=== PATIENT | male | born 1960 | race Caucasian/White ===

== ENCOUNTER → 2016-07-03 | Outpatient (CLI) | payer OTHER, MEDICARE ==
[~2016-07-03] MED LIST: AMIO200T4 PO; ASPI81TA82 PO; ATOR-24 PO; CLC100 PO; CRD200 PO; FLUT0.0529 NAE; FURO40TA3 PO; GFNSR600 PO; LDDP5 TD; LEVO25TA PO; LEVO75TA PO; LISI-461 PO; LISI-789 PO; MRLP17 NG; NYSS5 PO; PRED10TA PO; PRT40 PO; PRVIN525 INH; TPRSR50 PO; TRAM-10 PO
[2016-07-03 14:29] LABS: ESTIMATED AVERAGE GLUCOSE 137 mg/dl; HA1C FLAG Normal (Normal)
[2016-07-03 14:31] LABS: BASO % 0.1 %; BASO ABS # 0.01 K/uL (0-0.2); COMPLETE YES; EOS % 1.1 %; HEMATOCRIT 47.5 % (42-52); IG% 0.1 %; LYMPH % 32.6 %; MEAN CELL VOLUME 89.5 fL (80-100); MEAN CORPUSCULAR HEMOGLOBIN 31.1 pg (25-34); MEAN CORPUSCULAR HGB CONC 34.7 g/dl (32-36); MONO % 10.2 %; NEUT % 55.9 %; PLATELET COUNT 182 K/uL (130-400); RED BLOOD COUNT 5.31 M/uL (4.7-6.1); WHITE BLOOD COUNT 7.06 K/uL (4.8-10.8)
[2016-07-03 14:41] LABS: ALT/SGPT 48 U/L (12-78); AST/SGOT 26 U/L (15-37); BLOOD UREA NITROGEN 19 mg/dl (7-18); BUN/CREATININE RATIO 17.5 (10-20); CALCIUM 9.1 mg/dl (8.5-10.1); CARBON DIOXIDE 29 mmol/L (21-32); CHLORIDE 107 mmol/L (98-107); GLUCOSE 120 mg/dl (70-99); POTASSIUM 4.5 mmol/L (3.5-5.1); SODIUM 143 mmol/L (136-145)
[2016-07-03 14:52] LABS: ALB/GLOB RATIO 1.3 (0.9-2); ALKALINE PHOSPHATASE 39 U/L (45-117); CHOLESTEROL 105 mg/dl (0-200); HDL CHOLESTEROL 35 mg/dl; LDL CHOLESTEROL CALCULATED 58 mg/dl; TRIGLYCERIDES 61 mg/dl (0-150); VERY LOW DENSITY LIPOPROT CALC 12 mg/dl
--- NOTE | 2016-07-11 10:36 | CODING QUERY MEDICAL NECESSITY ---
SUPPORTING DIAGNOSIS NEEDED Dr. Raza, A supporting diagnosis is required for the test/procedure performed on this patient in order for us to be reimbursed by the patient's insurance. Please provide a supporting diagnosis for the following test/procedure listed below next to the test name along with your signature. *If there is no additional diagnosis for this patient that would support the following test/procedure please document that below next to the test/procedure. Test(s)/Procedure(s) that require a supporting diagnosis: * 31521 GLYCATED HEMOGLOBIN DIAGNOSIS: * [id number] PSA DIAGNOSIS: DATE OF SERVICE: 07/03/16 Provider Signature: Date: Thank you Daniel Galicia Health Information Management Once completed, please kindly fax back to [phone] For questions please call [phone]
== END | disposition home or self-care (01) ==
LOC: C.LABBC 11:22
PROVIDERS: ATTEND Internal Medicine
DX: Z72.0 Tobacco use (principal); R73.03 Prediabetes

== ENCOUNTER 2016-08-04 20:03 | Inpatient (IN) | payer OTHER, MEDICARE ==
[~2016-08-04] VITALS: Ht 170.2 cm; Wt 106.4 kg
[~2016-08-04 20:03] MED LIST changes: -AMIO200T4 PO; -ATOR-24 PO; -CLC100 PO; -CRD200 PO; +FENTANYL CITRATE 50 MCG/1 ML 20 ML AMP IV ONE; -FURO40TA3 PO; -GFNSR600 PO; -LDDP5 TD; -LEVO75TA PO; -LISI-789 PO; +MIDAZOLAM HCL 5 MG/ML 2ML VIAL IV ONE; -MRLP17 NG; -NYSS5 PO; -PRED10TA PO; -PRT40 PO; -PRVIN525 INH; +SODIUM CHLORIDE 0.9% 10ML FLUSH IV ONE; -TRAM-10 PO
[2016-08-04] MEDS ORDERED: RAPID SEQUENCE INDUCTION BAG ONE (20:05)
[2016-08-04] MEDS ORDERED: PROPOFOL IV EMULSION 10 MG/ML 20 ML VIAL IV ONE (20:05)
[2016-08-04] MEDS ORDERED: SODIUM CHLORIDE 0.9% 1000ML 1,000 ML IV STA (20:07)
[2016-08-04] MEDS ORDERED: PROPOFOL IV EMULSION 10 MG/ML 100 ML VIAL IV ONE (20:09)
[2016-08-04] MEDS ORDERED: FENTANYL 1250MCG/250ML NSS 250 ML IV SCH (20:11)
[2016-08-04] MEDS ORDERED: PROPOFOL IV EMULSION 10 MG/ML 100 ML VIAL IV STA (20:11)
[2016-08-04] MEDS ORDERED: AMIODARONE IV BOLUS / DRIP IV STA (20:11)
[2016-08-04] MEDS ORDERED: SODIUM CHLORIDE 0.9% 1000ML 1,000 ML IV SCH (20:11)
--- NOTE | 2016-08-04 20:13 | EMERGENCY ROOM VISIT NOTE ---
History Report prepared by Masoud: Candido Gill Under the Supervision of: Dr. Teresa Muhammad M.D. First contact with patient: 20:02 Chief Complaint: CARDIAC ARREST Stated Complaint: CODE ARCTIC History of Present Illness The patient is a 56 year old who presents to the Emergency Room with complaints of a sudden cardiac arrest beginning just prior to arrival. It is noted the medical command call was answered at 1955. As per EMS, the patient fell backwards at work at [facility]. They note a downtime of 22 minutes. EMS states the patient received 4 Epis, 100 mg Lidocaine, and 3 shock defibrillations. They note the patient's blood pressure is currently 106/86 and has an oxygen stat of 98% on the tube. EMS associates a wound on the back of the patient's head associated with his fall. They note they arrived to the scene approximately three minutes after the call was received. The history is limited secondary to intubation. Source of History: EMS History Limited By: intubation Onset: just prior to arrival Position: other (global) Quality: other (cardiac arrest) Timing: other (sudden) Note: Associated symptoms: wound on the back of the head. Review of Systems The HPI and ROS are limited secondary to intubation. Past Medical & Surgical Medical Problems: (1) [place]STI[place]N (acute kidney injury) (2) Arterial line in place (3) Bilateral pulmonary contusion (4) Central venous catheter in place (5) Chest tube in place (6) Heart disease (7) High anion gap metabolic acidosis (8) Hypernatremia (9) Hypertension (10) Hyponatremia (11) Lactic acidemia (12) Learning difficulty due to cognitive limitations (13) Shock liver (14) Transaminitis Family History Diabetes mellitus FH: heart disease Hypertension Social History Smoking Status: Never Smoker Alcohol Use: none Marital Status: single Occupation Status: employed Current/Historical Medications Scheduled Aspirin (Aspirin), 81 MG PO DAILY Fluticasone Propionate (Nasal) (Flonase), 2 SPRAYS SUNNY DAILY Levothyroxine Sodium (Synthroid), 25 MCG PO DAILY Lisinopril (Lisinopril), 10 MG PO DAILY Metoprolol Succinate (Metoprolol Succinate ER), 50 MG PO DAILY Allergies Coded Allergies: No Known Allergies (Verified , 09/30/13) Physical Exam Vital Signs Date Time Temp Pulse Resp B/P Pulse Ox O2 Delivery O2 Flow Rate FiO2 2/18/17 22:40 105 16 100 1817 22:38 140/87 18/17 22:35 105 17 100 1817 22:33 132/97 1817 22:30 103 16 100 18/17 22:30 36.0 18 22:28 130/81 18/17 22:25 104 16 99 18 22:23 134/85 08/04/16 22:20 103 18 100 1817 22:18 126/76 1817 22:15 102 16 100 18 22:15 36.0 08/04/16 22:13 104 16 128/76 100 08/04/16 22:09 127/74 08/04/16 22:08 103 15 75 08/04/ 22:04 103 08/04/16 22:03 108 14 138/83 80 08/04/16 21:58 97 16 123/72 93 17 21:53 100 16 121/75 93 1817 21:48 102 15 135/78 84 18/17 21:45 36.1 17 21:43 98 13 126/69 89 18/17 21:38 99 8 128/73 99 18/17 21:33 100 17 126/74 99 18/17 21:28 102 23 132/70 94 18/17 21:23 100 17 119/69 93 18/17 21:18 110 17 126/74 87 1817 21:13 98 19 115/59 99 1817 21:08 103 22 116/67 97 18/17 21:03 104 13 101/66 97 18/17 20:58 103 19 92/54 97 18/17 20:55 37.6 18/17 20:55 37.6 18/17 20:54 99/68 18/17 20:53 101 29 89 218/17 20:48 100 92/62 91 18/17 20:43 99 82/66 89 18/17 20:40 86/57 18/17 20:26 136 18/17 20:25 137 119/91 85 Ambu-Bag 2/18/17 20:18 126 2 20:15 119/91 08/04/16 20:13 136 86 08/04/16 20:08 52/41 08/04/16 20:03 37.6 08/04/16 20:03 86 Ambu-Bag 15.0 Physical Exam CONSTITUTIONAL: Intubated. Unresponsive. HEENT: Moist mucous membranes. Ett in place NECK: No meningismus, trachea is midline. CARDIOVASCULAR: Tachycardic, normal perfusion RESPIRATORY: Bilateral breath sounds with assisted ventilation. GASTROINTESTINAL: Non-tender GENITOURINARY: No flank tenderness MUSCULOSKELETAL: No gross abnormalities NEUROLOGIC: Sedated. PSYCHIATRIC: Intubated. Unable to assess SKIN: Normal for ethnicity. Medical Decision & Procedures ER Provider Diagnostic Interpretation: CT results as stated below per my review and radiologist interpretation. HEAD CT NONCONTRAST CT DOSE: 786.26 mGy.cm HISTORY: Syncope. collapse, vfib TECHNIQUE: Multiaxial CT images of the head were performed without the use of intravenous contrast. Automated exposure control was utilized for this study. Comparison: None. Findings: The paranasal sinuses and mastoid air cells are clear. The calvarium and skull base are intact. The ventricles and sulci are within normal limits. There is no mass, hematoma, midline shift, or acute infarct. Fluid within the posterior nasopharynx and posterior right nasal cavity. Mild motion artifact. Impression: No acute intracranial abnormality. Fluid within the right posterior nasal cavity and nasopharynx. Electronically signed by: Andrew Martinez M.D. 08/04/2016 8:[address] WITHOUT [address] CT DOSE: 1258.51 mGy.cm HISTORY: Syncope. collapse, vfib TECHNIQUE: Multiaxial CT images of the chest were performed without contrast. COMPARISON: None. FINDINGS: The endotracheal tube terminates 3 cm from the jose luis. Evaluation for mediastinal injury is limited due to the lack of intravenous contrast. However, there is no evidence for a mediastinal hematoma. The heart is mildly enlarged. The thoracic aorta is normal in course and caliber. There is no pericardial effusion. No pleural effusions. There is a fracture through the inferior manubrium which demonstrates 3 mm of posterior displacement. Small amount of hemorrhage posterior to the manubrium. The visualized unenhanced liver, spleen, and adrenal glands are unremarkable. Prior cholecystectomy. Right anterior chest subcutaneous emphysema. Small to moderate right anterior pneumothorax. This measures a maximal pleural gap of 1.8 cm at the right lung base. Patchy areas of consolidation within the bilateral lungs posteriorly, right greater than left. This could be due to pulmonary contusions. There may be superimposed dependent change and/or aspiration. No fractures within the thoracic spine. The bilateral first ribs appear intact. Probable fracture of the left second costochondral junction. Nondisplaced fracture within the left anterior third rib. Displaced fractures involving the right anterior second through sixth ribs. IMPRESSION: 1. Bilateral anterior rib fractures as described above, right greater than left. There is an associated small to moderate right-sided pneumothorax and right anterior chest wall subcutaneous emphysema. 2. There is also a mildly displaced manubrial fracture. 3. Patchy areas of consolidation within the bilateral lungs posteriorly favor pulmonary contusions. Superimposed atelectasis and/or aspiration could also have a similar appearance. 4. The endotracheal tube terminates 3 cm from the jose luis. 5. Findings discussed with Dr. Muhammad at 9:00 PM on 08/04/2016 Laboratory Results 08/04/16 20:20 Red Blood Count 5.19, Mean Corpuscular Volume 93.8, Mean Corpuscular Hemoglobin 30.6, Mean Corpuscular Hemoglobin Concent 32.6, Mean Platelet Volume 11.4 08/04/16 20:20 Test 08/04/16 20:20 08/04/16 20:45 08/04/16 20:50 08/04/16 22:36 White Blood Count 11.26 K/uL (4.8-10.8) Red Blood Count 5.19 M/uL (4.7-6.1) Hemoglobin 15.9 g/dL (14.0-18.0) Hematocrit 48.7 % (42-52) Mean Corpuscular Volume 93.8 fL (80-100) Mean Corpuscular Hemoglobin 30.6 pg (25-34) Mean Corpuscular Hemoglobin Concent 32.6 g/dl (32-36) Platelet Count 176 K/uL (130-400) Mean Platelet Volume 11.4 fL (7.4-10.4) RDW Standard Deviation 47.7 fL (36.4-46.3) RDW Coefficient of Variation 13.9 % (11.5-14.5) Neutrophils % (Manual) 45.4 % Lymphocytes % (Manual) 31.3 % Variant Lymphocytes % (manual) 16.1 % Monocytes % (Manual) 0.9 % Eosinophils % (Manual) 3.6 % Metamyelocytes % 0.9 % Myelocytes % 1.8 % Neutrophils # (Manual) 5.11 K/uL (1.4-6.5) Total Absolute Neutrophils 5.11 K/uL (1.4-6.5) Lymphocytes # (Manual) 3.52 K/uL (1.2-3.4) Absolute Variant Lymphocytes 1.81 K/uL Total Absolute Lymphocytes 5.34 K/uL (1.2-3.4) Monocytes # (Manual) 0.10 K/uL (0.11-0.59) Eosinophils # (Manual) 0.41 K/uL (0-0.5) Metamyelocytes # 0.10 K/uL (0-0) Myelocytes # 0.20 K/uL (0-0) Red Blood Cell Morphology Echinocytes 1+ Prothrombin Time 13.1 SECONDS (9.0-12.0) Prothromb Time International Ratio 1.2 (0.9-1.1) Activated Partial Thromboplast Time 27.5 SECONDS (21.0-31.0) Partial Thromboplastin Ratio 1.1 Anion Gap 19.0 mmol/L (3-11) Estimated GFR () 55.8 Estimated GFR (Non- 48.1 BUN/Creatinine Ratio 11.3 (10-20) Calcium Level 8.0 mg/dl (8.5-10.1) Phosphorus Level 6.2 mg/dl (2.5-4.9) Magnesium Level 2.4 mg/dl (1.8-2.4) Total Bilirubin 0.6 mg/dl (0.2-1) Direct Bilirubin 0.2 mg/dl (0-0.2) Aspartate Amino Transf (AST/SGOT) 91 U/L (15-37) Alanine Aminotransferase (ALT/SGPT) 100 U/L (12-78) Alkaline Phosphatase 46 U/L (45-117) Total Protein 6.6 gm/dl (6.4-8.2) Albumin 3.1 gm/dl (3.4-5.0) Thyroid Stimulating Hormone (TSH) 5.950 uIu/ml (0.300-4.500) Lactic Acid Level 4.7 mmol/L (0.4-2.0) Ethyl Alcohol mg/dL < 3.0 mg/dl (0-3) Bedside Troponin I 0.000 ng/ml (0-0.045) Creatine Kinase MB Ratio (0-3.0) Test 08/04/16 22:40 Labs reviewed by ED physician. Procedure Tube Thoracostomy Indication: Pneumothorax At this time, the risks of the procedure are less than the risks of NOT performing the procedure. A time out was taken and the correct patient and site identified. The patient was prepped and draped in the standard surgical fashion. 1% lidocaine without epinephrine was infused over the fifth intercostal space into the subcutaneous tissue. A 3 cm incision was made transversely in the mid axillary line over the fifth intercostal rib. Blunt dissection was done with a Naila clamp to the area of the intercostal muscles; 1 % lidocaine again was used for anesthesia in intercostal muscle and subpleural space. Blunt dissection was then done with the Naila clamps into the pleural cavity over the rib. The pleural cavity was digitally inspected to confirm that the pleural cavity had been entered. A 20 Armenian thoracostomy tube was inserted in the superior/posterior portion of the pleural space. 1-0 silk suture was used to approximate the skin above the thoracostomy tube and then used to secure the thoracostomy tube. An occlusive dressing was then placed and the thoracostomy tube was hooked to the Pleur-evac suction. The patient tolerated the procedure well without complications. A postoperative x-ray was then performed which showed the thoracostomy tube in the correct position. ECG Indication: other (following cardiac arrest) Rate (beats per minute): 126 Rhythm: sinus tachycardia Findings: nonspecific-ST abn, no ectopy, other (normal axis) ED Course 2003: Past medical records reviewed. The patient was evaluated in room B1. A complete history and physical examination was performed. 2006: Ordered Sodium Chloride 1,000 ml @ 0 mls/hr Wide Open. 2010: Ordered Fentanyl Citrate 250 ml @ 0 mls/hr Protocol IV, Propofol 1 dose Protocol IV, Sodium Chloride 1,000 ml @ 200 mls/hr IV, Amiodarone HCl 1 ea IV. 2014: Ordered Artificial Tears 1 appln OPB. 2023: As per nurse, the patient has a cardiac history and follows with ASHLIE Acevedo (Cardiology). She notes the patient had a catheterization performed a couple years ago. 2044: Ordered Amiodarone HCl/Dextrose 100 ml @ 600 mls/hr IV. 2054: Ordered Amiodarone HCl/Dextrose 200 ml @ 33.3 mls/hr IV. It is noted ASHLIE Ng (Critical Care) assisted in the chest tube placement. 2111: I spoke to ASHLIE Charles (Cardiology) about the patient's case, and he will come see the patient. 2119: Updated the patient's family at this time. 2129: Ordered Nursing Verbal Med Order 1 ea N/A. 2131: I spoke to ASHLIE Deng (Hospitalist) about the patient's case, and he will follow the patient for further evaluation. 2134: Reevaluated the patient at this time, and Dr. Pettit is at bedside. Medical Decision Differential diagnoses include but are not limited to; [place], coronary disease, dysrhythmia. 19:56 Medic call received for cardiac arrest. 20:04 56 y/o arrived to ED intubated s/p witnessed cardiac arrest at work ( [facility]). 911 called. Medic unit, by chance, happen to be next to [facility]. Vfib on their arrival. CPR initiated. Intubated. Defib x 3. Lido IV. Versed IV. Total downtime ~ 22 mins. Amiodarone IV ordered in ED. Code Arctic initiated and patient brought immediately to CT. Pneumo identified by me on CT chest. Dr. Pruitt (Thread Separator) and I placed thoracostomy tube. Family advised of likely poor prognosis despite maximal resuscitative efforts. Dr. Milligan, cardiology, came to ED: h/o non-sustained VT in past. Patient remained hemodynamically stable throughout ED course. ASHLIE Deng hospitalist, admitted patient. Consults Time Called: 2024 Consulting Physician: ASHLIE Charles (Cardiology) Returned Call: 2111 I spoke to ASHLIE Charles (Cardiology) about the patient's case, and he will come see the patient. Additional Consults: Time Called: 2129 Consulted Physician: ASHLIE Deng (Hospitalist) Returned Call: 2131 Additional Comments: I spoke to ASHLIE Deng (Hospitalist) about the patient's case, and he will follow the patient for further evaluation. Impression Primary Impression: Cardiac arrest Additional Impressions: Rib fractures Ventricular fibrillation Critical Care I have personally spent greater than 90 minutes of critical care time in the direct management of this patient. This was a life/limb threatening event. This includes time spent evaluating the patient, direct bedside care, chart review, placing orders, interpretation of diagnostic studies, discussion with consultants, patient, and family members, as well as other required patient management activities. This 90 minutes is in excess of all separately billable procedures. Scribe Attestation The scribe's documentation has been prepared under my direction and personally reviewed by me in its entirety. I confirm that the note above accurately reflects all work, treatment, procedures, and medical decision making performed by me. Departure Information Referrals Sree Raza M.D. (PCP) Patient Instructions My [facility] Problem Qualifiers
[2016-08-04] MEDS ORDERED: ARTIFICIAL TEARS OP OINT 3.5 GM TUBE OPB PRN (20:15)
[2016-08-04 20:39] LABS: HEMATOCRIT 48.7 % (42-52); MEAN CELL VOLUME 93.8 fL (80-100); MEAN CORPUSCULAR HEMOGLOBIN 30.6 pg (25-34); MEAN CORPUSCULAR HGB CONC 32.6 g/dl (32-36); MEAN PLATELET VOLUME 11.4 fL (7.4-10.4); PLATELET COUNT 176 K/uL (130-400); RED BLOOD COUNT 5.19 M/uL (4.7-6.1); WHITE BLOOD COUNT 11.26 K/uL (4.8-10.8)
[2016-08-04] MEDS ORDERED: DOPamine 400MG / 250ML D5W ONE (20:44)
[2016-08-04] MEDS ORDERED: AMIODARONE / D5W 100 ML IV SCH (20:45)
--- NOTE | 2016-08-04 20:49 | DIAGNOSTIC IMAGING REPORT ---
HEAD CT NONCONTRAST CT DOSE: 786.26 mGy.cm HISTORY: Syncope. collapse, vfib TECHNIQUE: Multiaxial CT images of the head were performed without the use of intravenous contrast. Automated exposure control was utilized for this study. Comparison: None. Findings: The paranasal sinuses and mastoid air cells are clear. The calvarium and skull base are intact. The ventricles and sulci are within normal limits. There is no mass, hematoma, midline shift, or acute infarct. Fluid within the posterior nasopharynx and posterior right nasal cavity. Mild motion artifact. Impression: No acute intracranial abnormality. Fluid within the right posterior nasal cavity and nasopharynx. Electronically signed by: Andrew Martinez M.D. 08/04/2016 8:48 PM Dictated Date/Time: 08/04/2016 8:44 PM
[2016-08-04 20:54] LABS: INR 1.2 (0.9-1.1); PARTIAL THROMBOPLASTIN RATIO 1.1; PROTHROMBIN TIME (PATIENT) 13.1 SECONDS (9.0-12.0)
[2016-08-04] MEDS ORDERED: AMIODARONE / D5W 200 ML IV SCH (20:55)
[2016-08-04 20:57] LABS: ALT/SGPT 100 U/L (12-78); BLOOD UREA NITROGEN 18 mg/dl (7-18); BUN/CREATININE RATIO 11.3 (10-20); CARBON DIOXIDE 20 mmol/L (21-32); CHLORIDE 108 mmol/L (98-107); GLUCOSE 246 mg/dl (70-99); MAGNESIUM 2.4 mg/dl (1.8-2.4); SODIUM 147 mmol/L (136-145)
--- NOTE | 2016-08-04 21:03 | DIAGNOSTIC IMAGING REPORT ---
CHEST CT WITHOUT CONTRAST CT DOSE: 1258.51 mGy.cm HISTORY: Syncope. collapse, vfib TECHNIQUE: Multiaxial CT images of the chest were performed without contrast. COMPARISON: None. FINDINGS: The endotracheal tube terminates 3 cm from the jose luis. Evaluation for mediastinal injury is limited due to the lack of intravenous contrast. However, there is no evidence for a mediastinal hematoma. The heart is mildly enlarged. The thoracic aorta is normal in course and caliber. There is no pericardial effusion. No pleural effusions. There is a fracture through the inferior manubrium which demonstrates 3 mm of posterior displacement. Small amount of hemorrhage posterior to the manubrium. The visualized unenhanced liver, spleen, and adrenal glands are unremarkable. Prior cholecystectomy. Right anterior chest subcutaneous emphysema. Small to moderate right anterior pneumothorax. This measures a maximal pleural gap of 1.8 cm at the right lung base. Patchy areas of consolidation within the bilateral lungs posteriorly, right greater than left. This could be due to pulmonary contusions. There may be superimposed dependent change and/or aspiration. No fractures within the thoracic spine. The bilateral first ribs appear intact. Probable fracture of the left second costochondral junction. Nondisplaced fracture within the left anterior third rib. Displaced fractures involving the right anterior second through sixth ribs. IMPRESSION: 1. Bilateral anterior rib fractures as described above, right greater than left. There is an associated small to moderate right-sided pneumothorax and right anterior chest wall subcutaneous emphysema. 2. There is also a mildly displaced manubrial fracture. 3. Patchy areas of consolidation within the bilateral lungs posteriorly favor pulmonary contusions. Superimposed atelectasis and/or aspiration could also have a similar appearance. 4. The endotracheal tube terminates 3 cm from the jose luis. 5. Findings were attempted to be called to the patient's physician, Dr. Muhammad, at 9:00 PM. However, Dr. Muhammad was attempting a chest tube placement. The covering nurse stated that Dr. Muhammad will read the report following the chest tube placement. Electronically signed by: Andrew Martinez M.D. 08/04/2016 10:26 PM Dictated Date/Time: 08/04/2016 8:48 PM
[2016-08-04 21:07] LABS: ALKALINE PHOSPHATASE 46 U/L (45-117); AST/SGOT 91 U/L (15-37); PHOSPHORUS 6.2 mg/dl (2.5-4.9)
[2016-08-04] MEDS ORDERED: FENTANYL CITRATE INJ 50 MCG/1 ML 2 ML VIAL ONE (21:26)
[2016-08-04] MEDS ORDERED: NURSING VERBAL MED ORDER ONE (21:30)
[2016-08-04] MEDS ORDERED: HYDROmorphone INJ 1 MG/ML SYR IV STA (21:53)
[2016-08-04 21:57] LABS: ECHINOCYTES 1+; EOSINOPHIL % 3.6 %; LYMPH ABS # 3.52 K/uL (1.2-3.4); LYMPHOCYTE % 31.3 %; METAMYELOCYTE % 0.9 %; MYELOCYTE % 1.8 %; NEUTROPHILS % 45.4 %; VARIANT LYM ABS # 1.81 K/uL; VARIANT LYMPHOCYTE % 16.1 %
--- NOTE | 2016-08-04 22:11 | DIAGNOSTIC IMAGING REPORT ---
CHEST ONE VIEW PORTABLE HISTORY: Cardiac arrest. COMPARISON: Chest CT 08/04/2016. FINDINGS: The endotracheal tube terminates approximately 3.4 cm from the jose luis. Right subclavian central venous catheter terminates in the expected location of the proximal SVC. Bilateral anterior rib fractures are better appreciated on the same day chest CT. Right upper chest tube terminates in the right medial apex. Lucency along the right heart border favors a small residual pneumothorax. Bilateral perihilar airspace opacities. The heart is mildly enlarged. Deformity within the right clavicle is likely due to an old, healed fracture. Right chest wall subcutaneous emphysema is again noted. IMPRESSION: 1. Right-sided chest tube terminates in the right lung apex. Small right pneumothorax has improved. 2. Endotracheal tube terminates 3.4 cm from the jose luis. Right subclavian central venous catheter terminates in the expected location of the SVC. 3. Bilateral perihilar airspace opacities consistent with a pulmonary contusion seen on the same day chest CT. Electronically signed by: Andrew Martinez M.D. 08/04/2016 10:10 PM Dictated Date/Time: 08/04/2016 10:05 PM
[2016-08-04] MEDS ORDERED: MIDAZOLAM 125MG/250ML D5W 250 ML IV PRN (22:15)
[2016-08-04] MEDS ORDERED: [UNRECOGNIZED DRUG - OTHER] IV STA (22:26)
[2016-08-04] MEDS ORDERED: DRIP IV STA (22:26)
[2016-08-04] MEDS ORDERED: MIDAZOLAM 125MG/250ML D5W 250 ML IV STA ×2 (22:36→22:40)
[2016-08-04] MEDS ORDERED: CISATRACURIUM IV BOLUS & DRIP IV STA (22:36)
[2016-08-04] MEDS ORDERED: FENTANYL 1250MCG/250ML NSS 250 ML IV STA (22:40)
[2016-08-04] MEDS ORDERED: BusPIRone 15 MG TAB NG PRN (22:45)
[2016-08-04] MEDS ORDERED: MEPERIDINE HCL 25 MG/ML CARP IV PRN (22:45)
[2016-08-04] MEDS ORDERED: MoRPHine SULFATE 4 MG/ML 1 ML CARP\\VIAL IV PRN (22:45)
--- NOTE | 2016-08-04 22:46 | EEG Procedure Note ---
EEG Procedure Note Date of Service Aug 04, 2016. Start / End Times Start Time: 2213 End Time: [address] Pruitt History 56 year old with Cardiac arrest, unresponsive Home Medication List Scheduled Aspirin (Aspirin), 81 MG PO DAILY Fluticasone Propionate (Nasal) (Flonase), 2 SPRAYS SUNNY DAILY Levothyroxine Sodium (Synthroid), 25 MCG PO DAILY Lisinopril (Lisinopril), 10 MG PO DAILY Metoprolol Succinate (Metoprolol Succinate ER), 50 MG PO DAILY Inpatient Medication List Current Inpatient Medications Medications (Trade) Dose Ordered Sig/Bryn Route Start Time Stop Time Status Last Admin Dose Admin Artificial Tears 1 appln 1 appln Q2H PRN OPB 08/04/16 20:15 09/03/16 20:14 Sodium Chloride 1,000 ml @ 200 mls/hr Q5H IV 08/04/16 20:11 09/03/16 20:10 Fentanyl Citrate 250 ml @ 0 mls/hr Q0M IV 08/04/16 20:11 08/18/16 20:10 Amiodarone HCL/ Dextrose (Nexterone / D5w) 200 ml @ 33.3 mls/hr Q6H1M IV 08/04/16 20:55 08/05/16 03:00 Description This is a 21 electrode EEG with a single channel dedicated to limited EKG. The electrodes were placed in accordance with the International 10-20 system. Interpretation The predominant background activity consists of a very low amplitude(10 microvolts) 6 Hz activity, diffusely, with occipital head regions being 30 microvolts in amplitude. A considerable amount of muscle tension and electrode/ electrical artifact was present, hindering interpretation many times throughout the recording. There was no photic stimulation on this intubated patient, done in the ER. There were no specific focal abnormalities and no potentially epileptogenic discharges. Overall this study was abnormal and has suppressed background activity (but clearly not flat) signifying a severe generalized encephalopathy such as could be seen post cardiac arrest Clinical Correlation This study is consistent with a severe encephalopathy, such as is seen post arrest. It carries a relatively poor prognosis, but clinical correlation is required. No subclinical seizure activity was noted
--- NOTE | 2016-08-04 22:55 | Procedure Note ---
Procedure Note Procedure Date Aug 04, 2016. Central Line Procedure time out: side/site verified, patient ID confirmed, sterile procedure used Consent obtained: emergent consent implied Time of procedure: 21:30 Performed by: attending Indications: central drug admin., CVP monitoring Prep: chlorhexadine prep Anesthesia: lidocaine 1% without epi (2 ml) Volume anesthetic (ml's): 3 Central line lumen: triple Central line location: subclavian (R) Additional details: Selinger technique used, line sutured, good blood return CXR: appropriate position, no pneumothorax Complications: none Patient tolerated procedure: well Comments: Prior known right-sided pneumothorax status post CPR
[2016-08-04 23:06] LABS: URINE APPEARANCE CLOUDY (CLEAR); URINE BILIRUBIN NEG (NEG); URINE COLOR YELLOW; URINE NITRITE NEG (NEG); URINE SPECIFIC GRAVITY 1.015 (1.000-1.030); UROBILINOGEN NEG (NEG)
[2016-08-04] MEDS ORDERED: POTASSIUM CHLR 20 MEQ / WTR 20 MEQ in PREMIXED WATER 100 ML IV STA (23:23)
[2016-08-04] MEDS ORDERED: INSULIN IV INFUSION PROTOCOL STA (23:23)
--- NOTE | 2016-08-04 23:27 | Critical Care Consultation ---
Critical Care Consultation Date of Consultation: Aug 04, 2016. Attending Physician: Wero Woodard Reason for Consultation: Ventricular fibrillation, cardiac arrest, prolonged down time of CPR greater than 20 minutes, therapeutic hypothermia History of Present Illness History is obtained from prior records as well as the EMS service. Patient is a 56-year-old male with a previous medical history of nonsustained ventricular tachycardia. His reported history that the patient was seen by Drs. Rod within the last year, I do not have access to all scripts to confirm this. Cardiology reports the patient has a history of depressed EF. The patient was at work at [employer] when the patient reportedly fell backwards, within 2 minutes of the 911 call EMS was on the scene as they were obtaining their dinner at the store next door. There was no reported bystander CPR, the patient received a total of 4 mg of epinephrine, 100 mg of lidocaine for ventricular fibrillation, and 3 defibrillations. Upon arrival in the emergency department that a blood pressure of 106/86 and oxygen saturation of 98%. While in the ED the patient has remained hemodynamically stable. He is not responded neurologically. Should be noted the EMS unit utilized a automated CPR device, on CT scan of the chest patient was noted to have a right-sided pneumothorax. Past Medical/Surgical History #1 history of nonsustained ventricular tachycardia #2 depressed EF Family History Diabetes mellitus FH: heart disease Hypertension Social History Per family the patient was never , does not have any children, his medical decision maker would be his mother Pam, cell phone [phone] Family reports the patient has a learning disability Smoking Status: Unknown if Ever Smoked Marital Status: single Occupation Status: employed Allergies Coded Allergies: No Known Allergies (Verified , 09/30/13) Home Medications Scheduled Aspirin (Aspirin), 81 MG PO DAILY Fluticasone Propionate (Nasal) (Flonase), 2 SPRAYS SUNNY DAILY Levothyroxine Sodium (Synthroid), 25 MCG PO DAILY Lisinopril (Lisinopril), 10 MG PO DAILY Metoprolol Succinate (Metoprolol Succinate ER), 50 MG PO DAILY Current Inpatient Medications Current Inpatient Medications Medications (Trade) Dose Ordered Sig/Bryn Route Start Time Stop Time Status Last Admin Dose Admin Artificial Tears 1 appln 1 appln Q2H PRN OPB 08/04/16 20:15 09/03/16 20:14 Sodium Chloride 1,000 ml @ 200 mls/hr Q5H IV 08/04/16 20:11 09/03/16 20:10 Fentanyl Citrate 250 ml @ 0 mls/hr Q0M IV 08/04/16 20:11 08/18/16 20:10 Amiodarone HCL/ Dextrose 200 ml @ 33.3 mls/hr Q6H1M IV 08/04/16 20:55 08/05/16 03:00 Midazolam HCl (Midazolam 125MG/ 250ML D5w) 250 ml @ 0 mls/hr Q0M PRN IV 08/04/16 22:15 09/03/16 22:14 Levothyroxine Sodium (Synthroid Tab) 25 mcg DAILY PO 08/05/16 09:00 09/04/16 08:59 UNV Non-Formulary Medication (Aspirin ) 81 mg DAILY PO 08/05/16 09:00 09/04/16 08:59 UNV Vecuronium [place] (Vecuronium IV Bolus & Drip) 1 ea NOW STAT IV 08/04/16 22:26 08/04/16 22:27 UNV Acetaminophen 650 mg 650 mg Q4H PRN PO 08/04/16 22:45 09/03/16 22:44 UNV Pantoprazole Sodium/Syringe (Protonix Inj/ Syringe) 10 ml @ 5 mls/min DAILY IV 08/05/16 09:00 09/04/16 08:59 UNV Morphine Sulfate 4 mg 4 mg Q2H PRN IV 08/04/16 22:45 08/18/16 22:44 UNV Potassium Chloride 20 meq/ Prmx 100 ml @ 50 mls/hr NOW STAT IV 08/04/16 22:49 08/05/16 00:48 UNV Potassium Chloride/Prmx (Kcl 20 Meq / Wtr/Premixed Water) 100 ml @ 50 mls/hr ONE ONCE IV 08/04/16 23:50 08/05/16 01:49 UNV Review of Systems Unable to obtain secondary to patient condition Physical Exam Date Time Temp Pulse Resp B/P Pulse Ox O2 Delivery O2 Flow Rate FiO2 08/04/16 22:45 103 13 100 08/04/16 22:45 36.0 08/04/16 22:43 118/79 08/04/16 22:40 105 16 100 08/04/16 22:38 140/87 2/18/17 22:35 105 17 100 2/18/17 22:33 132/97 2/18/17 22:30 103 16 100 2/18/17 22:30 36.0 2/18/17 22:28 130/81 2/18/17 22:25 104 16 99 2/18/17 22:23 134/85 2/18/17 22:20 103 18 100 2/18/17 22:18 126/76 2/18/17 22:15 102 16 100 2/18/17 22:15 36.0 2/18/17 22:13 104 16 128/76 100 2/18/17 22:09 127/74 2/18/17 22:08 103 15 75 2/18/17 22:04 103 2/18/17 22:03 108 14 138/83 80 2/18/17 21:58 97 16 123/72 93 2/18/17 21:53 100 16 121/75 93 2/18/17 21:48 102 15 135/78 84 2/18/17 21:45 36.1 2/18/17 21:43 98 13 126/69 89 2/18/17 21:38 99 8 128/73 99 2/18/17 21:33 100 17 126/74 99 2/18/17 21:28 102 23 132/70 94 2/18/17 21:23 100 17 119/69 93 2/18/17 21:18 110 17 126/74 87 2/18/17 21:13 98 19 115/59 99 2/18/17 21:08 103 22 116/67 97 2/18/17 21:03 104 13 101/66 97 2/18/17 20:58 103 19 92/54 97 2/18/17 20:55 37.6 2/18/17 20:55 37.6 2/18/17 20:54 99/68 2/18/17 20:53 101 29 89 2/18/17 20:48 100 92/62 91 2/18/17 20:43 99 82/66 89 2/18/17 20:40 86/57 2/18/17 20:26 136 2/18/17 20:25 137 119/91 85 Ambu-Bag 2/18/17 20:18 126 2/18/17 20:15 119/91 2/18/17 20:13 136 86 08/04/16 20:08 52/41 08/04/16 20:03 37.6 08/04/16 20:03 86 Ambu-Bag 15.0 General: Intubated male well-nourished HEENT: Normocephalic Cardiovascular: S1-S2 regular rate and rhythm Pulmonary: Decreased breath sounds on right side scattered rhonchi bilaterally Chest: Palpable rib fractures on the right anterior chest Abdomen: Obese, no obvious hepatosplenomegaly : Normal external male genitalia Extremities 2+ pulses in all 4 extremities SKIN: Cool, no rash Neuro: Starting to localize to pain, GCS 6T Laboratory Results Last 24 Hours Test 08/04/16 20:07 08/04/16 20:20 08/04/16 20:45 08/04/16 20:50 White Blood Count 11.26 K/uL Red Blood Count 5.19 M/uL Hemoglobin 15.9 g/dL Hematocrit 48.7 % Mean Corpuscular Volume 93.8 fL Mean Corpuscular Hemoglobin 30.6 pg Mean Corpuscular Hemoglobin Concent 32.6 g/dl Platelet Count 176 K/uL Mean Platelet Volume 11.4 fL RDW Standard Deviation 47.7 fL RDW Coefficient of Variation 13.9 % Neutrophils % (Manual) 45.4 % Lymphocytes % (Manual) 31.3 % Variant Lymphocytes % (manual) 16.1 % Monocytes % (Manual) 0.9 % Eosinophils % (Manual) 3.6 % Metamyelocytes % 0.9 % Myelocytes % 1.8 % Neutrophils # (Manual) 5.11 K/uL Total Absolute Neutrophils 5.11 K/uL Lymphocytes # (Manual) 3.52 K/uL Absolute Variant Lymphocytes 1.81 K/uL Total Absolute Lymphocytes 5.34 K/uL Monocytes # (Manual) 0.10 K/uL Eosinophils # (Manual) 0.41 K/uL Metamyelocytes # 0.10 K/uL Myelocytes # 0.20 K/uL Red Blood Cell Morphology Echinocytes 1+ Prothrombin Time 13.1 SECONDS Prothromb Time International Ratio 1.2 Activated Partial Thromboplast Time 27.5 SECONDS Partial Thromboplastin Ratio 1.1 Sodium Level 147 mmol/L Potassium Level 3.0 mmol/L Chloride Level 108 mmol/L Carbon Dioxide Level 20 mmol/L Anion Gap 19.0 mmol/L Blood Urea Nitrogen 18 mg/dl Creatinine 1.60 mg/dl Estimated GFR () 55.8 Estimated GFR (Non- 48.1 BUN/Creatinine Ratio 11.3 Random Glucose 246 mg/dl Calcium Level 8.0 mg/dl Phosphorus Level 6.2 mg/dl Magnesium Level 2.4 mg/dl Total Bilirubin 0.6 mg/dl Direct Bilirubin 0.2 mg/dl Aspartate Amino Transf (AST/SGOT) 91 U/L Alanine Aminotransferase (ALT/SGPT) 100 U/L Alkaline Phosphatase 46 U/L Troponin I < 0.015 ng/ml Total Protein 6.6 gm/dl Albumin 3.1 gm/dl Thyroid Stimulating Hormone (TSH) 5.950 uIu/ml Lactic Acid Level 4.7 mmol/L Ethyl Alcohol mg/dL < 3.0 mg/dl Bedside Troponin I 0.000 ng/ml Test 08/04/16 22:36 08/04/16 22:43 Creatine Kinase MB Ratio Diagnostic Results EEG report: Description This is a 21 electrode EEG with a single channel dedicated to limited EKG. The electrodes were placed in accordance with the International 10-20 system. Interpretation The predominant background activity consists of a very low amplitude(10 microvolts) 6 Hz activity, diffusely, with occipital head regions being 30 microvolts in amplitude. A considerable amount of muscle tension and electrode/ electrical artifact was present, hindering interpretation many times throughout the recording. There was no photic stimulation on this intubated patient, done in the ER. There were no specific focal abnormalities and no potentially epileptogenic discharges. Overall this study was abnormal and has suppressed background activity (but clearly not flat) signifying a severe generalized encephalopathy such as could be seen post cardiac arrest Clinical Correlation This study is consistent with a severe encephalopathy, such as is seen post arrest. It carries a relatively poor prognosis, but clinical correlation is required. No subclinical seizure activity was noted CHEST ONE VIEW PORTABLE HISTORY: Cardiac arrest. COMPARISON: Chest CT 08/04/2016. FINDINGS: The endotracheal tube terminates approximately 3.4 cm from the jose luis. Right subclavian central venous catheter terminates in the expected location of the proximal SVC. Bilateral anterior rib fractures are better appreciated on the same day chest CT. Right upper chest tube terminates in the right medial apex. Lucency along the right heart border favors a small residual pneumothorax. Bilateral perihilar airspace opacities. The heart is mildly enlarged. Deformity within the right clavicle is likely due to an old, healed fracture. Right chest wall subcutaneous emphysema is again noted. IMPRESSION: 1. Right-sided chest tube terminates in the right lung apex. Small right pneumothorax has improved. 2. Endotracheal tube terminates 3.4 cm from the jose luis. Right subclavian central venous catheter terminates in the expected location of the SVC. 3. Bilateral perihilar airspace opacities consistent with a pulmonary contusion seen on the same day chest CT. Electronically signed by: Andrew Martinez M.D. 08/04/2016 10:10 PM Dictated Date/Time: 08/04/2016 10:[address] WITHOUT [address] CT DOSE: 1258.51 mGy.cm HISTORY: Syncope. collapse, vfib TECHNIQUE: Multiaxial CT images of the chest were performed without contrast. COMPARISON: None. FINDINGS: The endotracheal tube terminates 3 cm from the jose luis. Evaluation for mediastinal injury is limited due to the lack of intravenous contrast. However, there is no evidence for a mediastinal hematoma. The heart is mildly enlarged. The thoracic aorta is normal in course and caliber. There is no pericardial effusion. No pleural effusions. There is a fracture through the inferior manubrium which demonstrates 3 mm of posterior displacement. Small amount of hemorrhage posterior to the manubrium. The visualized unenhanced liver, spleen, and adrenal glands are unremarkable. Prior cholecystectomy. Right anterior chest subcutaneous emphysema. Small to moderate right anterior pneumothorax. This measures a maximal pleural gap of 1.8 cm at the right lung base. Patchy areas of consolidation within the bilateral lungs posteriorly, right greater than left. This could be due to pulmonary contusions. There may be superimposed dependent change and/or aspiration. No fractures within the thoracic spine. The bilateral first ribs appear intact. Probable fracture of the left second costochondral junction. Nondisplaced fracture within the left anterior third rib. Displaced fractures involving the right anterior second through sixth ribs. IMPRESSION: 1. Bilateral anterior rib fractures as described above, right greater than left. There is an associated small to moderate right-sided pneumothorax and right anterior chest wall subcutaneous emphysema. 2. There is also a mildly displaced manubrial fracture. 3. Patchy areas of consolidation within the bilateral lungs posteriorly favor pulmonary contusions. Superimposed atelectasis and/or aspiration could also have a similar appearance. 4. The endotracheal tube terminates 3 cm from the jose luis. 5. Findings were attempted to be called to the patient's physician, Dr. Muhammad, at 9:00 PM. However, Dr. Muhammad was attempting a chest tube placement. The covering nurse stated that Dr. Muhammad will read the report following the chest tube placement. Electronically signed by: Andrew Martinez M.D. 08/04/2016 10:26 PM Dictated Date/Time: 08/04/2016 8:[address] NON[address]AST CT DOSE: 786.26 mGy.cm HISTORY: Syncope. collapse, vfib TECHNIQUE: Multiaxial CT images of the head were performed without the use of intravenous contrast. Automated exposure control was utilized for this study. Comparison: None. Findings: The paranasal sinuses and mastoid air cells are clear. The calvarium and skull base are intact. The ventricles and sulci are within normal limits. There is no mass, hematoma, midline shift, or acute infarct. Fluid within the posterior nasopharynx and posterior right nasal cavity. Mild motion artifact. Impression: No acute intracranial abnormality. Fluid within the right posterior nasal cavity and nasopharynx. Electronically signed by: Andrew Martinez M.D. 08/04/2016 8:48 PM Dictated Date/Time: 08/04/2016 8:44 PM Assessment & Plan (1) Cardiac arrest (2) Ventricular fibrillation (3) Hypernatremia (4) Hyponatremia (5) SEBASTIÁN (acute kidney injury) (6) High anion gap metabolic acidosis (7) Lactic acidemia (8) Transaminitis (9) Shock liver (10) Bilateral pulmonary contusion (11) Chest tube in place (12) Central venous catheter in place (13) Arterial line in place (14) Learning difficulty due to cognitive limitations (15) Rib fractures (16) Hypertension (17) Heart disease Neuro: Acute encephalopathy EEG completed Will require follow-up status post therapeutic hypothermia Cardiovascular: Cardiac arrest Will switch to leave a fed from dopamine for decrease incidence of cardiac arrhythmia Ventricular fibrillation Amiodarone infusion Respiratory Bilateral pulmonary contusions secondary to CPR Mechanical ventilation Right pneumothorax Chest tube to suction -15 cm of water Bilateral lower lobe infiltrates Possible aspiration pneumonitis versus atelectasis Gastroenterology: - OG tube in place low intermittent suction - Stress ulcer prophylaxis /Electrolytes Hypokalemia repletion during cooling face Lactic acidosis Likely secondary to prolonged CPR Hyperphosphatemia In setting of SEBASTIÁN Hypocalcemia Acute kidney injury, nonoliguric acute renal failure Likely will be secondary to ATN Infectious Disease: Watch for signs of infection while cooling Heme/Onc: DVT prophylaxis, and SCDs Type and screen sent Endocrine: Hyperglycemia - Insulin infusion Lines: 08/04/2016 right subclavian line 08/04/2016 right arterial line CODE STATUS: Full code Surrogate decision makers the patient's mother Pam Frias cell phone: Additional number to reach family is his brother Dima Frias, phone [phone] I have personally spent 85 minutes of critical care time in the direct management of this patient. This is a life/limb threatening event. This includes time spent evaluating patient, direct bedside care, chart review, placing orders, interpretation of diagnostic studies, discussion with consultants, patient, and family members, as well as other required patient management activities. This time is exclusive of all separately billable procedures, and teaching time and separate from and in addition to any other critical care service time.
[2016-08-04] MEDS ORDERED: INSULIN PROTOCOL GOAL RANGE ONE (23:30)
[2016-08-04] MEDS ORDERED: MODERATE STRESS LEVEL ONE (23:30)
[2016-08-04] MEDS ORDERED: CISATRACURIUM BESYLATE IV ONE (23:30)
[2016-08-04] MEDS ORDERED: GLUCOSE 10 TABS/TUBE PO PRN (23:45)
[2016-08-04] MEDS ORDERED: GLUCAGON FOR INJ 1 MG VIAL SQ PRN (23:45)
[2016-08-04] MEDS ORDERED: GLUCOSE 40% GEL 15 GM TUBE PO PRN (23:45)
[2016-08-04 23:46] LABS: MANUAL MICROSCOPIC REQUIRED? NO; REVIEW REQ? YES
[2016-08-04 23:47] LABS: URINE PATH CASTS 5-10 GRANULAR CASTS /lpf (0)
[2016-08-05] VITALS (47 sets, daily range): BP systolic 80–128; BP diastolic 50–80; PULSE 43–90; TEMP 31.8–36.5; O2SAT 91–100; Ht 170.2 cm; Wt 106.4 kg
[2016-08-05] MEDS ORDERED: INSULIN HUMAN REGULAR IV BOLUS 3 UNIT in SYRINGE 0 ML IV SCH
[2016-08-05] MEDS ORDERED: LIDOCAINE HCL 1% 20 ML VIAL ONE (00:09)
--- NOTE | 2016-08-05 00:09 | CARDIOLOGY CONSULTATION ---
DATE OF CONSULTATION: 08/04/2016 CONSULTING PHYSICIAN: Dr. Muhammad and Dr. Pruitt. REASON FOR CONSULTATION: V-fib arrest. PRIMARY JOURNAL BOX INSPECTOR: Dr. Rod. HISTORY OF PRESENT ILLNESS: Mr. Frias is a 56-year-old gentleman with history significant for nonischemic cardiomyopathy, paroxysmal ventricular tachycardia, mitral regurgitation, and sleep apnea. He presented to [facility] earlier this evening after he witnessed V-fib arrest. He works at [employer] and while working, he collapsed and fell to the floor. He was completely unconscious. Fortunately, there were EMS providers nearby and they were on the scene within 3 minutes providing CPR. They were available in the ER and reported that when they found him he was unconscious. They had the times recorded at 3 minutes and were providing chest compressions. They found that the rhythm was ventricular fibrillation and they provided 3 defibrillations. After each defibrillation, they regained sinus rhythm. Unfortunately, V-fib once again recurred. After the third defibrillation, they bolused him with lidocaine 100 mg. From then on they were able to maintain sinus rhythm. He was intubated and brought to the Emergency Department. He was found to have several rib fractures and a pneumothorax on the right, presumably from chest compressions. Dr. Pruitt placed a chest tube on the right. He remained intubated. He was starting to have some movements and therefore was sedated as he was already being cooled per the hypothermia protocol as per Dr. Pruitt. Central venous access was also obtained while in the ER. A stat bedside echo was performed. His LV systolic function was severely reduced. There appeared to be global hypokinesis. There was non-severe mitral regurgitation, which appeared to be mild to moderate. There was no aortic stenosis and no significant pericardial effusion was noted. The patient himself is unable to provide any history as he is sedated on mechanical ventilation. He had several family members in the room including his mother with whom he lives with. Several of his brothers were also present and their spouses. They state that for the past week or two, he has had cold-like symptoms with aching all over. He did have some chest tightness apparently earlier today which he attributed to frequent coughing. They did not notice any shortness of breath. He has not had any syncope and did not complain of any palpitations. There was no reported fevers and no bleeding issues. They deny any complaints of edema. REVIEW OF SYSTEMS: As above and review of systems otherwise unobtainable due to patient's mental status. PAST MEDICAL HISTORY: 1. Nonischemic cardiomyopathy with cardiac catheter[place] May of [place] at [facility] coronary arteries. 2. Mitral regurgitation. 3. Paroxysmal ventricular tachycardia. 4. Hypothyroidism. 5. Learning disability. 6. Sleep apnea, on CPAP at bedtime. HOME MEDICATIONS: Include lisinopril 10 mg daily, metoprolol succinate 50 mg daily, aspirin 81 mg daily, levothyroxine 25 mcg daily. INPATIENT MEDICATIONS: Include fentanyl and Versed, Synthroid 25 mcg daily, and dopamine. ALLERGIES: No known drug allergies. SOCIAL HISTORY: No smoking, alcohol or drug abuse. He is not . No children. He lives with his mother. 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 FAMILY HISTORY: There is a reported family history of coronary artery disease. PHYSICAL EXAMINATION: VITAL SIGNS: Temperature 36 degrees, heart rate 104 beats per minute, respiration rate 16, blood pressure 128/76 mmHg, oxygen saturation 100% on mechanical ventilation. GENERAL: No acute distress. He is sedated and on mechanical ventilation. HEENT: Anicteric sclerae. Pupils are nondilated. NECK: Thick. There is a central venous line near the right neck. The left carotid pulse was 2+. Normal carotid upstroke. CARDIAC: PMI was nonpalpable. There was no ventricular heave. Regular. Normal S1, S2. No audible murmurs, rubs or gallops. LUNGS: Left lung grayson were clear. There were some coarse sounds on the right. ABDOMEN: Soft, nondistended, normoactive bowel sounds, no bruits. EXTREMITIES: No cyanosis or edema. 2+ radial pulses bilaterally. 2+ dorsalis pedis pulses bilaterally. No palpable cords. PSYCHIATRIC: Could not be evaluated as the patient was sedated. Outpatient records reviewed. Stat bedside echo personally performed and reviewed. LV systolic function appears severely reduced. [id number] mitral regurgitation. No aortic stenosis. Overall global hypokinesis of the left ventricular wall segments. No pericardial effusion. LABORATORY DATA: White blood cell count is 11.26, hemoglobin 15.9, platelets 176. Sodium 147, potassium 3, BUN 18, creatinine 1.6, lactic acid 4.7, magnesium 2.4, AST 91, ALT 100. Troponin undetectable. Albumin 3.1, TSH 5.95. INR is 1.2. CT of the chest report reviewed. Bilateral anterior rib fractures, right greater than left. [id number] right-sided pneumothorax with anterior chest wall subcutaneous emphysema. Patchy areas of consolidation within the bilateral lungs; pulmonary contusions per radiology. Head CT report reviewed. No acute intracranial abnormality. Out of hospital telemetry strip reviewed. Ventricular fibrillation noted. ECG personally reviewed while hospitalized. Sinus tachycardia. No ST elevations. ASSESSMENT AND PLAN: 1. Ventricular fibrillation cardiac arrest: Could be secondary to underlying cardiomyopathy. Recommend amiodarone infusion. He is undergoing the hypothermic protocol as per the critical care team. Echocardiogram demonstrates severely reduced left ventricular systolic function, which could also be the mechanism of his ventricular fibrillation arrest. If he has reasonable neurologic recovery, would consider ICD prior to discharge home. We would attempt to wean off dopamine if able. If blood pressure allows, we would resume beta gracia therapy as well. Also replete potassium as appropriate. 2. Cardiomyopathy: He has reported nonischemic cardiomyopathy. Plan as above. Restart beta gracia in the form of metoprolol succinate when able. We would then also restart SONAL inhibitor or Entresto when able. He appears euvolemic. Use caution with fluid administration. ICD as above. 3. History of paroxysmal ventricular tachycardia: Likely secondary to cardiomyopathy. Plan as above. 4. Hypokalemia: Recommend supplementation as appropriate. Monitor electrolytes very carefully while on hypothermia protocol. This will be left to the discretion of the critical care team. 5. Mitral regurgitation: Non-severe. Would not likely be the cause of his presentation. This is also a chronic issue according to the records. 6. Disposition: Critically ill. Long discussion with his mother, brothers and other family members present. Plan of care has also been discussed with Dr. Fu of the hospitalist service as well as Dr. Pruitt of the critical care team. Cardiology will continue to follow along. 90 minutes critical care time spent including counseling family, answering questions, coordinating care, and reviewing images, chart, and discussing with EMS team. Thank you for allowing me to participate in care of Mr. Frias.\E\ MTDD
[2016-08-05] MEDS ORDERED: INSULIN ASPART 100 UNITS/ML 3 ML PEN SC SCH (00:15)
[2016-08-05] MEDS ORDERED: NSS + 20MEQ KCL 1000ML 1,000 ML IV SCH (00:15)
--- NOTE | 2016-08-05 00:23 | HISTORY & PHYSICAL EXAMINATION ---
DATE OF ADMISSION: 08/04/2016 REASON FOR ADMISSION: Post-V fibrillation arrest. HISTORY OF PRESENT ILLNESS: This is a 56-year-old male with a history of nonischemic cardiomyopathy. The patient was working at [employer] when he collapsed on the floor. He did not have a pulse and CPR was started and the EMS service was called. The patient received 22 minutes of chest compressions, 3 doses of epinephrine and a dose of lidocaine and was shocked 3 times throughout the resuscitation process. He was evaluated in the Emergency Department by the medical claims specialist and placed on amiodarone. He was also placed on a hypothermia protocol and subsequently evaluated by the older worker specialist. The patient's vital signs did stabilize initially with pressor support. He was exhibiting movement of all 4 extremities and breathing over the vent following resuscitation. An echocardiogram was performed in the Emergency Department revealing an EF of approximately 25% with global hypokinesis. The patient is currently being transferred to the intensive care unit for further management. He is unable to provide any information as he is sedated and intubated at the time of admission. While receiving CPR, the patient sustained multiple anterior rib fractures and manubrial fracture in addition to a right-sided pneumothorax and pneumomediastinum. He had a chest tube placed on arrival to the Emergency Department. PAST MEDICAL HISTORY: 1. Nonischemic cardiomyopathy, ejection fraction was listed at 30% as long ago as 2004. The more recent echo on record was performed in 2012 and showed an EF of 35%. The EF in the Emergency Department at the time of admission was closer to 25%. 2. Hypothyroidism. 3. Hypertension. HOME MEDICATIONS: Include the followin. Lisinopril 10 mg daily. 2. Toprol-XL 50 mg daily. 3. Levothyroxine 25 mcg daily. 4. Aspirin 81 mg daily. SOCIAL HISTORY: The patient per records is a lifetime nonsmoker and does not drink alcohol. Works at [employer]. FAMILY HISTORY: Positive for diabetes and hypertension. REVIEW OF SYSTEMS: Could not be obtained from this patient. Please see the HPI. PHYSICAL EXAMINATION: GENERAL: This is an overweight middle-aged male. He is sedated and intubated. He is also receiving a paralytic due to the hypothermic protocol and is therefore unresponsive. HEENT: Head and neck atraumatic, normocephalic. Pupils are constricted and poorly responsive, but equal. NECK: JVD examination is limited by habitus. HEART: S1, S2, faint heart sounds. There may be a slight systolic murmur. LUNGS: Poor effort and exam is obscured by vent noises. No clearly audible wheezing. ABDOMEN: Slightly distended, but soft. Bowel sounds are hyperactive. EXTREMITIES: No clubbing, cyanosis, or edema. Pulses are weak, but present. NEUROLOGIC: Deferred due to the use of sedatives and paralytics. The patient was reported to move all 4 extremities. DERMATOLOGIC: Examination of the skin is negative for rashes or ulcers. LABORATORY DATA: White count is 11.2, hemoglobin 15.9, platelets 176. Sodium 147, potassium 3.0, chloride 108, CO2 of 20, BUN 18, creatinine 1.6 and glucose 246. AST 91, ALT 100, alkaline phosphatase 46. POC troponin is 0, actual troponin is pending. TSH is slightly elevated. The EKG now shows a sinus rhythm with a prolonged QT. There are PVCs occasionally. The rate is [address] of the chest; bilateral anterior rib fractures, right-sided pneumothorax and right anterior chest wall subcutaneous emphysema, mildly displaced manubrial fracture, patchy areas of consolidation within the lungs favoring pulmonary contusions. Aspiration cannot be ruled out, endotracheal tube terminates 3 cm from the jose luis. ASSESSMENT AND PLAN: This is a 56-year-old male with a history of cardiomyopathy, hypertension, and hypothyroidism. He collapsed at work and required CPR for ventricular fibrillation arrest. He was resuscitated for a total of 22 minutes and is currently sedated, intubated and on a hypothermia protocol. He was evaluated by the medical claims specialist and the older worker specialist while in the ER. He sustained multiple rib fractures and a manubrial fracture in addition to a right-sided pneumothorax and has a chest tube in place. He is admitted with the followin. Ventricular fibrillation arrest. We will continue amiodarone per instruction of the medical claims specialist. He has been transferred to the intensive care unit on a hypothermic protocol. The patient is not currently requiring pressor support, but is sedated with some midazolam, fentanyl and receiving a paralytic due to the induced hypothermia. 2. Lab abnormalities include mild LFT elevation, acute kidney injury. These are likely due to hypoperfusion, will be trended. He does have some hypokalemia on initial labs and will be provided with potassium and magnesium. 3. Hypothyroidism. We will continue Synthroid. 4. Pneumothorax, chest tube is in place and will be managed by the older worker specialist. 5. Hyperglycemia is noted on labs as well. We will place him on a sliding scale while in the intensive care unit. 6. Hypertension. Antihypertensives have currently been held, as he was requiring pressor support initially. Total time for this admit including chart review, discussion with the older worker specialist and medical claims specialist, review of labs, imaging, and EKG including critical care time 70 minutes. The patient will be placed on SCDs for prophylaxis due to his pneumothorax and multiple contusions. He is a full code. MTDD
[2016-08-05] MEDS: CISATRACURIUM BESYLATE INJ 40 MG in SODIUM CHLORIDE 0.9% 100ML 80 ML IV PRN ×4 (00:49→21:58)
[2016-08-05] MEDS: NORMOSOL R 1,000 ML IV SCH ×3 (00:57→23:52)
[2016-08-05] MEDS ORDERED: AMPICILLIN/SULBACTAM CONSULT ACTIVE PRN ×2 (01:00)
[2016-08-05] MEDS ORDERED: AMIODARONE / D5W 200 ML IV SCH (01:00)
[2016-08-05] MEDS: FENTANYL 1250MCG/250ML NSS 250 ML IV SCH ×3 (01:11→19:23)
[2016-08-05] MEDS: AMPICILLIN/SULBACTAM SOD INJ 3,000 MG in SODIUM CHLORIDE 0.9% 100ML 100 ML IV SCH ×5 (01:21→23:52)
[2016-08-05] MEDS ORDERED: NURSING VERBAL MED ORDER ONE ×3 (01:30→17:15)
[2016-08-05] MEDS ORDERED: SODIUM CHLORIDE 0.9% 1000ML 1,000 ML IV SCH (01:45)
[2016-08-05] MEDS: NOREPINEPHRINE BIT INJ 8 MG in DEXTROSE 5% 500ML 500 ML IV PRN ×5 (02:04→20:13)
[2016-08-05] MEDS ORDERED: POTASSIUM CHLR 20 MEQ / WTR 20 MEQ in PREMIXED WATER 100 ML IV ONE (02:45)
[2016-08-05 04:06] LABS: ISTAT ARTERIAL BLOOD GAS HCO3 18 meq/L (19-24); ISTAT ARTERIAL BLOOD GAS PCO2 41 mmHg (35-46); ISTAT ARTERIAL BLOOD GAS PO2 119 mmHg (80-95); ISTAT ARTERIAL BLOOD GAS pH 7.26 (7.35-7.45); ISTAT CARBON DIOXIDE 19 mEq/l (24-31); ISTAT DELIVERY SYSTEM Ventilator; ISTAT FIO2 60 %; ISTAT PEEP 10; ISTAT RATE 18; ISTAT SITE Art Line; Vt 500
[2016-08-05 04:20] LABS: BASO % 0.1 %; BASO ABS # 0.01 K/uL (0-0.2); COMPLETE YES; EOS % 0.1 %; HEMATOCRIT 44.2 % (42-52); IG% 0.5 %; LYMPH % 6.5 %; LYMPH ABS # 1.06 K/uL (1.2-3.4); MEAN CELL VOLUME 90.6 fL (80-100); MEAN CORPUSCULAR HEMOGLOBIN 30.3 pg (25-34); MEAN CORPUSCULAR HGB CONC 33.5 g/dl (32-36); MEAN PLATELET VOLUME 10.9 fL (7.4-10.4); NEUT % 83.8 %; PLATELET COUNT 225 K/uL (130-400); RED BLOOD COUNT 4.88 M/uL (4.7-6.1); WHITE BLOOD COUNT 16.38 K/uL (4.8-10.8)
[2016-08-05 04:32] LABS: INR 1.2 (0.9-1.1); PARTIAL THROMBOPLASTIN RATIO 1.1; PROTHROMBIN TIME (PATIENT) 13.3 SECONDS (9.0-12.0)
[2016-08-05 04:47] LABS: BUN/CREATININE RATIO 14.5 (10-20); CALCIUM 7.5 mg/dl (8.5-10.1); CREATININE 1.7 mg/dl (0.60-1.40); PHOSPHORUS 1.8 mg/dl (2.5-4.9); POTASSIUM 5.6 mmol/L (3.5-5.1)
[2016-08-05] MEDS: INSULIN REGULAR 250 UNITS in SODIUM CHLORIDE 0.9% 250ML 250 ML IV SCH ×2 (05:19→11:06)
[2016-08-05] MEDS: AMIODARONE / D5W 200 ML IV SCH ×2 (06:24→17:54)
--- NOTE | 2016-08-05 07:09 | DIAGNOSTIC IMAGING REPORT ---
CHEST ONE VIEW PORTABLE CLINICAL HISTORY: intubation COMPARISON STUDY: 08/04/2016 FINDINGS: Endotracheal tube 3.8 cm above the jose luis. Lungs are clear. Diaphragms smooth. Catheter overlying the right pulmonary apex. No significant pneumothorax. IMPRESSION: Lungs remain clear. Endotracheal tube 3.8 cm above the jose luis. Electronically signed by: Grupo Mulligan M.D. 08/05/2016 7:07 AM Dictated Date/Time: 08/05/2016 7:06 AM
[2016-08-05 07:31] LABS: CKMB/CK RATIO 1.1 (0-3.0)
[2016-08-05] MEDS ORDERED: SODIUM PHOSPHATE 3 MMOL/1 ML INFUSION IV STA (07:45)
[2016-08-05] MEDS: INSULIN ASPART 100 UNITS/ML 3 ML PEN SC SCH ×4 (08:00→20:46)
[2016-08-05 08:15] LABS: HEMATOCRIT 45.2 % (42-52); MEAN CELL VOLUME 91.1 fL (80-100); MEAN CORPUSCULAR HEMOGLOBIN 30.8 pg (25-34); MEAN CORPUSCULAR HGB CONC 33.8 g/dl (32-36); MEAN PLATELET VOLUME 10.9 fL (7.4-10.4); PLATELET COUNT 224 K/uL (130-400); RED BLOOD COUNT 4.96 M/uL (4.7-6.1); WHITE BLOOD COUNT 16.35 K/uL (4.8-10.8)
[2016-08-05 08:25] LABS: INR 1.3 (0.9-1.1); PARTIAL THROMBOPLASTIN RATIO 1.1; PROTHROMBIN TIME (PATIENT) 13.8 SECONDS (9.0-12.0)
[2016-08-05 08:44] LABS: BUN/CREATININE RATIO 14.1 (10-20); CALCIUM 7.3 mg/dl (8.5-10.1); CREATININE 1.9 mg/dl (0.60-1.40); MAGNESIUM 2.1 mg/dl (1.8-2.4); POTASSIUM 4.8 mmol/L (3.5-5.1)
[2016-08-05 08:45] LABS: PHOSPHORUS 2.3 mg/dl (2.5-4.9)
[2016-08-05 08:53] LABS: BETA-HYDROXYBUTYRATE 1.66 mg/dL (0.2-2.81)
[2016-08-05 08:58] LABS: BASO % 0.1 %; BASO ABS # 0.01 K/uL (0-0.2); COMPLETE YES; ECHINOCYTES 1+; IG% 0.8 %; LYMPH ABS # 0.98 K/uL (1.2-3.4); MONO % 6.4 %; NEUT % 86.7 %
[2016-08-05] MEDS ORDERED: PANTOprazole INJ 40 MG in SYRINGE 0 ML IV SCH (09:00)
[2016-08-05] MEDS ORDERED: LEVOTHYROXINE 25 MCG TAB PO SCH (09:00)
[2016-08-05] MEDS: PANTOprazole INJ 40 MG in SYRINGE 0 ML IV SCH (09:15)
--- NOTE | 2016-08-05 09:39 | Procedure Note ---
Procedure Note Procedure Date Aug 04, 2016. Procedure Description Procedure Name: Left radial arterial line Procedure time out: side/site verified, patient ID confirmed, correct procedure Consent obtained: emergent consent implied Performed by: attending Indications: diagnostic Contraindications: none Description: Anesthesia: 1 mL of 1% lidocaine without epinephrine Procedure: The left radial artery was identified via ultrasound, dynamic guidance was utilized. A 20-gauge radial artery catheter was inserted by a modified Seldinger technique into the left radial artery. Patient tolerated the procedure well, trace blood loss Complications: none Patient tolerated procedure: well Post-procedure vital signs: reviewed and stable
[2016-08-05] MEDS ORDERED: SODIUM PHOSPHATE INJ 15 MMOL in SODIUM CHLORIDE 0.9% 250ML 250 ML IV SCH (10:00)
--- NOTE | 2016-08-05 10:11 | Critical Care Progress Note ---
Critical Care Progress Note Date of Service Aug 05, 2016. ICU Day ICU Day Number: [address] Pruitt Subjective Patient intubated sedated on name Backes undergoing hypothermia protocol Objective General: Intubated male well-nourished HEENT: Normocephalic Cardiovascular: S1-S2 regular rate and rhythm Pulmonary: scattered rhonchi bilaterally chest tube present in right asked Chest: Palpable rib fractures on the right anterior chest Abdomen: Obese, no obvious hepatosplenomegaly : Normal external male genitalia Extremities 2+ pulses in all 4 extremities SKIN: Cool, no rash Neuro: BIS less than 60, neuromuscular blockade with cisatracurium Assessment & Plan (1) Cardiac arrest (2) Ventricular fibrillation (3) Hypernatremia (4) Hyponatremia (5) [place] (acute kidney injury) (6) High anion gap metabolic acidosis (7) Lactic acidemia (8) Transaminitis (9) Shock liver (10) Bilateral pulmonary contusion (11) Chest tube in place (12) Central venous catheter in place (13) Arterial line in place (14) Learning difficulty due to cognitive limitations (15) Rib fractures (16) Hypertension (17) Heart disease Neuro: Acute encephalopathy EEG completed Will require follow-up status post therapeutic hypothermia Neuromuscular blockade with Nimbex - At goal temp, we will hold at this time Cardiovascular: Cardiac arrest - Decreasing Levophed Ventricular fibrillation Amiodarone infusion Hypothermia protocol the low 36 at 0600 on 08/05/2016 -There is literature suggesting more liberal goal targeted temperature, we 'll consider hypothermia starting at 0600 when he dropped below 36 - Will start rewarming at 0600 08/05/2016 Respiratory Bilateral pulmonary contusions secondary to CPR - No obvious evidence on chest x-ray today, still may have Eveline of contusion during rewarming phase Right pneumothorax Placed to waterseal today, minimal output, no air leak Bilateral lower lobe infiltrates Adequate oxygenation, continue to monitor Gastroenterology: - OG tube in place low intermittent suction - Stress ulcer prophylaxis /Electrolytes Hypokalemia Resolved, no more potassium-containing fluids as we approach rewarming phase Lactic acidosis Likely secondary to prolonged CPR Hyperphosphatemia Resolved now having mild hypophosphatemia. Minimally out of range we will hold on repletion at this time given electrolyte shifts Hypocalcemia - Check ionized calcium, Acute kidney injury, nonoliguric acute renal failure - Likely will be secondary to ATN - Continue to monitor, at risk for volume overload with depressed EF and poor renal function Infectious Disease: Watch for signs of infection while cooling - On Unasyn secondary to aspiration Heme/Onc: DVT prophylaxis - SCDs off at this point given difficulties getting typical temperature Endocrine: Hyperglycemia - Insulin infusion Hypothyroidism - T4 within normal range - Very small daily dose, will hold while cooling. Lines: 08/04/2016 right subclavian line 08/04/2016 Left arterial line CODE STATUS: Full code Surrogate decision makers the patient's mother Pam Frias cell phone: Additional number to reach family is his brother Dima Frias, phone [phone] I have personally spent 85 minutes of critical care time in the direct management of this patient. This is a life/limb threatening event. This includes time spent evaluating patient, direct bedside care, chart review, placing orders, interpretation of diagnostic studies, discussion with consultants, patient, and family members, as well as other required patient management activities. This time is exclusive of all separately billable procedures, and teaching time and separate from and in addition to any other critical care service time. Data Medications: Current Inpatient Medications Medications (Trade) Dose Ordered Sig/Bryn Route Start Time Stop Time Status Last Admin Dose Admin Aspirin (Aspirin Chew) 81 mg DAILY NG 08/05/16 09:00 09/04/16 08:59 Acetaminophen (Tylenol Soln) 650 mg Q4H PRN NG 08/04/16 22:45 09/03/16 22:44 Morphine Sulfate (MoRPHine SULFATE INJ) 4 mg Q2H PRN IV 08/04/16 22:45 08/18/16 22:44 Artificial Tears 1 appln 1 appln Q2H PRN OPB 08/04/16 22:45 09/03/16 22:44 Pantoprazole Sodium 40 mg/ Syringe 10 ml @ 5 mls/min DAILY@11 IV 08/05/16 11:00 09/04/16 10:59 08/05/16 09:15 5 MLS/MIN Fentanyl Citrate (Fentanyl Drip 1250MCG/250 Nss) 250 ml @ 0 mls/hr Q0M IV 08/04/16 22:36 08/18/16 22:35 08/05/16 06:58 20 MLS/HR Buspirone HCl (BusPAR TAB) 60 mg ONE PRN NG 08/04/16 22:45 09/03/16 22:44 Meperidine HCl 25 mg 25 mg Q2H PRN IV 08/04/16 22:45 08/18/16 22:44 Norepinephrine Bitartrate 8 mg/ Dextrose 508 ml @ 0 mls/hr Q0M PRN IV 08/04/16 22:36 09/03/16 22:35 08/05/16 09:13 211 MLS/HR Cisatracurium Besylate/Sodium Chloride (Nimbex INJ/Nss 100ml) 100 ml @ 0 mls/hr Q0M PRN IV 08/04/16 23:30 09/03/16 23:29 08/05/16 05:13 23.5 MLS/HR Insulin Aspart SLIDING SCALE PCHS SC 08/05/16 08:00 09/04/16 07:59 Parenteral Electrolyte Solution 1,000 ml @ 125 mls/hr Q8H IV 08/04/16 23:30 09/03/16 23:29 08/05/16 09:17 125 MLS/HR Insulin Human Regular/Sodium Chloride (novoLIN-R/Nss 250ml) 252.5 ml @ 0 mls/hr DAILY@1130 IV 08/05/16 00:00 09/04/16 00:00 08/05/16 05:19 3 MLS/HR Glucose (Glucose 40% Gel) UD PRN PO 08/04/16 23:45 09/03/16 23:44 Glucose (Glucose Chew Tab) 1 tabs UD PRN PO 08/04/16 23:45 09/03/16 23:44 Dextrose (Dextrose 50% 50ML Syringe) 50 ml UD PRN IV 08/04/16 23:45 09/03/16 23:44 Glucagon 1 mg 1 mg UD PRN SQ 08/04/16 23:45 09/03/16 23:44 Ampicillin Sodium/ Sulbactam Sodium/ Sodium Chloride (Unasyn Inj/Nss 100ml) 108 ml @ 200 mls/hr Q6@0000,0600,1200,1800 IV 08/05/16 01:00 08/12/16 00:59 08/05/16 06:18 200 MLS/HR Ampicillin Sodium/ Sulbactam Sodium 1 ea 1 ea UD PRN N/A 08/05/16 01:00 09/04/16 00:59 Amiodarone HCL/ Dextrose (Nexterone / D5w) 200 ml @ 16.7 mls/hr [id number] IV 08/05/16 07:00 09/04/16 06:59 08/05/16 06:24 16.7 MLS/HR Sodium Phosphate (Sodium Phosphate Replacement) 15 mmol NOW STAT IV 08/05/16 07:45 08/05/16 07:46 UNV I & O: 24-Hour Column 08/05/16 07:59 Intake Total 1160 ml Output Total 355 ml Balance 805 ml Vital Signs: Date Time Temp Pulse Resp B/P Pulse Ox O2 Delivery O2 Flow Rate FiO2 08/05/16 08:30 40 08/05/16 07:00 35.2 60 18 97/62 98 Mechanical Ventilator 40 08/05/16 06:50 35.7 62 18 94/64 98 Mechanical Ventilator 40 08/05/16 06:30 35.7 65 18 100/65 97 Mechanical Ventilator 40 08/05/16 06:15 35.8 62 18 92/65 97 Mechanical Ventilator 40 08/05/16 06:02 35.9 64 18 93/61 98 Mechanical Ventilator 40 08/05/16 06:00 35.9 64 18 93/61 98 Mechanical Ventilator 40 08/05/16 05:55 40 08/05/16 05:45 36.0 68 18 94/68 100 Mechanical Ventilator 40 08/05/16 05:30 36.2 63 18 91/68 100 Mechanical Ventilator 40 08/05/16 05:15 36.3 67 18 84/63 100 Mechanical Ventilator 40 08/05/16 05:00 36.5 68 18 91/62 100 Mechanical Ventilator 40 08/05/16 05:00 36.5 68 18 89/66 100 Mechanical Ventilator 40 08/05/16 04:45 36.5 68 18 91/62 100 Mechanical Ventilator 40 08/05/16 04:30 36.5 68 18 91/60 100 Mechanical Ventilator 40 08/05/16 04:18 40 08/05/16 04:15 36.5 70 18 90/64 100 Mechanical Ventilator 40 08/05/16 04:00 36.5 72 18 83/61 100 Mechanical Ventilator 40 08/05/16 04:00 100 Mechanical Ventilator 60 08/05/16 04:00 40 08/05/16 04:00 36.5 72 18 86/59 100 Mechanical Ventilator 60 08/05/16 03:45 36.5 74 18 84/58 100 Mechanical Ventilator 60 08/05/16 03:34 60 08/05/16 03:30 36.5 75 18 85/59 100 Mechanical Ventilator 60 08/05/16 03:15 36.5 77 18 87/60 100 Mechanical Ventilator 60 08/05/16 03:00 36.5 79 18 86/65 100 Mechanical Ventilator 60 08/05/16 02:45 36.5 79 18 95/64 100 Mechanical Ventilator 60 08/05/16 02:30 36.5 80 18 90/64 100 Mechanical Ventilator 60 08/05/16 02:15 36.4 82 18 93/62 100 Mechanical Ventilator 60 08/05/16 02:00 36.4 84 18 84/54 100 Mechanical Ventilator 60 08/05/16 02:00 36.4 89 18 81/58 100 Mechanical Ventilator 60 08/05/16 01:45 36.3 83 18 87/62 100 Mechanical Ventilator 60 08/05/16 01:30 36.3 85 18 88/63 100 Mechanical Ventilator 60 08/05/16 01:15 36.3 89 16 97/58 100 Mechanical Ventilator 60 08/05/16 01:00 36.1 88 16 101/58 100 Mechanical Ventilator 60 08/05/16 01:00 36.0 89 16 101/58 100 Mechanical Ventilator 60 08/05/16 00:53 36.2 89 16 122/67 100 Mechanical Ventilator 60 08/05/16 00:45 36.1 87 18 103/53 100 Mechanical Ventilator 60 08/05/16 00:45 36.1 89 16 128/71 100 Mechanical Ventilator 60 08/05/16 00:45 60 08/05/16 00:30 36.1 89 16 99/58 100 Mechanical Ventilator 60 08/05/16 00:30 36.1 89 16 128/71 100 Mechanical Ventilator 60 08/05/16 00:15 36.1 90 16 105/61 100 Mechanical Ventilator 60 08/05/16 00:15 36.1 90 16 105/61 100 Mechanical Ventilator 60 08/05/16 00:12 60 08/05/16 00:00 36.2 89 16 122/67 100 Mechanical Ventilator 60 08/05/16 00:00 60 2/19/17 00:00 36.0 89 16 122/67 100 Mechanical Ventilator 15.0 100 18/17 23:40 97 12 120/73 100 Mechanical Ventilator 100 18/17 23:35 35.2 96 12 120/73 100 Mechanical Ventilator 100 218/17 23:30 35.2 2/18/17 23:30 96 12 117/69 100 Mechanical Ventilator 100 18/17 23:30 95 12 100 18/17 23:28 117/69 218/17 23:25 97 12 100 218/17 23:23 120/74 218/17 23:20 98 12 100 18/17 23:18 115/76 218/17 23:15 98 13 100 18/17 23:13 111/65 18/17 23:10 99 12 100 18/17 23:08 114/68 18/17 23:05 101 12 100 18/17 23:03 115/71 08/04/17 23:00 104 13 96 18/17 22:59 126/76 218/17 22:55 102 13 98 18/17 22:54 100 18/17 22:53 142/76 218/17 22:50 103 15 100 18/17 22:45 103 13 100 18/17 22:45 36.0 218/17 22:43 118/79 218/17 22:40 105 16 100 18/17 22:38 140/87 218/17 22:35 105 17 100 218/17 22:33 132/97 218/17 22:30 103 16 100 2/18/17 22:30 36.0 2/18/17 22:28 130/81 218/17 22:25 104 16 99 218/17 22:23 134/85 218/17 22:20 103 18 100 2/18/17 22:18 126/76 218/17 22:15 102 16 100 2/18/17 22:15 36.0 2/18/17 22:13 104 16 128/76 100 218/17 22:09 127/74 218/17 22:08 103 15 75 2/18/17 22:04 103 2/18/17 22:03 108 14 138/83 80 08/04/16 21:58 97 16 123/72 93 08/04/16 21:53 100 16 121/75 93 08/04/16 21:48 102 15 135/78 84 17 21:45 36.1 08/04/16 21:43 98 13 126/69 89 08/04/16 21:38 99 8 128/73 99 08/04/16 21:33 100 17 126/74 99 08/04/16 21:28 102 23 132/70 94 08/04/16 21:23 100 17 119/69 93 08/04/16 21:18 110 17 126/74 87 08/04/16 21:13 98 19 115/59 99 08/04/16 21:08 103 22 116/67 97 08/04/16 21:03 104 13 101/66 97 08/04/16 20:58 103 19 92/54 97 08/04/16 20:55 37.6 08/04/16 20:55 37.6 08/04/16 20:54 99/68 08/04/16 20:53 101 29 89 08/04/16 20:48 100 92/62 91 08/04/16 20:43 99 82/66 89 08/04/16 20:40 86/57 08/04/16 20:26 136 08/04/16 20:25 137 119/91 85 Ambu-Bag 08/04/16 20:18 126 08/04/16 20:15 119/91 08/04/16 20:13 136 86 08/04/16 20:08 52/41 08/04/16 20:03 37.6 08/04/16 20:03 86 Ambu-Bag 15.0 Laboratory Results: Last 24 Hours Test 08/04/16 20:20 08/04/16 20:45 08/04/16 20:50 08/04/16 22:36 White Blood Count 11.26 K/uL Red Blood Count 5.19 M/uL Hemoglobin 15.9 g/dL Hematocrit 48.7 % Mean Corpuscular Volume 93.8 fL Mean Corpuscular Hemoglobin 30.6 pg Mean Corpuscular Hemoglobin Concent 32.6 g/dl Platelet Count 176 K/uL Mean Platelet Volume 11.4 fL RDW Standard Deviation 47.7 fL RDW Coefficient of Variation 13.9 % Neutrophils % (Manual) 45.4 % Lymphocytes % (Manual) 31.3 % Variant Lymphocytes % (manual) 16.1 % Monocytes % (Manual) 0.9 % Eosinophils % (Manual) 3.6 % Metamyelocytes % 0.9 % Myelocytes % 1.8 % Neutrophils # (Manual) 5.11 K/uL Total Absolute Neutrophils 5.11 K/uL Lymphocytes # (Manual) 3.52 K/uL Absolute Variant Lymphocytes 1.81 K/uL Total Absolute Lymphocytes 5.34 K/uL Monocytes # (Manual) 0.10 K/uL Eosinophils # (Manual) 0.41 K/uL Metamyelocytes # 0.10 K/uL Myelocytes # 0.20 K/uL Red Blood Cell Morphology Echinocytes 1+ Prothrombin Time 13.1 SECONDS Prothromb Time International Ratio 1.2 Activated Partial Thromboplast Time 27.5 SECONDS Partial Thromboplastin Ratio 1.1 Sodium Level 147 mmol/L Potassium Level 3.0 mmol/L Chloride Level 108 mmol/L Carbon Dioxide Level 20 mmol/L Anion Gap 19.0 mmol/L Blood Urea Nitrogen 18 mg/dl Creatinine 1.60 mg/dl Estimated GFR () 55.8 Estimated GFR (Non- 48.1 BUN/Creatinine Ratio 11.3 Random Glucose 246 mg/dl Calcium Level 8.0 mg/dl Phosphorus Level 6.2 mg/dl Magnesium Level 2.4 mg/dl Total Bilirubin 0.6 mg/dl Direct Bilirubin 0.2 mg/dl Aspartate Amino Transf (AST/SGOT) 91 U/L Alanine Aminotransferase (ALT/SGPT) 100 U/L Alkaline Phosphatase 46 U/L Troponin I < 0.015 ng/ml Total Protein 6.6 gm/dl Albumin 3.1 gm/dl Thyroid Stimulating Hormone (TSH) 5.950 uIu/ml Lactic Acid Level 4.7 mmol/L Ethyl Alcohol mg/dL < 3.0 mg/dl Bedside Troponin I 0.000 ng/ml Creatine Kinase MB Ratio Test 08/04/16 22:40 08/04/16 23:25 08/05/16 00:03 08/05/16 03:53 Urine Color YELLOW Urine Appearance CLOUDY Urine pH 5.0 Urine Specific [place] 1.015 Urine Protein 2+ Urine Glucose (UA) TRACE Urine Ketones NEG Urine Occult Blood 3+ Urine Nitrite NEG Urine Bilirubin NEG Urine Urobilinogen NEG Urine Leukocyte Esterase NEG Urine WBC (Auto) >30 /hpf Urine RBC (Auto) 5-10 /hpf Urine Hyaline Casts (Auto) 5-10 /lpf Urine Epithelial Cells (Auto) 5-10 /lpf Urine Bacteria (Auto) NEG Urine Pathogenic Casts 5-10 GRANULAR CASTS /lpf Urine Yeast (Auto) Creatine Kinase MB 5.1 ng/ml Troponin I 0.155 ng/ml Thyroxine (T4) 8.9 mcg/dl Bedside Glucose 181 mg/dl Blood Gas Sample Site Art Line Bedside Blood Gas pH (LAB) 7.26 Bedside Blood Gas pCO2 (LAB) 41 mmHg Bedside Blood Gas pO2 (LAB) 119 mmHg Bedside Blood Gas HCO3 (LAB) 18 meq/L Bedside Blood Gas Total CO2 19 mEq/l Bedside Blood Gas Base Excess (LAB) -9.0 meq/L Bedside Blood Gas O2 Saturation 98.0 % Miguel Test NA Oxygen Delivery Device Ventilator Bedside Oxygen Rate (breaths/min) 18 Blood Gas Minute Ventilation 9.0 Bedside FiO2 60 % Blood Gas Tidal Volume 500 Blood Gas PEEP 10 Test 08/05/16 04:10 08/05/16 04:11 08/05/16 05:16 08/05/16 06:05 White Blood Count 16.38 K/uL Red Blood Count 4.88 M/uL Hemoglobin 14.8 g/dL Hematocrit 44.2 % Mean Corpuscular Volume 90.6 fL Mean Corpuscular Hemoglobin 30.3 pg Mean Corpuscular Hemoglobin Concent 33.5 g/dl Platelet Count 225 K/uL Mean Platelet Volume 10.9 fL Neutrophils (%) (Auto) 83.8 % Lymphocytes (%) (Auto) 6.5 % Monocytes (%) (Auto) 9.0 % Eosinophils (%) (Auto) 0.1 % Basophils (%) (Auto) 0.1 % Neutrophils # (Auto) 13.74 K/uL Lymphocytes # (Auto) 1.06 K/uL Monocytes # (Auto) 1.47 K/uL Eosinophils # (Auto) 0.01 K/uL Basophils # (Auto) 0.01 K/uL RDW Standard Deviation 45.5 fL RDW Coefficient of Variation 13.8 % Immature Granulocyte % (Auto) 0.5 % Immature Granulocyte # (Auto) 0.09 K/uL Prothrombin Time 13.3 SECONDS Prothromb Time International Ratio 1.2 Activated Partial Thromboplast Time 27.3 SECONDS Partial Thromboplastin Ratio 1.1 Sodium Level 143 mmol/L Potassium Level 5.6 mmol/L Chloride Level 114 mmol/L Carbon Dioxide Level 18 mmol/L Anion Gap 11.0 mmol/L Blood Urea Nitrogen 25 mg/dl Creatinine 1.70 mg/dl Est Creatinine Clear Calc Drug Dose 61.6 ml/min Estimated GFR () 51.8 Estimated GFR (Non- 44.7 BUN/Creatinine Ratio 14.5 Random Glucose 249 mg/dl Calcium Level 7.5 mg/dl Phosphorus Level 1.8 mg/dl Magnesium Level 2.0 mg/dl Total Bilirubin 0.7 mg/dl Direct Bilirubin 0.3 mg/dl Aspartate Amino Transf (AST/SGOT) 79 U/L Alanine Aminotransferase (ALT/SGPT) 109 U/L Alkaline Phosphatase 36 U/L Total Protein 6.0 gm/dl Albumin 2.9 gm/dl Bedside Glucose 153 mg/dl 310 mg/dl Bedside Glucose (other) 366 mg/dl Test 08/05/16 06:33 08/05/16 07:04 08/05/16 07:55 08/05/16 07:59 Total Creatine Kinase 418 U/L Creatine Kinase MB 4.7 ng/ml Creatine Kinase MB Ratio 1.1 Troponin I 0.211 ng/ml Bedside Glucose (other) 358 mg/dl 350 mg/dl White Blood Count 16.35 K/uL Red Blood Count 4.96 M/uL Hemoglobin 15.3 g/dL Hematocrit 45.2 % Mean Corpuscular Volume 91.1 fL Mean Corpuscular Hemoglobin 30.8 pg Mean Corpuscular Hemoglobin Concent 33.8 g/dl Platelet Count 224 K/uL Mean Platelet Volume 10.9 fL Neutrophils (%) (Auto) 86.7 % Lymphocytes (%) (Auto) 6.0 % Monocytes (%) (Auto) 6.4 % Eosinophils (%) (Auto) 0.0 % Basophils (%) (Auto) 0.1 % Neutrophils # (Auto) 14.18 K/uL Lymphocytes # (Auto) 0.98 K/uL Monocytes # (Auto) 1.05 K/uL Eosinophils # (Auto) 0.00 K/uL Basophils # (Auto) 0.01 K/uL RDW Standard Deviation 46.3 fL RDW Coefficient of Variation 13.9 % Immature Granulocyte % (Auto) 0.8 % Immature Granulocyte # (Auto) 0.13 K/uL Nucleated RBC Absolute Count (auto) 0.02 K/uL Nucleated Red Blood Cells % 0.1 % Echinocytes 1+ Prothrombin Time 13.8 SECONDS Prothromb Time International Ratio 1.3 Activated Partial Thromboplast Time 29.2 SECONDS Partial Thromboplastin Ratio 1.1 Sodium Level 139 mmol/L Potassium Level 4.8 mmol/L Chloride Level 110 mmol/L Carbon Dioxide Level 17 mmol/L Anion Gap 12.0 mmol/L Blood Urea Nitrogen 27 mg/dl Creatinine 1.90 mg/dl Est Creatinine Clear Calc Drug Dose 55.1 ml/min Estimated GFR () 45.3 Estimated GFR (Non- 39.1 BUN/Creatinine Ratio 14.1 Random Glucose 339 mg/dl Calcium Level 7.3 mg/dl Phosphorus Level 2.3 mg/dl Magnesium Level 2.1 mg/dl Beta-Hydroxybutyric Acid 1.66 mg/dL Test 08/05/16 08:58 Bedside Glucose (other) 337 mg/dl
--- NOTE | 2016-08-05 10:31 | CARDIOLOGY PROGRESS NOTE ---
DATE: 08/05/2016 DATE: 08/05/2016. TIME: 10:03 a.m. SUBJECTIVE: He continues to be on the hypothermia protocol. No ventricular arrhythmias overnight. He did have a very short run of atrial arrhythmia. He has been started on Levophed and is currently receiving cooled normal saline in an attempt to further reach target temperature. No significant overnight events per nursing staff. OBJECTIVE: VITAL SIGNS: Temperature is 35.2 degrees, heart rate 60 beats per minute, respiration rate 18, blood pressure listed as 97/62 mmHg; however, while I was in the room the arterial line systolic blood pressure was greater than 110 and mostly between 110 to 120, oxygen saturation 98% on mechanical ventilator, FIO2 of 0.4, weight 112.7 kg. GENERAL: No acute distress. He is sedated. NECK: Thick. CARDIAC EXAMINATION: No ventricular heave, regular, normal S1, S2, 2/6 holosystolic murmur best heard at the left sternal border. No rubs or gallops. LUNGS: Clear to anterior auscultation bilaterally. ABDOMEN: Soft, nondistended. Hypoactive bowel sounds. No bruits. EXTREMITIES: No lower extremity edema. No cyanosis. 2+ right radial pulse. 1+ dorsalis pedis pulses bilaterally. No palpable cords. PSYCHIATRIC: Cannot be evaluated. MEDICATIONS: Amiodarone drip per protocol, ampicillin/sulbactam 3 grams IV q. 6 hours, aspirin 81 mg daily, cisatracurium fentanyl drip, norepinephrine 0.5 mcg per kilogram per minute IV, Protonix 40 mg IV daily. LABORATORY DATA: White blood cell count 16.35, hemoglobin 15.3, platelets 224. Sodium 139, potassium 4.8, BUN 27, creatinine 1.9, magnesium 2.1. INR is 1.3. Blood cultures are pending. ECG personally reviewed. Sinus rhythm, 60 beats per minute. QT prolongation with a QTC of approximately 520 milliseconds when annually evaluated, anterior T-wave abnormality. Telemetry personally reviewed as noted above. ASSESSMENT AND PLAN: 1. Ventricular fibrillations/cardiac arrest: Continue amiodarone. Monitor QT interval. QT interval will likely continue to prolong especially with hypothermic protocol. Monitor for bradycardia while on amiodarone and hypochromia. After he is rewarmed, mental status can be evaluated and if appropriate, consideration for ICD. Monitor electrolytes closely and replete as appropriate. 2. Prolonged QT: Likely secondary to hypothermia. Amiodarone could also play a role. Monitor was routine ECGs. 3. Cardiomyopathy: He has been diagnosed with a nonischemic cardiomyopathy. Continue typical cardiomyopathy type medications such as beta gracia and his outpatient SONAL inhibitor, but these are being held secondary to the need for pressor support. These can be reinitiated when appropriate. He does not appear significantly hypervolemic at this time; however, would be cautious with fluid administration. 4. Mitral regurgitation: Nonsevere. This can be followed over time. This is a chronic issue. 5. Hypokalemia: Potassium supplementation was given. His potassium has normalized. Monitor closely for hyperkalemia once the rewarming phase begins. He to be followed by the critical care team. 6. Disposition: Plan of care has been discussed with nursing staff and Dr. Pruitt of the critical care team. Dr. Rod, his primary school bus inspector, will resume his cardiology care tomorrow.
[2016-08-05] MEDS: ASPIRIN 81 MG CHEW NG SCH (11:07)
[2016-08-05 12:02] LABS: BASO % 0.1 %; BASO ABS # 0.01 K/uL (0-0.2); COMPLETE YES; HEMATOCRIT 44.6 % (42-52); IG% 0.7 %; LYMPH % 7.9 %; LYMPH ABS # 1.08 K/uL (1.2-3.4); MEAN CELL VOLUME 89.2 fL (80-100); MEAN CORPUSCULAR HEMOGLOBIN 30.4 pg (25-34); MEAN CORPUSCULAR HGB CONC 34.1 g/dl (32-36); MEAN PLATELET VOLUME 10.5 fL (7.4-10.4); MONO % 4.8 %; NEUT % 86.5 %; PLATELET COUNT 186 K/uL (130-400); WHITE BLOOD COUNT 13.68 K/uL (4.8-10.8)
[2016-08-05 12:14] LABS: INR 1.3 (0.9-1.1); PARTIAL THROMBOPLASTIN RATIO 1.1
[2016-08-05 12:33] LABS: BUN/CREATININE RATIO 13.7 (10-20); CALCIUM 7.2 mg/dl (8.5-10.1); MAGNESIUM 2.1 mg/dl (1.8-2.4); PHOSPHORUS 2.7 mg/dl (2.5-4.9); POTASSIUM 3.9 mmol/L (3.5-5.1)
--- NOTE | 2016-08-05 13:30 | ECHOCARDIOGRAM REPORT ---
*NOTICE TO RECEIVING [employer] This information is strictly Confidential and protected under [place] law. [place] law prohibits you from making any further disclosure of this information unless further disclosure is expressly permitted by the written consent of the person to whom it pertains or is authorized by law. A general authorization for the release of medical or other information is not sufficient for this purpose. Hospital accepts no responsibility if the information is made available to any other person, INCLUDING THE PATIENT. Interpretation Summary * Name: DIANNA HWANG Study Date: 08/04/2016 09:50 PM BP: 97/62 mmHg * Patient Location: [facility] HR: 100 * : 1960 (M/d/yyyy) Gender: Other Height: 67 in * Age: 56 yrs Weight: 264 lb * Ordering Physician: Aubrey Pettit MD * Referring Physician: Aubrey Pettit MD * Performed By: ROSALINDA * * Reason For Study: V-Fib * BSA: 2.3 m2 * -- Conclusions -- * 1. Mildly dilated left ventricle with moderately to severely reduced systolic function. EF 30-35%. Global hypokinesis. No significant left ventricular hypertrophy. * 2. Mildly dilated right ventricle with normal systolic function. * 3. Mild biatrial dilation. * 4. Mild to moderate mitral regurgitation. * 5. Technically difficult study. * 6. No prior study available for comparison. Procedure Details * A complete two-dimensional transthoracic echocardiogram was performed (2D, M-mode, Doppler and color flow Doppler). Left Ventricle * Mildly dilated left ventricle with moderately to severely reduced systolic function. EF 30-35%. Global hypokinesis. No significant left ventricular hypertrophy. Right Ventricle * Mildly dilated right ventricle with normal systolic function. Atria * The left atrium is mildly dilated. * Right atrial size is normal. Mitral Valve * The mitral valve leaflets appear normal. There is no evidence of stenosis, fluttering, or prolapse. * There is no mitral valve stenosis. * There is mild to moderate mitral regurgitation. Tricuspid Valve * The tricuspid valve is not well visualized. * There is no tricuspid stenosis. * There is trace tricuspid regurgitation. Aortic Valve * The aortic valve is not well visualized. * No hemodynamically significant valvular aortic stenosis. * There is no significant aortic regurgitation. Pulmonic Valve * The pulmonic valve is not well visualized. Great Vessels * The aortic root is normal size. Pericardium/Pleural * There is no pericardial effusion. Great Vessels * IVC normal in size. MMode 2D Measurements and Calculations LVIDd 5.8 cm LVIDs 4.8 cm LVPWd 0.78 cm FS 16.2 % EDV(Teich) 163.4 ml ESV(Teich) 108.5 ml EF(Teich) 33.6 % EDV(cubed) 190.3 ml ESV(cubed) 111.9 ml EF(cubed) 41.2 % SV(Teich) 54.9 ml SI(Teich) 24.1 ml/m\S\2 SV(cubed) 78.4 ml SI(cubed) 34.4 ml/m\S\2 Ao root diam 2.9 cm Ao root area 6.8 cm\S\2 LA dimension 3.6 cm LA/Ao 1.2 LVAd ap4 46.6 cm\S\2 LVLd ap4 8.8 cm EDV(MOD-sp4) 205.2 ml EDV(sp4-el) 210.5 ml LVAs ap4 35.8 cm\S\2 LVLs ap4 7.7 cm ESV(MOD-sp4) 139.7 ml ESV(sp4-el) 141.3 ml EF(MOD-sp4) 32.0 % EF(sp4-el) 32.9 % LVAd ap2 49.0 cm\S\2 LVLd ap2 8.8 cm EDV(MOD-sp2) 224.1 ml EDV(sp2-el) 232.2 ml LVAs ap2 36.4 cm\S\2 LVLs ap2 7.4 cm ESV(MOD-sp2) 147.6 ml ESV(sp2-el) 151.4 ml EF(MOD-sp2) 34.1 % EF(sp2-el) 34.8 % LVLd %diff -3.28 % EDV(MOD-bp) 217.2 ml LVLs %diff -0.17 % ESV(MOD-bp) 142.5 ml EF(MOD-bp) 34.4 % SV(MOD-sp4) 65.6 ml SI(MOD-sp4) 28.8 ml/m\S\2 SV(MOD-sp2) 76.5 ml SI(MOD-sp2) 33.6 ml/m\S\2 SV(MOD-bp) 74.7 ml SI(MOD-bp) 32.9 ml/m\S\2 SV(sp4-el) 69.2 ml SI(sp4-el) 30.4 ml/m\S\2 SV(sp2-el) 80.8 ml SI(sp2-el) 35.5 ml/m\S\2 Doppler Measurements and Calculations MV E max vilma 123.9 cm/sec MV dec time 0.17 sec Ao V2 max 154.7 cm/sec Ao max PG 9.6 mmHg Ao max PG (full) 5.9 mmHg LV V1 max PG 3.6 mmHg LV V1 max 95.4 cm/sec MR max vilma 485.9 cm/sec MR max PG 94.5 mmHg MR mean vilma 391.4 cm/sec MR mean PG 66.7 mmHg MR VTI 128.2 cm
--- NOTE | 2016-08-05 14:57 | Progress Note ---
Subjective Date of Service: Aug 05, 2016. Subjective Pt evaluation today including: physical exam, chart review, lab review, review of studies, conversation w/ solar consultant, review of inpatient medication list Sedated, on hypothermia protocol, Problem List Medical Problems: (1) Cardiac arrest Status: Acute (2) Rib fractures Status: Acute (3) Ventricular fibrillation Status: Acute Review of Systems Constitutional: + problem reported (not available because patient is sedated) Objective Vital Signs Date Time Temp Pulse Resp B/P Pulse Ox O2 Delivery O2 Flow Rate FiO2 08/05/16 14:00 35.4 65 18 80/55 100 Mechanical Ventilator 50 85/57 08/05/16 13:00 34.6 67 18 106/72 91 Mechanical Ventilator 50 116/68 08/05/16 12:00 100 Mechanical Ventilator 30 08/05/16 12:00 34.7 54 18 98/64 100 Mechanical Ventilator 30 107/65 08/05/16 12:00 30 08/05/16 11:45 30 08/05/16 11:00 34.6 54 18 91/61 99 Mechanical Ventilator 30 98/66 08/05/16 10:00 35.0 57 18 105/78 97 Mechanical Ventilator 40 08/05/16 09:00 35.1 58 18 99/71 99 Mechanical Ventilator 40 08/05/16 08:30 40 08/05/16 08:00 35.3 60 18 90/62 99 Mechanical Ventilator 40 08/05/16 08:00 40 08/05/16 08:00 98 Mechanical Ventilator 40 08/05/16 07:00 35.2 60 18 97/62 98 Mechanical Ventilator 40 08/05/16 06:50 35.7 62 18 94/64 98 Mechanical Ventilator 40 08/05/16 06:30 35.7 65 18 100/65 97 Mechanical Ventilator 40 08/05/16 06:15 35.8 62 18 92/65 97 Mechanical Ventilator 40 08/05/16 06:02 35.9 64 18 93/61 98 Mechanical Ventilator 40 08/05/16 06:00 35.9 64 18 93/61 98 Mechanical Ventilator 40 08/05/16 05:55 40 08/05/16 05:45 36.0 68 18 94/68 100 Mechanical Ventilator 40 08/05/16 05:30 36.2 63 18 91/68 100 Mechanical Ventilator 40 08/05/16 05:15 36.3 67 18 84/63 100 Mechanical Ventilator 40 08/05/16 05:00 36.5 68 18 91/62 100 Mechanical Ventilator 40 08/05/16 05:00 36.5 68 18 89/66 100 Mechanical Ventilator 40 08/05/16 04:45 36.5 68 18 91/62 100 Mechanical Ventilator 40 08/05/16 04:30 36.5 68 18 91/60 100 Mechanical Ventilator 40 08/05/16 04:18 40 08/05/16 04:15 36.5 70 18 90/64 100 Mechanical Ventilator 40 08/05/16 04:00 36.5 72 18 83/61 100 Mechanical Ventilator 40 08/05/16 04:00 100 Mechanical Ventilator 60 08/05/16 04:00 40 08/05/16 04:00 36.5 72 18 86/59 100 Mechanical Ventilator 60 08/05/16 03:45 36.5 74 18 84/58 100 Mechanical Ventilator 60 08/05/16 03:34 60 08/05/16 03:30 36.5 75 18 85/59 100 Mechanical Ventilator 60 08/05/16 03:15 36.5 77 18 87/60 100 Mechanical Ventilator 60 08/05/16 03:00 36.5 79 18 86/65 100 Mechanical Ventilator 60 08/05/16 02:45 36.5 79 18 95/64 100 Mechanical Ventilator 60 08/05/16 02:30 36.5 80 18 90/64 100 Mechanical Ventilator 60 08/05/16 02:15 36.4 82 18 93/62 100 Mechanical Ventilator 60 08/05/16 02:00 36.4 84 18 84/54 100 Mechanical Ventilator 60 08/05/16 02:00 36.4 89 18 81/58 100 Mechanical Ventilator 60 08/05/16 01:45 36.3 83 18 87/62 100 Mechanical Ventilator 60 08/05/16 01:30 36.3 85 18 88/63 100 Mechanical Ventilator 60 08/05/16 01:15 36.3 89 16 97/58 100 Mechanical Ventilator 60 08/05/16 01:00 36.1 88 16 101/58 100 Mechanical Ventilator 60 08/05/16 01:00 36.0 89 16 101/58 100 Mechanical Ventilator 60 08/05/16 00:53 36.2 89 16 122/67 100 Mechanical Ventilator 60 08/05/16 00:45 36.1 87 18 103/53 100 Mechanical Ventilator 60 08/05/16 00:45 36.1 89 16 128/71 100 Mechanical Ventilator 60 08/05/16 00:45 60 17 00:30 36.1 89 16 99/58 100 Mechanical Ventilator 60 17 00:30 36.1 89 16 128/71 100 Mechanical Ventilator 60 08/05/16 00:15 36.1 90 16 105/61 100 Mechanical Ventilator 60 08/05/16 00:15 36.1 90 16 105/61 100 Mechanical Ventilator 60 08/05/16 00:12 60 08/05/16 00:00 36.2 89 16 122/67 100 Mechanical Ventilator 60 08/05/16 00:00 60 08/05/16 00:00 36.0 89 16 122/67 100 Mechanical Ventilator 15.0 100 18/17 23:40 97 12 120/73 100 Mechanical Ventilator 100 08/04/ 23:35 35.2 96 12 120/73 100 Mechanical Ventilator 100 08/04/16 23:30 35.2 18/17 23:30 96 12 117/69 100 Mechanical Ventilator 100 18/17 23:30 95 12 100 /18/17 23:28 117/69 18/17 23:25 97 12 100 18/17 23:23 120/74 2/18/17 23:20 98 12 100 18/17 23:18 115/76 2/18/17 23:15 98 13 100 /18/17 23:13 111/65 18/17 23:10 99 12 100 18/17 23:08 114/68 218/17 23:05 101 12 100 18/17 23:03 115/71 2/18/17 23:00 104 13 96 18/17 22:59 126/76 2/18/17 22:55 102 13 98 /18/17 22:54 100 /18/17 22:53 142/76 2/18/17 22:50 103 15 100 2/18/17 22:45 103 13 100 2/18/17 22:45 36.0 /18/17 22:43 118/79 2/18/17 22:40 105 16 100 18/17 22:38 140/87 2/18/17 22:35 105 17 100 2/18/17 22:33 132/97 2/18/17 22:30 103 16 100 2/18/17 22:30 36.0 2/18/17 22:28 130/81 2/18/17 22:25 104 16 99 2/18/17 22:23 134/85 2/18/17 22:20 103 18 100 2/18/17 22:18 126/76 2/18/17 22:15 102 16 100 2/18/17 22:15 36.0 2/18/17 22:13 104 16 128/76 100 2/18/17 22:09 127/74 2/18/17 22:08 103 15 75 2/18/17 22:04 103 2/18/17 22:03 108 14 138/83 80 2/18/17 21:58 97 16 123/72 93 2/18/17 21:53 100 16 121/75 93 2/18/17 21:48 102 15 135/78 84 2/18/17 21:45 36.1 2/18/17 21:43 98 13 126/69 89 2/18/17 21:38 99 8 128/73 99 2/18/17 21:33 100 17 126/74 99 2/18/17 21:28 102 23 132/70 94 2/18/17 21:23 100 17 119/69 93 2/18/17 21:18 110 17 126/74 87 2/18/17 21:13 98 19 115/59 99 2/18/17 21:08 103 22 116/67 97 2/18/17 21:03 104 13 101/66 97 2/18/17 20:58 103 19 92/54 97 2/18/17 20:55 37.6 2/18/17 20:55 37.6 2/18/17 20:54 99/68 2/18/17 20:53 101 29 89 2/18/17 20:48 100 92/62 91 2/18/17 20:43 99 82/66 89 2/18/17 20:40 86/57 2/18/17 20:26 136 2/18/17 20:25 137 119/91 85 Ambu-Bag 2/18/17 20:18 126 2/18/17 20:15 119/91 2/18/17 20:13 136 86 08/04/16 20:08 52/41 08/04/16 20:03 37.6 08/04/16 20:03 86 Ambu-Bag 15.0 Physical Exam General Appearance: + pertinent finding (pupil 3 mm sluggish) Eyes: normal inspection ENT: normal ENT inspection Neck: supple Respiratory/Chest: + decreased breath sounds, + pertinent finding (intubated) Cardiovascular: regular rate, rhythm, no edema Abdomen: soft, + abnormal bowel sounds (decreased) Extremities: no pedal edema Neurologic/Psychiatric: + pertinent finding (not able to evaluation because hyperthermia protocol and sedated) Skin: normal color Laboratory Results Last 24 Hours Test 08/04/16 20:20 08/04/16 20:45 08/04/16 20:50 08/04/16 22:36 White Blood Count 11.26 K/uL Red Blood Count 5.19 M/uL Hemoglobin 15.9 g/dL Hematocrit 48.7 % Mean Corpuscular Volume 93.8 fL Mean Corpuscular Hemoglobin 30.6 pg Mean Corpuscular Hemoglobin Concent 32.6 g/dl Platelet Count 176 K/uL Mean Platelet Volume 11.4 fL RDW Standard Deviation 47.7 fL RDW Coefficient of Variation 13.9 % Neutrophils % (Manual) 45.4 % Lymphocytes % (Manual) 31.3 % Variant Lymphocytes % (manual) 16.1 % Monocytes % (Manual) 0.9 % Eosinophils % (Manual) 3.6 % Metamyelocytes % 0.9 % Myelocytes % 1.8 % Neutrophils # (Manual) 5.11 K/uL Total Absolute Neutrophils 5.11 K/uL Lymphocytes # (Manual) 3.52 K/uL Absolute Variant Lymphocytes 1.81 K/uL Total Absolute Lymphocytes 5.34 K/uL Monocytes # (Manual) 0.10 K/uL Eosinophils # (Manual) 0.41 K/uL Metamyelocytes # 0.10 K/uL Myelocytes # 0.20 K/uL Red Blood Cell Morphology Echinocytes 1+ Prothrombin Time 13.1 SECONDS Prothromb Time International Ratio 1.2 Activated Partial Thromboplast Time 27.5 SECONDS Partial Thromboplastin Ratio 1.1 Sodium Level 147 mmol/L Potassium Level 3.0 mmol/L Chloride Level 108 mmol/L Carbon Dioxide Level 20 mmol/L Anion Gap 19.0 mmol/L Blood Urea Nitrogen 18 mg/dl Creatinine 1.60 mg/dl Estimated GFR () 55.8 Estimated GFR (Non- 48.1 BUN/Creatinine Ratio 11.3 Random Glucose 246 mg/dl Calcium Level 8.0 mg/dl Phosphorus Level 6.2 mg/dl Magnesium Level 2.4 mg/dl Total Bilirubin 0.6 mg/dl Direct Bilirubin 0.2 mg/dl Aspartate Amino Transf (AST/SGOT) 91 U/L Alanine Aminotransferase (ALT/SGPT) 100 U/L Alkaline Phosphatase 46 U/L Troponin I < 0.015 ng/ml Total Protein 6.6 gm/dl Albumin 3.1 gm/dl Thyroid Stimulating Hormone (TSH) 5.950 uIu/ml Lactic Acid Level 4.7 mmol/L Ethyl Alcohol mg/dL < 3.0 mg/dl Bedside Troponin I 0.000 ng/ml Creatine Kinase MB Ratio Test 08/04/16 22:40 08/04/16 23:25 08/05/16 00:03 08/05/16 03:53 Urine Color YELLOW Urine Appearance CLOUDY Urine pH 5.0 Urine Specific [place] 1.015 Urine Protein 2+ Urine Glucose (UA) TRACE Urine Ketones NEG Urine Occult Blood 3+ Urine Nitrite NEG Urine Bilirubin NEG Urine Urobilinogen NEG Urine Leukocyte Esterase NEG Urine WBC (Auto) >30 /hpf Urine RBC (Auto) 5-10 /hpf Urine Hyaline Casts (Auto) 5-10 /lpf Urine Epithelial Cells (Auto) 5-10 /lpf Urine Bacteria (Auto) NEG Urine Pathogenic Casts 5-10 GRANULAR CASTS /lpf Urine Yeast (Auto) Creatine Kinase MB 5.1 ng/ml Troponin I 0.155 ng/ml Thyroxine (T4) 8.9 mcg/dl Bedside Glucose 181 mg/dl Blood Gas Sample Site Art Line Bedside Blood Gas pH (LAB) 7.26 Bedside Blood Gas pCO2 (LAB) 41 mmHg Bedside Blood Gas pO2 (LAB) 119 mmHg Bedside Blood Gas HCO3 (LAB) 18 meq/L Bedside Blood Gas Total CO2 19 mEq/l Bedside Blood Gas Base Excess (LAB) -9.0 meq/L Bedside Blood Gas O2 Saturation 98.0 % Miguel Test NA Oxygen Delivery Device Ventilator Bedside Oxygen Rate (breaths/min) 18 Blood Gas Minute Ventilation 9.0 Bedside FiO2 60 % Blood Gas Tidal Volume 500 Blood Gas PEEP 10 Test 08/05/16 04:10 08/05/16 04:11 08/05/16 05:16 08/05/16 06:05 White Blood Count 16.38 K/uL Red Blood Count 4.88 M/uL Hemoglobin 14.8 g/dL Hematocrit 44.2 % Mean Corpuscular Volume 90.6 fL Mean Corpuscular Hemoglobin 30.3 pg Mean Corpuscular Hemoglobin Concent 33.5 g/dl Platelet Count 225 K/uL Mean Platelet Volume 10.9 fL Neutrophils (%) (Auto) 83.8 % Lymphocytes (%) (Auto) 6.5 % Monocytes (%) (Auto) 9.0 % Eosinophils (%) (Auto) 0.1 % Basophils (%) (Auto) 0.1 % Neutrophils # (Auto) 13.74 K/uL Lymphocytes # (Auto) 1.06 K/uL Monocytes # (Auto) 1.47 K/uL Eosinophils # (Auto) 0.01 K/uL Basophils # (Auto) 0.01 K/uL RDW Standard Deviation 45.5 fL RDW Coefficient of Variation 13.8 % Immature Granulocyte % (Auto) 0.5 % Immature Granulocyte # (Auto) 0.09 K/uL Prothrombin Time 13.3 SECONDS Prothromb Time International Ratio 1.2 Activated Partial Thromboplast Time 27.3 SECONDS Partial Thromboplastin Ratio 1.1 Sodium Level 143 mmol/L Potassium Level 5.6 mmol/L Chloride Level 114 mmol/L Carbon Dioxide Level 18 mmol/L Anion Gap 11.0 mmol/L Blood Urea Nitrogen 25 mg/dl Creatinine 1.70 mg/dl Est Creatinine Clear Calc Drug Dose 61.6 ml/min Estimated GFR () 51.8 Estimated GFR (Non- 44.7 BUN/Creatinine Ratio 14.5 Random Glucose 249 mg/dl Calcium Level 7.5 mg/dl Phosphorus Level 1.8 mg/dl Magnesium Level 2.0 mg/dl Total Bilirubin 0.7 mg/dl Direct Bilirubin 0.3 mg/dl Aspartate Amino Transf (AST/SGOT) 79 U/L Alanine Aminotransferase (ALT/SGPT) 109 U/L Alkaline Phosphatase 36 U/L Total Protein 6.0 gm/dl Albumin 2.9 gm/dl Bedside Glucose 153 mg/dl 310 mg/dl Bedside Glucose (other) 366 mg/dl Test 08/05/16 06:33 08/05/16 07:04 08/05/16 07:55 08/05/16 07:59 Total Creatine Kinase 418 U/L Creatine Kinase MB 4.7 ng/ml Creatine Kinase MB Ratio 1.1 Troponin I 0.211 ng/ml Bedside Glucose (other) 358 mg/dl 350 mg/dl White Blood Count 16.35 K/uL Red Blood Count 4.96 M/uL Hemoglobin 15.3 g/dL Hematocrit 45.2 % Mean Corpuscular Volume 91.1 fL Mean Corpuscular Hemoglobin 30.8 pg Mean Corpuscular Hemoglobin Concent 33.8 g/dl Platelet Count 224 K/uL Mean Platelet Volume 10.9 fL Neutrophils (%) (Auto) 86.7 % Lymphocytes (%) (Auto) 6.0 % Monocytes (%) (Auto) 6.4 % Eosinophils (%) (Auto) 0.0 % Basophils (%) (Auto) 0.1 % Neutrophils # (Auto) 14.18 K/uL Lymphocytes # (Auto) 0.98 K/uL Monocytes # (Auto) 1.05 K/uL Eosinophils # (Auto) 0.00 K/uL Basophils # (Auto) 0.01 K/uL RDW Standard Deviation 46.3 fL RDW Coefficient of Variation 13.9 % Immature Granulocyte % (Auto) 0.8 % Immature Granulocyte # (Auto) 0.13 K/uL Nucleated RBC Absolute Count (auto) 0.02 K/uL Nucleated Red Blood Cells % 0.1 % Echinocytes 1+ Prothrombin Time 13.8 SECONDS Prothromb Time International Ratio 1.3 Activated Partial Thromboplast Time 29.2 SECONDS Partial Thromboplastin Ratio 1.1 Sodium Level 139 mmol/L Potassium Level 4.8 mmol/L Chloride Level 110 mmol/L Carbon Dioxide Level 17 mmol/L Anion Gap 12.0 mmol/L Blood Urea Nitrogen 27 mg/dl Creatinine 1.90 mg/dl Est Creatinine Clear Calc Drug Dose 55.1 ml/min Estimated GFR () 45.3 Estimated GFR (Non- 39.1 BUN/Creatinine Ratio 14.1 Random Glucose 339 mg/dl Calcium Level 7.3 mg/dl Phosphorus Level 2.3 mg/dl Magnesium Level 2.1 mg/dl Beta-Hydroxybutyric Acid 1.66 mg/dL Test 08/05/16 08:58 08/05/16 09:58 08/05/16 10:20 08/05/16 11:08 Bedside Glucose (other) 337 mg/dl 324 mg/dl 302 mg/dl Lactic Acid Level 2.4 mmol/L Ionized Calcium 1.00 mmol/l Test 08/05/16 11:50 08/05/16 11:58 08/05/16 12:20 08/05/16 13:30 White Blood Count 13.68 K/uL Red Blood Count 5.00 M/uL Hemoglobin 15.2 g/dL Hematocrit 44.6 % Mean Corpuscular Volume 89.2 fL Mean Corpuscular Hemoglobin 30.4 pg Mean Corpuscular Hemoglobin Concent 34.1 g/dl Platelet Count 186 K/uL Mean Platelet Volume 10.5 fL Neutrophils (%) (Auto) 86.5 % Lymphocytes (%) (Auto) 7.9 % Monocytes (%) (Auto) 4.8 % Eosinophils (%) (Auto) 0.0 % Basophils (%) (Auto) 0.1 % Neutrophils # (Auto) 11.84 K/uL Lymphocytes # (Auto) 1.08 K/uL Monocytes # (Auto) 0.65 K/uL Eosinophils # (Auto) 0.00 K/uL Basophils # (Auto) 0.01 K/uL RDW Standard Deviation 44.8 fL RDW Coefficient of Variation 13.8 % Immature Granulocyte % (Auto) 0.7 % Immature Granulocyte # (Auto) 0.10 K/uL Prothrombin Time 14.0 SECONDS Prothromb Time International Ratio 1.3 Activated Partial Thromboplast Time 29.4 SECONDS Partial Thromboplastin Ratio 1.1 Sodium Level 142 mmol/L Potassium Level 3.9 mmol/L Chloride Level 109 mmol/L Carbon Dioxide Level 17 mmol/L Anion Gap 16.0 mmol/L Blood Urea Nitrogen 27 mg/dl Creatinine 2.00 mg/dl Est Creatinine Clear Calc Drug Dose 50.6 ml/min Estimated GFR () 42.6 Estimated GFR (Non- 36.7 BUN/Creatinine Ratio 13.7 Random Glucose 254 mg/dl Calcium Level 7.2 mg/dl Phosphorus Level 2.7 mg/dl Magnesium Level 2.1 mg/dl Bedside Glucose (other) 259 mg/dl 244 mg/dl 187 mg/dl Assessment and Plan 56-year-old white male admitted to ICU because of cardiac arrest on 08/04/2016 history of Nonischemic cardiomyopathy, ejection fraction was listed at 30% as long ago as 2005. The more recent echo on record was performed in 2013 and showed an EF of 35%. The EF in the Emergency Department at the time of admission was closer to 25%. Hypothyroidism, Hypertension. 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 Patchy areas of consolidation within the bilateral lungs posteriorly favor pulmonary contusion Add DuoNeb if needed Infectious disease: Possible sepsis, UTI and pneumonia, continue antibiotics IV follow-up C+S neuro: Was unresponsive since the cardiac arrest , head Ct was not remarkable Renal: Acute kidney failure likely from hypoperfusion from cardiac arrest, today 's getting worse, continue on IV fluid Heme: no acute issues GI: GI prophylaxis on SCD Endo: no issues, target Bg <180 nutrition: May plan NG tube feeding This is critical ill patient, the care plan will be measuring per server support technician of the the critical care team. Transfer to tertiary care center if needed Continued [facility] stay due to: multiple IV medications needed Discharge planning: uncertain
[2016-08-05 16:25] LABS: HEMATOCRIT 45.5 % (42-52); MEAN CELL VOLUME 88.7 fL (80-100); MEAN CORPUSCULAR HEMOGLOBIN 30.4 pg (25-34); MEAN CORPUSCULAR HGB CONC 34.3 g/dl (32-36); MEAN PLATELET VOLUME 10.5 fL (7.4-10.4); PLATELET COUNT 223 K/uL (130-400); RED BLOOD COUNT 5.13 M/uL (4.7-6.1); WHITE BLOOD COUNT 15.62 K/uL (4.8-10.8)
[2016-08-05 16:41] LABS: INR 1.3 (0.9-1.1); PARTIAL THROMBOPLASTIN RATIO 1.1; PROTHROMBIN TIME (PATIENT) 13.5 SECONDS (9.0-12.0)
[2016-08-05 16:46] LABS: BUN/CREATININE RATIO 13.2 (10-20); CALCIUM 7.3 mg/dl (8.5-10.1); CREATININE 2.1 mg/dl (0.60-1.40); MAGNESIUM 2.1 mg/dl (1.8-2.4)
[2016-08-05 16:51] LABS: PHOSPHORUS 3.4 mg/dl (2.5-4.9)
[2016-08-05] MEDS: DEXTROSE 50% 50 ML SYR IV PRN ×2 (16:51→20:26)
[2016-08-05 16:57] LABS: BASO % 0.1 %; BASO ABS # 0.01 K/uL (0-0.2); COMPLETE YES; IG% 0.6 %; LYMPH ABS # 1.72 K/uL (1.2-3.4); MONO % 9.5 %; NEUT % 78.8 %
[2016-08-05] MEDS ORDERED: ACETAMINOPHEN IV ONE (17:45)
[2016-08-05 20:22] LABS: BASO % 0.1 %; BASO ABS # 0.01 K/uL (0-0.2); COMPLETE YES; EOS % 0.1 %; HEMATOCRIT 43.7 % (42-52); IG% 0.5 %; LYMPH % 14.7 %; LYMPH ABS # 2.25 K/uL (1.2-3.4); MEAN CELL VOLUME 90.1 fL (80-100); MEAN CORPUSCULAR HEMOGLOBIN 30.7 pg (25-34); MEAN CORPUSCULAR HGB CONC 34.1 g/dl (32-36); MEAN PLATELET VOLUME 10.3 fL (7.4-10.4); NEUT % 72.6 %; PLATELET COUNT 195 K/uL (130-400); RED BLOOD COUNT 4.85 M/uL (4.7-6.1)
[2016-08-05] MEDS: MIDAZOLAM 125MG/250ML D5W 250 ML IV PRN (20:27)
[2016-08-05 20:39] LABS: BUN/CREATININE RATIO 13.7 (10-20); CALCIUM 6.9 mg/dl (8.5-10.1); CREATININE 1.9 mg/dl (0.60-1.40); MAGNESIUM 2.1 mg/dl (1.8-2.4); POTASSIUM 3.8 mmol/L (3.5-5.1)
[2016-08-05] MEDS: ARTIFICIAL TEARS OP OINT 3.5 GM TUBE OPB PRN (20:46)
[2016-08-05 20:47] LABS: PHOSPHORUS 2.2 mg/dl (2.5-4.9)
[2016-08-05 20:59] LABS: INR 1.3 (0.9-1.1); PARTIAL THROMBOPLASTIN RATIO 1.3; PROTHROMBIN TIME (PATIENT) 14.3 SECONDS (9.0-12.0)
[2016-08-05 21:05] LABS: ISTAT ARTERIAL BLOOD GAS HCO3 15 meq/L (19-24); ISTAT ARTERIAL BLOOD GAS PCO2 25 mmHg (35-46); ISTAT ARTERIAL BLOOD GAS PO2 116 mmHg (80-95); ISTAT ARTERIAL BLOOD GAS pH 7.38 (7.35-7.45); ISTAT CARBON DIOXIDE 16 mEq/l (24-31); ISTAT DELIVERY SYSTEM Ventilator; ISTAT FIO2 50 %; ISTAT PEEP 8; ISTAT RATE 24; ISTAT SITE Art Line; VE 11.8; Vt 500
[2016-08-05 23:50] LABS: BASO % 0.1 %; BASO ABS # 0.01 K/uL (0-0.2); COMPLETE YES; EOS % 0.3 %; HEMATOCRIT 45.4 % (42-52); IG% 0.6 %; LYMPH ABS # 1.88 K/uL (1.2-3.4); MEAN CELL VOLUME 89.4 fL (80-100); MEAN CORPUSCULAR HEMOGLOBIN 30.3 pg (25-34); MEAN CORPUSCULAR HGB CONC 33.9 g/dl (32-36); MEAN PLATELET VOLUME 10.8 fL (7.4-10.4); MONO % 8.9 %; NEUT % 77.1 %; PLATELET COUNT 176 K/uL (130-400); RED BLOOD COUNT 5.08 M/uL (4.7-6.1); WHITE BLOOD COUNT 14.43 K/uL (4.8-10.8)
[2016-08-06] VITALS (23 sets, daily range): BP systolic 93–120; BP diastolic 61–81; PULSE 43–73; TEMP 31.8–35.8; O2SAT 100
[2016-08-06] LABS: INR 1.4 (0.9-1.1); PARTIAL THROMBOPLASTIN RATIO 1.4; PROTHROMBIN TIME (PATIENT) 15.5 SECONDS (9.0-12.0)
[2016-08-06 00:05] LABS: BUN/CREATININE RATIO 13.7 (10-20); CALCIUM 7.2 mg/dl (8.5-10.1); PHOSPHORUS 2.2 mg/dl (2.5-4.9); POTASSIUM 3.8 mmol/L (3.5-5.1)
[2016-08-06 00:08] LABS: ISTAT ARTERIAL BLOOD GAS HCO3 13 meq/L (19-24); ISTAT ARTERIAL BLOOD GAS PCO2 22 mmHg (35-46); ISTAT ARTERIAL BLOOD GAS PO2 75 mmHg (80-95); ISTAT ARTERIAL BLOOD GAS pH 7.36 (7.35-7.45); ISTAT CARBON DIOXIDE 14 mEq/l (24-31); ISTAT DELIVERY SYSTEM Ventilator; ISTAT FIO2 40 %; ISTAT PEEP 8; ISTAT RATE 24; ISTAT SITE Art Line; VE 12; Vt 500
[2016-08-06] MEDS ORDERED: POTASSIUM PHOS 3 MMOL/1 ML INFUSION IV STA (00:26)
[2016-08-06] MEDS ORDERED: POTASSIUM PHOSPHATE INJ 21 MMOL in SODIUM CHLORIDE 0.9% 500ML 500 ML IV SCH (00:45)
[2016-08-06] MEDS: SODIUM CHLORIDE 0.9% IV PRN ×3 (02:36→22:12)
[2016-08-06] MEDS: CISATRACURIUM BESYLATE IV PRN ×3 (02:36→22:12)
[2016-08-06 04:05] LABS: ISTAT ARTERIAL BLOOD GAS HCO3 15 meq/L (19-24); ISTAT ARTERIAL BLOOD GAS PCO2 22 mmHg (35-46); ISTAT ARTERIAL BLOOD GAS PO2 87 mmHg (80-95); ISTAT ARTERIAL BLOOD GAS pH 7.42 (7.35-7.45); ISTAT CARBON DIOXIDE 15 mEq/l (24-31); ISTAT DELIVERY SYSTEM Ventilator; ISTAT FIO2 40 %; ISTAT PEEP 8; ISTAT RATE 24; ISTAT SITE Art Line; VE 11.9; Vt 500
[2016-08-06 04:19] LABS: BASO % 0.1 %; BASO ABS # 0.01 K/uL (0-0.2); COMPLETE YES; EOS % 0.2 %; HEMATOCRIT 44.5 % (42-52); IG% 0.5 %; LYMPH % 9.8 %; LYMPH ABS # 1.22 K/uL (1.2-3.4); MEAN CELL VOLUME 88.8 fL (80-100); MEAN CORPUSCULAR HEMOGLOBIN 30.7 pg (25-34); MEAN CORPUSCULAR HGB CONC 34.6 g/dl (32-36); MEAN PLATELET VOLUME 11.1 fL (7.4-10.4); MONO % 8.5 %; NEUT % 80.9 %; PLATELET COUNT 151 K/uL (130-400); RED BLOOD COUNT 5.01 M/uL (4.7-6.1); WHITE BLOOD COUNT 12.41 K/uL (4.8-10.8)
[2016-08-06 04:29] LABS: INR 1.5 (0.9-1.1); PARTIAL THROMBOPLASTIN RATIO 1.3; PROTHROMBIN TIME (PATIENT) 16.6 SECONDS (9.0-12.0)
[2016-08-06 04:37] LABS: BUN/CREATININE RATIO 14.1 (10-20); CALCIUM 7.3 mg/dl (8.5-10.1); CREATININE 1.9 mg/dl (0.60-1.40); MAGNESIUM 1.9 mg/dl (1.8-2.4); POTASSIUM 4.4 mmol/L (3.5-5.1)
[2016-08-06 04:54] LABS: PHOSPHORUS 4.3 mg/dl (2.5-4.9)
[2016-08-06] MEDS: AMPICILLIN/SULBACTAM SOD INJ 3,000 MG in SODIUM CHLORIDE 0.9% 100ML 100 ML IV SCH ×3 (05:50→17:50)
[2016-08-06] MEDS ORDERED: ACETAMINOPHEN 650 MG SUPP PR PRN (06:00)
[2016-08-06] MEDS: AMIODARONE / D5W 200 ML IV SCH ×2 (06:22→17:51)
--- NOTE | 2016-08-06 07:09 | DIAGNOSTIC IMAGING REPORT ---
CHEST ONE VIEW PORTABLE CLINICAL HISTORY: Respiratory failure COMPARISON STUDY: 08/05/2016 FINDINGS: There is an endotracheal tube 37 mm above the jose luis. There is a nasogastric tube which passes into the stomach. There is a right subclavian central venous catheter unchanged in position. There is a right apical chest tube. The heart is enlarged. There are developing right basilar airspace opacities. There is a suspected small right pleural effusion.[ IMPRESSION: 1. Cardiomegaly with developing right basilar airspace opacities 2. Mild central vascular prominence 3. Suspected small right pleural effusion 4. No change in the position of the lines and tubes. Electronically signed by: Renzo Alves M.D. 08/06/2016 7:07 AM Dictated Date/Time: 08/06/2016 7:06 AM
[2016-08-06 07:53] LABS: ESTIMATED AVERAGE GLUCOSE 140 mg/dl; HA1C FLAG Normal (Normal)
[2016-08-06] MEDS: INSULIN ASPART 100 UNITS/ML 3 ML PEN SC SCH ×4 (08:00→21:00)
[2016-08-06] MEDS: ASPIRIN 81 MG CHEW NG SCH (08:10)
[2016-08-06] MEDS: ARTIFICIAL TEARS OP OINT 3.5 GM TUBE OPB PRN (08:11)
[2016-08-06 08:19] LABS: ISTAT ARTERIAL BLOOD GAS HCO3 14 meq/L (19-24); ISTAT ARTERIAL BLOOD GAS PCO2 25 mmHg (35-46); ISTAT ARTERIAL BLOOD GAS PO2 84 mmHg (80-95); ISTAT ARTERIAL BLOOD GAS pH 7.36 (7.35-7.45); ISTAT CARBON DIOXIDE 15 mEq/l (24-31); ISTAT DELIVERY SYSTEM Ventilator; ISTAT FIO2 40 %; ISTAT PEEP 8; ISTAT RATE 24; ISTAT SITE Art Line; VE 11.8; Vt 500
[2016-08-06 09:03] LABS: BASO % 0.1 %; BASO ABS # 0.01 K/uL (0-0.2); COMPLETE YES; EOS % 0.1 %; IG% 0.5 %; LYMPH % 5.4 %; LYMPH ABS # 0.67 K/uL (1.2-3.4); MEAN CELL VOLUME 86.6 fL (80-100); MEAN CORPUSCULAR HEMOGLOBIN 29.7 pg (25-34); MEAN CORPUSCULAR HGB CONC 34.3 g/dl (32-36); MEAN PLATELET VOLUME 10.3 fL (7.4-10.4); MONO % 7.5 %; NEUT % 86.4 %; PLATELET COUNT 151 K/uL (130-400); RED BLOOD COUNT 5.08 M/uL (4.7-6.1); WHITE BLOOD COUNT 12.32 K/uL (4.8-10.8)
[2016-08-06 09:12] LABS: INR 1.4 (0.9-1.1); PARTIAL THROMBOPLASTIN RATIO 1.3; PROTHROMBIN TIME (PATIENT) 15.4 SECONDS (9.0-12.0)
[2016-08-06] MEDS ORDERED: NURSING VERBAL MED ORDER ONE (09:15)
[2016-08-06 09:39] LABS: BUN/CREATININE RATIO 13.3 (10-20); CALCIUM 7.6 mg/dl (8.5-10.1); POTASSIUM 4.1 mmol/L (3.5-5.1)
[2016-08-06 09:46] LABS: PHOSPHORUS 3.2 mg/dl (2.5-4.9)
--- NOTE | 2016-08-06 10:13 | CARDIOLOGY PROGRESS NOTE ---
DATE: 08/06/2016 SUBJECTIVE: The patient was seen by me this morning in his ICU room. He remains on hypothermia protocol. He is currently in a warming phase of the protocol. He remains on low-dose norepinephrine. He is also on cisatracurium. The nursing staff reports no significant issues overnight. He did have a 10-beat run of a nonsustained ventricular tachycardia this morning. No sustained arrhythmias. CURRENT MEDICATIONS: Include intravenous amiodarone, aspirin 81 mg via NG daily, pantoprazole 40 mg IV daily, insulin infusion, ampicillin/sulbactam 3 grams IV q. 6 hours, norepinephrine intravenously, cisatracurium IV, and midazolam intravenously p.r.n. PHYSICAL EXAMINATION: GENERAL: The patient is lying in his bed. Unresponsive. Endotracheally intubated. VITAL SIGNS: Current heart rate 59 beats per minute on monitor. Blood pressure 97/65 and pulse oximetry 100%. NECK: Unable to evaluate the jugular venous pressure secondary to neck size and body position. EYES: Pupils are constricted bilaterally. Equal. LUNGS: No rales or wheezes. HEART: Regular rate and rhythm. No gallop or rub heard. 2/6 systolic murmur in the left lower sternal border. No diastolic murmur. ABDOMEN: Hypoactive bowel sounds. Soft. No palpable mass or organomegaly. EXTREMITIES: No pretibial edema. DATA: Chest x-ray this morning and reviewed by me shows increased pulmonary vasculature. Electrocardiogram performed last evening and reviewed by me shows sinus bradycardia, corrected QT interval at 619 milliseconds. Minor nonspecific IVCD. T-inversions in V1-V3 consistent with ischemia. LABORATORY DATA TODAY: WBC 12.32, hemoglobin 15.1, hematocrit 44.0, and platelet count 151. INR 1.4. PTT 34.8. Metabolic profile is pending. Metabolic profile from 04:00 a.m. showed sodium 142, potassium 4.4, chloride 109, carbon dioxide 16, BUN 17, and creatinine 1.90. AST 90, ALT 171, albumin 2.5, and magnesium 1.9. ASSESSMENT: 1. Status post cardiac arrest secondary to ventricular fibrillation. No sustained ventricular arrhythmias over the past 24 hours. One 10-beat run of nonsustained ventricular tachycardia. He is on intravenous amiodarone. QT is prolonged. This morning's electrocardiogram is still pending. QT prolongation secondary to amiodarone and hypothermia. 2. Hypothermia protocol. Rectal temp at 8 a.m. this morning is 33.6. His lowest temperature with the hypothermia was 31.8 last evening. 3. Moderate global hypokinesis of the left ventricle. Moderate left ventricular systolic dysfunction. 4. Slis-uv-tzrrompm mitral regurgitation and normal RV systolic function. 5. Minimally elevated cardiac enzymes on this admission. Troponin I is 0.211. 6. Acute kidney disease. His creatinine on as an outpatient was 1.1. 7. Mildly elevated liver transaminases. RECOMMENDATIONS: 1. From a cardiac standpoint, continue intravenous amiodarone. Continue low-dose norepinephrine as necessary to sustain adequate pressure. 2. If the patient has a good neurologic status once he is warmed, would then have him undergo ICD placement for secondary prevention. He did have normal coronary arteries on a cardiac catheterization in 2004. Consideration would need to be given to performing coronary angiography prior to ICD implantation. This would be to exclude the development of any significant coronary artery disease in the interim. On electrocardiograms this admission, there has been no evidence of an acute infarction. No diagnostic ST segment elevations of myocardial injury.
--- NOTE | 2016-08-06 10:23 | EEG Procedure Note ---
EEG Procedure Note Date of Service Aug 06, 2016. Start / End Times Start Time: 9:39 AM End Time: 9:59 AM Referring Physician Flaco Pruitt History This is a 56-year-old male who presented in cardiac arrest and is under cooling protocol. EEG for further evaluation of subclinical seizures. Home Medication List Scheduled Aspirin (Aspirin), 81 MG PO DAILY Fluticasone Propionate (Nasal) (Flonase), 2 SPRAYS SUNNY DAILY Levothyroxine Sodium (Synthroid), 25 MCG PO DAILY Lisinopril (Lisinopril), 10 MG PO DAILY Metoprolol Succinate (Metoprolol Succinate ER), 50 MG PO DAILY Inpatient Medication List Current Inpatient Medications Medications (Trade) Dose Ordered Sig/Bryn Route Start Time Stop Time Status Last Admin Dose Admin Aspirin (Aspirin Chew) 81 mg DAILY NG 08/05/16 09:00 09/04/16 08:59 08/06/16 08:10 81 MG Acetaminophen (Tylenol Soln) 650 mg Q4H PRN NG 08/04/16 22:45 09/03/16 22:44 Morphine Sulfate (MoRPHine SULFATE INJ) 4 mg Q2H PRN IV 08/04/16 22:45 08/18/16 22:44 Artificial Tears 1 appln 1 appln Q2H PRN OPB 08/04/16 22:45 09/03/16 22:44 08/06/16 08:11 1 APPLN Pantoprazole Sodium/Syringe (Protonix Inj/ Syringe) 10 ml @ 5 mls/min DAILY@11 IV 08/05/16 11:00 09/04/16 10:59 08/05/16 09:15 5 MLS/MIN Buspirone HCl (BusPAR TAB) 60 mg ONE PRN NG 08/04/16 22:45 09/03/16 22:44 Meperidine HCl 25 mg 25 mg Q2H PRN IV 08/04/16 22:45 08/18/16 22:44 Norepinephrine Bitartrate/ Dextrose (Levophed Inj/ D5W 500ml) 508 ml @ 0 mls/hr Q0M PRN IV 08/04/16 22:36 09/03/16 22:35 08/05/16 20:13 84.5 MLS/HR Insulin Aspart SLIDING SCALE PCHS SC 08/05/16 08:00 09/04/16 07:59 Insulin Human Regular/Sodium Chloride (novoLIN-R/Nss 250ml) 252.5 ml @ 0 mls/hr DAILY@1130 IV 08/05/16 00:00 09/04/16 00:00 08/05/16 11:06 8.6 MLS/HR Glucose (Glucose 40% Gel) UD PRN PO 08/04/16 23:45 09/03/16 23:44 Glucose (Glucose Chew Tab) 1 tabs UD PRN PO 08/04/16 23:45 09/03/16 23:44 Dextrose (Dextrose 50% 50ML Syringe) 50 ml UD PRN IV 08/04/16 23:45 09/03/16 23:44 08/05/16 20:26 50 ML Glucagon 1 mg 1 mg UD PRN SQ 08/04/16 23:45 09/03/16 23:44 Ampicillin Sodium/ Sulbactam Sodium/ Sodium Chloride (Unasyn Inj/Nss 100ml) 108 ml @ 200 mls/hr Q6@0000,0600,1200,1800 IV 08/05/16 01:00 08/12/16 00:59 08/06/16 05:50 200 MLS/HR Ampicillin Sodium/ Sulbactam Sodium 1 ea 1 ea UD PRN N/A 08/05/16 01:00 09/04/16 00:59 Amiodarone HCL/ Dextrose (Nexterone / D5w) 200 ml @ 16.7 mls/hr [id number] IV 08/05/16 07:00 09/04/16 06:59 08/06/16 06:22 16.7 MLS/HR Acetaminophen 650 mg 650 mg UD PRN MO 08/06/16 06:00 09/05/16 05:59 Midazolam HCl 250 ml @ 0 mls/hr Q0M PRN IV 08/05/16 18:00 09/04/16 17:59 08/05/16 20:27 8 MLS/HR Cisatracurium Besylate/Sodium Chloride (Nimbex INJ/Nss 250ml) 250 ml @ 0 mls/hr Q0M PRN IV 08/06/16 02:30 09/05/16 02:29 08/06/16 02:36 23.5 MLS/HR Description This is a 21 electrode EEG with a single channel dedicated to limited EKG. The electrodes were placed in accordance with the International 10-20 system. Photic stimulation and hyperventilation were not done. At the start of this recording the patient is unresponsive. Background is poorly organized with no anterior to posterior gradient. Background is composed of symmetric moderate amplitude 6-7 Hz theta frequencies with intermixed alpha frequencies and rare delta frequencies. There was no state changes or sleep transients. Interpretation This is an abnormal routine EEG secondary to diffuse moderate background disorganization and slowing. There was no electrographic seizures or epileptiform discharges. Clinical Correlation This EEG indicates a moderate encephalopathy of nonspecific etiology. Encephalopathy appears improved compared to previous EEG on the .
[2016-08-06] MEDS: PANTOprazole INJ 40 MG in SYRINGE 0 ML IV SCH (11:20)
[2016-08-06] MEDS: INSULIN REGULAR 250 UNITS in SODIUM CHLORIDE 0.9% 250ML 250 ML IV SCH (11:30)
[2016-08-06 12:12] LABS: BASO % 0.1 %; BASO ABS # 0.01 K/uL (0-0.2); COMPLETE YES; EOS % 0.1 %; HEMATOCRIT 42.9 % (42-52); IG% 0.5 %; LYMPH % 6.9 %; LYMPH ABS # 0.86 K/uL (1.2-3.4); MEAN CORPUSCULAR HEMOGLOBIN 30.3 pg (25-34); MEAN CORPUSCULAR HGB CONC 35.2 g/dl (32-36); MEAN PLATELET VOLUME 10.8 fL (7.4-10.4); MONO % 7.4 %; PLATELET COUNT 173 K/uL (130-400); RED BLOOD COUNT 4.99 M/uL (4.7-6.1)
[2016-08-06 12:25] LABS: INR 1.4 (0.9-1.1); PARTIAL THROMBOPLASTIN RATIO 1.3; PROTHROMBIN TIME (PATIENT) 15.4 SECONDS (9.0-12.0)
[2016-08-06] MEDS ORDERED: MAGNESIUM SULFATE 1GM / D5W 1 GM in PREMIXED IN D5W 100 ML IV ONE (12:30)
[2016-08-06 12:48] LABS: ISTAT ARTERIAL BLOOD GAS HCO3 15 meq/L (19-24); ISTAT ARTERIAL BLOOD GAS PCO2 26 mmHg (35-46); ISTAT ARTERIAL BLOOD GAS PO2 91 mmHg (80-95); ISTAT ARTERIAL BLOOD GAS pH 7.35 (7.35-7.45); ISTAT CARBON DIOXIDE 15 mEq/l (24-31); ISTAT DELIVERY SYSTEM Ventilator; ISTAT FIO2 40 %; ISTAT PEEP 8; ISTAT RATE 24; ISTAT SITE Art Line; VE 12.1; Vt 500
--- NOTE | 2016-08-06 12:48 | CRITICAL CARE PROGRESS NOTE ---
DATE: 08/06/2016 GENERAL INFORMATION: This is a 56-year-old gentleman who presented to the hospital on August 04 secondary to out of the hospital ventricular fibrillation cardiac arrest. He is being treated with targeted temperature management and his rewarming phase started this morning around 6:00 a.m. He is known to have a decreased ejection fraction and echocardiogram done this admission reveals ejection fraction 30-35% with global hypokinesis. No significant left ventricular hypertrophy, mildly dilated right ventricle with normal systolic function. He remains on an amiodarone infusion and is also receiving Nimbex, Versed and Levophed infusions. His care was discussed in detail with the team on multidisciplinary rounds today. He is having a scant amount of yellow secretions from his endotracheal tube. Has been a challenge to rewarm slowly and is presently on a warming blanket. He has not had a bowel movement since admission. The insulin infusion has been off for several hours. MEDICATIONS: Acetaminophen, amiodarone, Unasyn, artificial tears, aspirin, BuSpar, Nimbex, glucagon, insulin infusion, Demerol, Versed, morphine, Levophed, Protonix. PHYSICAL EXAMINATION: VITAL SIGNS: Present temperature 34.4, heart rate 40s to 50s, respiratory rate 24, blood pressure 103/69, maps 75-80, oxygen saturation 100%; ventilator settings assist control - rate 24, tidal volume 500, FiO2 40%, PEEP 8, BIS is 40s-50s. A 24-hour fluid balance positive 5.1 liters. GENERAL: He is sedated and paralyzed. HEENT: Pupils are approximately 2 mm bilaterally and sluggish. LUNGS: Coarse bilaterally. No rales, rhonchi or wheezes. HEART: Regular rate and rhythm. ABDOMEN: Obese, firm, nondistended, hypoactive bowel sounds. EXTREMITIES: Cool with pulses by Doppler according to RN. 1+ pedal edema. LABORATORY DATA: White blood cell count 12.32, hemoglobin 15.1, hematocrit 44, platelets 151. pH 7.36, pCO2 25, pO2 84, bicarbonate 14. PT 15.4, INR 1.4, PTT 34.8. Sodium 141, potassium 4.1, chloride 109, CO2 15, BUN 27, creatinine 2.0. Blood sugar 132, calcium 7.6. Troponin 0.045. Urinalysis noted. Blood cultures x2 from August 05, pending. IMAGING: Portable chest x-ray from this morning was reviewed and shows a developing right lower lobe infiltrate as well as some mild pulmonary congestion. Small right pleural effusion. Medications and infusions were reviewed. EKG - normal sinus rhythm, prolonged QT interval at 640 milliseconds, nonspecific ST-T wave changes. IMPRESSION: 1. Status post out of hospital ventricular fibrillation cardiac arrest, resuscitated now in the warming phase of target temperature management. 2. Acute hypoxemic respiratory failure secondary to status post out of hospital ventricular fibrillation cardiac arrest, resuscitated now in the warming phase of target temperature management. 3. Probable aspiration pneumonia. 4. Acute kidney injury, likely secondary to acute tubular necrosis from hypoperfusion from the cardiac arrest. 5. Mildly elevated troponin. 6. History of nonischemic cardiomyopathy, ejection fraction 30-35%. 7. Bilateral rib fractures. 8. History of hypothyroidism. 9. Hyperglycemia, improved. 10. History of hypertension. 11. Likely metabolic encephalopathy. 12. Prolonged QT interval. 13. Mild elevation of transaminases. 14. Right pneumothorax status post chest tube placement. PLAN: NEUROLOGIC: Continue Nimbex as well as Versed, until temperature reaches 36.5. At that point, discontinue the Nimbex once [id number] is 4/4; discontinue Versed. I will add some fentanyl for pain. Watch for any signs of seizure activity. EEG is ordered for tomorrow. CARDIOVASCULAR: Continue amiodarone infusion and keep mean arterial pressure 75 or above, until he is warmed. Then wean off the Levophed. He may require AICD if he does not have significant hypoxic encephalopathy. Replete magnesium. Follow QT interval. PULMONARY: No ventilator changes today. If he produces significant sputum, send that for culture. Continue chest tube to suction. RENAL: Hopefully, his kidney function will eventually improve. Avoid nephrotoxins and dose medications appropriately. Follow and replete electrolytes. GASTROINTESTINAL: Maintain n.p.o. with the exception of medications for now. He is on GI prophylaxis. INFECTIOUS DISEASE: Continue Unasyn for probable aspiration pneumonia. HEME: SCDs for DVT prophylaxis. MISCELLANEOUS: He is getting eyedrops. Continue off the insulin infusion and add a sliding scale insulin if needed. Overall, continue to warming process; discontinue the paralytic when his temperature is 36.5. Once train of four is 4/4, discontinue the Versed. Evaluate neurologic function at that time. Critical care time 60 minutes. MTDD
[2016-08-06 12:49] LABS: BUN/CREATININE RATIO 13.7 (10-20); CALCIUM 7.5 mg/dl (8.5-10.1); POTASSIUM 4.4 mmol/L (3.5-5.1)
[2016-08-06 12:50] LABS: PHOSPHORUS 3.5 mg/dl (2.5-4.9)
[2016-08-06 16:20] LABS: COMPLETE YES
[2016-08-06 18:11] LABS: ISTAT ARTERIAL BLOOD GAS HCO3 15 meq/L (19-24); ISTAT ARTERIAL BLOOD GAS PCO2 26 mmHg (35-46); ISTAT ARTERIAL BLOOD GAS PO2 93 mmHg (80-95); ISTAT ARTERIAL BLOOD GAS pH 7.37 (7.35-7.45); ISTAT CARBON DIOXIDE 16 mEq/l (24-31); ISTAT DELIVERY SYSTEM Ventilator; ISTAT FIO2 40 %; ISTAT PEEP 8; ISTAT RATE 24; ISTAT SITE Art Line; VE 12.1; Vt 500
[2016-08-06 18:40] LABS: INR 1.4 (0.9-1.1); PROTHROMBIN TIME (PATIENT) 15.5 SECONDS (9.0-12.0)
[2016-08-06 18:50] LABS: BUN/CREATININE RATIO 13.6 (10-20); CALCIUM 7.9 mg/dl (8.5-10.1); CREATININE 2.1 mg/dl (0.60-1.40); MAGNESIUM 2.1 mg/dl (1.8-2.4); POTASSIUM 4.9 mmol/L (3.5-5.1)
[2016-08-06] MEDS ORDERED: FENTANYL 1250MCG/250ML NSS 250 ML IV PRN (19:45)
[2016-08-06] MEDS: FENTANYL CITRATE INJ 50 MCG/1 ML 2 ML VIAL IV PRN (19:54)
--- NOTE | 2016-08-06 20:43 | Progress Note ---
Subjective Subjective Date of Service: Aug 06, 2016. Pt evaluation today including: physical exam, chart review, lab review, review of studies, review of inpatient medication list Notes: patient is intubated and sedated, ROS can`t be obtained, events in last 24 hrs: Hypothermia protocol, amiodarone drip, Vent support, continue to be critical Problem List Medical Problems: (1) Cardiac arrest Status: Acute (2) Rib fractures Status: Acute (3) Ventricular fibrillation Status: Acute Review of Systems Constitutional: No fever ENT: No hearing loss Respiratory: No cough Abdomen: No pain Male : No dysuria Neurologic: No memory loss Psychiatric: No depression symptoms Endo: No fatigue Skin: No rash Physical Exam Vital Signs Vital Signs Past 24 Hours: Date Time Temp Pulse Resp B/P Pulse Ox O2 Delivery O2 Flow Rate FiO2 08/06/16 20:00 35.3 66 24 105/69 100 Mechanical Ventilator 40 116/69 08/06/16 19:00 34.7 64 22 106/75 100 Mechanical Ventilator 40 103/62 08/06/16 18:00 34.1 24 107/76 100 Mechanical Ventilator 40 104/68 08/06/16 17:44 40 08/06/16 17:00 34.7 24 106/81 100 Mechanical Ventilator 40 104/68 08/06/16 16:00 35.3 24 110/76 100 Mechanical Ventilator 40 112/72 08/06/16 15:00 40 08/06/16 15:00 100 Mechanical Ventilator 40 08/06/16 14:25 40 08/06/16 14:00 35.1 24 104/76 100 Mechanical Ventilator 40 112/73 08/06/16 13:00 34.3 65 24 93/64 100 Mechanical Ventilator 40 97/66 08/06/16 12:00 34.1 62 24 95/72 100 Mechanical Ventilator 40 93/64 08/06/16 12:00 40 08/06/16 12:00 100 Mechanical Ventilator 40 08/06/16 11:30 40 08/06/16 11:00 34.4 62 24 107/75 100 Mechanical Ventilator 40 108/73 08/06/16 10:00 34.5 59 24 96/77 100 Mechanical Ventilator 40 102/69 08/06/16 09:00 34.4 59 24 98/69 100 Mechanical Ventilator 40 96/63 08/06/16 08:00 33.6 57 24 98/75 100 Mechanical Ventilator 40 101/67 08/06/16 08:00 40 08/06/16 08:00 Mechanical Ventilator 40 08/06/16 08:00 100 Mechanical Ventilator 40 08/06/16 07:55 40 08/06/16 06:00 32.6 50 24 100/75 100 Mechanical Ventilator 40 103/69 08/06/16 05:50 40 08/06/16 05:00 32.4 49 24 103/75 100 Mechanical Ventilator 40 102/69 08/06/16 04:00 40 08/06/16 04:00 100 Mechanical Ventilator 40 08/06/16 04:00 32.2 50 24 104/71 100 Mechanical Ventilator 40 100/68 08/06/16 03:00 32.0 46 24 104/78 100 Mechanical Ventilator 40 102/67 08/06/16 02:10 40 08/06/16 02:00 31.9 45 24 104/76 100 Mechanical Ventilator 40 105/71 08/06/16 01:00 31.8 44 24 104/79 100 Mechanical Ventilator 40 109/72 08/06/16 00:00 40 08/06/16 00:00 100 Mechanical Ventilator 40 08/06/16 00:00 31.8 43 24 98/75 100 Mechanical Ventilator 40 103/67 08/05/16 23:20 50 08/05/16 23:00 31.8 44 24 104/74 100 Mechanical Ventilator 40 102/68 08/05/16 22:00 32.3 48 24 109/80 100 Mechanical Ventilator 40 113/75 08/05/16 21:00 50 08/05/16 21:00 33.1 43 24 99/76 100 Mechanical Ventilator 40 104/71 Physical Exam: General Appearance: WD/WN, no apparent distress Eyes: bilateral eyes normal inspection ENT: + pertinent finding (endotrach tube and NG tube in place) Neck: supple Respiratory/Chest: chest non-tender Cardiovascular: no edema Abdomen: non tender Extremities: non-tender Neurologic/Psychiatric: + pertinent finding (sedated) Skin: normal color Medications Medications: Current Inpatient Medications Medications (Trade) Dose Ordered Sig/Bryn Route Start Time Stop Time Status Last Admin Dose Admin Aspirin (Aspirin Chew) 81 mg DAILY NG 08/05/16 09:00 09/04/16 08:59 08/06/16 08:10 81 MG Acetaminophen (Tylenol Soln) 650 mg Q4H PRN NG 08/04/16 22:45 09/03/16 22:44 Morphine Sulfate (MoRPHine SULFATE INJ) 4 mg Q2H PRN IV 08/04/16 22:45 08/18/16 22:44 Artificial Tears 1 appln 1 appln Q2H PRN OPB 08/04/16 22:45 09/03/16 22:44 08/06/16 08:11 1 APPLN Pantoprazole Sodium/Syringe (Protonix Inj/ Syringe) 10 ml @ 5 mls/min DAILY@11 IV 08/05/16 11:00 09/04/16 10:59 08/06/16 11:20 5 MLS/MIN Buspirone HCl (BusPAR TAB) 60 mg ONE PRN NG 08/04/16 22:45 09/03/16 22:44 Meperidine HCl 25 mg 25 mg Q2H PRN IV 08/04/16 22:45 08/18/16 22:44 Norepinephrine Bitartrate/ Dextrose (Levophed Inj/ D5W 500ml) 508 ml @ 0 mls/hr Q0M PRN IV 08/04/16 22:36 09/03/16 22:35 08/05/16 20:13 84.5 MLS/HR Insulin Aspart SLIDING SCALE PCHS SC 08/05/16 08:00 09/04/16 07:59 Insulin Human Regular/Sodium Chloride (novoLIN-R/Nss 250ml) 252.5 ml @ 0 mls/hr DAILY@1130 IV 08/05/16 00:00 09/04/16 00:00 08/05/16 11:06 8.6 MLS/HR Glucose (Glucose 40% Gel) UD PRN PO 08/04/16 23:45 09/03/16 23:44 Glucose (Glucose Chew Tab) 1 tabs UD PRN PO 08/04/16 23:45 09/03/16 23:44 Dextrose (Dextrose 50% 50ML Syringe) 50 ml UD PRN IV 08/04/16 23:45 09/03/16 23:44 08/05/16 20:26 50 ML Glucagon 1 mg 1 mg UD PRN SQ 08/04/16 23:45 09/03/16 23:44 Ampicillin Sodium/ Sulbactam Sodium/ Sodium Chloride (Unasyn Inj/Nss 100ml) 108 ml @ 200 mls/hr Q6@0000,0600,1200,1800 IV 08/05/16 01:00 08/12/16 00:59 08/06/16 17:50 200 MLS/HR Ampicillin Sodium/ Sulbactam Sodium 1 ea 1 ea UD PRN N/A 08/05/16 01:00 09/04/16 00:59 Amiodarone HCL/ Dextrose (Nexterone / D5w) 200 ml @ 16.7 mls/hr [id number] IV 08/05/16 07:00 09/04/16 06:59 08/06/16 17:51 16.7 MLS/HR Acetaminophen 650 mg 650 mg UD PRN [place] 08/06/16 06:00 09/05/16 05:59 Midazolam HCl 250 ml @ 0 mls/hr Q0M PRN IV 08/05/16 18:00 09/04/16 17:59 08/05/16 20:27 8 MLS/HR Cisatracurium Besylate/Sodium Chloride (Nimbex INJ/Nss 250ml) 250 ml @ 0 mls/hr Q0M PRN IV 08/06/16 02:30 09/05/16 02:29 08/06/16 11:19 26.5 MLS/HR Fentanyl Citrate 50 mcg 50 mcg Q2H PRN IV 08/06/16 12:15 08/20/16 12:14 08/06/16 19:54 50 MCG Fentanyl Citrate 250 ml @ 10 mls/hr Q24H PRN IV 08/06/16 19:45 08/20/16 19:44 Sodium Bicarbonate/ Dextrose (Sodium Bicarbonate 8.4% Inj/D5W 1000ml) 1,100 ml @ 75 mls/hr [id number] IV 08/06/16 20:30 09/05/16 19:44 Albuterol Sulfate (Ventolin 0.5% 2.5MG/0.5ML Neb) 2.5 mg Q6R INH 08/06/16 21:00 09/05/16 20:59 Laboratory Data Labs: Last 24 Hours Test 08/05/16 20:53 08/05/16 21:06 08/05/16 22:15 08/05/16 23:30 Blood Gas Sample Site Art Line Bedside Blood Gas pH (LAB) 7.38 Bedside Blood Gas pCO2 (LAB) 25 mmHg Bedside Blood Gas pO2 (LAB) 116 mmHg Bedside Blood Gas HCO3 (LAB) 15 meq/L Bedside Blood Gas Total CO2 16 mEq/l Bedside Blood Gas Base Excess (LAB) -11.0 meq/L Bedside Blood Gas O2 Saturation 99.0 % Miguel Test NA Oxygen Delivery Device Ventilator Bedside Oxygen Rate (breaths/min) 24 Blood Gas Minute Ventilation 11.8 Bedside FiO2 50 % Blood Gas Tidal Volume 500 Blood Gas PEEP 8 Bedside Glucose (other) 126 mg/dl 131 mg/dl White Blood Count 14.43 K/uL Red Blood Count 5.08 M/uL Hemoglobin 15.4 g/dL Hematocrit 45.4 % Mean Corpuscular Volume 89.4 fL Mean Corpuscular Hemoglobin 30.3 pg Mean Corpuscular Hemoglobin Concent 33.9 g/dl Platelet Count 176 K/uL Mean Platelet Volume 10.8 fL Neutrophils (%) (Auto) 77.1 % Lymphocytes (%) (Auto) 13.0 % Monocytes (%) (Auto) 8.9 % Eosinophils (%) (Auto) 0.3 % Basophils (%) (Auto) 0.1 % Neutrophils # (Auto) 11.14 K/uL Lymphocytes # (Auto) 1.88 K/uL Monocytes # (Auto) 1.28 K/uL Eosinophils # (Auto) 0.04 K/uL Basophils # (Auto) 0.01 K/uL RDW Standard Deviation 45.6 fL RDW Coefficient of Variation 13.9 % Immature Granulocyte % (Auto) 0.6 % Immature Granulocyte # (Auto) 0.08 K/uL Prothrombin Time 15.5 SECONDS Prothromb Time International Ratio 1.4 Activated Partial Thromboplast Time 35.6 SECONDS Partial Thromboplastin Ratio 1.4 Sodium Level 144 mmol/L Potassium Level 3.8 mmol/L Chloride Level 110 mmol/L Carbon Dioxide Level 15 mmol/L Anion Gap 19.0 mmol/L Blood Urea Nitrogen 27 mg/dl Creatinine 2.00 mg/dl Est Creatinine Clear Calc Drug Dose 50.6 ml/min Estimated GFR () 42.6 Estimated GFR (Non- 36.7 BUN/Creatinine Ratio 13.7 Random Glucose 137 mg/dl Calcium Level 7.2 mg/dl Phosphorus Level 2.2 mg/dl Magnesium Level 2.0 mg/dl Test 08/05/16 23:55 08/06/16 00:01 08/06/16 01:11 08/06/16 02:06 Blood Gas Sample Site Art Line Bedside Blood Gas pH (LAB) 7.36 Bedside Blood Gas pCO2 (LAB) 22 mmHg Bedside Blood Gas pO2 (LAB) 75 mmHg Bedside Blood Gas HCO3 (LAB) 13 meq/L Bedside Blood Gas Total CO2 14 mEq/l Bedside Blood Gas Base Excess (LAB) -14.0 meq/L Bedside Blood Gas O2 Saturation 97.0 % Miguel Test NA Oxygen Delivery Device Ventilator Bedside Oxygen Rate (breaths/min) 24 Blood Gas Minute Ventilation 12 Bedside FiO2 40 % Blood Gas Tidal Volume 500 Blood Gas PEEP 8 Bedside Glucose (other) 135 mg/dl 142 mg/dl 146 mg/dl Test 08/06/16 03:04 08/06/16 03:52 08/06/16 04:01 08/06/16 04:03 Bedside Glucose (other) 148 mg/dl 142 mg/dl Blood Gas Sample Site Art Line Bedside Blood Gas pH (LAB) 7.42 Bedside Blood Gas pCO2 (LAB) 22 mmHg Bedside Blood Gas pO2 (LAB) 87 mmHg Bedside Blood Gas HCO3 (LAB) 15 meq/L Bedside Blood Gas Total CO2 15 mEq/l Bedside Blood Gas Base Excess (LAB) -11.0 meq/L Bedside Blood Gas O2 Saturation 98.0 % Miguel Test NA Oxygen Delivery Device Ventilator Bedside Oxygen Rate (breaths/min) 24 Blood Gas Minute Ventilation 11.9 Bedside FiO2 40 % Blood Gas Tidal Volume 500 Blood Gas PEEP 8 White Blood Count 12.41 K/uL Red Blood Count 5.01 M/uL Hemoglobin 15.4 g/dL Hematocrit 44.5 % Mean Corpuscular Volume 88.8 fL Mean Corpuscular Hemoglobin 30.7 pg Mean Corpuscular Hemoglobin Concent 34.6 g/dl Platelet Count 151 K/uL Mean Platelet Volume 11.1 fL Neutrophils (%) (Auto) 80.9 % Lymphocytes (%) (Auto) 9.8 % Monocytes (%) (Auto) 8.5 % Eosinophils (%) (Auto) 0.2 % Basophils (%) (Auto) 0.1 % Neutrophils # (Auto) 10.03 K/uL Lymphocytes # (Auto) 1.22 K/uL Monocytes # (Auto) 1.06 K/uL Eosinophils # (Auto) 0.03 K/uL Basophils # (Auto) 0.01 K/uL RDW Standard Deviation 45.6 fL RDW Coefficient of Variation 14.1 % Immature Granulocyte % (Auto) 0.5 % Immature Granulocyte # (Auto) 0.06 K/uL Prothrombin Time 16.6 SECONDS Prothromb Time International Ratio 1.5 Activated Partial Thromboplast Time 34.7 SECONDS Partial Thromboplastin Ratio 1.3 Sodium Level 142 mmol/L Potassium Level 4.4 mmol/L Chloride Level 109 mmol/L Carbon Dioxide Level 16 mmol/L Anion Gap 17.0 mmol/L Blood Urea Nitrogen 27 mg/dl Creatinine 1.90 mg/dl Est Creatinine Clear Calc Drug Dose 53.3 ml/min Estimated GFR () 45.3 Estimated GFR (Non- 39.1 BUN/Creatinine Ratio 14.1 Random Glucose 140 mg/dl Calcium Level 7.3 mg/dl Phosphorus Level 4.3 mg/dl Magnesium Level 1.9 mg/dl Total Bilirubin 0.6 mg/dl Direct Bilirubin 0.2 mg/dl Aspartate Amino Transf (AST/SGOT) 90 U/L Alanine Aminotransferase (ALT/SGPT) 171 U/L Alkaline Phosphatase 38 U/L Total Protein 5.4 gm/dl Albumin 2.5 gm/dl Test 08/06/16 06:08 08/06/16 07:55 08/06/16 08:07 08/06/16 08:35 Bedside Glucose (other) 140 mg/dl 140 mg/dl Blood Gas Sample Site Art Line Bedside Blood Gas pH (LAB) 7.36 Bedside Blood Gas pCO2 (LAB) 25 mmHg Bedside Blood Gas pO2 (LAB) 84 mmHg Bedside Blood Gas HCO3 (LAB) 14 meq/L Bedside Blood Gas Total CO2 15 mEq/l Bedside Blood Gas Base Excess (LAB) -12.0 meq/L Bedside Blood Gas O2 Saturation 97.0 % Miguel Test NA Oxygen Delivery Device Ventilator Bedside Oxygen Rate (breaths/min) 24 Blood Gas Minute Ventilation 11.8 Bedside FiO2 40 % Blood Gas Tidal Volume 500 Blood Gas PEEP 8 White Blood Count 12.32 K/uL Red Blood Count 5.08 M/uL Hemoglobin 15.1 g/dL Hematocrit 44.0 % Mean Corpuscular Volume 86.6 fL Mean Corpuscular Hemoglobin 29.7 pg Mean Corpuscular Hemoglobin Concent 34.3 g/dl Platelet Count 151 K/uL Mean Platelet Volume 10.3 fL Neutrophils (%) (Auto) 86.4 % Lymphocytes (%) (Auto) 5.4 % Monocytes (%) (Auto) 7.5 % Eosinophils (%) (Auto) 0.1 % Basophils (%) (Auto) 0.1 % Neutrophils # (Auto) 10.65 K/uL Lymphocytes # (Auto) 0.67 K/uL Monocytes # (Auto) 0.92 K/uL Eosinophils # (Auto) 0.01 K/uL Basophils # (Auto) 0.01 K/uL RDW Standard Deviation 44.0 fL RDW Coefficient of Variation 13.9 % Immature Granulocyte % (Auto) 0.5 % Immature Granulocyte # (Auto) 0.06 K/uL Prothrombin Time 15.4 SECONDS Prothromb Time International Ratio 1.4 Activated Partial Thromboplast Time 34.8 SECONDS Partial Thromboplastin Ratio 1.3 Sodium Level 141 mmol/L Potassium Level 4.1 mmol/L Chloride Level 109 mmol/L Carbon Dioxide Level 15 mmol/L Anion Gap 17.0 mmol/L Blood Urea Nitrogen 27 mg/dl Creatinine 2.00 mg/dl Est Creatinine Clear Calc Drug Dose 7.6 ml/min Estimated GFR () 42.6 Estimated GFR (Non- 36.7 BUN/Creatinine Ratio 13.3 Random Glucose 132 mg/dl Calcium Level 7.6 mg/dl Phosphorus Level 3.2 mg/dl Magnesium Level 2.0 mg/dl Troponin I 0.045 ng/ml Test 08/06/16 10:01 08/06/16 11:40 08/06/16 11:46 08/06/16 12:03 Bedside Glucose (other) 137 mg/dl 135 mg/dl Blood Gas Sample Site Art Line Bedside Blood Gas pH (LAB) 7.35 Bedside Blood Gas pCO2 (LAB) 26 mmHg Bedside Blood Gas pO2 (LAB) 91 mmHg Bedside Blood Gas HCO3 (LAB) 15 meq/L Bedside Blood Gas Total CO2 15 mEq/l Bedside Blood Gas Base Excess (LAB) -12.0 meq/L Bedside Blood Gas O2 Saturation 98.0 % Migule Test NA Oxygen Delivery Device Ventilator Bedside Oxygen Rate (breaths/min) 24 Blood Gas Minute Ventilation 12.1 Bedside FiO2 40 % Blood Gas Tidal Volume 500 Blood Gas PEEP 8 White Blood Count 12.50 K/uL Red Blood Count 4.99 M/uL Hemoglobin 15.1 g/dL Hematocrit 42.9 % Mean Corpuscular Volume 86.0 fL Mean Corpuscular Hemoglobin 30.3 pg Mean Corpuscular Hemoglobin Concent 35.2 g/dl Platelet Count 173 K/uL Mean Platelet Volume 10.8 fL Neutrophils (%) (Auto) 85.0 % Lymphocytes (%) (Auto) 6.9 % Monocytes (%) (Auto) 7.4 % Eosinophils (%) (Auto) 0.1 % Basophils (%) (Auto) 0.1 % Neutrophils # (Auto) 10.63 K/uL Lymphocytes # (Auto) 0.86 K/uL Monocytes # (Auto) 0.93 K/uL Eosinophils # (Auto) 0.01 K/uL Basophils # (Auto) 0.01 K/uL RDW Standard Deviation 44.6 fL RDW Coefficient of Variation 14.2 % Immature Granulocyte % (Auto) 0.5 % Immature Granulocyte # (Auto) 0.06 K/uL Prothrombin Time 15.4 SECONDS Prothromb Time International Ratio 1.4 Activated Partial Thromboplast Time 34.5 SECONDS Partial Thromboplastin Ratio 1.3 Sodium Level 141 mmol/L Potassium Level 4.4 mmol/L Chloride Level 110 mmol/L Carbon Dioxide Level 16 mmol/L Anion Gap 15.0 mmol/L Blood Urea Nitrogen 27 mg/dl Creatinine 2.00 mg/dl Est Creatinine Clear Calc Drug Dose 7.6 ml/min Estimated GFR () 42.6 Estimated GFR (Non- 36.7 BUN/Creatinine Ratio 13.7 Random Glucose 126 mg/dl Calcium Level 7.5 mg/dl Phosphorus Level 3.5 mg/dl Magnesium Level 2.0 mg/dl Test 08/06/16 14:10 08/06/16 16:27 08/06/16 17:55 08/06/16 18:25 Bedside Glucose (other) 138 mg/dl 136 mg/dl Blood Gas Sample Site Art Line Bedside Blood Gas pH (LAB) 7.37 Bedside Blood Gas pCO2 (LAB) 26 mmHg Bedside Blood Gas pO2 (LAB) 93 mmHg Bedside Blood Gas HCO3 (LAB) 15 meq/L Bedside Blood Gas Total CO2 16 mEq/l Bedside Blood Gas Base Excess (LAB) -11.0 meq/L Bedside Blood Gas O2 Saturation 98.0 % Miguel Test NA Oxygen Delivery Device Ventilator Bedside Oxygen Rate (breaths/min) 24 Blood Gas Minute Ventilation 12.1 Bedside FiO2 40 % Blood Gas Tidal Volume 500 Blood Gas PEEP 8 Prothrombin Time 15.5 SECONDS Prothromb Time International Ratio 1.4 Sodium Level 141 mmol/L Potassium Level 4.9 mmol/L Chloride Level 110 mmol/L Carbon Dioxide Level 16 mmol/L Anion Gap 15.0 mmol/L Blood Urea Nitrogen 29 mg/dl Creatinine 2.10 mg/dl Est Creatinine Clear Calc Drug Dose 7.2 ml/min Estimated GFR () 40.1 Estimated GFR (Non- 34.6 BUN/Creatinine Ratio 13.6 Random Glucose 134 mg/dl Calcium Level 7.9 mg/dl Ionized Calcium 1.03 mmol/l Magnesium Level 2.1 mg/dl Test 08/06/16 18:30 Bedside Glucose (other) 138 mg/dl Assessment and Plan A 56-year-old white male admitted to ICU because of cardiac arrest on 2016 history of Nonischemic cardiomyopathy, ejection fraction was listed at 30% as long ago as 2004. The more recent echo on record was performed in 2012 and showed an EF of 35%. The EF in the Emergency Department at the time of admission was closer to 25%. Hypothyroidism, Hypertension. CV: Ventricular fibrillations/cardiac arrest: Prolonged QT: History of Cardiomyopathy: Dr. Rod, his primary grease and tallow pumper, appreciated recs, cont amiodarone drip and pressors support may start rewarming process Pulm: Acute hypoxic respiratory failure with ventilator dependent Possible aspiration pneumonia, cont IV unasyn Bilateral anterior rib fractures with moderate right-sided pneumothorax and right anterior chest wall subcutaneous emphysema. Patchy areas of consolidation within the bilateral lungs posteriorly favor pulmonary contusion Add DuoNeb if needed Infectious disease: Possible sepsis, UTI and pneumonia, continue antibiotics IV as above, follow-up C+S neuro: Was unresponsive since the cardiac arrest , head Ct was not remarkable Renal: Acute kidney failure likely from hypoperfusion from cardiac arrest, today 's getting worse, continue on IV fluid Heme: no acute issues GI: GI prophylaxis on SCD Endo: no issues, target Bg <180 nutrition: NG tube in place, consider feeding This is critical ill patient, the care plan will be measuring per deputy sheriff generalist/bailiff of the the critical care team. Transfer to tertiary care center if needed ICU time 50 min Continued [facility] stay due to: multiple IV medications needed Discharge planning: uncertain
[2016-08-06] MEDS: SODIUM BICARBONATE 8.4% INJ 100 MEQ in DEXTROSE 5% 1000ML 1,000 ML IV SCH (20:51)
[2016-08-06] MEDS: ALBUTEROL 0.5% NEB SOLN 2.5 MG/0.5 ML VIAL INH SCH (21:22)
[2016-08-06 23:10] LABS: ISTAT ARTERIAL BLOOD GAS HCO3 17 meq/L (19-24); ISTAT ARTERIAL BLOOD GAS PCO2 31 mmHg (35-46); ISTAT ARTERIAL BLOOD GAS PO2 79 mmHg (80-95); ISTAT ARTERIAL BLOOD GAS pH 7.35 (7.35-7.45); ISTAT CARBON DIOXIDE 18 mEq/l (24-31); ISTAT DELIVERY SYSTEM Ventilator; ISTAT FIO2 40 %; ISTAT PEEP 8; ISTAT RATE 12; ISTAT SITE Art Line; VE 11.7; Vt 500
[2016-08-07] VITALS (12 sets, daily range): BP systolic 64–123; BP diastolic 54–80; PULSE 78–98; TEMP 36.1–38.2; O2SAT 94–100
[2016-08-07] MEDS: AMPICILLIN/SULBACTAM SOD INJ 3,000 MG in SODIUM CHLORIDE 0.9% 100ML 100 ML IV SCH ×4 (00:40→17:18)
[2016-08-07] MEDS: MIDAZOLAM 125MG/250ML D5W 250 ML IV PRN (00:42)
[2016-08-07] MEDS: ALBUTEROL 0.5% NEB SOLN 2.5 MG/0.5 ML VIAL INH SCH ×4 (02:08→20:30)
[2016-08-07] MEDS ORDERED: NURSING VERBAL MED ORDER ONE ×3 (05:00→09:45)
[2016-08-07] MEDS ORDERED: ACETAMINOPHEN IV 650 MG in EMPTY BAG 0 ML IV STA (05:00)
[2016-08-07 05:19] LABS: ISTAT ARTERIAL BLOOD GAS HCO3 18 meq/L (19-24); ISTAT ARTERIAL BLOOD GAS PCO2 41 mmHg (35-46); ISTAT ARTERIAL BLOOD GAS PO2 90 mmHg (80-95); ISTAT ARTERIAL BLOOD GAS pH 7.26 (7.35-7.45); ISTAT CARBON DIOXIDE 20 mEq/l (24-31); ISTAT DELIVERY SYSTEM Ventilator; ISTAT FIO2 40 %; ISTAT PEEP 8; ISTAT RATE 24; ISTAT SITE Art Line; VE 12.8; Vt 500
[2016-08-07] MEDS: FENTANYL CITRATE INJ 50 MCG/1 ML 2 ML VIAL IV PRN (05:50)
[2016-08-07] MEDS ORDERED: DexMEDEtomidine HCL INJ 200 MCG in SODIUM CHLORIDE 0.9% 50ML 48 ML IV PRN (06:00)
[2016-08-07 06:02] LABS: COMPLETE YES; EOS % 0.1 %; HEMATOCRIT 41.3 % (42-52); IG% 0.3 %; LYMPH ABS # 0.35 K/uL (1.2-3.4); MEAN CELL VOLUME 88.8 fL (80-100); MEAN CORPUSCULAR HEMOGLOBIN 30.1 pg (25-34); MEAN CORPUSCULAR HGB CONC 33.9 g/dl (32-36); MEAN PLATELET VOLUME 10.9 fL (7.4-10.4); MONO % 6.1 %; NEUT % 90.5 %; PLATELET COUNT 175 K/uL (130-400); RED BLOOD COUNT 4.65 M/uL (4.7-6.1); WHITE BLOOD COUNT 11.83 K/uL (4.8-10.8)
[2016-08-07 06:30] LABS: BUN/CREATININE RATIO 11.4 (10-20); CALCIUM 7.6 mg/dl (8.5-10.1); CREATININE 2.5 mg/dl (0.60-1.40); MAGNESIUM 1.9 mg/dl (1.8-2.4); POTASSIUM 4.3 mmol/L (3.5-5.1)
[2016-08-07] MEDS: AMIODARONE / D5W 200 ML IV SCH ×2 (06:47→18:52)
[2016-08-07 06:50] LABS: PHOSPHORUS 4.6 mg/dl (2.5-4.9)
--- NOTE | 2016-08-07 07:51 | DIAGNOSTIC IMAGING REPORT ---
CHEST ONE VIEW PORTABLE CLINICAL HISTORY: Respiratory failure COMPARISON STUDY: 08/06/2016 FINDINGS: A right subclavian central venous catheter is again visualized. There is a nasogastric tube which passes in the stomach. The endotracheal tube 21 mm above the jose luis. There is a right-sided chest tube present. There is mild central pulmonary vascular congestion. Both hemidiaphragms are obscured suggesting small pleural effusions.[ IMPRESSION: 1. Cardiomegaly and mild pulmonary vascular congestion 2. Suspected small bilateral pleural effusions. Bibasal airspace opacities, likely atelectatic although an inflammatory process could appear similar 3. Satisfactory positioning of the lines and tubes. Electronically signed by: Renzo Alves M.D. 08/07/2016 7:49 AM Dictated Date/Time: 08/07/2016 7:48 AM
[2016-08-07] MEDS ORDERED: MAGNESIUM SULFATE 1GM / D5W 1 GM in PREMIXED IN D5W 100 ML IV ONE (08:00)
[2016-08-07] MEDS ORDERED: SODIUM BICARB 8.4% INJ 50 MEQ/50 ML SYR IV ONE (08:00)
[2016-08-07] MEDS: INSULIN ASPART 100 UNITS/ML 3 ML PEN SC SCH ×4 (08:00→20:47)
--- NOTE | 2016-08-07 09:16 | Medical Student: [facility] ---
Med Student Progress Note Date of Service Aug 07, 2016. Subjective Pt evaluation today including: physical exam, chart review, lab review, review of studies, review of inpatient medication list Pt is a 56 yo male with a hx of Cardiac cath and a depressed EF followed by Dr. Rdo that presented to the ED via EMS 4 days ago following cardiac arrest in [place]. Upon arrival in the ED a code arctic was initiated. Pt was then transfered to the ICU. Rewarming procedures were initiated yesterday, however it was difficult to pace the patient's warming. He became normothermic overnight and the Nimbex was titrated off. He then became febrile, reaching a max temp of 37.4. Tylenol PRN was then initiated for fever. He is no longer sedated. This morning he awakens to verbal stimuli, however is CAM ICU Positive. He denies pain, but a complete review of systems was unable to be performed. Objective Vital Signs Date Time Temp Pulse Resp B/P Pulse Ox O2 Delivery O2 Flow Rate FiO2 08/07/16 05:52 40 08/07/16 04:00 Mechanical Ventilator 40 08/07/16 04:00 40 08/07/16 03:00 36.9 90 24 104/59 98 Mechanical Ventilator 40 114/54 08/07/16 02:09 40 08/07/16 02:00 36.5 84 24 106/65 100 Mechanical Ventilator 40 113/68 08/07/16 01:00 36.4 78 24 97/59 100 Mechanical Ventilator 40 106/60 08/07/16 00:01 36.1 81 24 100/68 100 Mechanical Ventilator 40 114/65 08/07/16 00:01 Mechanical Ventilator 40 08/07/16 00:01 40 08/06/16 23:00 40 08/06/16 23:00 35.8 73 24 98/61 100 Mechanical Ventilator 40 107/61 08/06/16 22:00 35.7 72 24 99/63 100 Mechanical Ventilator 40 111/68 08/06/16 21:22 40 08/06/16 21:00 35.6 70 24 111/69 100 Mechanical Ventilator 40 120/70 08/06/16 20:00 40 08/06/16 20:00 35.3 66 24 105/69 100 Mechanical Ventilator 40 116/69 08/06/16 20:00 Mechanical Ventilator 40 08/06/16 19:00 34.7 64 22 106/75 100 Mechanical Ventilator 40 103/62 08/06/16 18:00 34.1 24 107/76 100 Mechanical Ventilator 40 104/68 08/06/16 17:44 40 08/06/16 17:00 34.7 24 106/81 100 Mechanical Ventilator 40 104/68 08/06/16 16:00 35.3 24 110/76 100 Mechanical Ventilator 40 112/72 08/06/16 15:00 40 08/06/16 15:00 100 Mechanical Ventilator 40 08/06/16 14:25 40 08/06/16 14:00 35.1 24 104/76 100 Mechanical Ventilator 40 112/73 08/06/16 13:00 34.3 65 24 93/64 100 Mechanical Ventilator 40 97/66 08/06/16 12:00 34.1 62 24 95/72 100 Mechanical Ventilator 40 93/64 08/06/16 12:00 40 08/06/16 12:00 100 Mechanical Ventilator 40 08/06/16 11:30 40 08/06/16 11:00 34.4 62 24 107/75 100 Mechanical Ventilator 40 108/73 08/06/16 10:00 34.5 59 24 96/77 100 Mechanical Ventilator 40 102/69 Physical Exam Comments: General: Awakens to verbal stimuli. CAM ICU Positive. HEENT: Pinpoint pupils bilaterally. Right scleral edema present. EOMI. On ventilator. OG tube in place. Cardiovascular: Normal Rate, regular rhythm. No murmurs, rubs, or gallops. No JVD. Respiratory: Ventilated, assist control. Wheezes present in [place], diminished breath sounds in RLL. Abdomen: Hypoactive bowel sounds. Firm. Extremities: Decreased pedal pulses, no peripheral edema. Skin intact. Laboratory Results Last 24 Hours Test 08/06/16 10:01 08/06/16 11:40 08/06/16 11:46 08/06/16 12:03 Bedside Glucose (other) 137 mg/dl 135 mg/dl Blood Gas Sample Site Art Line Bedside Blood Gas pH (LAB) 7.35 Bedside Blood Gas pCO2 (LAB) 26 mmHg Bedside Blood Gas pO2 (LAB) 91 mmHg Bedside Blood Gas HCO3 (LAB) 15 meq/L Bedside Blood Gas Total CO2 15 mEq/l Bedside Blood Gas Base Excess (LAB) -12.0 meq/L Bedside Blood Gas O2 Saturation 98.0 % Miguel Test NA Oxygen Delivery Device Ventilator Bedside Oxygen Rate (breaths/min) 24 Blood Gas Minute Ventilation 12.1 Bedside FiO2 40 % Blood Gas Tidal Volume 500 Blood Gas PEEP 8 White Blood Count 12.50 K/uL Red Blood Count 4.99 M/uL Hemoglobin 15.1 g/dL Hematocrit 42.9 % Mean Corpuscular Volume 86.0 fL Mean Corpuscular Hemoglobin 30.3 pg Mean Corpuscular Hemoglobin Concent 35.2 g/dl Platelet Count 173 K/uL Mean Platelet Volume 10.8 fL Neutrophils (%) (Auto) 85.0 % Lymphocytes (%) (Auto) 6.9 % Monocytes (%) (Auto) 7.4 % Eosinophils (%) (Auto) 0.1 % Basophils (%) (Auto) 0.1 % Neutrophils # (Auto) 10.63 K/uL Lymphocytes # (Auto) 0.86 K/uL Monocytes # (Auto) 0.93 K/uL Eosinophils # (Auto) 0.01 K/uL Basophils # (Auto) 0.01 K/uL RDW Standard Deviation 44.6 fL RDW Coefficient of Variation 14.2 % Immature Granulocyte % (Auto) 0.5 % Immature Granulocyte # (Auto) 0.06 K/uL Prothrombin Time 15.4 SECONDS Prothromb Time International Ratio 1.4 Activated Partial Thromboplast Time 34.5 SECONDS Partial Thromboplastin Ratio 1.3 Sodium Level 141 mmol/L Potassium Level 4.4 mmol/L Chloride Level 110 mmol/L Carbon Dioxide Level 16 mmol/L Anion Gap 15.0 mmol/L Blood Urea Nitrogen 27 mg/dl Creatinine 2.00 mg/dl Est Creatinine Clear Calc Drug Dose 7.6 ml/min Estimated GFR () 42.6 Estimated GFR (Non- 36.7 BUN/Creatinine Ratio 13.7 Random Glucose 126 mg/dl Calcium Level 7.5 mg/dl Phosphorus Level 3.5 mg/dl Magnesium Level 2.0 mg/dl Test 08/06/16 14:10 08/06/16 16:27 08/06/16 17:55 08/06/16 18:25 Bedside Glucose (other) 138 mg/dl 136 mg/dl Blood Gas Sample Site Art Line Bedside Blood Gas pH (LAB) 7.37 Bedside Blood Gas pCO2 (LAB) 26 mmHg Bedside Blood Gas pO2 (LAB) 93 mmHg Bedside Blood Gas HCO3 (LAB) 15 meq/L Bedside Blood Gas Total CO2 16 mEq/l Bedside Blood Gas Base Excess (LAB) -11.0 meq/L Bedside Blood Gas O2 Saturation 98.0 % Miguel Test NA Oxygen Delivery Device Ventilator Bedside Oxygen Rate (breaths/min) 24 Blood Gas Minute Ventilation 12.1 Bedside FiO2 40 % Blood Gas Tidal Volume 500 Blood Gas PEEP 8 Prothrombin Time 15.5 SECONDS Prothromb Time International Ratio 1.4 Sodium Level 141 mmol/L Potassium Level 4.9 mmol/L Chloride Level 110 mmol/L Carbon Dioxide Level 16 mmol/L Anion Gap 15.0 mmol/L Blood Urea Nitrogen 29 mg/dl Creatinine 2.10 mg/dl Est Creatinine Clear Calc Drug Dose 7.2 ml/min Estimated GFR () 40.1 Estimated GFR (Non- 34.6 BUN/Creatinine Ratio 13.6 Random Glucose 134 mg/dl Calcium Level 7.9 mg/dl Ionized Calcium 1.03 mmol/l Magnesium Level 2.1 mg/dl Test 08/06/16 18:30 08/06/16 20:03 08/06/16 22:57 08/07/16 00:07 Bedside Glucose (other) 138 mg/dl 134 mg/dl 145 mg/dl Blood Gas Sample Site Art Line Bedside Blood Gas pH (LAB) 7.35 Bedside Blood Gas pCO2 (LAB) 31 mmHg Bedside Blood Gas pO2 (LAB) 79 mmHg Bedside Blood Gas HCO3 (LAB) 17 meq/L Bedside Blood Gas Total CO2 18 mEq/l Bedside Blood Gas Base Excess (LAB) -9.0 meq/L Bedside Blood Gas O2 Saturation 96.0 % Miguel Test NA Oxygen Delivery Device Ventilator Bedside Oxygen Rate (breaths/min) 12 Blood Gas Minute Ventilation 11.7 Bedside FiO2 40 % Blood Gas Tidal Volume 500 Blood Gas PEEP 8 Test 08/07/16 04:12 08/07/16 05:06 08/07/16 05:40 Bedside Glucose (other) 157 mg/dl Blood Gas Sample Site Art Line Bedside Blood Gas pH (LAB) 7.26 Bedside Blood Gas pCO2 (LAB) 41 mmHg Bedside Blood Gas pO2 (LAB) 90 mmHg Bedside Blood Gas HCO3 (LAB) 18 meq/L Bedside Blood Gas Total CO2 20 mEq/l Bedside Blood Gas Base Excess (LAB) -8.0 meq/L Bedside Blood Gas O2 Saturation 95.0 % Miguel Test NA Oxygen Delivery Device Ventilator Bedside Oxygen Rate (breaths/min) 24 Blood Gas Minute Ventilation 12.8 Bedside FiO2 40 % Blood Gas Tidal Volume 500 Blood Gas PEEP 8 White Blood Count 11.83 K/uL Red Blood Count 4.65 M/uL Hemoglobin 14.0 g/dL Hematocrit 41.3 % Mean Corpuscular Volume 88.8 fL Mean Corpuscular Hemoglobin 30.1 pg Mean Corpuscular Hemoglobin Concent 33.9 g/dl Platelet Count 175 K/uL Mean Platelet Volume 10.9 fL Neutrophils (%) (Auto) 90.5 % Lymphocytes (%) (Auto) 3.0 % Monocytes (%) (Auto) 6.1 % Eosinophils (%) (Auto) 0.1 % Basophils (%) (Auto) 0.0 % Neutrophils # (Auto) 10.71 K/uL Lymphocytes # (Auto) 0.35 K/uL Monocytes # (Auto) 0.72 K/uL Eosinophils # (Auto) 0.01 K/uL Basophils # (Auto) 0.00 K/uL RDW Standard Deviation 47.2 fL RDW Coefficient of Variation 14.7 % Immature Granulocyte % (Auto) 0.3 % Immature Granulocyte # (Auto) 0.04 K/uL Sodium Level 141 mmol/L Potassium Level 4.3 mmol/L Chloride Level 108 mmol/L Carbon Dioxide Level 18 mmol/L Anion Gap 15.0 mmol/L Blood Urea Nitrogen 28 mg/dl Creatinine 2.50 mg/dl Est Creatinine Clear Calc Drug Dose 42.2 ml/min Estimated GFR () 32.5 Estimated GFR (Non- 28.1 BUN/Creatinine Ratio 11.4 Random Glucose 162 mg/dl Calcium Level 7.6 mg/dl Phosphorus Level 4.6 mg/dl Magnesium Level 1.9 mg/dl Total Bilirubin 0.5 mg/dl Direct Bilirubin 0.1 mg/dl Aspartate Amino Transf (AST/SGOT) 39 U/L Alanine Aminotransferase (ALT/SGPT) 125 U/L Alkaline Phosphatase 41 U/L Total Protein 5.3 gm/dl Albumin 2.2 gm/dl Assessment and Plan Assessment and Plan: Pt is 56 yo male with a hx of decreased EF and stent placement who presented 4 days ago following V.fib cardiac arrest. Currently, ICU day 3. Neuro: * CAM ICU Positive - (Current Mental Status differs from baseline, Attention test is positive (>2 errors), Disorganized thinking is positive (>1 error)). * No longer on sedation, d/c Versed and Precedex * Fentanyl 50 mcgs q 2 hrs PRN for pain Respiratory * Currently on Assist Control Ventilator - RR 24, TV 500, 40% FiO2, 8 PEEP * Reduce PEEP to 5 then attempt spontaneous breathing trial. * On CPAP nightly, at home for ANISA * Concern for RLL PNA continue Unasyn IV 200 mL/hr. Cardiovascular * Out of Hospital Cardiac Arrest - V. fib. * Continue Amiodarone drip 16.7 mLs/hr - maintenance dose * Consult cardiology - may require AICD. * Hypotension * Continue Levophed drip - 0.8 mcg/kg/hr as BP is 97/60 currently. * Continue to monitor BPs and titrate Levophed according per nursing protocol. * QT prolongation * improving as patient warms. * Continue daily EKGs. ID * RLL PNA - suspect aspiration PNA - chewing tobacco found in pt's mouth upon intubation. * Continue Unasyn IV 200 mL/hr. Abdomen * OG tube in place. * Has not had BM since admission. * Elevated LFTs - now trending down - likely 2/2 shock liver following cardiac arrest. Renal * Acute kidney injury likely 2/2 hypoperfusion * Cr up slightly today to 2.5. BUN is 28. * UA on 08/04 indicates occult blood and granular casts - likely ATN. * ABG indicates an Anion Gap Metabolic Acidosis likely due to Uremia. * IVF maintenance 20 amps Bicarb 1L IV 75 mLs/hr. * Arguelles Catheter in place. Strict I's and O's. Hematology * No acute concerns. Endocrine * Continue to monitor blood sugars per nursing protocol. Lines * Left axillary arterial line * Right IJ line with triple lumen catheter * Arguelles in place. * OG tube. Level of Care Critical Care Resuscitation Status FULL RESUSCITATION DVT Prophylaxis unfractionated heparin SQ BID Continued [facility] stay due to: multiple IV medications needed Discharge planning: uncertain
[2016-08-07] MEDS: ASPIRIN 81 MG CHEW NG SCH (10:07)
[2016-08-07] MEDS: PANTOprazole INJ 40 MG in SYRINGE 0 ML IV SCH (10:09)
[2016-08-07] MEDS: HEPARIN SOD 5000 UNIT/0.5 ML CARP SQ SCH ×2 (10:14→20:42)
--- NOTE | 2016-08-07 10:39 | Clinical Documentation Query ---
FREDY Wilkerson : CLINICAL DOCUMENTATION QUERY Patient is a 56 year old male admitted s/p ventricular fibrillation associated cardiac arrest. BMI noted to be 42 kg/m*m. Unfortunately, without explicit provider documentation of the associated condition, the BMI cannot be captured. An elevated BMI is an always clinically significant and reportable condition with the aforementioned restriction. Consider documentation as suggested below as clinically appropriate. In your clinical opinion is this patient being managed for/have a history to include: ( x ) Obesity ( ) Other explanation of clinical findings (Please Explain) ( ) Unable to determine (Please Define) ( ) Need to Discuss ( ) Not Agree The medical record reflects the following clinical findings, treatment, and risk factors. Clinical Indicators: As above Treatment:currently NPO Risk Factors: caloric intake > output, physical inactivity Please clarify and document your clinical opinion in the progress notes and discharge summary. Terms such as "probable", "suspected", "likely", "questionable", "possible", or "still to be ruled out" are acceptable. IF IN AGREEMENT, YOU MUST DOCUMENT ABOVE DIAGNOSTIC STATEMENT IN DAILY PROGRESS NOTES AND DISCHARGE SUMMARY. This document is not part of the patient's record. Thank You, Flaco Mitchell, RN [phone]
[2016-08-07] MEDS: SODIUM BICARBONATE 8.4% INJ 100 MEQ in DEXTROSE 5% 1000ML 1,000 ML IV SCH (11:54)
--- NOTE | 2016-08-07 12:12 | EEG Procedure Note ---
EEG Procedure Note Date of Service Aug 07, 2016. Start / End Times Start Time: 9:17am End Time: 9:37am Referring Physician Dr Fraser History 56-year-old male status post cardiac arrest with cooling protocol. Follow-up EEG for evaluation of subclinical status or seizures in the setting of unresponsiveness Home Medication List Scheduled Aspirin (Aspirin), 81 MG PO DAILY Fluticasone Propionate (Nasal) (Flonase), 2 SPRAYS SUNNY DAILY Levothyroxine Sodium (Synthroid), 25 MCG PO DAILY Lisinopril (Lisinopril), 10 MG PO DAILY Metoprolol Succinate (Metoprolol Succinate ER), 50 MG PO DAILY Inpatient Medication List Current Inpatient Medications Medications (Trade) Dose Ordered Sig/Bryn Route Start Time Stop Time Status Last Admin Dose Admin Aspirin (Aspirin Chew) 81 mg DAILY NG 08/05/16 09:00 09/04/16 08:59 08/07/16 10:07 81 MG Acetaminophen (Tylenol Soln) 650 mg Q4H PRN NG 08/04/16 22:45 09/03/16 22:44 Artificial Tears 1 appln 1 appln Q2H PRN OPB 08/04/16 22:45 09/03/16 22:44 08/06/16 08:11 1 APPLN Pantoprazole Sodium 40 mg/ Syringe 10 ml @ 5 mls/min DAILY@11 IV 08/05/16 11:00 09/04/16 10:59 08/07/16 10:09 5 MLS/MIN Norepinephrine Bitartrate/ Dextrose (Levophed Inj/ D5W 500ml) 508 ml @ 0 mls/hr Q0M PRN IV 08/04/16 22:36 09/03/16 22:35 08/05/16 20:13 84.5 MLS/HR Insulin Aspart (novoLOG ASPART) SLIDING SCALE PCHS SC 08/05/16 08:00 09/04/16 07:59 Glucose (Glucose 40% Gel) UD PRN PO 08/04/16 23:45 09/03/16 23:44 Glucose (Glucose Chew Tab) 1 tabs UD PRN PO 08/04/16 23:45 09/03/16 23:44 Dextrose (Dextrose 50% 50ML Syringe) 50 ml UD PRN IV 08/04/16 23:45 09/03/16 23:44 08/05/16 20:26 50 ML Glucagon 1 mg 1 mg UD PRN SQ 08/04/16 23:45 09/03/16 23:44 Ampicillin Sodium/ Sulbactam Sodium/ Sodium Chloride (Unasyn Inj/Nss 100ml) 108 ml @ 200 mls/hr Q6@0000,0600,1200,1800 IV 08/05/16 01:00 08/12/16 00:59 08/07/16 11:55 200 MLS/HR Ampicillin Sodium/ Sulbactam Sodium 1 ea 1 ea UD PRN N/A 08/05/16 01:00 09/04/16 00:59 Amiodarone HCL/ Dextrose (Nexterone / D5w) 200 ml @ 16.7 mls/hr [id number] IV 08/05/16 07:00 09/04/16 06:59 08/07/16 06:47 16.7 MLS/HR Acetaminophen (Tylenol Supp) 650 mg UD PRN SC 08/06/16 06:00 09/05/16 05:59 Fentanyl Citrate 50 mcg 50 mcg Q2H PRN IV 08/06/16 12:15 08/20/16 12:14 08/07/16 05:50 50 MCG Sodium Bicarbonate/ Dextrose (Sodium Bicarbonate 8.4% Inj/D5W 1000ml) 1,100 ml @ 75 mls/hr [id number] IV 08/06/16 20:30 09/05/16 19:44 08/07/16 11:54 75 MLS/HR Albuterol Sulfate (Ventolin 0.5% 2.5MG/0.5ML Neb) 2.5 mg Q6R INH 08/06/16 21:00 09/05/16 20:59 08/07/16 07:41 2.5 MG Heparin Sodium (Porcine) (Heparin Sq 5000 Unit/0.5ml) 5,000 unit Q12 SQ 08/07/16 10:00 09/06/16 09:59 08/07/16 10:14 5,000 UNIT Description This is a 21 electrode EEG with a single channel dedicated to limited EKG. The electrodes were placed in accordance with the International 10-20 system. Hyperventilation and photic stimulation were not done. Start of this recording the patient was in an unresponsive state. Background was poorly organized with no anterior to posterior gradient. Background was composed of symmetric low to moderate amplitude 4-5 Hz delta/theta frequencies with intermixed rare alpha frequencies. There was no state changes or sleep transients. Interpretation This is an abnormal routine EEG secondary to moderate background disorganization and slowing. There was no electrographic seizures or epileptiform discharges. Clinical Correlation This EEG indicates a moderate encephalopathy of nonspecific etiology. Compared to yesterday's EEG, encephalopathy appears slightly worse.
[2016-08-07] MEDS ORDERED: DOCUSATE SODIUM 100 MG/10 ML UDC PO STA (12:27)
--- NOTE | 2016-08-07 13:09 | CRITICAL CARE PROGRESS NOTE ---
DATE: 08/07/2016 SUBJECTIVE: There were no acute events overnight. The patient is ICU day #3 status post out of hospital ventricular fibrillation cardiac arrest. His care was discussed on multidisciplinary rounds today. Last night, his temperature warmed to greater than 36.5 degrees and his Nimbex was stopped. I was called this morning for agitation and the patient was on 18 mg of Versed per hour. Precedex was ordered. By the time I came into the hospital, all sedatives have been discontinued and the patient was actually doing relatively well. He also received some p.r.n. fentanyl and some Tylenol last night. He is having some small amount of yellow secretions from the endotracheal tube. He has not had a bowel movement. PHYSICAL EXAMINATION: VITAL SIGNS: Temperature 36.9, heart rate 90, respiratory rate 24, blood pressure 104/59, and oxygen saturation 98%. VENTILATOR SETTINGS: Assist control rate 24, tidal volume 500, FiO2 40%, and PEEP 8. GENERAL: He appears comfortable on the ventilator. NEUROLOGIC: He will open his eyes and follows some commands, moving all 4 extremities, but not consistently. His CAM assessment is positive. LUNGS: Coarse on the left. Some rhonchi on the right with some rales in the right base also with decreased breath sounds there. No wheezes. HEART: Regular rate and rhythm. CHEST: Symmetric expansion. ABDOMEN: Obese and somewhat firm, but seems nontender. No hepatosplenomegaly appreciated secondary to adipose tissue. Bowel sounds are active. EXTREMITIES: Warm. There is trace to 1+ edema in the hands and 1-2+ edema of the feet. LABORATORY DATA: White blood cell count 11.83, hemoglobin 14, hematocrit 41.3, and platelets 175. Sodium 141, potassium 4.3, chloride 108, CO2 of 18, BUN 28, creatinine 2.5, blood sugar 162, and calcium 7.6. AST 39, ALT 125, and alkaline phosphatase 41. MEDICATIONS AND INFUSIONS: Tylenol, albuterol, amiodarone, Zosyn day #3, artificial tears, aspirin, fentanyl, subcutaneous heparin, insulin sliding scale, Protonix, and D5W with 2 amps of sodium bicarbonate per liter at 75 mL per hour. MICROBIOLOGY: Sputum Gram stain culture is pending. Blood cultures 08/05, no growth to date. IMAGING STUDIES: Portable chest x-ray from this morning was reviewed and shows cardiomegaly and mild pulmonary vascular congestion. Small bilateral pleural effusions and bibasilar airspace opacities likely atelectatic. There is no pneumothorax. IMPRESSION: 1. Status post out of hospital, resuscitated ventricular fibrillation cardiac arrest. Status post targeted temperature management and improved neurologic status. 2. Acute hypoxemic respiratory failure. 3. Metabolic encephalopathy, overall he is doing remarkably well neurologically and continues to improve. 4. Acute kidney injury secondary to acute tubular necrosis from hypoperfusion during the cardiac arrest. He is a little bit acidotic. Hopefully, we will see his creatinine plateau soon. 5. Probable aspiration pneumonia. 6. Right pneumothorax. 7. Bilateral rib fractures. 8. History of cardiomyopathy. Ejection fraction in this admission 30%-35% with global hypokinesis. There is also mild biatrial dilatation. 9. Prolonged QT interval. 10. Mild elevation of the transaminases, improving. 11. Hyperglycemia, improved. 12. History of hypertension. 13. History of hypothyroidism. PLAN: NEUROLOGIC: Continue to avoid sedatives if at all possible. I would be surprised that he has pain secondary to his rib fractures. I will keep the fentanyl on his medication profile. Await EEG results from this afternoon. Overall, I am encouraged by his progress neurologically. PULMONARY: Send sputum for culture and attempt spontaneous breathing trial today. I do not think he will be cleared enough from a neurologic standpoint to extubate, but certainly I will reevaluate this afternoon. Continue antibiotics for pneumonia and check sputum culture. Leave the chest tube to suction until he is extubated. CARDIOVASCULAR: Continue amiodarone infusion and wean Levophed. I would like to give him some diuretics and hope that he will be off the Levophed soon. Follow the QT interval. I have discontinued the q. 4 hour EKGs. RENAL: Continue sodium bicarbonate infusion and consider Lasix. Renally adjust the medications. GASTROINTESTINAL: Consider trickle feeds later today. Add Colace to his medication regimen. ENDOCRINE: Continue sliding scale insulin and levothyroxine. INFECTIOUS DISEASE: Today is sy day #3. Watch for any signs of infection and follow cultures. HEMATOLOGY: No acute active issues. MISCELLANEOUS: Continue proton pump inhibitor and subcutaneous heparin for GI and DVT prophylaxis. Overall, I am encouraged with his progress. I have not seen any family to update over the past 2 days. We will await any further cardiology recommendations as certainly he may need an AICD in the future. Please call me with any questions or concerns. Critical care time 60 minutes.
[2016-08-07] MEDS: ACETAMINOPHEN SOLN 650MG/20.3 ML UDC NG PRN ×2 (13:56→18:05)
[2016-08-07 15:55] LABS: BUN/CREATININE RATIO 10.4 (10-20); CALCIUM 7.4 mg/dl (8.5-10.1); CREATININE 2.8 mg/dl (0.60-1.40); MAGNESIUM 2.2 mg/dl (1.8-2.4); POTASSIUM 4.2 mmol/L (3.5-5.1)
[2016-08-07] MEDS ORDERED: FUROSEMIDE 40 MG/4 ML VIAL IV STA (16:50)
[2016-08-07] MEDS ORDERED: FUROSEMIDE INJ 40 MG in SYRINGE 0 ML IV ONE (17:00)
--- NOTE | 2016-08-07 20:12 | Progress Note ---
Subjective Subjective Date of Service: Aug 07, 2016. Pt evaluation today including: physical exam, chart review, review of studies, review of inpatient medication list Notes: remains intubated, NG in, ros cant be obtained Problem List Medical Problems: (1) Cardiac arrest Status: Acute (2) Rib fractures Status: Acute (3) Ventricular fibrillation Status: Acute Physical Exam Vital Signs Vital Signs Past 24 Hours: Date Time Temp Pulse Resp B/P Pulse Ox O2 Delivery O2 Flow Rate FiO2 08/07/16 18:00 38.2 91 24 103/67 100 Mechanical Ventilator 40 103/67 08/07/16 17:46 40 08/07/16 16:00 37.8 89 24 96/56 100 Mechanical Ventilator 40 99/59 08/07/16 16:00 100 Mechanical Ventilator 40 08/07/16 16:00 40 08/07/16 14:00 38.1 98 24 98/71 98 Mechanical Ventilator 40 112/61 08/07/16 13:59 40 08/07/16 12:00 37.8 91 24 104/75 97 Mechanical Ventilator 40 123/80 08/07/16 12:00 40 08/07/16 12:00 100 Mechanical Ventilator 40 08/07/16 11:53 40 08/07/16 10:00 37.9 89 26 100/70 94 Mechanical Ventilator 40 110/64 08/07/16 08:00 40 08/07/16 08:00 37.6 85 24 97/60 100 Mechanical Ventilator 40 71/57 08/07/16 08:00 100 Mechanical Ventilator 40 08/07/16 08:00 Mechanical Ventilator 40 08/07/16 07:41 40 08/07/16 05:52 40 08/07/16 04:00 Mechanical Ventilator 40 08/07/16 04:00 40 08/07/16 03:00 36.9 90 24 104/59 98 Mechanical Ventilator 40 114/54 08/07/16 02:09 40 08/07/16 02:00 36.5 84 24 106/65 100 Mechanical Ventilator 40 113/68 08/07/16 01:00 36.4 78 24 97/59 100 Mechanical Ventilator 40 106/60 08/07/16 00:01 36.1 81 24 100/68 100 Mechanical Ventilator 40 114/65 08/07/16 00:01 Mechanical Ventilator 40 08/07/16 00:01 40 08/06/16 23:00 40 2/20/17 23:00 35.8 73 24 98/61 100 Mechanical Ventilator 40 107/61 08/06/16 22:00 35.7 72 24 99/63 100 Mechanical Ventilator 40 111/68 08/06/16 21:22 40 08/06/16 21:00 35.6 70 24 111/69 100 Mechanical Ventilator 40 120/70 Physical Exam: General Appearance: no apparent distress Eyes: bilateral eyes normal inspection ENT: + pertinent finding (endotrach tube, NG) Neck: supple Respiratory/Chest: chest non-tender Cardiovascular: regular rate, rhythm Abdomen: normal bowel sounds Extremities: normal range of motion Skin: normal color Medications Medications: Current Inpatient Medications Medications (Trade) Dose Ordered Sig/Bryn Route Start Time Stop Time Status Last Admin Dose Admin Aspirin (Aspirin Chew) 81 mg DAILY NG 08/05/16 09:00 09/04/16 08:59 08/07/16 10:07 81 MG Acetaminophen (Tylenol Soln) 650 mg Q4H PRN NG 08/04/16 22:45 09/03/16 22:44 08/07/16 18:05 650 MG Artificial Tears 1 appln 1 appln Q2H PRN OPB 08/04/16 22:45 09/03/16 22:44 08/06/16 08:11 1 APPLN Pantoprazole Sodium 40 mg/ Syringe 10 ml @ 5 mls/min DAILY@11 IV 08/05/16 11:00 09/04/16 10:59 08/07/16 10:09 5 MLS/MIN Norepinephrine Bitartrate/ Dextrose (Levophed Inj/ D5W 500ml) 508 ml @ 0 mls/hr Q0M PRN IV 08/04/16 22:36 09/03/16 22:35 08/05/16 20:13 84.5 MLS/HR Insulin Aspart (novoLOG ASPART) SLIDING SCALE PCHS SC 08/05/16 08:00 09/04/16 07:59 Glucose (Glucose 40% Gel) UD PRN PO 08/04/16 23:45 09/03/16 23:44 Glucose (Glucose Chew Tab) 1 tabs UD PRN PO 08/04/16 23:45 09/03/16 23:44 Dextrose (Dextrose 50% 50ML Syringe) 50 ml UD PRN IV 08/04/16 23:45 3/20/17 23:44 08/05/16 20:26 50 ML Glucagon 1 mg 1 mg UD PRN SQ 08/04/16 23:45 09/03/16 23:44 Ampicillin Sodium/ Sulbactam Sodium/ Sodium Chloride (Unasyn Inj/Nss 100ml) 108 ml @ 200 mls/hr Q6@0000,0600,1200,1800 IV 08/05/16 01:00 08/12/16 00:59 08/07/16 17:18 200 MLS/HR Ampicillin Sodium/ Sulbactam Sodium 1 ea 1 ea UD PRN N/A 08/05/16 01:00 09/04/16 00:59 Amiodarone HCL/ Dextrose (Nexterone / D5w) 200 ml @ 16.7 mls/hr [id number] IV 08/05/16 07:00 09/04/16 06:59 08/07/16 18:52 16.7 MLS/HR Acetaminophen (Tylenol Supp) 650 mg UD PRN RI 08/06/16 06:00 09/05/16 05:59 Fentanyl Citrate 50 mcg 50 mcg Q2H PRN IV 08/06/16 12:15 08/20/16 12:14 08/07/16 05:50 50 MCG Sodium Bicarbonate/ Dextrose (Sodium Bicarbonate 8.4% Inj/D5W 1000ml) 1,100 ml @ 25 mls/hr Q24H IV 08/06/16 20:30 09/05/16 20:29 08/07/16 11:54 75 MLS/HR Albuterol Sulfate (Ventolin 0.5% 2.5MG/0.5ML Neb) 2.5 mg Q6R INH 08/06/16 21:00 09/05/16 20:59 08/07/16 14:24 2.5 MG Heparin Sodium (Porcine) (Heparin Sq 5000 Unit/0.5ml) 5,000 unit Q12 SQ 08/07/16 10:00 09/06/16 09:59 08/07/16 10:14 5,000 UNIT Docusate Sodium (coLACE SYRUP) 100 mg BID PO 08/07/16 21:00 09/06/16 20:59 Laboratory Data Labs: Last 24 Hours Test 08/06/16 22:57 08/07/16 00:07 08/07/16 04:12 08/07/16 05:06 Blood Gas Sample Site Art Line Art Line Bedside Blood Gas pH (LAB) 7.35 7.26 Bedside Blood Gas pCO2 (LAB) 31 mmHg 41 mmHg Bedside Blood Gas pO2 (LAB) 79 mmHg 90 mmHg Bedside Blood Gas HCO3 (LAB) 17 meq/L 18 meq/L Bedside Blood Gas Total CO2 18 mEq/l 20 mEq/l Bedside Blood Gas Base Excess (LAB) -9.0 meq/L -8.0 meq/L Bedside Blood Gas O2 Saturation 96.0 % 95.0 % Miguel Test NA NA Oxygen Delivery Device Ventilator Ventilator Bedside Oxygen Rate (breaths/min) 12 24 Blood Gas Minute Ventilation 11.7 12.8 Bedside FiO2 40 % 40 % Blood Gas Tidal Volume 500 500 Blood Gas PEEP 8 8 Bedside Glucose (other) 145 mg/dl 157 mg/dl Test 08/07/16 05:40 08/07/16 11:47 08/07/16 15:12 08/07/16 16:54 White Blood Count 11.83 K/uL Red Blood Count 4.65 M/uL Hemoglobin 14.0 g/dL Hematocrit 41.3 % Mean Corpuscular Volume 88.8 fL Mean Corpuscular Hemoglobin 30.1 pg Mean Corpuscular Hemoglobin Concent 33.9 g/dl Platelet Count 175 K/uL Mean Platelet Volume 10.9 fL Neutrophils (%) (Auto) 90.5 % Lymphocytes (%) (Auto) 3.0 % Monocytes (%) (Auto) 6.1 % Eosinophils (%) (Auto) 0.1 % Basophils (%) (Auto) 0.0 % Neutrophils # (Auto) 10.71 K/uL Lymphocytes # (Auto) 0.35 K/uL Monocytes # (Auto) 0.72 K/uL Eosinophils # (Auto) 0.01 K/uL Basophils # (Auto) 0.00 K/uL RDW Standard Deviation 47.2 fL RDW Coefficient of Variation 14.7 % Immature Granulocyte % (Auto) 0.3 % Immature Granulocyte # (Auto) 0.04 K/uL Sodium Level 141 mmol/L 141 mmol/L Potassium Level 4.3 mmol/L 4.2 mmol/L Chloride Level 108 mmol/L 106 mmol/L Carbon Dioxide Level 18 mmol/L 25 mmol/L Anion Gap 15.0 mmol/L 10.0 mmol/L Blood Urea Nitrogen 28 mg/dl 29 mg/dl Creatinine 2.50 mg/dl 2.80 mg/dl Est Creatinine Clear Calc Drug Dose 42.2 ml/min 37.7 ml/min Estimated GFR () 32.5 28.4 Estimated GFR (Non- 28.1 24.5 BUN/Creatinine Ratio 11.4 10.4 Random Glucose 162 mg/dl 151 mg/dl Calcium Level 7.6 mg/dl 7.4 mg/dl Phosphorus Level 4.6 mg/dl Magnesium Level 1.9 mg/dl 2.2 mg/dl Total Bilirubin 0.5 mg/dl Direct Bilirubin 0.1 mg/dl Aspartate Amino Transf (AST/SGOT) 39 U/L Alanine Aminotransferase (ALT/SGPT) 125 U/L Alkaline Phosphatase 41 U/L Total Protein 5.3 gm/dl Albumin 2.2 gm/dl Bedside Glucose 143 mg/dl 154 mg/dl Assessment and Plan A 56-year-old white male admitted to ICU because of cardiac arrest on 2016 history of Nonischemic cardiomyopathy, ejection fraction was listed at 30% as long ago as 2004. The more recent echo on record was performed in 2012 and showed an EF of 35%. The EF in the Emergency Department at the time of admission was closer to 25%. Hypothyroidism, Hypertension. CV: Ventricular fibrillations/cardiac arrest: Prolonged QT: History of Cardiomyopathy: Dr. 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 Patchy areas of consolidation within the bilateral lungs posteriorly favor pulmonary contusion Add DuoNeb if needed Infectious disease: Possible sepsis, UTI and pneumonia, continue antibiotics IV as above, follow-up C+S neuro: Was unresponsive since the cardiac arrest , head Ct was not remarkable Renal: Acute kidney failure likely from hypoperfusion from cardiac arrest, today 's getting worse, continue on IV fluid Heme: no acute issues GI: GI prophylaxis on SCD Endo: no issues, target Bg <180 obesity, noted, will need nutrition consult when able nutrition: NG tube in place, consider feeding This is critical ill patient, the care plan will be measuring per mortgage loan interviewer of the the critical care team. Transfer to tertiary care center if needed ICU time 50 min Continued [facility] stay due to: multiple IV medications needed Discharge planning: uncertain
[2016-08-07] MEDS: DOCUSATE SODIUM 100 MG/10 ML UDC PO SCH (20:42)
[2016-08-08] VITALS (33 sets, daily range): BP systolic 95–129; BP diastolic 54–79; PULSE 75–103; TEMP 36.8–38; O2SAT 90–98
[2016-08-08] MEDS: AMPICILLIN/SULBACTAM SOD INJ 3,000 MG in SODIUM CHLORIDE 0.9% 100ML 100 ML IV SCH ×4 (00:21→17:37)
[2016-08-08] MEDS: ALBUTEROL 0.5% NEB SOLN 2.5 MG/0.5 ML VIAL INH SCH ×4 (02:47→19:25)
[2016-08-08] MEDS: FENTANYL CITRATE INJ 50 MCG/1 ML 2 ML VIAL IV PRN (03:32)
[2016-08-08 06:47] LABS: COMPLETE YES; EOS % 0.1 %; HEMATOCRIT 37.8 % (42-52); IG% 0.3 %; LYMPH % 8.9 %; LYMPH ABS # 1.01 K/uL (1.2-3.4); MEAN CELL VOLUME 89.2 fL (80-100); MEAN CORPUSCULAR HGB CONC 33.6 g/dl (32-36); MEAN PLATELET VOLUME 10.5 fL (7.4-10.4); MONO % 7.1 %; NEUT % 83.6 %; PLATELET COUNT 174 K/uL (130-400); RED BLOOD COUNT 4.24 M/uL (4.7-6.1); WHITE BLOOD COUNT 11.32 K/uL (4.8-10.8)
[2016-08-08 07:15] LABS: BUN/CREATININE RATIO 10.5 (10-20); CALCIUM 7.9 mg/dl (8.5-10.1); CREATININE 2.9 mg/dl (0.60-1.40); MAGNESIUM 2.1 mg/dl (1.8-2.4); POTASSIUM 3.8 mmol/L (3.5-5.1)
[2016-08-08 07:22] LABS: PHOSPHORUS 3.6 mg/dl (2.5-4.9)
[2016-08-08] MEDS: AMIODARONE / D5W 200 ML IV SCH ×2 (07:36→20:13)
--- NOTE | 2016-08-08 07:57 | DIAGNOSTIC IMAGING REPORT ---
CHEST ONE VIEW PORTABLE CLINICAL HISTORY: Hypoxia. Respiratory failure. COMPARISON STUDY: Chest radiograph August 07, 2016. FINDINGS: The tip of the endotracheal tube is difficult to visualize on this exam but is likely 3 cm above the jose luis. The tip of the nasogastric tube is below the lower aspect of this image but at least within the proximal body of the stomach. Cardiomegaly is again noted. Right chest tube is in place. Pneumothorax is visualized. Bibasilar opacities persist. There may be small bilateral pleural effusions. A right sided central line is in place. IMPRESSION: 1. Right apical chest tube in place. No pneumothorax. 2. Persistent bibasilar opacities which could reflect atelectasis or consolidation. 3. Cardiomegaly without evidence of pulmonary edema. 4. Tip of endotracheal tube approximately 3 cm above the jose luis. Electronically signed by: Baldomero Burgos M.D. 08/08/2016 7:56 AM Dictated Date/Time: 08/08/2016 7:52 AM
[2016-08-08] MEDS: HEPARIN SOD 5000 UNIT/0.5 ML CARP SQ SCH ×2 (09:08→21:53)
[2016-08-08] MEDS: ASPIRIN 81 MG CHEW NG SCH (09:10)
[2016-08-08] MEDS: DOCUSATE SODIUM 100 MG/10 ML UDC PO SCH ×2 (09:10→21:49)
[2016-08-08] MEDS ORDERED: FUROSEMIDE INJ 40 MG in SYRINGE 0 ML IV ONE (09:15)
[2016-08-08] MEDS ORDERED: POLYETHYLENE (MIRALAX) 17 GM PACK NG ONE (09:15)
[2016-08-08] MEDS ORDERED: POTASSIUM CHLR 20MEQ / WTR IV ONE (09:15)
[2016-08-08] MEDS ORDERED: POLYETHYLENE (MIRALAX) 17 GM PACK ONE (11:33)
--- NOTE | 2016-08-08 11:38 | Medical Student: [facility] ---
Med Student Progress Note Date of Service Aug 08, 2016. Subjective Pt evaluation today including: conversation w/ patient, physical exam, chart review, lab review, review of studies, review of inpatient medication list Pt is a 56 yo male with a PMH of cardiac cath and reduced EF (25%), who went into V. fib cardiac arrest 4 days ago. He underwent a code arctic prior to transfer to the ICU. He returned to normothermia 2 days ago. This morning he is awake and alert, responding to verbal commands. He is able to move all 4 extremities and denies pain. He was still unable to complete an attention test for CAM ICU monitoring, however it is unclear if he would be able to complete this test at baseline. Overnight some PVCs were noted by the nurses, however he continues on an amiodarone drip. ROS was limited due to pt's alertness and intubation status. Objective Vital Signs Date Time Temp Pulse Resp B/P Pulse Ox O2 Delivery O2 Flow Rate FiO2 08/08/16 10:00 37.9 96 22 107/63 97 Mechanical Ventilator 40 103/69 08/08/16 09:20 40 08/08/16 08:25 40 08/08/16 08:00 40 08/08/16 08:00 Mechanical Ventilator 40 08/08/16 08:00 37.8 87 24 105/63 97 Mechanical Ventilator 40 109/63 08/08/16 05:58 37.6 75 24 110/67 98 Mechanical Ventilator 40 08/08/16 05:50 40 08/08/16 04:00 Mechanical Ventilator 40 08/08/16 04:00 40 08/08/16 04:00 37.7 83 24 95/54 95 Mechanical Ventilator 40 08/08/16 02:40 40 08/08/16 02:00 37.6 24 108/59 96 Mechanical Ventilator 40 08/08/16 00:00 37.8 24 129/73 98 Mechanical Ventilator 40 08/07/16 23:59 40 08/07/16 23:59 Mechanical Ventilator 40 08/07/16 23:20 40 08/07/16 22:12 37.6 82 24 103/63 100 Mechanical Ventilator 40 113/57 08/07/16 20:30 40 08/07/16 20:00 100 Mechanical Ventilator 40 08/07/16 20:00 37.6 85 24 64/56 100 Mechanical Ventilator 40 109/60 08/07/16 20:00 40 08/07/16 18:00 38.2 91 24 103/67 100 Mechanical Ventilator 40 103/67 08/07/16 17:46 40 08/07/16 16:00 37.8 89 24 96/56 100 Mechanical Ventilator 40 99/59 08/07/16 16:00 100 Mechanical Ventilator 40 08/07/16 16:00 40 08/07/16 14:00 38.1 98 24 98/71 98 Mechanical Ventilator 40 112/61 08/07/16 13:59 40 08/07/16 12:00 37.8 91 24 104/75 97 Mechanical Ventilator 40 123/80 08/07/16 12:00 40 08/07/16 12:00 100 Mechanical Ventilator 40 08/07/16 11:53 40 Physical Exam General Appearance: WD/WN, + obese, + pertinent finding (intubated) Eyes: bilateral eyes EOMI, bilateral eyes PERRL ENT: hearing grossly normal Neck: supple, no JVD Respiratory/Chest: no respiratory distress, no accessory muscle use, + rhonchi (in [place]), + pertinent finding (ventilated) Cardiovascular: regular rate, rhythm, no edema, no murmur Abdomen: normal bowel sounds, non tender, soft Extremities: normal range of motion, normal inspection, no pedal edema, + pertinent finding (difficult to appreciate pedal pulses - prior foot surgeries) Neurologic/Psychiatric: alert Skin: normal color, warm/dry, no rash Laboratory Results Last 24 Hours Test 08/07/16 11:47 08/07/16 15:12 08/07/16 16:54 08/07/16 20:47 Bedside Glucose 143 mg/dl 154 mg/dl 94 mg/dl Sodium Level 141 mmol/L Potassium Level 4.2 mmol/L Chloride Level 106 mmol/L Carbon Dioxide Level 25 mmol/L Anion Gap 10.0 mmol/L Blood Urea Nitrogen 29 mg/dl Creatinine 2.80 mg/dl Est Creatinine Clear Calc Drug Dose 37.7 ml/min Estimated GFR () 28.4 Estimated GFR (Non- 24.5 BUN/Creatinine Ratio 10.4 Random Glucose 151 mg/dl Calcium Level 7.4 mg/dl Magnesium Level 2.2 mg/dl Test 08/08/16 01:53 08/08/16 06:18 Bedside Glucose 88 mg/dl 94 mg/dl White Blood Count 11.32 K/uL Red Blood Count 4.24 M/uL Hemoglobin 12.7 g/dL Hematocrit 37.8 % Mean Corpuscular Volume 89.2 fL Mean Corpuscular Hemoglobin 30.0 pg Mean Corpuscular Hemoglobin Concent 33.6 g/dl Platelet Count 174 K/uL Mean Platelet Volume 10.5 fL Neutrophils (%) (Auto) 83.6 % Lymphocytes (%) (Auto) 8.9 % Monocytes (%) (Auto) 7.1 % Eosinophils (%) (Auto) 0.1 % Basophils (%) (Auto) 0.0 % Neutrophils # (Auto) 9.47 K/uL Lymphocytes # (Auto) 1.01 K/uL Monocytes # (Auto) 0.80 K/uL Eosinophils # (Auto) 0.01 K/uL Basophils # (Auto) 0.00 K/uL RDW Standard Deviation 49.0 fL RDW Coefficient of Variation 15.1 % Immature Granulocyte % (Auto) 0.3 % Immature Granulocyte # (Auto) 0.03 K/uL Sodium Level 144 mmol/L Potassium Level 3.8 mmol/L Chloride Level 108 mmol/L Carbon Dioxide Level 26 mmol/L Anion Gap 10.0 mmol/L Blood Urea Nitrogen 31 mg/dl Creatinine 2.90 mg/dl Est Creatinine Clear Calc Drug Dose 36.4 ml/min Estimated GFR () 27.2 Estimated GFR (Non- 23.4 BUN/Creatinine Ratio 10.5 Random Glucose 97 mg/dl Calcium Level 7.9 mg/dl Phosphorus Level 3.6 mg/dl Magnesium Level 2.1 mg/dl Total Bilirubin 0.5 mg/dl Direct Bilirubin 0.2 mg/dl Aspartate Amino Transf (AST/SGOT) 26 U/L Alanine Aminotransferase (ALT/SGPT) 87 U/L Alkaline Phosphatase 40 U/L Total Protein 5.4 gm/dl Albumin 2.3 gm/dl Assessment and Plan Assessment and Plan: Pt is 56 yo male with a hx of decreased EF and stent placement who presented 4 days ago following V.fib cardiac arrest. Currently, ICU day 3. Neuro: * Pt wakes to verbal stimuli and is able to follow simple commands. Much more alert today. * Remains CAM ICU Positive - unable to complete the Attention test however he may have an intellectual disability at baseline. * Fentanyl 50 mcgs q 2 hrs PRN for pain Respiratory * Currently on Assist Control Ventilator - RR 24, TV 560, 40% FiO2, 5 PEEP * Underwent spontaneous breathing trial yesterday for 2 hours, was placed back on AC ventilation as he looked clinically unwell as per RT. * On CPAP nightly, at home for ANISA * Concern for RLL PNA continue Unasyn IV 200 mL/hr (day 4). * Sputum cx is still pending. * Chest tube dt pneumothorax - Maintain chest tube on suction Cardiovascular * Out of Hospital Cardiac Arrest - V. fib. * Continue Amiodarone drip 16.7 mLs/hr - maintenance dose * Consult cardiology - may require AICD. * Hypotension - Resolved. Levophed drip d/c'd. Current BPs 100s/60s. * QT prolongation - Continue to monitor with daily EKGs. * Frequent PVCs noted overnight by nursing. ID * RLL PNA - suspect aspiration PNA - chewing tobacco found in pt's mouth upon intubation. * Continue Unasyn IV 200 mL/hr. * Blood cxs are negative to date. * Sputum cxs pending Abdomen * OG tube in place. * Has not had BM since admission continue Colace, add Miralax. * Elevated LFTs - now trending down - likely 2/2 shock liver following cardiac arrest. * GI prophylaxis: Pantoprazole 40 mg Renal * Acute kidney injury likely 2/2 hypoperfusion * Cr continues to rise. Today 2.9 elevated slightly from 2.5 yesterday. Repeat Cr level at 16:00. * UA on 08/04 indicates occult blood and granular casts - likely ATN. * D/C IVF maintenance 20 amps Bicarb 1L IV 25 mLs/hr. * Arguelles Catheter in place. Strict I's and O's. Up 3 L from admission. * Begin Furosemide 20 mg BID Hematology * Hgb down to 12 from 14 yesterday. Repeat CBC at 16:00 today. Endocrine * Continue to monitor blood sugars per nursing protocol. Blood sugars were 80s- 90s overnight. * Add home medication - Levothyroxine 25 mcg's daily. Lines * Left axillary arterial line * Right IJ line with triple lumen catheter * Arguelles in place. * OG tube. Level of Care Critical Care Resuscitation Status FULL RESUSCITATION DVT Prophylaxis unfractionated heparin SQ BID
[2016-08-08] MEDS: PANTOprazole INJ 40 MG in SYRINGE 0 ML IV SCH (11:39)
--- NOTE | 2016-08-08 15:38 | CRITICAL CARE PROGRESS NOTE ---
DATE: 08/08/2016 SUBJECTIVE: There were no acute events overnight. The patient's care was discussed in detail on multidisciplinary rounds today. He is having some johnson secretions from his endotracheal tube, which are a bit more than several days ago. He is having more oral secretions and endotracheal tube secretions. His Levophed has been off since yesterday and his sodium bicarbonate infusion has been discontinued. He has not had a bowel movement since admission. PHYSICAL EXAMINATION: VITAL SIGNS: Maximum temperature 37.8, heart rate 80s-90s, respiratory rate 20-24, and blood pressure 95-110/50s-60s. Oxygen saturation 95%-100%. CPAP 5/5 at 40%. GENERAL: He will open his eyes and nod his head. He follows commands with all 4 extremities. He is bright eyed and able to hold his head off the bed. LUNGS: Coarse with decreased breath sounds in the right lower lobe area. No rales, rhonchi or wheezes. HEART: Regular rate and rhythm. He is having some PVCs on the monitor. ABDOMEN: Obese, soft, nondistended, and nontender. Hypoactive bowel sounds. EXTREMITIES: With 1+ edema. LABORATORY DATA: White blood cell count 11.32, hemoglobin 12.7, hematocrit 37.8, and platelets 174. Sodium 144, potassium 3.8, chloride 108, CO2 of 26, BUN 31, creatinine 2.9, and calcium 7.9. AST 87, ALT 40, and albumin 2.3. MICROBIOLOGY: Blood cultures 08/05 show no growth. Sputum Gram stain shows rare epithelial cells, few polys, and no organisms. Culture pending. Portable chest x-ray from this morning was reviewed and shows a right ____ chest tube. No pneumothorax. Persistent bibasilar opacities, cardiomegaly without pulmonary edema and an endotracheal tube 3 cm above the jose luis. MEDICATIONS AND INFUSIONS: Acetaminophen, albuterol, amiodarone, Unasyn day #4, Artificial Tears, aspirin, chlorhexidine, Colace, fentanyl p.r.n., Lasix, subcutaneous heparin, levothyroxine, Protonix, and MiraLax. IMPRESSION: 1. Status post out of hospital ventricular fibrillation cardiac arrest, resuscitated and status post cooling protocol. Neurologically, he is doing relatively well. It is unclear what his baseline is. 2. Acute hypoxemic respiratory failure, extubated since rounding this morning. Doing well, but he may not be able to participate with incentive spirometry. 3. Metabolic encephalopathy, seems to be improving. Now with the endotracheal tube has been discontinued, it will be easier to assess him. 4. Acute kidney injury, nonoliguric and he has responded to Lasix I gave him yesterday. 5. Probable aspiration pneumonia. Sputum culture pending. 6. Right pneumothorax, status post chest tube placement, which is now on wall suction. 7. Bilateral rib fractures. 8. Nonischemic cardiomyopathy, ejection fraction 30% 35% with global hypokinesis. 9. Prolonged QT interval, improved. 10. Mild elevation of transaminases. 11. Hyperglycemia. 12. History of hypertension. 13. Hypothyroidism. PLAN: NEUROLOGIC: Continue to avoid sedatives. I will change his fentanyl to 25 mcg q. 2 hours p.r.n. He also has Tylenol. PULMONARY: As noted above, he has been extubated. Encourage incentive spirometry and I have ordered BiPAP 1 hour t.i.d. and p.r.n. He may need it at night as well, but I am concerned that it may dry out his secretions. Mobilizing him hopefully will help his secretion clearance as well. Continue percussion via the bed and place chest tube to waterseal tomorrow. GASTROINTESTINAL: Speech evaluation has been ordered. He is on Colace and MiraLax was added today for constipation. ENDOCRINE: Continue sliding scale insulin and levothyroxine. INFECTIOUS DISEASE: Continue Unasyn and follow sputum culture. CARDIOVASCULAR: He is having more PVCs, electrolytes are pending. Cardiology is involved and he may require a defibrillator at some point in the future. HEMATOLOGY: No active issues. RENAL: Diurese with Lasix. MISCELLANEOUS: Continue DVT and GI prophylaxis. Physical therapy has also been ordered. Hopefully, he will continue to improve. I discussed his care in detail with multiple members of his family last night including his mother, who is over 90 years old. They were pleased with his progress. Please call me with any questions or concerns. Critical care time 40 minutes.
[2016-08-08 15:42] LABS: HEMATOCRIT 37.1 % (42-52)
[2016-08-08 16:02] LABS: BUN/CREATININE RATIO 9.4 (10-20); CREATININE 3.1 mg/dl (0.60-1.40); POTASSIUM 4.2 mmol/L (3.5-5.1)
[2016-08-08] MEDS ORDERED: FENTANYL CITRATE INJ 50 MCG/1 ML 2 ML VIAL IV PRN (16:15)
[2016-08-08] MEDS: LEVOTHYROXINE 25 MCG TAB NG SCH (16:43)
[2016-08-08] MEDS: FUROSEMIDE INJ 20 MG in SYRINGE 0 ML IV SCH (16:43)
[2016-08-08] MEDS ORDERED: LABETALOL HCL IV 5 MG/ML 20ML IV PRN (17:30)
[2016-08-08] MEDS ORDERED: HydrALAZINE HCL 20 MG/ML VIAL IV. PRN (17:30)
[2016-08-08] MEDS ORDERED: METOPROLOL TARTRATE 1 MG/ML VIAL ONE (17:38)
[2016-08-08] MEDS ORDERED: METOPROLOL TARTRATE 1 MG/ML VIAL IV. SCH (18:00)
[2016-08-08 18:58] LABS: URINE APPEARANCE CLEAR (CLEAR); URINE BILIRUBIN NEG (NEG); URINE COLOR YELLOW; URINE EPITHELIAL CELL AUTO >30 /lpf (0-5); URINE NITRITE NEG (NEG); URINE SPECIFIC GRAVITY 1.005 (1.000-1.030); UROBILINOGEN NEG (NEG); ZZURINE CULT IF INDIC CATH NO
[2016-08-08 19:08] LABS: MANUAL MICROSCOPIC REQUIRED? NO; REVIEW REQ? NO
--- NOTE | 2016-08-08 20:29 | DIAGNOSTIC IMAGING REPORT ---
RENAL ULTRASOUND HISTORY: acute kidney injury COMPARISON: None. FINDINGS: Right kidney: 11.2 cm. No hydronephrosis. Normal corticomedullary differentiation and cortical thickness. Left kidney: 12.6 cm. No hydronephrosis. Normal corticomedullary differentiation and cortical thickness. Partially obscured by overlying bowel gas. Bladder: Not well visualized due to decompression from a Arguelles catheter. IMPRESSION: Normal kidneys. No hydronephrosis. Bladder is decompressed by a Arguelles catheter. Electronically signed by: Andrew Martinez M.D. 08/08/2016 8:28 PM Dictated Date/Time: 08/08/2016 8:27 PM
[2016-08-08] MEDS ORDERED: CHLORHEXIDINE GLUCONATE 0.12% 480 ML MT SCH (21:00)
--- NOTE | 2016-08-08 21:44 | Progress Note ---
Subjective Subjective Date of Service: Aug 08, 2016. Pt evaluation today including: physical exam, chart review, lab review, review of studies, review of inpatient medication list Notes: remains intubated, off sedation, had wean trials today, ros cant be obtained Problem List Medical Problems: (1) Cardiac arrest Status: Acute (2) Rib fractures Status: Acute (3) Ventricular fibrillation Status: Acute Physical Exam Vital Signs Vital Signs Past 24 Hours: Date Time Temp Pulse Resp B/P Pulse Ox O2 Delivery O2 Flow Rate FiO2 08/08/16 21:00 92 92 5.0 08/08/16 19:25 89 20 95 Mask 5.0 08/08/16 18:14 87 109/72 95 08/08/16 18:07 92 114/71 93 08/08/16 18:00 85 22 107/63 95 Mechanical Ventilator 40 119/71 08/08/16 18:00 93 95 08/08/16 17:59 94 119/78 95 08/08/16 17:42 98 104/64 08/08/16 17:15 95 104/64 94 08/08/16 17:00 37.0 94 95 08/08/16 16:59 93 104/64 95 08/08/16 16:00 95 Mask 6.0 08/08/16 16:00 37.8 95 90 08/08/16 15:59 37.7 99 113/74 92 08/08/16 15:00 37.9 101 92 08/08/16 14:59 37.9 97 110/77 92 08/08/16 14:25 103 20 91 Mask 5.0 08/08/16 14:00 37.9 99 20 94 08/08/16 13:59 37.9 100 25 116/76 94 08/08/16 13:00 37.9 91 18 94 08/08/16 12:59 37.9 86 14 96/61 96 08/08/16 12:34 37.9 95 22 105/67 94 08/08/16 12:03 38.0 93 22 105/67 95 08/08/16 12:02 38.0 94 22 105/67 95 08/08/16 12:01 38.0 94 20 105/67 95 08/08/16 12:00 38.0 94 20 105/67 94 08/08/16 12:00 CPAP 40 08/08/16 12:00 40 08/08/16 11:35 40 08/08/16 10:00 37.9 96 22 107/63 97 Mechanical Ventilator 40 103/69 08/08/16 09:20 40 08/08/16 08:25 40 08/08/16 08:00 Mechanical Ventilator 40 08/08/16 08:00 40 08/08/16 08:00 Mechanical Ventilator 40 08/08/16 08:00 37.8 87 24 105/63 97 Mechanical Ventilator 40 109/63 08/08/16 05:58 37.6 75 24 110/67 98 Mechanical Ventilator 40 08/08/16 05:50 40 08/08/16 04:00 Mechanical Ventilator 40 08/08/16 04:00 40 08/08/16 04:00 37.7 83 24 95/54 95 Mechanical Ventilator 40 08/08/16 02:40 40 08/08/16 02:00 37.6 24 108/59 96 Mechanical Ventilator 40 08/08/16 00:00 37.8 24 129/73 98 Mechanical Ventilator 40 08/07/16 23:59 40 08/07/16 23:59 Mechanical Ventilator 40 08/07/16 23:20 40 08/07/16 22:12 37.6 82 24 103/63 100 Mechanical Ventilator 40 113/57 Physical Exam: General Appearance: WD/WN, no apparent distress Eyes: bilateral eyes normal inspection ENT: + pertinent finding (endotrach tube in place) Neck: supple, no JVD Respiratory/Chest: lungs clear, no accessory muscle use Cardiovascular: no edema Abdomen: normal bowel sounds Extremities: non-tender Skin: normal color Medications Medications: Current Inpatient Medications Medications (Trade) Dose Ordered Sig/Bryn Route Start Time Stop Time Status Last Admin Dose Admin Aspirin (Aspirin Chew) 81 mg DAILY NG 08/05/16 09:00 09/04/16 08:59 08/08/16 09:10 81 MG Acetaminophen 650 mg 650 mg Q4H PRN NG 08/04/16 22:45 09/03/16 22:44 08/07/16 18:05 650 MG Pantoprazole Sodium/Syringe (Protonix Inj/ Syringe) 10 ml @ 5 mls/min DAILY@11 IV 08/05/16 11:00 09/04/16 10:59 08/08/16 11:39 5 MLS/MIN Glucose (Glucose 40% Gel) UD PRN PO 08/04/16 23:45 09/03/16 23:44 Glucose (Glucose Chew Tab) 1 tabs UD PRN PO 08/04/16 23:45 09/03/16 23:44 Dextrose (Dextrose 50% 50ML Syringe) 50 ml UD PRN IV 08/04/16 23:45 09/03/16 23:44 08/05/16 20:26 50 ML Glucagon 1 mg 1 mg UD PRN SQ 08/04/16 23:45 09/03/16 23:44 Ampicillin Sodium/ Sulbactam Sodium/ Sodium Chloride (Unasyn Inj/Nss 100ml) 108 ml @ 200 mls/hr Q6@0000,0600,1200,1800 IV 08/05/16 01:00 08/12/16 00:59 08/08/16 17:37 200 MLS/HR Ampicillin Sodium/ Sulbactam Sodium 1 ea 1 ea UD PRN N/A 08/05/16 01:00 09/04/16 00:59 Amiodarone HCL/ Dextrose (Nexterone / D5w) 200 ml @ 16.7 mls/hr [id number] IV 08/05/16 07:00 09/04/16 06:59 08/08/16 20:13 16.7 MLS/HR Albuterol Sulfate (Ventolin 0.5% 2.5MG/0.5ML Neb) 2.5 mg Q6R INH 08/06/16 21:00 09/05/16 20:59 08/08/16 19:25 2.5 MG Heparin Sodium (Porcine) (Heparin Sq 5000 Unit/0.5ml) 5,000 unit Q12 SQ 08/07/16 10:00 09/06/16 09:59 08/08/16 09:08 5,000 UNIT Docusate Sodium 100 mg 100 mg BID PO 08/07/16 21:00 09/06/16 20:59 08/08/16 09:10 100 MG Furosemide/Syringe (Lasix Inj/ Syringe) 2 ml @ 4 mls/min BID17 IV 08/08/16 17:00 09/07/16 16:59 08/08/16 16:43 4 MLS/MIN Levothyroxine Sodium (Synthroid Tab) 25 mcg DAILYBB NG 08/08/16 11:00 09/07/16 10:59 08/08/16 16:43 25 MCG Polyethylene (Miralax Powder Packet) 17 gm QAM NG 08/09/16 09:00 09/08/16 08:59 Fentanyl Citrate (Fentanyl Inj) 25 mcg Q2H PRN IV 08/08/16 16:15 08/22/16 16:14 Nystatin (Mycostatin Susp) 10 ml QID PO 08/08/16 21:00 08/18/16 20:59 Laboratory Data Labs: Last 24 Hours Test 08/08/16 01:53 08/08/16 06:18 08/08/16 11:19 08/08/16 15:29 Bedside Glucose 88 mg/dl 94 mg/dl 87 mg/dl White Blood Count 11.32 K/uL Red Blood Count 4.24 M/uL Hemoglobin 12.7 g/dL 12.4 g/dL Hematocrit 37.8 % 37.1 % Mean Corpuscular Volume 89.2 fL Mean Corpuscular Hemoglobin 30.0 pg Mean Corpuscular Hemoglobin Concent 33.6 g/dl Platelet Count 174 K/uL Mean Platelet Volume 10.5 fL Neutrophils (%) (Auto) 83.6 % Lymphocytes (%) (Auto) 8.9 % Monocytes (%) (Auto) 7.1 % Eosinophils (%) (Auto) 0.1 % Basophils (%) (Auto) 0.0 % Neutrophils # (Auto) 9.47 K/uL Lymphocytes # (Auto) 1.01 K/uL Monocytes # (Auto) 0.80 K/uL Eosinophils # (Auto) 0.01 K/uL Basophils # (Auto) 0.00 K/uL RDW Standard Deviation 49.0 fL RDW Coefficient of Variation 15.1 % Immature Granulocyte % (Auto) 0.3 % Immature Granulocyte # (Auto) 0.03 K/uL Sodium Level 144 mmol/L 144 mmol/L Potassium Level 3.8 mmol/L 4.2 mmol/L Chloride Level 108 mmol/L 107 mmol/L Carbon Dioxide Level 26 mmol/L 26 mmol/L Anion Gap 10.0 mmol/L 11.0 mmol/L Blood Urea Nitrogen 31 mg/dl 29 mg/dl Creatinine 2.90 mg/dl 3.10 mg/dl Est Creatinine Clear Calc Drug Dose 36.4 ml/min 34.0 ml/min Estimated GFR () 27.2 25.1 Estimated GFR (Non- 23.4 21.6 BUN/Creatinine Ratio 10.5 9.4 Random Glucose 97 mg/dl 96 mg/dl Calcium Level 7.9 mg/dl 8.0 mg/dl Phosphorus Level 3.6 mg/dl Magnesium Level 2.1 mg/dl Total Bilirubin 0.5 mg/dl Direct Bilirubin 0.2 mg/dl Aspartate Amino Transf (AST/SGOT) 26 U/L Alanine Aminotransferase (ALT/SGPT) 87 U/L Alkaline Phosphatase 40 U/L Total Protein 5.4 gm/dl Albumin 2.3 gm/dl Test 08/08/16 18:30 Urine Color YELLOW Urine Appearance CLEAR Urine pH 5.0 Urine Specific [place] 1.005 Urine Protein NEG Urine Glucose (UA) NEG Urine Ketones NEG Urine Occult Blood 1+ Urine Nitrite NEG Urine Bilirubin NEG Urine Urobilinogen NEG Urine Leukocyte Esterase TRACE Urine WBC (Auto) 1-5 /hpf Urine RBC (Auto) 5-10 /hpf Urine Hyaline Casts (Auto) 1-5 /lpf Urine Epithelial Cells (Auto) >30 /lpf Urine Bacteria (Auto) NEG Urine Random Creatinine 29.0 mg/dl Urine Random Sodium 113 mEq/L Assessment and Plan A 56-year-old white male admitted to ICU because of cardiac arrest on 2016 history of Nonischemic cardiomyopathy, ejection fraction was listed at 30% as long ago as 2004. The more recent echo on record was performed in 2012 and showed an EF of 35%. The EF in the Emergency Department at the time of admission was closer to 25%. Hypothyroidism, Hypertension. CV: Ventricular fibrillations/cardiac arrest: Prolonged QT: History of Cardiomyopathy: Dr. Rod, his primary sorority supervisor, appreciated recs, cont amiodarone drip Pulm: Acute hypoxic respiratory failure with ventilator dependent Possible aspiration pneumonia, cont IV unasyn Bilateral anterior rib fractures with moderate right-sided pneumothorax and right anterior chest wall subcutaneous emphysema. Patchy areas of consolidation within the bilateral lungs posteriorly favor pulmonary contusion Add DuoNeb if needed Infectious disease: Possible sepsis, UTI and pneumonia, continue antibiotics IV as above, follow-up C+S neuro: Was unresponsive since the cardiac arrest , head Ct was not remarkable Renal: Acute kidney failure likely from hypoperfusion from cardiac arrest, today 's getting worse, continue on IV fluid, US renal is normal Heme: no acute issues GI: GI prophylaxis on SCD Endo: no issues, target Bg <180 obesity, noted, will need nutrition consult when able nutrition: NG tube in place, consider feeding This is critical ill patient, the care plan will be measuring per table games floor supervisor of the the critical care team. Transfer to tertiary care center if needed ICU time 50 min
[2016-08-08] MEDS: NYSTATIN SUSP 500,000 U/5 ML UDC PO SCH (21:50)
[2016-08-09] VITALS (17 sets, daily range): BP systolic 106–119; BP diastolic 61–84; PULSE 69–89; TEMP 36.4–37.2; O2SAT 90–98
[2016-08-09] MEDS: AMPICILLIN/SULBACTAM SOD INJ 3,000 MG in SODIUM CHLORIDE 0.9% 100ML 100 ML IV SCH ×4 (00:23→17:32)
[2016-08-09] MEDS: ALBUTEROL 0.5% NEB SOLN 2.5 MG/0.5 ML VIAL INH SCH ×3 (02:05→21:12)
[2016-08-09] MEDS: LEVOTHYROXINE 25 MCG TAB NG SCH (05:34)
[2016-08-09 06:08] LABS: COMPLETE YES; EOS % 0.2 %; HEMATOCRIT 36.6 % (42-52); IG% 0.2 %; LYMPH % 11.6 %; LYMPH ABS # 1.16 K/uL (1.2-3.4); MEAN CELL VOLUME 90.4 fL (80-100); MEAN CORPUSCULAR HEMOGLOBIN 29.4 pg (25-34); MEAN CORPUSCULAR HGB CONC 32.5 g/dl (32-36); MEAN PLATELET VOLUME 9.6 fL (7.4-10.4); MONO % 13.4 %; NEUT % 74.6 %; PLATELET COUNT 159 K/uL (130-400); RED BLOOD COUNT 4.05 M/uL (4.7-6.1); WHITE BLOOD COUNT 10.01 K/uL (4.8-10.8)
[2016-08-09] MEDS: AMIODARONE / D5W 200 ML IV SCH (06:12)
[2016-08-09 06:18] LABS: INR 1.2 (0.9-1.1); PARTIAL THROMBOPLASTIN RATIO 1.1; PROTHROMBIN TIME (PATIENT) 13.3 SECONDS (9.0-12.0)
[2016-08-09 06:54] LABS: BUN/CREATININE RATIO 10.1 (10-20); CALCIUM 8.1 mg/dl (8.5-10.1); MAGNESIUM 2.2 mg/dl (1.8-2.4); PHOSPHORUS 4.7 mg/dl (2.5-4.9); POTASSIUM 3.9 mmol/L (3.5-5.1)
--- NOTE | 2016-08-09 07:32 | DIAGNOSTIC IMAGING REPORT ---
CHEST ONE VIEW PORTABLE CLINICAL HISTORY: Pneumonia. Cardiac arrest. Extubation. COMPARISON STUDY: Chest radiograph August 08, 2016. FINDINGS: The endotracheal and nasogastric tubes have been removed. A right subclavian central line remains in place. There is no pneumothorax. There is a small left pleural effusion. There may be a small right pleural effusion. A right apical chest tube remains in place. There is a suspected trace right apical pneumothorax. Bibasilar opacities are present. IMPRESSION: 1. Interval removal of the endotracheal and nasogastric tubes. 2. Right apical chest tube in place. Suspected trace right apical pneumothorax. 3. Bibasilar opacities which could reflect consolidation or atelectasis. Small left pleural effusion. 4. Stable cardiomegaly. Electronically signed by: Baldomero Burgos M.D. 08/09/2016 7:30 AM Dictated Date/Time: 08/09/2016 7:22 AM
[2016-08-09] MEDS: DOCUSATE SODIUM 100 MG/10 ML UDC PO SCH (08:34)
[2016-08-09] MEDS: ASPIRIN 81 MG CHEW NG SCH (08:34)
[2016-08-09] MEDS: NYSTATIN SUSP 500,000 U/5 ML UDC PO SCH ×4 (08:34→21:18)
[2016-08-09] MEDS: POLYETHYLENE (MIRALAX) 17 GM PACK NG SCH (08:34)
[2016-08-09] MEDS: FUROSEMIDE INJ 20 MG in SYRINGE 0 ML IV SCH ×2 (08:50→17:33)
[2016-08-09] MEDS: HEPARIN SOD 5000 UNIT/0.5 ML CARP SQ SCH ×2 (09:12→21:19)
[2016-08-09] MEDS ORDERED: NURSING VERBAL MED ORDER ONE (10:30)
[2016-08-09] MEDS: OXYCODONE/ACETAMINOPHEN 5-325 TAB PO PRN ×2 (11:11→17:39)
[2016-08-09] MEDS ORDERED: BISACODYL 10 MG SUPP PR PRN (11:45)
[2016-08-09] MEDS: PANTOprazole INJ 40 MG in SYRINGE 0 ML IV SCH (12:01)
--- NOTE | 2016-08-09 12:20 | Critical Care Progress Note ---
Critical Care Progress Note Date of Service Aug 09, 2016. Attending Dr Sanchez Subjective There were no acute events overnight. Extubated 08/08/16. No bowel movement since admission. He feels well this morning. Sánchez chest pain over rib fracture sites worse on palpation. Disorientated to time and place, but recognized his kiln charger Dr Rod when he entered the room. Can tell me his date of and name without a problem. By RN report he forgets things within minutes after telling him something. Objective General: Sitting in the chair on 4 L O2, no acute distress. HEENT: Normocephalic Cardio: Palpable rib fractures on the right anterior chest, S1-S2 regular rate and rhythm, frequent PVCs on monitor Chest: scattered rhonchi bilaterally, no accessory muscle use, right chest tube present and draining Abdomen: Obese, soft, non tender, bowel sounds present Extremities 2+ pulses in all 4 extremities SKIN: Warm and well perfused, cap refill <2 s, rash on back of left hand appears improving and likely related to pressure from radial line board. Neuro: Cranial nerves 2->12 assessed and intact, struggling to lift up right arm but strong and equal budget clerk b/l, Assessment & Plan 56 yo male with OOH cardiac arrest: Assessment: 1. S/p out of hospital ventricular fibrillation cardiac arrest, resuscitated and status post cooling protocol. 2. Acute hypoxemic respiratory failure, improving s/p extubation 08/08. 3. Metabolic/hypoxia encephalopathy 4. Acute kidney injury - producing urine in response to lasix 5. Probable aspiration pneumonia. Sputum culture - scant normal sarah 6. Right pneumothorax, s/p chest tube placement, on wall suction. 7. Bilateral rib fractures. 8. Nonischemic cardiomyopathy, ejection fraction 30% 35% with global hypokinesis. 9. Prolonged QT interval, improved. 10. Hyperglycemia. 11. History of hypertension. 12. Hypothyroidism. 13. ANISA on O/P CPAP Plan: Neuro: Continue to avoid sedatives Pain - Fentanyl 25 mcg Q2H PRN for pain He is having trouble lifting his right arm but budget clerk strength is normal, possibly related to pain from rib # but unclear and will assess with CT head. Cardiovascular: Continues to have runs of bigeminy and frequent PVCs, Mg replaced, continue to monitor. On amiodarone drip to prevent arrhythmias - appreciate cardiology recommendations I/P defib plan sometime next week. Cardiomyopathy (nonischemic) - BP unable to tolerate BB or ACEi, on aspirin. Will do lipid profile in morning to assess for need for statin. Pulmonary: Extubated, maintain sats > 94% Incentive spirometry, CPAP at night. Continue percussion via the bed Right chest tube in place continue on suction Continue Unasyn (day 5) for suspected aspiration pneumonia (total course 7 days) Gastrointestinal: Speech seen 08/08 - Begin p.o. diet of mechanical soft with thin liquids.Pt. will need fed all meals.Aspiration precautions -NO straws. INTERNATIONAL ORGANIZER will continue to monitor and upgrade diet at indicated. Continue Colace BID and MiraLAX QAM. Monitor BMs Nystatin for oral thrush Renal//electrolytes Continue diuresis with lasix 20 mg BID IV SEBASTIÁN - appears ATN with fractional sodium excretion 8.4% suggesting obstructive ( US renal normal), or intrinsic rather than prerenal. Will continue to trend. Endocrine: Continue sliding scale insulin and levothyroxine. Infectious Disease: Continue Unasyn as above total 7 days (on day 5). Sputum culture - scant normal sarah Heme/Onc: No active issues. Miscellaneous: PT + OT + discharge planning VTE/GI prophylaxis Heparin 5000 units Q12H Pantoprazole 40 mg IV daily Code: Full Disposition: - Continue ICU stay for 24 hours to monitor off vent then consider transfer to telemetry tomorrow. Resident Physician Supervision Note: I interviewed and examined the patient. Discussed with Dr. Metzger and agree with findings and plan as documented in the note. Any exceptions or clarifications are listed here: His care was discussed on multidisciplinary rounds. Data reviewed. His mental status is at baseline per Dr. Rod but he seems to have short term memory difficulty. Had a weak RUE on my exam - CT head without acute process. It may be related to pain but he was using his left hand to cloth picker his right arm. Percocet ordered. Apical PTX on chest xray - keep chest tube to waterseal. Bipap ordered for QHS now (hx ANISA) as well as TID until he can use the incentive spirometer effectively. Amiodarone changed to PO and po lopressor also started. RUE is edematous - venous doppler. Family updated yesterday. He has done exceedingly well all things considered and is close to transfer to [facility]. Documented By: Juli Sanchez Data Medications: Current Inpatient Medications Medications (Trade) Dose Ordered Sig/Bryn Route Start Time Stop Time Status Last Admin Dose Admin Aspirin (Aspirin Chew) 81 mg DAILY NG 08/05/16 09:00 09/04/16 08:59 08/09/16 08:34 81 MG Acetaminophen 650 mg 650 mg Q4H PRN NG 08/04/16 22:45 09/03/16 22:44 08/07/16 18:05 650 MG Pantoprazole Sodium/Syringe (Protonix Inj/ Syringe) 10 ml @ 5 mls/min DAILY@11 IV 08/05/16 11:00 09/04/16 10:59 08/08/16 11:39 5 MLS/MIN Glucose (Glucose 40% Gel) UD PRN PO 08/04/16 23:45 09/03/16 23:44 Glucose (Glucose Chew Tab) 1 tabs UD PRN PO 08/04/16 23:45 09/03/16 23:44 Dextrose (Dextrose 50% 50ML Syringe) 50 ml UD PRN IV 08/04/16 23:45 09/03/16 23:44 08/05/16 20:26 50 ML Glucagon 1 mg 1 mg UD PRN SQ 08/04/16 23:45 09/03/16 23:44 Ampicillin Sodium/ Sulbactam Sodium/ Sodium Chloride (Unasyn Inj/Nss 100ml) 108 ml @ 200 mls/hr Q6@0000,0600,1200,1800 IV 08/05/16 01:00 08/12/16 00:59 08/09/16 05:34 200 MLS/HR Ampicillin Sodium/ Sulbactam Sodium 1 ea 1 ea UD PRN N/A 08/05/16 01:00 09/04/16 00:59 Amiodarone HCL/ Dextrose (Nexterone / D5w) 200 ml @ 16.7 mls/hr [id number] IV 08/05/16 07:00 09/04/16 06:59 08/09/16 06:12 16.7 MLS/HR Albuterol Sulfate (Ventolin 0.5% 2.5MG/0.5ML Neb) 2.5 mg Q6R INH 08/06/16 21:00 09/05/16 20:59 08/09/16 02:05 2.5 MG Heparin Sodium (Porcine) 5000 unit 5,000 unit Q12 SQ 08/07/16 10:00 09/06/16 09:59 08/09/16 09:12 5,000 UNIT Furosemide/Syringe (Lasix Inj/ Syringe) 2 ml @ 4 mls/min BID17 IV 08/08/16 17:00 09/07/16 16:59 08/09/16 08:50 4 MLS/MIN Levothyroxine Sodium (Synthroid Tab) 25 mcg DAILYBB NG 08/08/16 11:00 09/07/16 10:59 08/09/16 05:34 25 MCG Polyethylene (Miralax Powder Packet) 17 gm QAM NG 08/09/16 09:00 09/08/16 08:59 08/09/16 08:34 17 GM Fentanyl Citrate (Fentanyl Inj) 25 mcg Q2H PRN IV 08/08/16 16:15 08/22/16 16:14 Nystatin (Mycostatin Susp) 5 ml QID PO 08/09/16 13:00 08/19/16 12:59 Docusate Sodium (coLACE CAP) 100 mg BID PO 08/09/16 21:00 09/08/16 20:59 Oxycodone/ Acetaminophen (Percocet 5-325mg Tab) `1-2 tabs for pain 1 tab ... Q6H PRN PO 08/09/16 10:30 08/23/16 10:29 08/09/16 11:11 2 TAB I & O: 24-Hour Column 08/09/16 07:59 Intake Total 1746 ml Output Total 4920 ml Balance -3174 ml Vital Signs: Date Time Temp Pulse Resp B/P Pulse Ox O2 Delivery O2 Flow Rate FiO2 08/09/16 10:00 76 20 114/65 93 Mask 4.0 08/09/16 09:20 76 94 4.0 08/09/16 08:00 36.8 80 20 115/68 95 Mask 4.0 08/09/16 08:00 95 Mask 4.0 08/09/16 06:00 84 20 118/72 95 Mask 08/09/16 04:00 95 Mask 4.0 08/09/16 04:00 36.6 88 110/76 96 Mask 4.0 08/09/16 02:05 86 18 98 Mask 5.0 08/09/16 02:00 85 18 115/64 96 Mask 08/09/16 00:01 36.4 20 114/73 96 Mask 08/08/16 23:59 96 Mask 5.0 08/08/16 22:00 78 115/79 97 Mask 08/08/16 21:00 92 92 5.0 08/08/16 20:00 94 Mask 6.0 08/08/16 20:00 36.8 89 107/73 95 Mask 08/08/16 19:25 89 20 95 Mask 5.0 08/08/16 18:14 87 109/72 95 08/08/16 18:07 92 114/71 93 08/08/16 18:00 85 22 107/63 95 Mechanical Ventilator 40 119/71 08/08/16 18:00 93 95 08/08/16 17:59 94 119/78 95 08/08/16 17:42 98 104/64 08/08/16 17:15 95 104/64 94 08/08/16 17:00 37.0 94 95 08/08/16 16:59 93 104/64 95 08/08/16 16:00 95 Mask 6.0 08/08/16 16:00 37.8 95 90 08/08/16 15:59 37.7 99 113/74 92 08/08/16 15:00 37.9 101 92 08/08/16 14:59 37.9 97 110/77 92 08/08/16 14:25 103 20 91 Mask 5.0 08/08/16 14:00 37.9 99 20 94 08/08/16 13:59 37.9 100 25 116/76 94 08/08/16 13:00 37.9 91 18 94 08/08/16 12:59 37.9 86 14 96/61 96 08/08/16 12:34 37.9 95 22 105/67 94 08/08/16 12:03 38.0 93 22 105/67 95 08/08/16 12:02 38.0 94 22 105/67 95 08/08/16 12:01 38.0 94 20 105/67 95 08/08/16 12:00 38.0 94 20 105/67 94 08/08/16 12:00 CPAP 40 08/08/16 12:00 40 08/08/16 11:35 40 Laboratory Results: Last 24 Hours Test 08/08/16 15:29 08/08/16 18:30 08/09/16 05:57 Hemoglobin 12.4 g/dL 11.9 g/dL Hematocrit 37.1 % 36.6 % Sodium Level 144 mmol/L 142 mmol/L Potassium Level 4.2 mmol/L 3.9 mmol/L Chloride Level 107 mmol/L 104 mmol/L Carbon Dioxide Level 26 mmol/L 28 mmol/L Anion Gap 11.0 mmol/L 10.0 mmol/L Blood Urea Nitrogen 29 mg/dl 30 mg/dl Creatinine 3.10 mg/dl 3.00 mg/dl Est Creatinine Clear Calc Drug Dose 34.0 ml/min 31.6 ml/min Estimated GFR () 25.1 26.1 Estimated GFR (Non- 21.6 22.5 BUN/Creatinine Ratio 9.4 10.1 Random Glucose 96 mg/dl 89 mg/dl Calcium Level 8.0 mg/dl 8.1 mg/dl Urine Color YELLOW Urine Appearance CLEAR Urine pH 5.0 Urine Specific [place] 1.005 Urine Protein NEG Urine Glucose (UA) NEG Urine Ketones NEG Urine Occult Blood 1+ Urine Nitrite NEG Urine Bilirubin NEG Urine Urobilinogen NEG Urine Leukocyte Esterase TRACE Urine WBC (Auto) 1-5 /hpf Urine RBC (Auto) 5-10 /hpf Urine Hyaline Casts (Auto) 1-5 /lpf Urine Epithelial Cells (Auto) >30 /lpf Urine Bacteria (Auto) NEG Urine Random Creatinine 29.0 mg/dl Urine Random Sodium 113 mEq/L White Blood Count 10.01 K/uL Red Blood Count 4.05 M/uL Mean Corpuscular Volume 90.4 fL Mean Corpuscular Hemoglobin 29.4 pg Mean Corpuscular Hemoglobin Concent 32.5 g/dl Platelet Count 159 K/uL Mean Platelet Volume 9.6 fL Neutrophils (%) (Auto) 74.6 % Lymphocytes (%) (Auto) 11.6 % Monocytes (%) (Auto) 13.4 % Eosinophils (%) (Auto) 0.2 % Basophils (%) (Auto) 0.0 % Neutrophils # (Auto) 7.47 K/uL Lymphocytes # (Auto) 1.16 K/uL Monocytes # (Auto) 1.34 K/uL Eosinophils # (Auto) 0.02 K/uL Basophils # (Auto) 0.00 K/uL RDW Standard Deviation 50.6 fL RDW Coefficient of Variation 15.3 % Immature Granulocyte % (Auto) 0.2 % Immature Granulocyte # (Auto) 0.02 K/uL Prothrombin Time 13.3 SECONDS Prothromb Time International Ratio 1.2 Activated Partial Thromboplast Time 28.3 SECONDS Partial Thromboplastin Ratio 1.1 Phosphorus Level 4.7 mg/dl Magnesium Level 2.2 mg/dl Total Bilirubin 0.7 mg/dl Direct Bilirubin 0.3 mg/dl Aspartate Amino Transf (AST/SGOT) 24 U/L Alanine Aminotransferase (ALT/SGPT) 66 U/L Alkaline Phosphatase 40 U/L Total Protein 5.9 gm/dl Albumin 2.5 gm/dl Resident Tracking Resident Involvement: Resident Care Provided Care Provided: Adult Hospital Medicine (ICU)
--- NOTE | 2016-08-09 12:45 | PROGRESS NOTE ---
DATE: 08/09/2016 SUBJECTIVE: The patient was seen by me this morning in his ICU Room. He has been extubated. He is sitting in a chair by his bedside. He is awake and alert. He denies any dyspnea. No complaints of palpitations, lightheadedness, or syncope. No abdominal pain or nausea. No complaints of fevers or chills. He does complain of right-sided chest pain with movement and deep inspiration. He has good appetite. On my arrival into the room, he immediately recognized me and stated my name. CURRENT MEDICATIONS: Intravenous amiodarone, furosemide 20 mg IV b.i.d., MiraLax powder 17 grams daily, oxycodone/acetaminophen 5/325 one to two tabs q. 6 hours as needed for pain, nystatin suspension 5 mL q.i.d., docusate sodium 100 mg b.i.d., levothyroxine 25 mcg p.o. daily, subQ heparin 5000 units q. 12 hours, pantoprazole 40 mg IV daily, aspirin 81 mg daily, ampicillin/sulbactam 3 grams IV q. 6 hours, and several p.r.n. medications. ALLERGIES AND ADVERSE DRUG REACTIONS: None. Monitor history over the past 24 hours with sinus rhythm, frequent premature ventricular beats, occasional ventricular couplet, and rare ventricular triplets. PHYSICAL EXAMINATION: VITAL SIGNS: This morning with oral temperature of 36.8. Most recent recorded pulse rate 76. Blood pressure 114/65. Pulse oximetry on nasal cannula oxygen 92%. NECK: Difficult to evaluate jugular venous pressure secondary to neck size. LUNGS: Decreased breath sounds at the bases bilaterally. No rales or wheezes. Normal respiratory effort. HEART: Irregular rhythm. This corresponds with ventricular ectopy on the monitor. 1/6 systolic murmur in the left lower sternal border and apex. No diastolic murmur or rub heard. ABDOMEN: Soft. Nontender. No palpable masses or organomegaly. No bruits. EXTREMITIES: No leg edema. No calf tenderness. NEUROLOGIC: The patient is awake and alert. He knows my name. He knows his name. He does not recall any of the events prior to his admission. DATA: Chest x-ray today with bibasilar atelectasis. Small left pleural effusion. ____ residual trace right apical pneumothorax. LABORATORY DATA: Today with sodium 142, potassium 3.9, chloride 104, carbon dioxide 28, BUN 30, creatinine 3.0, random glucose 89, and magnesium 2.2. AST 24 and ALT 66. Albumin 2.5. WBC 10.01, hemoglobin 11.9, hematocrit 36.6, and platelet count 159. Echocardiogram on this admission with global hypokinesis of the left ventricle. Estimated LV ejection fraction was 35%. Mild to moderate mitral regurgitation. ASSESSMENT: 1. Status post cardiac arrest on 08/04/2016 secondary to ventricular fibrillation. Successful outpatient resuscitation. Successful defibrillation. 2. Moderate left ventricular systolic dysfunction on echocardiogram on admission. This was immediately following his arrest. He was likely very acidotic at the time. It is likely his LV function may be better than that seen on the initial echocardiogram. No current evidence of congestive heart failure on exam. No symptoms of heart failure. 3. No anginal type complaints. No obstructive coronary artery disease on prior cardiac catheterization. He denies any anginal symptoms recently. He states he actually had been feeling well until the day of admission. He had not noted any decrease in his exercise tolerance or any dyspnea at rest or with his normal activities. 4. Acute kidney injury. His creatinine is slightly decreased today compared to yesterday. The peak creatinine was yesterday at 3.10. Suspect acute tubular necrosis secondary to prolonged hypertension. Suspect that his creatinine will continue to improve. 5. Blood pressure improved. He is no longer on any pressors. 6. Frequent ventricular ectopy. The patient does have a history of frequent ventricular ectopy. This was evaluated in the past at [facility] and it was felt that no specific therapy was indicated. The patient was on beta gracia therapy and lisinopril therapy prior to this admission. RECOMMENDATIONS: 1. From a cardiac standpoint, can switch from IV amiodarone to oral amiodarone. We will start amiodarone 400 mg p.o. q. 8 hours. 2. We will restart low dose metoprolol succinate ER at 25 mg daily. 3. At this time, we will hold off on restarting lisinopril in light of his acute kidney injury. 4. Prior to discharge, the patient will need placement of an ICD for secondary prevention of sudden cardiac . [facility]
[2016-08-09] MEDS: AMIODARONE 200 MG TAB PO SCH ×2 (14:31→21:18)
--- NOTE | 2016-08-09 14:40 | Progress Note ---
Subjective Subjective Date of Service: Aug 09, 2016. Pt evaluation today including: conversation w/ patient, physical exam, chart review, review of studies, review of inpatient medication list Notes: successfully extubated, denies complains Problem List Medical Problems: (1) Cardiac arrest Status: Acute (2) Rib fractures Status: Acute (3) Ventricular fibrillation Status: Acute Review of Systems Constitutional: No fever ENT: No hearing loss Respiratory: No cough Abdomen: No pain Male : No dysuria Neurologic: No memory loss Psychiatric: No depression symptoms Endo: No fatigue Physical Exam Vital Signs Vital Signs Past 24 Hours: Date Time Temp Pulse Resp B/P Pulse Ox O2 Delivery O2 Flow Rate FiO2 08/09/16 12:00 Nasal Cannula 4.0 08/09/16 10:00 76 20 114/65 93 Mask 4.0 08/09/16 09:20 76 94 4.0 08/09/16 08:00 36.8 80 20 115/68 95 Mask 4.0 08/09/16 08:00 95 Mask 4.0 08/09/16 08:00 Nasal Cannula 08/09/16 06:00 84 20 118/72 95 Mask 08/09/16 04:00 95 Mask 4.0 08/09/16 04:00 36.6 88 110/76 96 Mask 4.0 08/09/16 02:05 86 18 98 Mask 5.0 08/09/16 02:00 85 18 115/64 96 Mask 08/09/16 00:01 36.4 20 114/73 96 Mask 08/08/16 23:59 96 Mask 5.0 08/08/16 22:00 78 115/79 97 Mask 08/08/16 21:00 92 92 5.0 08/08/16 20:00 94 Mask 6.0 08/08/16 20:00 36.8 89 107/73 95 Mask 08/08/16 19:25 89 20 95 Mask 5.0 08/08/16 18:14 87 109/72 95 08/08/16 18:07 92 114/71 93 08/08/16 18:00 85 22 107/63 95 Mechanical Ventilator 40 119/71 08/08/16 18:00 93 95 08/08/16 17:59 94 119/78 95 08/08/16 17:42 98 104/64 08/08/16 17:15 95 104/64 94 08/08/16 17:00 37.0 94 95 08/08/16 16:59 93 104/64 95 08/08/16 16:00 95 Mask 6.0 08/08/16 16:00 37.8 95 90 08/08/16 15:59 37.7 99 113/74 92 08/08/16 15:00 37.9 101 92 08/08/16 14:59 37.9 97 110/77 92 Physical Exam: General Appearance: WD/WN, no apparent distress Eyes: bilateral eyes normal inspection ENT: hearing grossly normal Neck: supple Respiratory/Chest: chest non-tender, + pertinent finding (right chest tube is present) Cardiovascular: no edema, no gallop Abdomen: non tender Extremities: non-tender Neurologic/Psychiatric: alert Skin: normal color Medications Medications: Current Inpatient Medications Medications (Trade) Dose Ordered Sig/Bryn Route Start Time Stop Time Status Last Admin Dose Admin Aspirin (Aspirin Chew) 81 mg DAILY NG 08/05/16 09:00 09/04/16 08:59 08/09/16 08:34 81 MG Acetaminophen 650 mg 650 mg Q4H PRN NG 08/04/16 22:45 09/03/16 22:44 08/07/16 18:05 650 MG Pantoprazole Sodium/Syringe (Protonix Inj/ Syringe) 10 ml @ 5 mls/min DAILY@11 IV 08/05/16 11:00 09/04/16 10:59 08/09/16 12:01 5 MLS/MIN Glucose (Glucose 40% Gel) UD PRN PO 08/04/16 23:45 09/03/16 23:44 Glucose (Glucose Chew Tab) 1 tabs UD PRN PO 08/04/16 23:45 09/03/16 23:44 Dextrose (Dextrose 50% 50ML Syringe) 50 ml UD PRN IV 08/04/16 23:45 09/03/16 23:44 08/05/16 20:26 50 ML Glucagon 1 mg 1 mg UD PRN SQ 08/04/16 23:45 09/03/16 23:44 Ampicillin Sodium/ Sulbactam Sodium/ Sodium Chloride (Unasyn Inj/Nss 100ml) 108 ml @ 200 mls/hr Q6@0000,0600,1200,1800 IV 08/05/16 01:00 08/12/16 00:59 08/09/16 12:01 200 MLS/HR Ampicillin Sodium/ Sulbactam Sodium (Consult) 1 ea UD PRN N/A 08/05/16 01:00 09/04/16 00:59 Albuterol Sulfate (Ventolin 0.5% 2.5MG/0.5ML Neb) 2.5 mg Q6R INH 08/06/16 21:00 09/05/16 20:59 08/09/16 02:05 2.5 MG Heparin Sodium (Porcine) 5000 unit 5,000 unit Q12 SQ 08/07/16 10:00 09/06/16 09:59 08/09/16 09:12 5,000 UNIT Furosemide/Syringe (Lasix Inj/ Syringe) 2 ml @ 4 mls/min BID17 IV 08/08/16 17:00 09/07/16 16:59 08/09/16 08:50 4 MLS/MIN Levothyroxine Sodium (Synthroid Tab) 25 mcg DAILYBB NG 08/08/16 11:00 09/07/16 10:59 08/09/16 05:34 25 MCG Polyethylene (Miralax Powder Packet) 17 gm QAM NG 08/09/16 09:00 09/08/16 08:59 08/09/16 08:34 17 GM Fentanyl Citrate (Fentanyl Inj) 25 mcg Q2H PRN IV 08/08/16 16:15 08/22/16 16:14 Nystatin (Mycostatin Susp) 5 ml QID PO 08/09/16 13:00 08/19/16 12:59 08/09/16 12:02 5 ML Docusate Sodium (coLACE CAP) 100 mg BID PO 08/09/16 21:00 09/08/16 20:59 Oxycodone/ Acetaminophen (Percocet 5-325mg Tab) `1-2 tabs for pain 1 tab ... Q6H PRN PO 08/09/16 10:30 08/23/16 10:29 08/09/16 11:11 2 TAB Bisacodyl (Dulcolax Supp) 10 mg DAILY PRN CA 08/09/16 11:45 09/08/16 11:44 Amiodarone HCl (Cordarone Tab) 400 mg Q8 PO 08/09/16 14:00 3/25/17 13:59 08/09/16 14:31 400 MG Metoprolol Succinate (Toprol Xl Tab) 25 mg QAM PO 08/10/16 09:00 09/09/16 08:59 Laboratory Data Labs: Last 24 Hours Test 08/08/16 15:29 08/08/16 18:30 08/09/16 05:57 Hemoglobin 12.4 g/dL 11.9 g/dL Hematocrit 37.1 % 36.6 % Sodium Level 144 mmol/L 142 mmol/L Potassium Level 4.2 mmol/L 3.9 mmol/L Chloride Level 107 mmol/L 104 mmol/L Carbon Dioxide Level 26 mmol/L 28 mmol/L Anion Gap 11.0 mmol/L 10.0 mmol/L Blood Urea Nitrogen 29 mg/dl 30 mg/dl Creatinine 3.10 mg/dl 3.00 mg/dl Est Creatinine Clear Calc Drug Dose 34.0 ml/min 31.6 ml/min Estimated GFR () 25.1 26.1 Estimated GFR (Non- 21.6 22.5 BUN/Creatinine Ratio 9.4 10.1 Random Glucose 96 mg/dl 89 mg/dl Calcium Level 8.0 mg/dl 8.1 mg/dl Urine Color YELLOW Urine Appearance CLEAR Urine pH 5.0 Urine Specific [place] 1.005 Urine Protein NEG Urine Glucose (UA) NEG Urine Ketones NEG Urine Occult Blood 1+ Urine Nitrite NEG Urine Bilirubin NEG Urine Urobilinogen NEG Urine Leukocyte Esterase TRACE Urine WBC (Auto) 1-5 /hpf Urine RBC (Auto) 5-10 /hpf Urine Hyaline Casts (Auto) 1-5 /lpf Urine Epithelial Cells (Auto) >30 /lpf Urine Bacteria (Auto) NEG Urine Random Creatinine 29.0 mg/dl Urine Random Sodium 113 mEq/L White Blood Count 10.01 K/uL Red Blood Count 4.05 M/uL Mean Corpuscular Volume 90.4 fL Mean Corpuscular Hemoglobin 29.4 pg Mean Corpuscular Hemoglobin Concent 32.5 g/dl Platelet Count 159 K/uL Mean Platelet Volume 9.6 fL Neutrophils (%) (Auto) 74.6 % Lymphocytes (%) (Auto) 11.6 % Monocytes (%) (Auto) 13.4 % Eosinophils (%) (Auto) 0.2 % Basophils (%) (Auto) 0.0 % Neutrophils # (Auto) 7.47 K/uL Lymphocytes # (Auto) 1.16 K/uL Monocytes # (Auto) 1.34 K/uL Eosinophils # (Auto) 0.02 K/uL Basophils # (Auto) 0.00 K/uL RDW Standard Deviation 50.6 fL RDW Coefficient of Variation 15.3 % Immature Granulocyte % (Auto) 0.2 % Immature Granulocyte # (Auto) 0.02 K/uL Prothrombin Time 13.3 SECONDS Prothromb Time International Ratio 1.2 Activated Partial Thromboplast Time 28.3 SECONDS Partial Thromboplastin Ratio 1.1 Phosphorus Level 4.7 mg/dl Magnesium Level 2.2 mg/dl Total Bilirubin 0.7 mg/dl Direct Bilirubin 0.3 mg/dl Aspartate Amino Transf (AST/SGOT) 24 U/L Alanine Aminotransferase (ALT/SGPT) 66 U/L Alkaline Phosphatase 40 U/L Total Protein 5.9 gm/dl Albumin 2.5 gm/dl Assessment and Plan A 56-year-old white male admitted to ICU because of cardiac arrest on 2016 history of Nonischemic cardiomyopathy, ejection fraction was listed at 30% as long ago as 2004. The more recent echo on record was performed in 2012 and showed an EF of 35%. The EF in the Emergency Department at the time of admission was closer to 25%. Hypothyroidism, Hypertension. 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 Patchy areas of consolidation within the bilateral lungs posteriorly favor pulmonary contusion Add DuoNeb if needed Infectious disease: Possible sepsis, UTI and pneumonia, continue antibiotics IV as above, follow-up C+S neuro: Was unresponsive since the cardiac arrest , head Ct was not remarkable Renal: Acute kidney failure likely from hypoperfusion from cardiac arrest, creat slightly improved, continue on IV fluid, US renal is normal Heme: no acute issues GI: GI prophylaxis on SCD Endo: no issues, target Bg 140-180 obesity, noted, will need nutrition consult when able nutrition: start oral feedings
--- NOTE | 2016-08-09 15:21 | DIAGNOSTIC IMAGING REPORT ---
HEAD CT NONCONTRAST CT DOSE: 1296.58 mGy.cm HISTORY: Cardiac arrest. Mental status change. RUE weakness TECHNIQUE: Multiaxial CT images of the head were performed without the use of intravenous contrast. Comparison: 08/04/2016. FINDINGS: subtle asymmetry in the cerebral subarachnoid spaces but this appears be chronic for this patient. No acute intracranial hemorrhage. No midline shift. IMPRESSION: No acute process Electronically signed by: Grupo Mulligan M.D. 08/09/2016 3:19 PM Dictated Date/Time: 08/09/2016 3:15 PM
[2016-08-09] MEDS: DOCUSATE SODIUM 100 MG CAP PO SCH (21:18)
[2016-08-10] VITALS (16 sets, daily range): BP systolic 107–137; BP diastolic 64–85; PULSE 65–95; TEMP 36.7–37.2; O2SAT 78–98
[2016-08-10] MEDS: AMPICILLIN/SULBACTAM SOD INJ 3,000 MG in SODIUM CHLORIDE 0.9% 100ML 100 ML IV SCH ×4 (00:18→18:46)
[2016-08-10] MEDS: ALBUTEROL 0.5% NEB SOLN 2.5 MG/0.5 ML VIAL INH SCH ×4 (03:10→19:25)
[2016-08-10] MEDS: AMIODARONE 200 MG TAB PO SCH ×3 (06:02→20:53)
[2016-08-10] MEDS: LEVOTHYROXINE 25 MCG TAB NG SCH (06:02)
[2016-08-10] MEDS: HEPARIN SOD 5000 UNIT/0.5 ML CARP SQ SCH ×3 (06:04→22:05)
[2016-08-10 06:19] LABS: HEMATOCRIT 35.9 % (42-52); MEAN CELL VOLUME 92.5 fL (80-100); MEAN CORPUSCULAR HEMOGLOBIN 30.7 pg (25-34); MEAN CORPUSCULAR HGB CONC 33.1 g/dl (32-36); MEAN PLATELET VOLUME 10.5 fL (7.4-10.4); PLATELET COUNT 154 K/uL (130-400); RED BLOOD COUNT 3.88 M/uL (4.7-6.1); WHITE BLOOD COUNT 7.14 K/uL (4.8-10.8)
[2016-08-10 06:27] LABS: INR 1.2 (0.9-1.1); PROTHROMBIN TIME (PATIENT) 12.7 SECONDS (9.0-12.0)
[2016-08-10 06:57] LABS: BUN/CREATININE RATIO 10.9 (10-20); CALCIUM 8.6 mg/dl (8.5-10.1); CREATININE 2.9 mg/dl (0.60-1.40); MAGNESIUM 2.3 mg/dl (1.8-2.4)
[2016-08-10 07:01] LABS: ALB/GLOB RATIO 0.8 (0.9-2)
[2016-08-10] MEDS ORDERED: BISACODYL 10 MG SUPP PR STA (07:46)
--- NOTE | 2016-08-10 08:07 | DIAGNOSTIC IMAGING REPORT ---
CHEST ONE VIEW PORTABLE CLINICAL HISTORY: pneumothorax/hemothorax dyspnea COMPARISON STUDY: 08/09/2016 FINDINGS: Right apical chest tube unchanged in location. No evidence for recurrent pneumothorax. Central catheters. Vena cava. Moderate stable cardiomegaly. IMPRESSION: No significant pneumothorax. Stable chest tube location. Otherwise unchanged exam Electronically signed by: Grupo Mulligan M.D. 08/10/2016 8:06 AM Dictated Date/Time: 08/10/2016 8:05 AM
[2016-08-10] MEDS: FUROSEMIDE INJ 20 MG in SYRINGE 0 ML IV SCH (08:41)
[2016-08-10] MEDS: DOCUSATE SODIUM 100 MG CAP PO SCH ×2 (08:41→19:53)
[2016-08-10] MEDS: METOPROLOL SUCC 50MG EXT REL TAB PO SCH (08:42)
[2016-08-10] MEDS: PANTOprazole SOD 40 MG TAB PO SCH (08:42)
[2016-08-10] MEDS: ASPIRIN 81 MG CHEW NG SCH (08:42)
[2016-08-10] MEDS: POLYETHYLENE (MIRALAX) 17 GM PACK NG SCH ×2 (08:42→19:53)
[2016-08-10] MEDS: NYSTATIN SUSP 500,000 U/5 ML UDC PO SCH ×4 (08:42→20:53)
--- NOTE | 2016-08-10 08:44 | PROGRESS NOTE ---
DATE: 08/10/2016 SUBJECTIVE: The patient was seen by me this morning in his intensive care unit room. When I arrived in the room, the patient quickly greeted me by name. He states that he is overall feeling well other than being tired and fatigued. He still has right-sided chest discomfort. This is worse with deep inspiration or coughing. He complains of a nonproductive cough. No fevers or chills. No dyspnea. At the time of my exam, he was still wearing his CPAP mask from overnight. No palpitations, lightheadedness, abdominal pain, or nausea. He states his appetite is good. No complaints of any leg pain or tenderness. CURRENT MEDICATIONS: Levothyroxine 25 mcg p.o. daily, metoprolol succinate ER 25 mg daily, pantoprazole 40 mg p.o. daily, subQ heparin 5000 units q. 8 hours, docusate sodium 100 mg b.i.d., amiodarone 400 mg p.o. q. 8 hours, nystatin 5 mL p.o. q.i.d., MiraLax 17 grams p.o. daily, furosemide 20 mg IV b.i.d., aspirin 81 mg daily, ampicillin/sulbactam 3 grams IV q. 6 hours, p.r.n. intravenous fentanyl, p.r.n. albuterol nebulizer, p.r.n. acetaminophen, p.r.n. Percocet, p.r.n. Dulcolax suppositories. ALLERGIES AND ADVERSE DRUG REACTIONS: None. Monitor history over the past 24 hours reviewed by me. Sinus rhythm. Frequent premature ventricular beats. Occasional ventricular couplets. No ventricular tachycardia. Intake and output yesterday 1504/3320. PHYSICAL EXAMINATION: VITAL SIGNS: Axillary temperature overnight was 37.0. Pulse this morning 79. Blood pressure 128/70, pulse oximetry on BiPAP, oxygen flow rate at 8 liters per minute, was 94%. GENERAL APPEARANCE: Shows the patient to be in no distress. NECK: Difficult to evaluate jugular venous pressure secondary to neck size. There does not appear to be any jugular venous distention. LUNGS: Normal respiratory effort. Decreased breath sounds at the bases. No rales or wheezes. HEART: Regular rate and rhythm with premature beats. 1/6 systolic murmur left lower sternal border and apex. No diastolic murmur or rub. ABDOMEN: Soft. Nontender. No palpable masses or organomegaly. No bruits. EXTREMITIES: No calf tenderness. NEUROLOGIC: The patient is alert and oriented. He can move all extremities. DATA: Chest x-ray performed this morning and reviewed by me shows no evidence of pulmonary vascular congestion, probable atelectasis at the bases. Head CT scan without contrast performed yesterday without acute intracranial abnormality. Labs today with sodium 146, potassium 4.0, chloride 107, carbon dioxide 31, BUN 32, creatinine 2.90, random glucose 92. AST 22, and ALT 50. Albumin 2.5. Total bilirubin 0.7. Magnesium 2.3. ASSESSMENT: 1. Status post cardiac arrest on 08/04/2016. Successful resuscitation and defibrillation from ventricular fibrillation. 2. Echocardiogram performed soon after admission revealed moderate LV systolic dysfunction. Mild to moderate mitral regurgitation. 3. No current signs or symptoms of pulmonary vascular congestion. Chest x-ray without evidence of pulmonary vascular congestion today. 4. Frequent ventricular ectopy. Potassium and magnesium levels are normal. 5. Blood pressure good. He tolerated reinstitution of low dose metoprolol well. 6. Acute kidney injury. Creatinine slightly decreased from yesterday. Good urine output. 7. By my observation and exam, the patient appears to be at his baseline mental status. I have known the patient for many years. RECOMMENDATIONS: 1. The electrocardiogram today and daily a.m. Monitor [place] interval and QT interval. 2. Will change amiodarone to 400 mg b.i.d. 3. Increase metoprolol succinate ER to 50 mg daily. 4. Limited followup echocardiogram today to reassess left ventricular systolic function and degree of mitral regurgitation. 5. Prior to discharge, the patient will need implantation of an ICD for secondary prevention of sudden cardiac . The timing of this could be the day prior to the day of planned discharge. 7. Increase activity as tolerated. I will be away till 08/13/2016. Please contact the covering [facility] branch service leader for any acute cardiac problems or issues. [facility]
[2016-08-10] MEDS ORDERED: METOPROLOL SUCC 25MG EXT REL TAB PO SCH (09:00)
[2016-08-10] MEDS ORDERED: OXYCODONE/ACETAMINOPHEN 5-325 TAB PO PRN (10:15)
[2016-08-10] MEDS ORDERED: OXYCODONE/ACETAMINOPHEN 5-325 TAB PO SCH (10:30)
--- NOTE | 2016-08-10 11:28 | Progress Note ---
Subjective Subjective Date of Service: Aug 10, 2016. Pt evaluation today including: conversation w/ patient, physical exam, chart review, review of studies, conversation w/ data governance consultant (dannie), review of inpatient medication list Problem List Medical Problems: (1) Cardiac arrest Status: Acute (2) Rib fractures Status: Acute (3) Ventricular fibrillation Status: Acute Review of Systems Constitutional: No fever ENT: No hearing loss Respiratory: No cough Abdomen: No pain Male : No dysuria Neurologic: No memory loss Psychiatric: No depression symptoms Endo: No fatigue Physical Exam Vital Signs Vital Signs Past 24 Hours: Date Time Temp Pulse Resp B/P Pulse Ox O2 Delivery O2 Flow Rate FiO2 08/10/16 11:07 36.9 70 18 135/77 98 08/10/16 09:58 37.2 79 14 93 3.0 08/10/16 08:00 Nasal Cannula 4.0 08/10/16 08:00 37.2 79 14 128/85 93 Nasal Cannula 4.0 08/10/16 07:15 83 16 95 BiPAP/CPAP 4.0 08/10/16 07:15 83 95 4.0 08/10/16 06:00 79 17 128/70 94 BiPAP 8.0 08/10/16 04:00 BiPAP 8.0 08/10/16 03:59 37.0 80 20 123/74 93 BiPAP 8.0 08/10/16 03:05 65 18 97 BiPAP/CPAP 6.0 08/10/16 01:59 67 23 114/64 88 BiPAP 8.0 08/09/16 23:59 BiPAP 8.0 08/09/16 23:59 36.9 69 12 117/75 92 BiPAP 8.0 08/09/16 23:15 74 92 6.0 08/09/16 22:00 76 23 111/66 93 Nasal Cannula 4.0 08/09/16 20:15 83 18 94 Nasal Cannula 6.0 08/09/16 20:00 37.0 77 20 114/62 98 Nasal Cannula 4.0 08/09/16 20:00 93 Nasal Cannula 4.0 08/09/16 18:00 89 24 119/84 95 Nasal Cannula 6.0 08/09/16 16:00 36.9 88 24 116/81 91 Nasal Cannula 6.0 08/09/16 16:00 Nasal Cannula 6.0 08/09/16 14:00 73 30 106/61 90 BiPAP 08/09/16 12:00 Nasal Cannula 4.0 08/09/16 12:00 37.2 83 20 107/65 91 Nasal Cannula 4.0 Physical Exam: General Appearance: WD/WN, no apparent distress Eyes: bilateral eyes normal inspection ENT: hearing grossly normal, pharynx normal Neck: supple, no JVD Respiratory/Chest: lungs clear, normal breath sounds Cardiovascular: no edema, no JVD Abdomen: non tender, no organomegaly Extremities: non-tender, no pedal edema Neurologic/Psychiatric: normal mood/affect Skin: warm/dry Medications Medications: Current Inpatient Medications Medications (Trade) Dose Ordered Sig/Bryn Route Start Time Stop Time Status Last Admin Dose Admin Aspirin (Aspirin Chew) 81 mg DAILY NG 08/05/16 09:00 09/04/16 08:59 08/10/16 08:42 81 MG Acetaminophen (Tylenol Soln) 650 mg Q4H PRN NG 08/04/16 22:45 09/03/16 22:44 08/07/16 18:05 650 MG Glucose (Glucose 40% Gel) UD PRN PO 08/04/16 23:45 09/03/16 23:44 Glucose (Glucose Chew Tab) 1 tabs UD PRN PO 08/04/16 23:45 09/03/16 23:44 Dextrose (Dextrose 50% 50ML Syringe) 50 ml UD PRN IV 08/04/16 23:45 09/03/16 23:44 08/05/16 20:26 50 ML Glucagon 1 mg 1 mg UD PRN SQ 08/04/16 23:45 09/03/16 23:44 Ampicillin Sodium/ Sulbactam Sodium/ Sodium Chloride (Unasyn Inj/Nss 100ml) 108 ml @ 200 mls/hr Q6@0000,0600,1200,1800 IV 08/05/16 01:00 08/12/16 00:59 08/10/16 06:02 200 MLS/HR Ampicillin Sodium/ Sulbactam Sodium (Consult) 1 ea UD PRN N/A 08/05/16 01:00 09/04/16 00:59 Albuterol Sulfate (Ventolin 0.5% 2.5MG/0.5ML Neb) 2.5 mg Q6R INH 08/06/16 21:00 09/05/16 20:59 08/10/16 07:15 2.5 MG Polyethylene (Miralax Powder Packet) 17 gm QAM NG 08/09/16 09:00 09/08/16 08:59 08/10/16 08:42 17 GM Nystatin (Mycostatin Susp) 5 ml QID PO 08/09/16 13:00 08/19/16 12:59 08/10/16 08:42 5 ML Docusate Sodium (coLACE CAP) 100 mg BID PO 08/09/16 21:00 09/08/16 20:59 08/10/16 08:41 100 MG Bisacodyl (Dulcolax Supp) 10 mg DAILY PRN [place] 08/09/16 11:45 09/08/16 11:44 Heparin Sodium (Porcine) (Heparin Sq 5000 Unit/0.5ml) 5,000 unit Q8 SQ 08/09/16 22:00 09/08/16 21:59 08/10/16 06:04 5,000 UNIT Pantoprazole Sodium (Protonix Tab) 40 mg QAM PO 08/10/16 09:00 09/09/16 08:59 08/10/16 08:42 40 MG Levothyroxine Sodium (Synthroid Tab) 25 mcg DAILYBB PO 08/11/16 06:00 09/10/16 05:59 Amiodarone HCl (Cordarone Tab) 400 mg BID PO 08/10/16 09:00 09/09/16 08:59 08/10/16 08:42 400 MG Metoprolol Succinate 50 mg 50 mg QAM PO 08/10/16 09:00 09/09/16 08:59 08/10/16 08:42 50 MG Furosemide/Syringe (Lasix Inj/ Syringe) 2 ml @ 4 mls/min DAILY IV 08/10/16 09:00 09/09/16 08:59 08/10/16 08:41 4 MLS/MIN Oxycodone/ Acetaminophen (Percocet 5-325mg Tab) `1-2 tabs for pain 1 tab ... Q4H PO 08/10/16 10:30 08/24/16 10:29 08/10/16 11:10 2 TAB Oxycodone/ Acetaminophen (Percocet 5-325mg Tab) 1 tab Q4H PRN PO 08/10/16 10:15 08/24/16 10:14 Laboratory Data Labs: Last 24 Hours Test 08/10/16 05:25 White Blood Count 7.14 K/uL Red Blood Count 3.88 M/uL Hemoglobin 11.9 g/dL Hematocrit 35.9 % Mean Corpuscular Volume 92.5 fL Mean Corpuscular Hemoglobin 30.7 pg Mean Corpuscular Hemoglobin Concent 33.1 g/dl RDW Standard Deviation 51.8 fL RDW Coefficient of Variation 15.3 % Platelet Count 154 K/uL Mean Platelet Volume 10.5 fL Prothrombin Time 12.7 SECONDS Prothromb Time International Ratio 1.2 Sodium Level 146 mmol/L Potassium Level 4.0 mmol/L Chloride Level 107 mmol/L Carbon Dioxide Level 31 mmol/L Anion Gap 8.0 mmol/L Blood Urea Nitrogen 32 mg/dl Creatinine 2.90 mg/dl Est Creatinine Clear Calc Drug Dose 33.1 ml/min Estimated GFR () 27.2 Estimated GFR (Non- 23.4 BUN/Creatinine Ratio 10.9 Random Glucose 92 mg/dl Calcium Level 8.6 mg/dl Phosphorus Level 4.0 mg/dl Magnesium Level 2.3 mg/dl Total Bilirubin 0.7 mg/dl Aspartate Amino Transf (AST/SGOT) 22 U/L Alanine Aminotransferase (ALT/SGPT) 50 U/L Alkaline Phosphatase 41 U/L Total Protein 5.8 gm/dl Albumin 2.5 gm/dl Globulin 3.3 gm/dl Albumin/Globulin Ratio 0.8 Assessment and Plan A 56-year-old white male admitted to ICU because of cardiac arrest on 2016 history of Nonischemic cardiomyopathy, ejection fraction was listed at 30% as long ago as 2004. The more recent echo on record was performed in 2012 and showed an EF of 35%. The EF in the Emergency Department at the time of admission was closer to 25%. Hypothyroidism, Hypertension. CV: Ventricular fibrillations/cardiac arrest: Prolonged QT: History of Cardiomyopathy: Dr. Rod, his primary group tester, appreciated recs, repeat echo limited today changed amiodarone 400 mg q12h metoprolol 50 mg, but holding ACEi may need ICD placement before d/c Pulm: Acute hypoxic respiratory failure, extubated Possible aspiration pneumonia, cont IV unasyn Bilateral anterior rib fractures with moderate right-sided pneumothorax and right s/o chest tube right side anterior chest wall subcutaneous emphysema. Patchy areas of consolidation within the bilateral lungs posteriorly favor pulmonary contusion Add DuoNeb if needed Infectious disease: Possible sepsis, UTI and pneumonia, continue antibiotics IV as above, follow-up C+S neuro: Was unresponsive since the cardiac arrest , head Ct was not remarkable Renal: Acute kidney failure likely from hypoperfusion from cardiac arrest, creat slightly improved, continue on IV fluid, US renal is normal Heme: no acute issues GI: GI prophylaxis on SCD Endo: no issues, target Bg 140-180 obesity, noted, will need nutrition consult when able transfer to tele
--- NOTE | 2016-08-10 11:43 | Critical Care Progress Note ---
Critical Care Progress Note Date of Service Aug 10, 2016. ICU Day ICU Day Number: [address] Sanchez Subjective No acute issues overnight. He is in less pain on his chest today but cannot tell me the severity. Objective General: Lying in bed on 4 L O2, no acute distress. HEENT: Normocephalic Cardio: Palpable rib pain on the right anterior chest, S1-S2 regular rate and rhythm, frequent PVCs on monitor Chest: scattered rhonchi bilaterally, no accessory muscle use, right chest tube present but no significant output today Abdomen: Obese, soft, non tender, bowel sounds present Extremities 2+ pulses in all 4 extremities SKIN: Warm and well perfused, cap refill <2 s, rash on back of left hand continues to improve and likely related to pressure from radial line board. Neuro: Alert, does not remember me from yesterday, knows he is in hospital. At baseline as per Dr Rod who knows him as O/P MSK: Limited right shoulder abduction to 70 degrees. Limited by pain and I can lift it up higher and he hold it there breiefly Assessment & Plan 56 yo male with OOH cardiac arrest: Assessment: 1. S/p out of hospital ventricular fibrillation cardiac arrest, resuscitated and status post cooling protocol. 2. Acute hypoxemic respiratory failure, improving s/p extubation 08/08. 3. Metabolic/hypoxia encephalopathy 4. Acute kidney injury - no oligoric 5. Probable aspiration pneumonia. Sputum culture - scant normal sarah 6. Right pneumothorax, s/p chest tube placement, on wall suction. 7. Bilateral rib fractures. 8. Nonischemic cardiomyopathy, ejection fraction 30% 35% with global hypokinesis. 9. Prolonged QT interval, improved. 10. Hyperglycemia. 11. History of hypertension. 12. Hypothyroidism. 13. ANISA on O/P CPAP Plan: Neuro: Continue to avoid sedatives Pain - Fentanyl 25 mcg Q2H PRN for pain CT head negative 08/09. Arm most likely due to rib pain and lack of movement for days. Continue to work with PT. Large improvement from yesterday. Cardiovascular: Continues to have runs of bigeminy/trigeminy and frequent PVCs, Mg replaced, continue to monitor. Daily electrolytes and Mg. Appreciate cardiology management - on amiodarone 400 mg BID currently I/P defib plan sometime next week. Cardiomyopathy (nonischemic) - BB started by Dr Rod, not for ACEi at present due to SEBASTIÁN, on aspirin. Will do lipid profile in morning to assess for need for statin. Pulmonary: Extubated, maintain sats > 94% Incentive spirometry, CPAP at night. Continue percussion via the bed Right chest drain has much reduced output. Will continue to manage, likely will be removed tomorrow after CXR. Continue Unasyn (day 6) for suspected aspiration pneumonia (total course 7 days) Gastrointestinal: Speech seen - AHA, renal, ground. Continue Colace BID and increase MiraLAX to BID. No BM since admission. Continue 7 days of nystatin for oral thrush (or 2 days after complete clearance on exam, whichever is longer) Renal//electrolytes Continue diuresis with lasix 20 mg BID IV SEBASTIÁN - appears ATN with fractional sodium excretion 8.4% suggesting obstructive ( US renal normal), or intrinsic rather than prerenal. Will continue to trend. Improving I&Os, daily weights Endocrine: Continue sliding scale insulin and levothyroxine. Infectious Disease: Continue Unasyn as above total 7 days (on day 6). Covering for aspiration pneumonia Sputum culture - scant normal sarah Heme/Onc: No active issues. Miscellaneous: PT + OT + discharge planning VTE/GI prophylaxis Heparin 5000 units Q8H Pantoprazole 40 mg IV daily Code: Full Disposition: - Medically stable to be transferred to telemetry. Should stay in telemetry until he receives an ICD. Consults & Procedures Consultants: Primary team - Dr Rico Cardiology - Dr Rod Data Medications: Current Inpatient Medications Medications (Trade) Dose Ordered Sig/Bryn Route Start Time Stop Time Status Last Admin Dose Admin Aspirin (Aspirin Chew) 81 mg DAILY NG 08/05/16 09:00 09/04/16 08:59 08/10/16 08:42 81 MG Acetaminophen (Tylenol Soln) 650 mg Q4H PRN NG 08/04/16 22:45 09/03/16 22:44 08/07/16 18:05 650 MG Glucose (Glucose 40% Gel) UD PRN PO 08/04/16 23:45 09/03/16 23:44 Glucose (Glucose Chew Tab) 1 tabs UD PRN PO 08/04/16 23:45 09/03/16 23:44 Dextrose (Dextrose 50% 50ML Syringe) 50 ml UD PRN IV 08/04/16 23:45 09/03/16 23:44 08/05/16 20:26 50 ML Glucagon 1 mg 1 mg UD PRN SQ 08/04/16 23:45 09/03/16 23:44 Ampicillin Sodium/ Sulbactam Sodium/ Sodium Chloride (Unasyn Inj/Nss 100ml) 108 ml @ 200 mls/hr Q6@0000,0600,1200,1800 IV 08/05/16 01:00 08/12/16 00:59 08/10/16 06:02 200 MLS/HR Ampicillin Sodium/ Sulbactam Sodium (Consult) 1 ea UD PRN N/A 08/05/16 01:00 09/04/16 00:59 Albuterol Sulfate (Ventolin 0.5% 2.5MG/0.5ML Neb) 2.5 mg Q6R INH 08/06/16 21:00 09/05/16 20:59 08/10/16 07:15 2.5 MG Polyethylene (Miralax Powder Packet) 17 gm QAM NG 08/09/16 09:00 09/08/16 08:59 08/10/16 08:42 17 GM Nystatin (Mycostatin Susp) 5 ml QID PO 08/09/16 13:00 08/19/16 12:59 08/10/16 08:42 5 ML Docusate Sodium (coLACE CAP) 100 mg BID PO 08/09/16 21:00 09/08/16 20:59 08/10/16 08:41 100 MG Bisacodyl (Dulcolax Supp) 10 mg DAILY PRN [place] 08/09/16 11:45 09/08/16 11:44 Heparin Sodium (Porcine) (Heparin Sq 5000 Unit/0.5ml) 5,000 unit Q8 SQ 08/09/16 22:00 09/08/16 21:59 08/10/16 06:04 5,000 UNIT Pantoprazole Sodium (Protonix Tab) 40 mg QAM PO 08/10/16 09:00 09/09/16 08:59 08/10/16 08:42 40 MG Levothyroxine Sodium (Synthroid Tab) 25 mcg DAILYBB PO 08/11/16 06:00 09/10/16 05:59 Amiodarone HCl (Cordarone Tab) 400 mg BID PO 08/10/16 09:00 09/09/16 08:59 08/10/16 08:42 400 MG Metoprolol Succinate 50 mg 50 mg QAM PO 08/10/16 09:00 09/09/16 08:59 08/10/16 08:42 50 MG Furosemide/Syringe (Lasix Inj/ Syringe) 2 ml @ 4 mls/min DAILY IV 08/10/16 09:00 09/09/16 08:59 08/10/16 08:41 4 MLS/MIN Oxycodone/ Acetaminophen (Percocet 5-325mg Tab) `1-2 tabs for pain 1 tab ... Q4H PO 08/10/16 10:30 08/24/16 10:29 08/10/16 11:10 2 TAB Oxycodone/ Acetaminophen (Percocet 5-325mg Tab) 1 tab Q4H PRN PO 08/10/16 10:15 08/24/16 10:14 I & O: 24-Hour Column 08/10/16 07:59 Intake Total 1322 ml Output Total 3370 ml Balance -2048 ml Vital Signs: Date Time Temp Pulse Resp B/P Pulse Ox O2 Delivery O2 Flow Rate FiO2 08/10/16 11:07 36.9 70 18 135/77 98 08/10/16 09:58 37.2 79 14 93 3.0 08/10/16 08:00 Nasal Cannula 4.0 08/10/16 08:00 37.2 79 14 128/85 93 Nasal Cannula 4.0 08/10/16 07:15 83 16 95 BiPAP/CPAP 4.0 08/10/16 07:15 83 95 4.0 08/10/16 06:00 79 17 128/70 94 BiPAP 8.0 08/10/16 04:00 BiPAP 8.0 08/10/16 03:59 37.0 80 20 123/74 93 BiPAP 8.0 08/10/16 03:05 65 18 97 BiPAP/CPAP 6.0 08/10/16 01:59 67 23 114/64 88 BiPAP 8.0 08/09/16 23:59 BiPAP 8.0 08/09/16 23:59 36.9 69 12 117/75 92 BiPAP 8.0 08/09/16 23:15 74 92 6.0 08/09/16 22:00 76 23 111/66 93 Nasal Cannula 4.0 08/09/16 20:15 83 18 94 Nasal Cannula 6.0 08/09/16 20:00 37.0 77 20 114/62 98 Nasal Cannula 4.0 08/09/16 20:00 93 Nasal Cannula 4.0 08/09/16 18:00 89 24 119/84 95 Nasal Cannula 6.0 08/09/16 16:00 36.9 88 24 116/81 91 Nasal Cannula 6.0 08/09/16 16:00 Nasal Cannula 6.0 08/09/16 14:00 73 30 106/61 90 BiPAP 08/09/16 12:00 Nasal Cannula 4.0 08/09/16 12:00 37.2 83 20 107/65 91 Nasal Cannula 4.0 Laboratory Results: Last 24 Hours Test 08/10/16 05:25 White Blood Count 7.14 K/uL Red Blood Count 3.88 M/uL Hemoglobin 11.9 g/dL Hematocrit 35.9 % Mean Corpuscular Volume 92.5 fL Mean Corpuscular Hemoglobin 30.7 pg Mean Corpuscular Hemoglobin Concent 33.1 g/dl RDW Standard Deviation 51.8 fL RDW Coefficient of Variation 15.3 % Platelet Count 154 K/uL Mean Platelet Volume 10.5 fL Prothrombin Time 12.7 SECONDS Prothromb Time International Ratio 1.2 Sodium Level 146 mmol/L Potassium Level 4.0 mmol/L Chloride Level 107 mmol/L Carbon Dioxide Level 31 mmol/L Anion Gap 8.0 mmol/L Blood Urea Nitrogen 32 mg/dl Creatinine 2.90 mg/dl Est Creatinine Clear Calc Drug Dose 33.1 ml/min Estimated GFR () 27.2 Estimated GFR (Non- 23.4 BUN/Creatinine Ratio 10.9 Random Glucose 92 mg/dl Calcium Level 8.6 mg/dl Phosphorus Level 4.0 mg/dl Magnesium Level 2.3 mg/dl Total Bilirubin 0.7 mg/dl Aspartate Amino Transf (AST/SGOT) 22 U/L Alanine Aminotransferase (ALT/SGPT) 50 U/L Alkaline Phosphatase 41 U/L Total Protein 5.8 gm/dl Albumin 2.5 gm/dl Globulin 3.3 gm/dl Albumin/Globulin Ratio 0.8 Resident Tracking Resident Involvement: Resident Care Provided Care Provided: Adult Hospital Medicine (ICU)
--- NOTE | 2016-08-10 11:51 | ECHOCARDIOGRAM REPORT ---
*NOTICE TO RECEIVING [employer] This information is strictly Confidential and protected under [place] law. [place] law prohibits you from making any further disclosure of this information unless further disclosure is expressly permitted by the written consent of the person to whom it pertains or is authorized by law. A general authorization for the release of medical or other information is not sufficient for this purpose. Hospital accepts no responsibility if the information is made available to any other person, INCLUDING THE PATIENT. Interpretation Summary * Name: DIANNA HWANG Study Date: 08/10/2016 09:40 AM BP: 128/85 mmHg * Patient Location: [facility] HR: 89 * : 1960 (M/d/yyyy) Gender: Male Height: 67 in * Age: 56 yrs Ethnicity: [place] Weight: 224 lb * Referring Physician: Self, Referred * Performed By: Brittany Gonzalez RCS * * Reason For Study: REASSESS LV FUNCTION AND MITRAL REGURGITATION * BSA: 2.1 m2 * -- Conclusions -- * 1. Moderately to severely dilated left ventricle with moderately reduced systolic function. Estimated EF 40%. Mild global hypokinesis with severe hypokinesis of mid inferolateral wall. Mild concentric left ventricular hypertrophy. * 2. The right ventricle is mildly dilated. The right ventricular systolic function is normal. * 3. Mild biatrial dilation. * 4. Moderate mitral regurgitation. * 5. Limited 2D echo with color Doppler and limited spectral Doppler, per request. * 6. Compared to prior study on 08/04/2016, LV systolic function appears mildly improved. Procedure Details * Limited views were obtained. Left Ventricle * Moderately to severely dilated left ventricle with moderately reduced systolic function. Estimated EF 40%. Mild global hypokinesis with severe hypokinesis of mid inferolateral wall. Mild concentric left ventricular hypertrophy. Right Ventricle * The right ventricle is mildly dilated. * The right ventricular systolic function is normal. Atria * The left atrium is mildly dilated. * The right atrium is mildly dilated. * There is no evidence of atrial septal defect, but resolution does not allow assessment for a patent foramen ovale. Mitral Valve * The mitral valve leaflets appear normal. There is no evidence of stenosis, fluttering, or prolapse. * There is moderate mitral regurgitation. Tricuspid Valve * The tricuspid valve anatomy is normal. Aortic Valve * The aortic valve is not well visualized. Pulmonic Valve * The pulmonic valve is not well visualized. Great Vessels * The aortic root is normal size. Pericardium/Pleural * There is no pericardial effusion. Great Vessels * Dilated IVC (3 cm) with normal inspiratory collapse. MMode 2D Measurements and Calculations IVSd 1.2 cm IVSs 1.5 cm LVIDd 6.5 cm LVIDs 5.7 cm LVPWd 1.2 cm LVPWs 1.3 cm IVS/LVPW 1.0 FS 12.6 % EDV(Teich) 219.0 ml ESV(Teich) 160.9 ml EF(Teich) 26.5 % EDV(cubed) 279.7 ml ESV(cubed) 186.6 ml EF(cubed) 33.3 % % IVS thick 25.5 % % LVPW thick 7.5 % LV mass(C)d 362.3 grams LV mass(C)dI 170.8 grams/m\S\2 LV mass(C)s 358.5 grams LV mass(C)sI 169.0 grams/m\S\2 SV(Teich) 58.0 ml SI(Teich) 27.4 ml/m\S\2 SV(cubed) 93.1 ml SI(cubed) 43.9 ml/m\S\2 Ao root diam 3.2 cm Ao root area 8.0 cm\S\2 LVOT diam 2.3 cm LVOT area 4.0 cm\S\2 LVAd ap4 43.0 cm\S\2 LVLd ap4 9.0 cm EDV(MOD-sp4) 167.1 ml EDV(sp4-el) 173.3 ml LVAs ap4 31.5 cm\S\2 LVLs ap4 7.9 cm ESV(MOD-sp4) 104.2 ml ESV(sp4-el) 106.4 ml EF(MOD-sp4) 37.6 % EF(sp4-el) 38.6 % LVAd ap2 49.5 cm\S\2 LVLd ap2 9.1 cm EDV(MOD-sp2) 222.3 ml EDV(sp2-el) 228.7 ml LVAs ap2 34.9 cm\S\2 LVLs ap2 8.0 cm ESV(MOD-sp2) 124.1 ml ESV(sp2-el) 129.4 ml EF(MOD-sp2) 44.2 % EF(sp2-el) 43.4 % LVLd %diff -2.83 % EDV(MOD-bp) 200.0 ml LVLs %diff -2.07 % ESV(MOD-bp) 104.7 ml EF(MOD-bp) 47.6 % SV(MOD-sp4) 62.9 ml SI(MOD-sp4) 29.6 ml/m\S\2 SV(MOD-sp2) 98.1 ml SI(MOD-sp2) 46.2 ml/m\S\2 SV(MOD-bp) 95.3 ml SI(MOD-bp) 44.9 ml/m\S\2 SV(sp4-el) 66.8 ml SI(sp4-el) 31.5 ml/m\S\2 SV(sp2-el) 99.3 ml SI(sp2-el) 46.8 ml/m\S\2 Doppler Measurements and Calculations MV E max vilma 140.6 cm/sec MR max vilma 518.3 cm/sec MR max PG 107.5 mmHg RAP systole 8.0 mmHg
[2016-08-10 12:20] LABS: ISTAT ARTERIAL BLOOD GAS PCO2 39 mmHg (35-46); ISTAT ARTERIAL BLOOD GAS pH 7.22 (7.35-7.45)
[2016-08-10 12:21] LABS: ISTAT ARTERIAL BLOOD GAS HCO3 16 meq/L (19-24); ISTAT ARTERIAL BLOOD GAS PO2 86 mmHg (80-95); ISTAT CARBON DIOXIDE 17 mEq/l (24-31); ISTAT DELIVERY SYSTEM Ventilator; ISTAT FIO2 50 %; ISTAT SAMPLE TYPE ARTERIAL; ISTAT SITE Art Line
[2016-08-10 12:22] LABS: ISTAT PEEP 12; ISTAT RATE 24; VE 11.9; Vt 500
[2016-08-10 12:23] LABS: ISTAT SPO2 100 %; PRESSURE 729.2
[2016-08-10 12:24] LABS: ISTAT ARTERIAL BLOOD GAS HCO3 17 meq/L (19-24); ISTAT ARTERIAL BLOOD GAS PCO2 58 mmHg (35-46); ISTAT ARTERIAL BLOOD GAS PO2 84 mmHg (80-95); ISTAT ARTERIAL BLOOD GAS pH 7.08 (7.35-7.45); ISTAT CARBON DIOXIDE 19 mEq/l (24-31); ISTAT FIO2 50 %
[2016-08-10 12:25] LABS: ISTAT DELIVERY SYSTEM Ventilator; ISTAT PEEP 10; ISTAT RATE 18; ISTAT SAMPLE TYPE ARTERIAL; ISTAT SITE Art Line; Vt 500
[2016-08-10 12:26] LABS: ISTAT SPO2 100 %; PRESSURE 728.9
[2016-08-10 12:27] LABS: ISTAT ARTERIAL BLOOD GAS HCO3 16 meq/L (19-24); ISTAT ARTERIAL BLOOD GAS PCO2 42 mmHg (35-46); ISTAT ARTERIAL BLOOD GAS PO2 73 mmHg (80-95); ISTAT ARTERIAL BLOOD GAS pH 7.18 (7.35-7.45); ISTAT CARBON DIOXIDE 17 mEq/l (24-31); ISTAT FIO2 99 %; ISTAT SAMPLE TYPE ARTERIAL
[2016-08-10 12:28] LABS: ISTAT DELIVERY SYSTEM Ventilator; ISTAT PEEP 10; ISTAT RATE 18; ISTAT SITE Art Line; ISTAT SPO2 98 %; PRESSURE 729.2; Vt 500
[2016-08-10 12:29] LABS: ISTAT ARTERIAL BLOOD GAS HCO3 15 meq/L (19-24); ISTAT ARTERIAL BLOOD GAS PCO2 41 mmHg (35-46); ISTAT ARTERIAL BLOOD GAS PO2 69 mmHg (80-95); ISTAT ARTERIAL BLOOD GAS pH 7.17 (7.35-7.45); ISTAT CARBON DIOXIDE 16 mEq/l (24-31)
[2016-08-10 12:30] LABS: ISTAT DELIVERY SYSTEM Ventilator; ISTAT FIO2 30 %; ISTAT PEEP 10; ISTAT RATE 18; ISTAT SAMPLE TYPE ARTERIAL; ISTAT SITE L Radial
[2016-08-10 12:31] LABS: ISTAT SPO2 99 %; PRESSURE 728.8; VE 9.1; Vt 500
[2016-08-10] MEDS ORDERED: METHYLPREDNISOLONE 125 MG VIAL IV STA (13:38)
[2016-08-10] MEDS ORDERED: LIDODERM (LIDOCAINE) PATCH 5% TD ONE (14:15)
[2016-08-10] MEDS ORDERED: METHYLPREDNISOLONE 125 MG in SYRINGE 0 ML IV ONE (14:15)
[2016-08-10 14:27] LABS: ALLEN TEST POS (POS); ARTERIAL BLD GAS O2 SATURATION 95.8 % (90-95); ARTERIAL BLOOD GAS BASE EXCESS 3.1 mEq/L (-9-1.8); ARTERIAL BLOOD GAS HCO3 30 mmol/L (19-24); ARTERIAL BLOOD GAS PO2 87 mm/Hg (80-95); ARTERIAL BLOOD GAS pH 7.34 (7.35-7.45); O2 ADMINISTRATION 15 L
--- NOTE | 2016-08-10 14:32 | DIAGNOSTIC IMAGING REPORT ---
CHEST ONE VIEW PORTABLE CLINICAL HISTORY: edema dyspnea COMPARISON STUDY: 08/10/2016 6:51 AM FINDINGS: Moderate stable cardiomegaly. Slight prominence of pulmonary vasculature. Early congestive failure may be present. Developing parenchymal infiltrate left base. IMPRESSION: 1. Slightly progressive components of congestive heart failure. 2. Potential developing parenchymal infiltrate left base. Electronically signed by: Grupo Mulligan M.D. 08/10/2016 2:31 PM Dictated Date/Time: 08/10/2016 2:29 PM
[2016-08-10] MEDS ORDERED: NURSING VERBAL MED ORDER ONE (15:30)
[2016-08-10] MEDS: INSULIN ASPART 100 UNITS/ML 3 ML PEN SC SCH ×2 (16:15→20:27)
--- NOTE | 2016-08-10 16:17 | CRITICAL CARE PROGRESS NOTE ---
DATE: 08/10/2016 Please accept this as an addendum to the critical care progress note done earlier today by Dr. Bradford Metzger. SUBJECTIVE: There were no acute events overnight. The patient's care was discussed in detail on multidisciplinary rounds. I personally interviewed and examined the patient and I have also reviewed Dr. Metzger's extensive note. His note thoroughly outlines the assessment and plan in this patient. I have reviewed pertinent data as well as radiographs. I agree with Dr. Metzger's assessment and plan. The patient is more awake and alert today. He still complains of right-sided chest pain but has been reluctant to take pain medicine. His strength in his right upper extremity is improved compared to yesterday. CT of the brain yesterday did not show any acute process. He continues on BiPAP 1 hour t.i.d. as well as bedtime. He will need to continue the BiPAP during the day until he is doing incentive spirometry more effectively. He is still at risk for developing pneumonia. I encouraged him to take his pain medications and have scheduled Percocet one p.o. q. 4 hours as well as one p.o. q. 4 hours p.r.n. He is finishing up his antibiotics tomorrow. He still has not had a bowel movement and I ordered a Dulcolax suppository today. He is getting a bit alkalotic, so I have cut his Lasix back to 20 mg IV daily. Echocardiogram report from today was reviewed, ejection fraction is 40%. He has been transferred to the floor and further management will be by the hospitalist team as well as cardiology. I will continue to follow his right-sided chest tube. This morning, I think there was a very small apical pneumothorax, so it remains on wall suction. Hopefully, tomorrow, we can put it to water seal and get that out later in the day or Saturday. Please call me with any questions or concerns. PARMINDER
[2016-08-10] MEDS ORDERED: FUROSEMIDE INJ 40 MG in SYRINGE 0 ML IV ONE (16:30)
[2016-08-10] MEDS: METHYLPREDNISOLONE IV 40 MG in SYRINGE 0 ML IV SCH (20:52)
[2016-08-11] VITALS (11 sets, daily range): BP systolic 111–137; BP diastolic 59–72; PULSE 67–84; TEMP 36.9–37.2; O2SAT 90–97
[2016-08-11] MEDS: AMPICILLIN/SULBACTAM SOD INJ 3,000 MG in SODIUM CHLORIDE 0.9% 100ML 100 ML IV SCH ×5 (00:30→23:40)
[2016-08-11] MEDS: METHYLPREDNISOLONE IV 40 MG in SYRINGE 0 ML IV SCH ×4 (01:50→23:41)
[2016-08-11] MEDS: ALBUTEROL 0.5% NEB SOLN 2.5 MG/0.5 ML VIAL INH SCH ×4 (02:00→19:19)
[2016-08-11] MEDS: LEVOTHYROXINE 25 MCG TAB PO SCH (05:44)
[2016-08-11] MEDS: HEPARIN SOD 5000 UNIT/0.5 ML CARP SQ SCH ×3 (05:53→20:51)
[2016-08-11] MEDS: INSULIN ASPART 100 UNITS/ML 3 ML PEN SC SCH ×4 (06:52→20:50)
--- NOTE | 2016-08-11 07:37 | DIAGNOSTIC IMAGING REPORT ---
CHEST ONE VIEW PORTABLE CLINICAL HISTORY: Right chest tube. Possible pneumothorax. COMPARISON STUDY: 08/10/2016 FINDINGS: There is a right-sided chest tube which is positioned within the soft tissues of the right chest wall. No pneumothorax is visualized. The heart is mildly enlarged. There is mild pulmonary vascular congestion/fluid overload. There are small bilateral pleural effusions. There are left basal airspace opacities. These could be atelectatic, inflammatory, or related to focal edema.[ IMPRESSION: 1. The right-sided chest tube is positioned within the soft tissues of the right chest wall. 2. No evidence of pneumothorax 3. Mild perivascular congestion/fluid overload with small bilateral pleural effusions 4. Left basilar airspace opacities Electronically signed by: Renzo Alves M.D. 08/11/2016 7:36 AM Dictated Date/Time: 08/11/2016 7:34 AM
[2016-08-11] MEDS: FUROSEMIDE INJ 20 MG in SYRINGE 0 ML IV SCH (07:43)
[2016-08-11] MEDS: NYSTATIN SUSP 500,000 U/5 ML UDC PO SCH ×4 (07:43→20:54)
[2016-08-11] MEDS: AMIODARONE 200 MG TAB PO SCH ×2 (07:44→20:55)
[2016-08-11] MEDS: PANTOprazole SOD 40 MG TAB PO SCH (07:44)
[2016-08-11] MEDS: ASPIRIN 81 MG CHEW NG SCH (07:48)
--- NOTE | 2016-08-11 07:48 | Procedure Note ---
Procedure Note Date of Service Aug 11, 2016. Procedure Note Shank Carrier: Am CXR shows R chest tube in the skin. No PTX. I removed the chest tube and placed a petroleum dressing covered by gauze. Repeat CXR in 6 hours.
[2016-08-11] MEDS: DOCUSATE SODIUM 100 MG CAP PO SCH ×2 (07:49→20:54)
[2016-08-11] MEDS: LIDODERM (LIDOCAINE) PATCH 5% TD SCH (07:49)
[2016-08-11] MEDS: METOPROLOL SUCC 50MG EXT REL TAB PO SCH (07:49)
[2016-08-11] MEDS: POLYETHYLENE (MIRALAX) 17 GM PACK NG SCH ×2 (07:50→20:52)
[2016-08-11 08:14] LABS: BUN/CREATININE RATIO 15.6 (10-20); CALCIUM 8.7 mg/dl (8.5-10.1); CREATININE 2.7 mg/dl (0.60-1.40); MAGNESIUM 2.5 mg/dl (1.8-2.4); POTASSIUM 3.8 mmol/L (3.5-5.1)
[2016-08-11 08:17] LABS: CHOLESTEROL/HDL RATIO 4.5; PHOSPHORUS 3.9 mg/dl (2.5-4.9)
[2016-08-11 08:31] LABS: MEAN CELL VOLUME 87.8 fL (80-100); MEAN CORPUSCULAR HEMOGLOBIN 29.8 pg (25-34); MEAN CORPUSCULAR HGB CONC 33.9 g/dl (32-36); MEAN PLATELET VOLUME 9.9 fL (7.4-10.4); PLATELET COUNT 175 K/uL (130-400); WHITE BLOOD COUNT 8.12 K/uL (4.8-10.8)
--- NOTE | 2016-08-11 10:59 | DIAGNOSTIC IMAGING REPORT ---
CHEST ONE VIEW PORTABLE CLINICAL HISTORY: Right chest tube removal. Pneumothorax. COMPARISON STUDY: 08/11/2016 FINDINGS: The right-sided chest tube has been removed from the soft tissues of the right chest wall. The heart is enlarged. There is mild mediastinal widening. There is radiographic evidence of congestive failure/fluid overload which appears progressive. There are small bilateral pleural effusions. There are left basal airspace opacities.[ IMPRESSION: 1. Interval removal of the right-sided chest tube. No pneumothorax identified 2. Worsening congestive failure/fluid overload 3. Small pleural effusions with persistent left basilar airspace opacities Electronically signed by: Renzo Alves M.D. 08/11/2016 10:58 AM Dictated Date/Time: 08/11/2016 10:56 AM
--- NOTE | 2016-08-11 11:43 | Cardiology Follow-Up ---
Subjective Subjective Date of Service: Aug 11, 2016. Pt evaluation today including: conversation w/ patient, physical exam, chart review, lab review, review of studies Problem List Medical Problems: (1) Cardiac arrest Status: Acute (2) Rib fractures Status: Acute (3) Ventricular fibrillation Status: Acute Review of Systems Constitutional: + sweats, No fever ENT: No hearing loss Respiratory: + shortness of breath, No cough Cardiac: + chest pain Abdomen: No pain Male : No dysuria Neurologic: + memory loss Psychiatric: No depression symptoms Endo: No fatigue Skin: + rash Objective Vital Signs Last Vital Signs Documentation Date Time Temp Pulse Resp B/P Pulse Ox O2 Delivery O2 Flow Rate FiO2 08/11/16 07:31 73 20 93 BiPAP/CPAP 15.0 08/11/16 07:00 37.0 111/61 08/08/16 18:00 40 Physical Exam: General Appearance: WD/WN, no apparent distress Eyes: bilateral eyes EOMI, bilateral eyes PERRL, bilateral eyes normal inspection ENT: hearing grossly normal Respiratory/Chest: + decreased breath sounds, + crackles, + pertinent finding ( decreased breathsounds at bases. few crackles on right, coarse breath sounds on left) Cardiovascular: no edema, no JVD Abdomen: non tender, no organomegaly Extremities: non-tender, + swelling Neurologic/Psychiatric: normal mood/affect Skin: + rash (over hand), + pertinent finding (feels warm, sweaty) Assessment and Plan 1. Status post VF arrest 2. NICM 3. SEBASTIÁN 4. Frequent Ectopy 5. Mitral Regurgitation Frequent ectopy but electrically stable overnight LV function mildly improved on echo. Mild pulmonary congestion on exam today/chest xray -- continue amiodarone 400 mg bid; daily electrolytes, ECG -- continue current beta-gracia dose; SONAL on hold -- Lasix 40mg IV x1 again today for persistent congestion -- Consideration for ICD at some point in hospitalization. Medications: Current Inpatient Medications Medications (Trade) Dose Ordered Sig/Bryn Route Start Time Stop Time Status Last Admin Dose Admin Aspirin (Aspirin Chew) 81 mg DAILY NG 08/05/16 09:00 09/04/16 08:59 08/11/16 07:48 81 MG Glucose (Glucose 40% Gel) UD PRN PO 08/04/16 23:45 09/03/16 23:44 Glucose (Glucose Chew Tab) 1 tabs UD PRN PO 08/04/16 23:45 09/03/16 23:44 Dextrose (Dextrose 50% 50ML Syringe) 50 ml UD PRN IV 08/04/16 23:45 09/03/16 23:44 08/05/16 20:26 50 ML Glucagon 1 mg 1 mg UD PRN SQ 08/04/16 23:45 09/03/16 23:44 Ampicillin Sodium/ Sulbactam Sodium/ Sodium Chloride (Unasyn Inj/Nss 100ml) 108 ml @ 200 mls/hr Q6@0000,0600,1200,1800 IV 08/05/16 01:00 08/12/16 00:59 08/11/16 05:43 200 MLS/HR Ampicillin Sodium/ Sulbactam Sodium (Consult) 1 ea UD PRN N/A 08/05/16 01:00 09/04/16 00:59 Albuterol Sulfate (Ventolin 0.5% 2.5MG/0.5ML Neb) 2.5 mg Q6R INH 08/06/16 21:00 09/05/16 20:59 08/11/16 07:22 2.5 MG Nystatin (Mycostatin Susp) 5 ml QID PO 08/09/16 13:00 08/19/16 12:59 08/11/16 07:43 5 ML Docusate Sodium (coLACE CAP) 100 mg BID PO 08/09/16 21:00 09/08/16 20:59 08/11/16 07:49 100 MG Bisacodyl (Dulcolax Supp) 10 mg DAILY PRN [place] 08/09/16 11:45 09/08/16 11:44 Heparin Sodium (Porcine) (Heparin Sq 5000 Unit/0.5ml) 5,000 unit Q8 SQ 08/09/16 22:00 09/08/16 21:59 08/11/16 05:53 5,000 UNIT Pantoprazole Sodium (Protonix Tab) 40 mg QAM PO 08/10/16 09:00 09/09/16 08:59 08/11/16 07:44 40 MG Levothyroxine Sodium (Synthroid Tab) 25 mcg DAILYBB PO 08/11/16 06:00 09/10/16 05:59 08/11/16 05:44 25 MCG Amiodarone HCl (Cordarone Tab) 400 mg BID PO 08/10/16 09:00 09/09/16 08:59 08/11/16 07:44 400 MG Metoprolol Succinate 50 mg 50 mg QAM PO 08/10/16 09:00 09/09/16 08:59 08/11/16 07:49 50 MG Furosemide/Syringe (Lasix Inj/ Syringe) 2 ml @ 4 mls/min DAILY IV 08/10/16 09:00 09/09/16 08:59 08/11/16 07:43 4 MLS/MIN Polyethylene (Miralax Powder Packet) 17 gm BID NG 08/10/16 21:00 09/09/16 20:59 08/11/16 07:50 17 GM Lidocaine (Lidoderm Patch 5%) 1 patch QAM TD 08/11/16 09:00 09/10/16 08:59 08/11/16 07:49 1 PATCH Miscellaneous (Remove Lidoderm Patch) 1 ea DAILY@21 N/A 08/10/16 21:00 09/09/16 20:59 08/10/16 20:53 1 EA Insulin Aspart SLIDING SCALE G... ACHS SC 08/10/16 16:15 09/09/16 16:14 Methylprednisolone Sodium Succinate/ Syringe (Solu-Medrol IV/ Syringe) 0.64 ml @ 1.5 mls/min Q8H IV 08/11/16 16:00 09/10/16 15:59 Lab Results: 08/11/16 07:02 08/11/16 07:02 Test 08/10/16 14:14 08/10/16 15:32 08/11/16 07:02 08/11/16 11:25 Arterial Blood pH 7.34 (7.35-7.45) Arterial Blood Partial Pressure CO2 57 mmHg (35-46) Arterial Blood Partial Pressure O2 87 mm/Hg (80-95) Arterial Blood HCO3 30 mmol/L (19-24) Arterial Blood Oxygen Saturation 95.8 % (90-95) Arterial Blood Base Excess 3.1 mEq/L (-9-1.8) Arterial Blood Gas Delivery 15 L Miguel Test POS (POS) Red Blood Count 4.10 M/uL (4.7-6.1) Mean Corpuscular Volume 87.8 fL (80-100) Mean Corpuscular Hemoglobin 29.8 pg (25-34) Mean Corpuscular Hemoglobin Concent 33.9 g/dl (32-36) RDW Standard Deviation 46.3 fL (36.4-46.3) RDW Coefficient of Variation 14.5 % (11.5-14.5) Mean Platelet Volume 9.9 fL (7.4-10.4) Anion Gap 10.0 mmol/L (3-11) Est Creatinine Clear Calc Drug Dose 34.3 ml/min Estimated GFR () 29.6 Estimated GFR (Non- 25.6 BUN/Creatinine Ratio 15.6 (10-20) Calcium Level 8.7 mg/dl (8.5-10.1) Phosphorus Level 3.9 mg/dl (2.5-4.9) Magnesium Level 2.5 mg/dl (1.8-2.4) Triglycerides Level 133 mg/dl (0-150) Cholesterol Level 104 mg/dl (0-200) HDL Cholesterol 23 mg/dl LDL Cholesterol, Calculated 54 mg/dl VLDL Cholesterol, Calculated 27 mg/dl Cholesterol/HDL Ratio 4.5 Bedside Glucose 198 mg/dl (70-99)
--- NOTE | 2016-08-11 12:50 | Progress Note ---
Subjective Subjective Date of Service: Aug 11, 2016. Pt evaluation today including: conversation w/ patient, physical exam, chart review, review of studies, review of inpatient medication list Notes: off bipap. feels and looks better Problem List Medical Problems: (1) Cardiac arrest Status: Acute (2) Rib fractures Status: Acute (3) Ventricular fibrillation Status: Acute Review of Systems Constitutional: No fever Eyes: No worsening of vision ENT: No hearing loss Respiratory: No cough Cardiac: No chest pain Abdomen: No pain Male : No dysuria Neurologic: No memory loss Psychiatric: No depression symptoms Endo: + fatigue Physical Exam Vital Signs Vital Signs Past 24 Hours: Date Time Temp Pulse Resp B/P Pulse Ox O2 Delivery O2 Flow Rate FiO2 08/11/16 11:48 37.1 82 18 135/67 92 Nasal Cannula 5.0 08/11/16 07:31 73 20 93 BiPAP/CPAP 15.0 08/11/16 07:20 BiPAP 08/11/16 07:00 37.0 84 18 111/61 94 BiPAP 08/11/16 04:00 BiPAP 08/11/16 02:45 36.9 83 20 137/72 95 BiPAP 08/11/16 02:00 73 22 95 BiPAP/CPAP 15.0 08/10/16 23:59 BiPAP 08/10/16 23:25 36.7 84 18 137/71 96 BiPAP 08/10/16 22:42 78 15.0 08/10/16 20:00 Nasal Cannula 6.0 08/10/16 19:25 82 22 93 Nasal Cannula 5.0 08/10/16 18:46 37.0 77 19 107/69 94 Nasal Cannula 6.0 08/10/16 16:00 BiPAP 08/10/16 15:26 36.8 95 21 117/72 96 BiPAP 08/10/16 14:08 90 22 91 BiPAP/CPAP 15.0 08/10/16 13:32 84 88 15.0 08/10/16 13:25 37.1 88 20 123/70 90 Mask 6.0 Physical Exam: General Appearance: WD/WN, no apparent distress Eyes: bilateral eyes normal inspection ENT: hearing grossly normal, pharynx normal Neck: supple, no JVD Respiratory/Chest: chest non-tender, + crackles Cardiovascular: no JVD, + irregularly irregular Extremities: normal range of motion, normal inspection Neurologic/Psychiatric: no motor/sensory deficits, oriented x 3 Medications Medications: Current Inpatient Medications Medications (Trade) Dose Ordered Sig/Bryn Route Start Time Stop Time Status Last Admin Dose Admin Aspirin (Aspirin Chew) 81 mg DAILY NG 08/05/16 09:00 09/04/16 08:59 08/11/16 07:48 81 MG Glucose (Glucose 40% Gel) UD PRN PO 08/04/16 23:45 09/03/16 23:44 Glucose (Glucose Chew Tab) 1 tabs UD PRN PO 08/04/16 23:45 09/03/16 23:44 Dextrose (Dextrose 50% 50ML Syringe) 50 ml UD PRN IV 08/04/16 23:45 09/03/16 23:44 08/05/16 20:26 50 ML Glucagon 1 mg 1 mg UD PRN SQ 08/04/16 23:45 09/03/16 23:44 Ampicillin Sodium/ Sulbactam Sodium/ Sodium Chloride (Unasyn Inj/Nss 100ml) 108 ml @ 200 mls/hr Q6@0000,0600,1200,1800 IV 08/05/16 01:00 08/12/16 00:59 08/11/16 05:43 200 MLS/HR Ampicillin Sodium/ Sulbactam Sodium (Consult) 1 ea UD PRN N/A 08/05/16 01:00 09/04/16 00:59 Albuterol Sulfate (Ventolin 0.5% 2.5MG/0.5ML Neb) 2.5 mg Q6R INH 08/06/16 21:00 09/05/16 20:59 08/11/16 07:22 2.5 MG Nystatin (Mycostatin Susp) 5 ml QID PO 08/09/16 13:00 08/19/16 12:59 08/11/16 07:43 5 ML Docusate Sodium (coLACE CAP) 100 mg BID PO 08/09/16 21:00 09/08/16 20:59 08/11/16 07:49 100 MG Bisacodyl (Dulcolax Supp) 10 mg DAILY PRN [place] 08/09/16 11:45 09/08/16 11:44 Heparin Sodium (Porcine) (Heparin Sq 5000 Unit/0.5ml) 5,000 unit Q8 SQ 08/09/16 22:00 09/08/16 21:59 08/11/16 05:53 5,000 UNIT Pantoprazole Sodium (Protonix Tab) 40 mg QAM PO 08/10/16 09:00 09/09/16 08:59 08/11/16 07:44 40 MG Levothyroxine Sodium (Synthroid Tab) 25 mcg DAILYBB PO 08/11/16 06:00 09/10/16 05:59 08/11/16 05:44 25 MCG Amiodarone HCl (Cordarone Tab) 400 mg BID PO 08/10/16 09:00 09/09/16 08:59 08/11/16 07:44 400 MG Metoprolol Succinate 50 mg 50 mg QAM PO 08/10/16 09:00 09/09/16 08:59 08/11/16 07:49 50 MG Furosemide/Syringe (Lasix Inj/ Syringe) 2 ml @ 4 mls/min DAILY IV 08/10/16 09:00 09/09/16 08:59 08/11/16 07:43 4 MLS/MIN Polyethylene (Miralax Powder Packet) 17 gm BID NG 08/10/16 21:00 09/09/16 20:59 08/11/16 07:50 17 GM Lidocaine (Lidoderm Patch 5%) 1 patch QAM TD 08/11/16 09:00 09/10/16 08:59 08/11/16 07:49 1 PATCH Miscellaneous (Remove Lidoderm Patch) 1 ea DAILY@21 N/A 08/10/16 21:00 09/09/16 20:59 08/10/16 20:53 1 EA Insulin Aspart SLIDING SCALE G... ACHS SC 08/10/16 16:15 09/09/16 16:14 Methylprednisolone Sodium Succinate/ Syringe (Solu-Medrol IV/ Syringe) 0.64 ml @ 1.5 mls/min Q8H IV 08/11/16 16:00 09/10/16 15:59 Laboratory Data Labs: Last 24 Hours Test 08/10/16 13:20 08/10/16 14:14 08/10/16 15:32 08/10/16 16:05 Bedside Glucose 102 mg/dl 112 mg/dl Arterial Blood pH 7.34 Arterial Blood Partial Pressure CO2 57 mmHg Arterial Blood Partial Pressure O2 87 mm/Hg Arterial Blood HCO3 30 mmol/L Arterial Blood Oxygen Saturation 95.8 % Arterial Blood Base Excess 3.1 mEq/L Arterial Blood Gas Delivery 15 L Miguel Test POS Test 08/10/16 19:47 08/11/16 06:13 08/11/16 07:02 08/11/16 11:25 Bedside Glucose 142 mg/dl 141 mg/dl 198 mg/dl White Blood Count 8.12 K/uL Red Blood Count 4.10 M/uL Hemoglobin 12.2 g/dL Hematocrit 36.0 % Mean Corpuscular Volume 87.8 fL Mean Corpuscular Hemoglobin 29.8 pg Mean Corpuscular Hemoglobin Concent 33.9 g/dl RDW Standard Deviation 46.3 fL RDW Coefficient of Variation 14.5 % Platelet Count 175 K/uL Mean Platelet Volume 9.9 fL Sodium Level 142 mmol/L Potassium Level 3.8 mmol/L Chloride Level 103 mmol/L Carbon Dioxide Level 29 mmol/L Anion Gap 10.0 mmol/L Blood Urea Nitrogen 42 mg/dl Creatinine 2.70 mg/dl Est Creatinine Clear Calc Drug Dose 34.3 ml/min Estimated GFR () 29.6 Estimated GFR (Non- 25.6 BUN/Creatinine Ratio 15.6 Random Glucose 152 mg/dl Calcium Level 8.7 mg/dl Phosphorus Level 3.9 mg/dl Magnesium Level 2.5 mg/dl Triglycerides Level 133 mg/dl Cholesterol Level 104 mg/dl HDL Cholesterol 23 mg/dl LDL Cholesterol, Calculated 54 mg/dl VLDL Cholesterol, Calculated 27 mg/dl Cholesterol/HDL Ratio 4.5 Assessment and Plan A 56-year-old white male admitted to ICU because of cardiac arrest on 2016 history of Nonischemic cardiomyopathy, ejection fraction was listed at 30% as long ago as 2004. The more recent echo on record was performed in 2012 and showed an EF of 35%. The EF in the Emergency Department at the time of admission was closer to 25%. Hypothyroidism, Hypertension. 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 Patchy areas of consolidation within the bilateral lungs posteriorly favor pulmonary contusion Add DuoNeb if needed Cont BIPAP HS And TID/QID for 1 hour Worsening pulm congestion, Acute systolic CHF exacerbation, echo: EF 40% global hypokinesis, change lasix to 40 mg bid, monitor I/o, creatininase Infectious disease: Possible sepsis, UTI and pneumonia, continue antibiotics IV as above, follow-up C+S neuro: Was unresponsive since the cardiac arrest , head Ct was not remarkable Renal: Acute kidney failure likely from hypoperfusion from cardiac arrest, creat slightly improved, continue on IV fluid, US renal is normal Heme: no acute issues GI: GI prophylaxis on SCD Endo: no issues, target Bg 140-180 obesity, noted, will need nutrition consult when able FULL Code
[2016-08-11] MEDS ORDERED: FUROSEMIDE INJ 60 MG in SYRINGE 0 ML IV ONE (13:30)
[2016-08-11] MEDS: FUROSEMIDE INJ 40 MG in SYRINGE 0 ML IV SCH (20:54)
[2016-08-12] VITALS (11 sets, daily range): BP systolic 109–138; BP diastolic 58–72; PULSE 60–76; TEMP 36.5–37; O2SAT 91–97
[2016-08-12] MEDS: ALBUTEROL 0.5% NEB SOLN 2.5 MG/0.5 ML VIAL INH SCH ×4 (02:04→20:39)
[2016-08-12] MEDS: LEVOTHYROXINE 25 MCG TAB PO SCH (06:05)
[2016-08-12] MEDS: HEPARIN SOD 5000 UNIT/0.5 ML CARP SQ SCH ×3 (06:06→20:31)
[2016-08-12] MEDS: INSULIN ASPART 100 UNITS/ML 3 ML PEN SC SCH ×4 (07:00→20:04)
[2016-08-12 07:13] LABS: BUN/CREATININE RATIO 19.8 (10-20); CALCIUM 8.8 mg/dl (8.5-10.1); CREATININE 2.8 mg/dl (0.60-1.40); MAGNESIUM 2.6 mg/dl (1.8-2.4); POTASSIUM 3.6 mmol/L (3.5-5.1)
[2016-08-12] MEDS: AMIODARONE 200 MG TAB PO SCH ×2 (08:15→20:28)
[2016-08-12] MEDS: METHYLPREDNISOLONE IV 40 MG in SYRINGE 0 ML IV SCH ×2 (08:15→19:50)
[2016-08-12] MEDS: NYSTATIN SUSP 500,000 U/5 ML UDC PO SCH ×4 (08:24→20:27)
[2016-08-12] MEDS: FUROSEMIDE INJ 40 MG in SYRINGE 0 ML IV SCH (08:25)
[2016-08-12] MEDS: PANTOprazole SOD 40 MG TAB PO SCH (08:25)
[2016-08-12] MEDS: POLYETHYLENE (MIRALAX) 17 GM PACK NG SCH ×2 (08:26→20:27)
[2016-08-12] MEDS: LIDODERM (LIDOCAINE) PATCH 5% TD SCH (08:26)
[2016-08-12] MEDS: METOPROLOL SUCC 50MG EXT REL TAB PO SCH (08:26)
[2016-08-12] MEDS: DOCUSATE SODIUM 100 MG CAP PO SCH ×2 (08:26→20:28)
[2016-08-12] MEDS: ASPIRIN 81 MG CHEW NG SCH (08:32)
--- NOTE | 2016-08-12 10:34 | Progress Note ---
Subjective Subjective Date of Service: Aug 12, 2016. Pt evaluation today including: conversation w/ patient, physical exam, chart review, review of studies, review of inpatient medication list Notes: tolerated BIPAP overnight, denies complains Problem List Medical Problems: (1) Cardiac arrest Status: Acute (2) Rib fractures Status: Acute (3) Ventricular fibrillation Status: Acute Review of Systems Constitutional: No fever Eyes: No worsening of vision ENT: No hearing loss Respiratory: No cough Abdomen: No pain Psychiatric: No depression symptoms Endo: No fatigue Physical Exam Vital Signs Vital Signs Past 24 Hours: Date Time Temp Pulse Resp B/P Pulse Ox O2 Delivery O2 Flow Rate FiO2 08/12/16 07:52 36.8 65 18 109/70 94 Nasal Cannula 5.0 08/12/16 07:25 63 18 94 BiPAP/CPAP 5.0 08/12/16 04:00 Nasal Cannula 5.0 08/12/16 03:40 36.5 62 18 127/72 93 BiPAP 08/12/16 02:04 67 18 93 BiPAP/CPAP 5.0 08/12/16 00:02 Nasal Cannula 5.0 08/11/16 23:31 36.9 67 20 117/65 91 BiPAP 08/11/16 22:23 73 94 5.0 08/11/16 20:04 Nasal Cannula 5.0 08/11/16 19:45 37.2 78 18 115/59 97 Nasal Cannula 5.0 08/11/16 19:22 73 20 95 Nasal Cannula 5.0 08/11/16 16:00 Nasal Cannula 6.0 08/11/16 14:55 36.9 81 18 125/66 90 Nasal Cannula 5.0 08/11/16 14:46 82 20 94 Nasal Cannula 5.0 08/11/16 12:00 Nasal Cannula 6.0 08/11/16 11:48 37.1 82 18 135/67 92 Nasal Cannula 5.0 Physical Exam: General Appearance: WD/WN, no apparent distress, + obese Eyes: bilateral eyes normal inspection ENT: hearing grossly normal Neck: supple Respiratory/Chest: chest non-tender Cardiovascular: + irregularly irregular Abdomen: normal bowel sounds Extremities: normal range of motion, no pedal edema Neurologic/Psychiatric: alert Medications Medications: Current Inpatient Medications Medications (Trade) Dose Ordered Sig/Bryn Route Start Time Stop Time Status Last Admin Dose Admin Aspirin (Aspirin Chew) 81 mg DAILY NG 08/05/16 09:00 09/04/16 08:59 08/12/16 08:32 81 MG Glucose (Glucose 40% Gel) UD PRN PO 08/04/16 23:45 09/03/16 23:44 Glucose (Glucose Chew Tab) 1 tabs UD PRN PO 08/04/16 23:45 09/03/16 23:44 Dextrose (Dextrose 50% 50ML Syringe) 50 ml UD PRN IV 08/04/16 23:45 09/03/16 23:44 08/05/16 20:26 50 ML Glucagon (Glucagon Inj) 1 mg UD PRN SQ 08/04/16 23:45 09/03/16 23:44 Ampicillin Sodium/ Sulbactam Sodium (Consult) 1 ea UD PRN N/A 08/05/16 01:00 09/04/16 00:59 Albuterol Sulfate (Ventolin 0.5% 2.5MG/0.5ML Neb) 2.5 mg Q6R INH 08/06/16 21:00 09/05/16 20:59 08/12/16 07:25 2.5 MG Nystatin (Mycostatin Susp) 5 ml QID PO 08/09/16 13:00 08/19/16 12:59 08/12/16 08:24 5 ML Docusate Sodium (coLACE CAP) 100 mg BID PO 08/09/16 21:00 09/08/16 20:59 08/12/16 08:26 100 MG Bisacodyl (Dulcolax Supp) 10 mg DAILY PRN [place] 08/09/16 11:45 09/08/16 11:44 Heparin Sodium (Porcine) (Heparin Sq 5000 Unit/0.5ml) 5,000 unit Q8 SQ 08/09/16 22:00 09/08/16 21:59 08/12/16 06:06 5,000 UNIT Pantoprazole Sodium (Protonix Tab) 40 mg QAM PO 08/10/16 09:00 09/09/16 08:59 08/12/16 08:25 40 MG Levothyroxine Sodium (Synthroid Tab) 25 mcg DAILYBB PO 08/11/16 06:00 09/10/16 05:59 08/12/16 06:05 25 MCG Amiodarone HCl (Cordarone Tab) 400 mg BID PO 08/10/16 09:00 09/09/16 08:59 08/12/16 08:15 400 MG Metoprolol Succinate (Toprol Xl Tab) 50 mg QAM PO 08/10/16 09:00 09/09/16 08:59 08/12/16 08:26 50 MG Polyethylene (Miralax Powder Packet) 17 gm BID NG 08/10/16 21:00 09/09/16 20:59 08/12/16 08:26 17 GM Lidocaine (Lidoderm Patch 5%) 1 patch QAM TD 08/11/16 09:00 09/10/16 08:59 08/12/16 08:26 1 PATCH Miscellaneous (Remove Lidoderm Patch) 1 ea DAILY@21 N/A 08/10/16 21:00 09/09/16 20:59 08/11/16 20:54 1 EA Insulin Aspart SLIDING SCALE G... ACHS SC 08/10/16 16:15 09/09/16 16:14 08/11/16 20:50 1 UNITS Furosemide 40 mg/ Syringe 4 ml @ 4 mls/min BID17 IV 08/11/16 21:00 09/10/16 20:59 08/12/16 08:25 4 MLS/MIN Methylprednisolone Sodium Succinate/ Syringe (Solu-Medrol IV/ Syringe) 0.64 ml @ 1.5 mls/min Q12H IV 08/12/16 20:00 09/11/16 19:59 Guaifenesin (Mucinex Contr Rel Tab) 600 mg Q12 PO 08/12/16 09:00 09/11/16 08:59 Laboratory Data Labs: Last 24 Hours Test 08/11/16 11:25 08/11/16 20:19 08/12/16 06:10 08/12/16 07:15 Bedside Glucose 198 mg/dl 205 mg/dl 157 mg/dl Sodium Level 143 mmol/L Potassium Level 3.6 mmol/L Chloride Level 103 mmol/L Carbon Dioxide Level 35 mmol/L Anion Gap 5.0 mmol/L Blood Urea Nitrogen 56 mg/dl Creatinine 2.80 mg/dl Est Creatinine Clear Calc Drug Dose 33.5 ml/min Estimated GFR () 28.4 Estimated GFR (Non- 24.5 BUN/Creatinine Ratio 19.8 Random Glucose 161 mg/dl Calcium Level 8.8 mg/dl Magnesium Level 2.6 mg/dl Assessment and Plan A 56-year-old white male admitted to ICU because of cardiac arrest on 2016 history of Nonischemic cardiomyopathy, ejection fraction was listed at 30% as long ago as 2004. The more recent echo on record was performed in 2012 and showed an EF of 35%. The EF in the Emergency Department at the time of admission was closer to 25%. Hypothyroidism, Hypertension. 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 Patchy areas of consolidation within the bilateral lungs posteriorly favor pulmonary contusion Add DuoNeb if needed Cont BIPAP HS And TID/QID for 1 hour Worsening pulm congestion, Acute systolic CHF exacerbation, echo: EF 40% global hypokinesis, cont IV lasix to 40 mg bid, monitor I/o, creatinine drug induced rash: oxycontin? received IV solumedrol, improved, tapering it down Infectious disease: Possible sepsis, UTI and pneumonia, continue antibiotics IV as above, follow-up C+S neuro: Was unresponsive since the cardiac arrest , head Ct was not remarkable Renal: Acute kidney failure likely from hypoperfusion from cardiac arrest, creat at 2.8, US renal is normal Heme: no acute issues GI: GI prophylaxis on SCD Endo: no issues, target Bg 140-180 obesity, noted, will need nutrition consult when able FULL Code
[2016-08-12] MEDS: GUAIFENESIN 600 MG TABCR PO SCH ×2 (11:35→20:29)
--- NOTE | 2016-08-12 12:04 | Cardiology Follow-Up ---
Subjective Subjective Date of Service: Aug 12, 2016. Pt evaluation today including: conversation w/ patient, physical exam, chart review, lab review, review of studies, review of inpatient medication list Additional Details: Feeling well this AM. Mild residual chest wall pain. Denies significant shortness of breath. Telemetry reviewed -- rare NSVT up to 3 beats, short run of AT I/Os -- negative 1800 yesterday Problem List Medical Problems: (1) Cardiac arrest Status: Acute (2) Rib fractures Status: Acute (3) Ventricular fibrillation Status: Acute Review of Systems Constitutional: No fever Eyes: No worsening of vision ENT: No hearing loss Respiratory: No cough Cardiac: + chest pain Abdomen: No pain Male : No dysuria Neurologic: + memory loss Psychiatric: No depression symptoms Endo: No fatigue Skin: + rash Objective Vital Signs Last Vital Signs Documentation Date Time Temp Pulse Resp B/P Pulse Ox O2 Delivery O2 Flow Rate FiO2 08/12/16 08:10 Nasal Cannula 5.0 08/12/16 07:52 36.8 65 18 109/70 94 08/08/16 18:00 40 Physical Exam: General Appearance: WD/WN, no apparent distress, + obese Eyes: bilateral eyes EOMI, bilateral eyes PERRL, bilateral eyes normal inspection ENT: hearing grossly normal Neck: supple Respiratory/Chest: normal breath sounds, + decreased breath sounds (limited to right base), + pertinent finding (chest wall tender) Cardiovascular: regular rate, rhythm, + systolic murmur, + extra beats Abdomen: normal bowel sounds, soft Extremities: no pedal edema (improved upper extremity edema), no calf tenderness Neurologic/Psychiatric: alert, normal mood/affect Skin: + rash (improving erythema over hand), + pertinent finding (feels warm, sweaty) Assessment and Plan 1. Status post VF arrest 2. NICM/Acute systolic heart failure 3. SEBASTI[place]N 4. Frequent Ectopy 5. Prolonged QTc 6. Mitral regurgitation 7. Aspiration PNA Frequent ectopy on telemetry, no sustained complex arrhythmias. QTc unchanged from prior on repeat ECG Mild pulmonary congestion improved on exam today after IV Lasix X2 yesterday, X1 today -- Congestion improved today, with rising BUN/bicarb/SCr would hold scheduled evening dose of lasix today. -- Continue amiodarone 400 mg BID -- supplement potassium (goal K>4, Mag >2) -- continue current beta-gracia; SONAL on hold -- Consideration for ICD at some point in hospitalization. Medications: Current Inpatient Medications Medications (Trade) Dose Ordered Sig/Bryn Route Start Time Stop Time Status Last Admin Dose Admin Aspirin (Aspirin Chew) 81 mg DAILY NG 08/05/16 09:00 09/04/16 08:59 08/12/16 08:32 81 MG Glucose (Glucose 40% Gel) UD PRN PO 08/04/16 23:45 09/03/16 23:44 Glucose (Glucose Chew Tab) 1 tabs UD PRN PO 08/04/16 23:45 09/03/16 23:44 Dextrose (Dextrose 50% 50ML Syringe) 50 ml UD PRN IV 08/04/16 23:45 09/03/16 23:44 08/05/16 20:26 50 ML Glucagon (Glucagon Inj) 1 mg UD PRN SQ 08/04/16 23:45 09/03/16 23:44 Ampicillin Sodium/ Sulbactam Sodium (Consult) 1 ea UD PRN N/A 08/05/16 01:00 09/04/16 00:59 Albuterol Sulfate (Ventolin 0.5% 2.5MG/0.5ML Neb) 2.5 mg Q6R INH 08/06/16 21:00 09/05/16 20:59 08/12/16 07:25 2.5 MG Nystatin (Mycostatin Susp) 5 ml QID PO 08/09/16 13:00 08/19/16 12:59 08/12/16 08:24 5 ML Docusate Sodium (coLACE CAP) 100 mg BID PO 08/09/16 21:00 09/08/16 20:59 08/12/16 08:26 100 MG Bisacodyl (Dulcolax Supp) 10 mg DAILY PRN UT 08/09/16 11:45 09/08/16 11:44 Heparin Sodium (Porcine) (Heparin Sq 5000 Unit/0.5ml) 5,000 unit Q8 SQ 08/09/16 22:00 09/08/16 21:59 08/12/16 06:06 5,000 UNIT Pantoprazole Sodium (Protonix Tab) 40 mg QAM PO 08/10/16 09:00 09/09/16 08:59 08/12/16 08:25 40 MG Levothyroxine Sodium (Synthroid Tab) 25 mcg DAILYBB PO 08/11/16 06:00 09/10/16 05:59 08/12/16 06:05 25 MCG Amiodarone HCl (Cordarone Tab) 400 mg BID PO 08/10/16 09:00 09/09/16 08:59 08/12/16 08:15 400 MG Metoprolol Succinate (Toprol Xl Tab) 50 mg QAM PO 08/10/16 09:00 09/09/16 08:59 08/12/16 08:26 50 MG Polyethylene (Miralax Powder Packet) 17 gm BID NG 08/10/16 21:00 09/09/16 20:59 08/12/16 08:26 17 GM Lidocaine (Lidoderm Patch 5%) 1 patch QAM TD 08/11/16 09:00 09/10/16 08:59 08/12/16 08:26 1 PATCH Miscellaneous (Remove Lidoderm Patch) 1 ea DAILY@21 N/A 08/10/16 21:00 09/09/16 20:59 08/11/16 20:54 1 EA Insulin Aspart SLIDING SCALE G... ACHS SC 08/10/16 16:15 09/09/16 16:14 08/12/16 11:34 3 UNITS Furosemide 40 mg/ Syringe 4 ml @ 4 mls/min BID17 IV 08/11/16 21:00 09/10/16 20:59 08/12/16 08:25 4 MLS/MIN Methylprednisolone Sodium Succinate/ Syringe (Solu-Medrol IV/ Syringe) 0.64 ml @ 1.5 mls/min Q12H IV 08/12/16 20:00 09/11/16 19:59 Guaifenesin (Mucinex Contr Rel Tab) 600 mg Q12 PO 08/12/16 09:00 09/11/16 08:59 08/12/16 11:35 600 MG Lab Results: 08/12/16 06:10 Test 08/12/16 06:10 08/12/16 11:21 Anion Gap 5.0 mmol/L (3-11) Est Creatinine Clear Calc Drug Dose 33.5 ml/min Estimated GFR () 28.4 Estimated GFR (Non- 24.5 BUN/Creatinine Ratio 19.8 (10-20) Calcium Level 8.8 mg/dl (8.5-10.1) Magnesium Level 2.6 mg/dl (1.8-2.4) Bedside Glucose 263 mg/dl (70-99)
[2016-08-12] MEDS ORDERED: POTASSIUM CHLORIDE 10 MEQ TABCR PO ONE (12:15)
[2016-08-12] MEDS: AMPICILLIN/SULBACTAM SOD INJ 3,000 MG in SODIUM CHLORIDE 0.9% 100ML 100 ML IV SCH (18:54)
[2016-08-13] VITALS (12 sets, daily range): BP systolic 118–133; BP diastolic 67–75; PULSE 60–100; TEMP 36.6–36.9; O2SAT 92–94
[2016-08-13] MEDS: AMPICILLIN/SULBACTAM SOD INJ 3,000 MG in SODIUM CHLORIDE 0.9% 100ML 100 ML IV SCH ×4 (00:20→18:13)
[2016-08-13 01:26] LABS: HEMATOCRIT 36.1 % (42-52); MEAN CELL VOLUME 90.3 fL (80-100); MEAN CORPUSCULAR HEMOGLOBIN 30.3 pg (25-34); MEAN CORPUSCULAR HGB CONC 33.5 g/dl (32-36); MEAN PLATELET VOLUME 9.7 fL (7.4-10.4); PLATELET COUNT 190 K/uL (130-400); WHITE BLOOD COUNT 10.76 K/uL (4.8-10.8)
[2016-08-13 01:45] LABS: BUN/CREATININE RATIO 21.6 (10-20); CALCIUM 8.5 mg/dl (8.5-10.1); CREATININE 2.7 mg/dl (0.60-1.40); MAGNESIUM 2.6 mg/dl (1.8-2.4); PHOSPHORUS 3.8 mg/dl (2.5-4.9)
[2016-08-13] MEDS: ALBUTEROL 0.5% NEB SOLN 2.5 MG/0.5 ML VIAL INH SCH ×4 (02:30→18:50)
[2016-08-13] MEDS: LEVOTHYROXINE 25 MCG TAB PO SCH (06:11)
[2016-08-13] MEDS: HEPARIN SOD 5000 UNIT/0.5 ML CARP SQ SCH ×3 (06:12→21:04)
[2016-08-13] MEDS: INSULIN ASPART 100 UNITS/ML 3 ML PEN SC SCH ×4 (07:00→20:59)
[2016-08-13] MEDS: PANTOprazole SOD 40 MG TAB PO SCH (07:59)
[2016-08-13] MEDS: NYSTATIN SUSP 500,000 U/5 ML UDC PO SCH ×4 (08:00→20:59)
[2016-08-13] MEDS: METHYLPREDNISOLONE IV 40 MG in SYRINGE 0 ML IV SCH ×2 (08:00→19:44)
[2016-08-13] MEDS: AMIODARONE 200 MG TAB PO SCH (08:00)
[2016-08-13] MEDS: GUAIFENESIN 600 MG TABCR PO SCH ×2 (08:01→21:01)
[2016-08-13] MEDS: POLYETHYLENE (MIRALAX) 17 GM PACK NG SCH ×2 (08:01→21:00)
[2016-08-13] MEDS: DOCUSATE SODIUM 100 MG CAP PO SCH ×2 (08:01→21:01)
[2016-08-13] MEDS: METOPROLOL SUCC 50MG EXT REL TAB PO SCH (08:02)
[2016-08-13] MEDS: LIDODERM (LIDOCAINE) PATCH 5% TD SCH (08:03)
[2016-08-13] MEDS: ASPIRIN 81 MG CHEW NG SCH (08:30)
--- NOTE | 2016-08-13 10:32 | CARDIOLOGY PROGRESS NOTE ---
DATE: 08/13/2016 SUBJECTIVE: The patient was seen by me this morning in his telemetry room. He is sitting in a chair by his bedside. He states he is feeling well. He denies any anginal type chest discomfort. He still has musculoskeletal right-sided discomfort with deep breathing and coughing. This has improved since last week. No orthopnea or PND overnight. He does sleep with CPAP. Mild dyspnea walking about the room. Mild postural lightheadedness when he first arises. No syncope. No palpitations. No abdominal pain or nausea. No leg pain or leg swelling. He still has a Arguelles catheter in place. CURRENT MEDICATIONS: Methylprednisolone 40 mg IV b.i.d., ampicillin/sulbactam 3 grams IV q. 6 hours, Mucinex 600 mg p.o. q. 12 hours, Lidoderm patch 1 patch daily, levothyroxine 25 mcg daily, MiraLax powder 17 grams b.i.d., NovoLog sliding scale insulin, pantoprazole 40 mg daily, amiodarone 400 mg b.i.d., metoprolol succinate ER 50 mg daily, subQ heparin 5000 units q. 8 hours, docusate sodium 100 mg b.i.d., nystatin 5 mL p.o. q.i.d., aspirin 81 mg daily, p.r.n. albuterol nebulizer, p.r.n. Dulcolax suppository, and p.r.n. NovoLog sliding scale insulin. ALLERGIES AND ADVERSE DRUG REACTIONS: None. Monitor history over the past 24 hours reviewed by me. Sinus rhythm. Frequent premature ventricular beats. Occasional ventricular couplet. Episodes of ventricular bigeminy and trigeminy. PHYSICAL EXAMINATION: VITAL SIGNS: This morning with oral temperature is 36.8, pulse 73, blood pressure 126/67, and pulse oximetry on 2 liters per nasal cannula oxygen 93%. GENERAL APPEARANCE: Shows him to be in no distress. He appears well, sitting in a chair. NECK: No jugular venous distention noted. LUNGS: Normal respiratory effort. Clear. No rales or wheezes. HEART: Regular rate and rhythm with frequent premature beat. 1/6 systolic murmur at the left lower sternal border and apex. No diastolic murmur or rub. ABDOMEN: Normal bowel sounds. Soft. Nontender. No palpable masses or organomegaly. EXTREMITIES: No pretibial edema. No calf tenderness. NEUROLOGIC: Alert and oriented x3. Motor grossly intact. PSYCHIATRIC: Affect is normal. DATA: Electrocardiogram today with normal sinus rhythm at a rate of 64 beats per minute. [place] interval 146 milliseconds. Corrected QT interval 499 milliseconds. The corrected QT on August 11 was 504 milliseconds. Limited echocardiogram on 08/10/2014 with LV ejection fraction of 40%. Mild right ventricular dilatation. Left ventricular dilatation. Normal right ventricular systolic function. Mild biatrial dilatation. Moderate mitral regurgitation. LABORATORY DATA: Today with WBC 10.76, hemoglobin 12.1, hematocrit 36.1, and platelet count 190. Metabolic profile with sodium 147, potassium 4.0, chloride 105, carbon dioxide 33, BUN 58, creatinine 2.70, random glucose 168, and magnesium 2.6. ASSESSMENT: 1. Status post cardiac arrest on 08/04/2016. Successful and timely resuscitation and defibrillation from ventricular fibrillation. He was started on intravenous amiodarone on admission. This was then switched to oral amiodarone. No further sustained ventricular arrhythmias since admission. He does have frequent ventricular ectopy. He is asymptomatic. 2. Moderate left ventricular systolic dysfunction. Repeat echocardiogram with slight improvement in overall LV function. 3. No current evidence of pulmonary vascular congestion on exam. 4. Acute kidney injury. His creatinine has improved compared to last week. However, his BUN has increased over the past 2 days. This likely reflects intravascular volume depletion from intravenous diuretics given over the weekend. His carbon dioxide has increased consistent with contraction alkalosis. Negative fluid balance yesterday of 1796 mL. Today's weight reported to be 93.1 kg. Yesterday's 97.2 kg. 5. Moderate mitral regurgitation. 6. He is afebrile. White blood cell count normal. 7. Stable hemoglobin. RECOMMENDATIONS: 1. Discontinue Arguelles catheter. The patient is awake and alert. He can very likely void on his own. 2. Consider switching his antibiotics and steroids to oral dosing. 3. We will decrease his amiodarone to 4 mg daily. His corrected QT interval was mildly increased. 4. I have discussed the patient's case with Dr. Derek Centeno. He will evaluate the patient for placement of an ICD. The patient is aware of this. 5. Increase activity. 6. Continue metoprolol. 7. SONAL inhibitor and angiotensin receptor gracia continue to be contraindicated because of his acute renal failure. MTDD
--- NOTE | 2016-08-13 21:21 | Progress Note ---
Subjective Date of Service: Aug 13, 2016. Subjective Pt evaluation today including: conversation w/ patient, conversation w/ family (mother, sister at bedside), physical exam, chart review, lab review, review of studies (cxr, echos, etc), review of inpatient medication list Pain: occasional right-sided discomfort with coughing PO Intake: normal Voiding: bundy catheter in place telemetry overnight w/ dysrhythmia he feels "pretty good" minimal dyspnea w/ exertion no substernal chest pain denies focal motor weakness of the arms or legs Problem List Medical Problems: (1) Cardiac arrest Status: Acute (2) Rib fractures Status: Acute (3) Ventricular fibrillation Status: Acute Review of Systems Respiratory: + cough, No dyspnea at rest Cardiac: No orthopnea Abdomen: + constipation, No pain Objective Vital Signs Date Time Temp Pulse Resp B/P Pulse Ox O2 Delivery O2 Flow Rate FiO2 08/13/16 19:08 36.8 62 20 124/70 92 Nasal Cannula 2.0 08/13/16 18:50 70 18 94 Nasal Cannula 2.0 08/13/16 16:00 Nasal Cannula 2.0 08/13/16 15:14 36.6 70 20 127/70 92 Nasal Cannula 2.0 08/13/16 14:25 62 16 92 Nasal Cannula 2.0 08/13/16 12:00 Room Air 08/13/16 11:51 36.9 62 22 118/70 93 Nasal Cannula 2.0 08/13/16 11:31 73 93 08/13/16 08:00 Nasal Cannula 2.0 08/13/16 08:00 36.8 73 20 126/67 93 Nasal Cannula 2.0 08/13/16 07:38 73 18 93 Nasal Cannula 2.0 08/13/16 04:02 BiPAP 2.0 08/13/16 03:52 36.8 100 18 128/75 92 BiPAP 2.0 08/13/16 02:30 64 18 93 BiPAP/CPAP 2.0 08/13/16 00:02 BiPAP 2.0 08/12/16 23:29 37.0 76 22 121/58 91 CPAP 2.0 Physical Exam General Appearance: no apparent distress ENT: pharynx normal Neck: no JVD Respiratory/Chest: no respiratory distress, no accessory muscle use, + decreased breath sounds (bases), + rales (scant, bases) Cardiovascular: regular rate, rhythm, no gallop, + systolic murmur (1/6 LSB) Abdomen: normal bowel sounds, non tender, soft, no organomegaly Extremities: no pedal edema Neurologic/Psychiatric: no motor/sensory deficits, alert, oriented x 3 Skin: + pertinent finding (irregularly shaped area of erythema on dorsum of left hand) Laboratory Results Last 24 Hours Test 08/13/16 01:13 08/13/16 06:47 08/13/16 11:06 08/13/16 20:53 White Blood Count 10.76 K/uL Red Blood Count 4.00 M/uL Hemoglobin 12.1 g/dL Hematocrit 36.1 % Mean Corpuscular Volume 90.3 fL Mean Corpuscular Hemoglobin 30.3 pg Mean Corpuscular Hemoglobin Concent 33.5 g/dl RDW Standard Deviation 48.0 fL RDW Coefficient of Variation 14.5 % Platelet Count 190 K/uL Mean Platelet Volume 9.7 fL Sodium Level 147 mmol/L Potassium Level 4.0 mmol/L Chloride Level 105 mmol/L Carbon Dioxide Level 33 mmol/L Anion Gap 9.0 mmol/L Blood Urea Nitrogen 58 mg/dl Creatinine 2.70 mg/dl Est Creatinine Clear Calc Drug Dose 34.7 ml/min Estimated GFR () 29.6 Estimated GFR (Non- 25.6 BUN/Creatinine Ratio 21.6 Random Glucose 168 mg/dl Calcium Level 8.5 mg/dl Phosphorus Level 3.8 mg/dl Magnesium Level 2.6 mg/dl Bedside Glucose 143 mg/dl 158 mg/dl 129 mg/dl Assessment and Plan 56yo male with: 1. s/p v-fib cardiac arrest with successful samaritan of circulation in the field s/p hypothermia protocol in the ICU - remarkable recovery from such. Appreciate previous critical care assistance and ongoing cardiology consultation. Agree with EP consultation for ICD placement. Amiodarone 400mg daily. 2. acute/chronic systolic CHF - agree he is euvolemic or slightly dry. Stop lasix. Cont BB. 3. COPD with exacerbation - cut steroids to 20mg q12h IV. Likely change to po prednisone tomorrow. 4. pulmonary contusions vs aspiration pneumonia - day #9 of unasyn; stop such, change to augmentin x 1 day then d/c all antibiotics. 5. acute hypoxic resp failure 2nd to #1, #2, #3, #4 - resolved; nearly off O2. 6. recent right-sided pneumothorax in the setting of CPR - s/p chest tube, resolved. 7. rib fractures 2nd to CPR - pain controlle.d 8. rash, left hand - likely due to infiltrated IV. Per staff is improved. Steroids may help. Supportive care otherwise. 9. encephalopathy in setting of #1 - resolved. He is awake/alert/oriented with no focal deficits on exam. 10. acute kidney injury - likely ATN in setting of #1 - likely will need prolonged time for recovery. Fortunately he remains nonoliguric. Daily BMP. 11. hypothyroidism - synthroid. Most recent tsh mildly high. Needs repeat in 4-6 weeks. 12. DVT proph - heparin. 13. hypernatremia - 2nd to over-diuresis - hold lasix; bmp am PT, OT evals will most definitely need rehab family updated at bedside Continued [facility] stay due to: ambulation difficulties, multiple IV medications needed, other (ICD placement) Discharge planning: rehab hospital
[2016-08-14] VITALS (11 sets, daily range): BP systolic 118–146; BP diastolic 65–76; PULSE 56–90; TEMP 36.8–37.5; O2SAT 90–98
[2016-08-14] MEDS: ALBUTEROL 0.5% NEB SOLN 2.5 MG/0.5 ML VIAL INH SCH ×4 (02:01→20:13)
[2016-08-14] MEDS: LEVOTHYROXINE 25 MCG TAB PO SCH (05:56)
[2016-08-14] MEDS: HEPARIN SOD 5000 UNIT/0.5 ML CARP SQ SCH ×3 (05:56→21:45)
[2016-08-14] MEDS: INSULIN ASPART 100 UNITS/ML 3 ML PEN SC SCH ×4 (07:00→20:41)
[2016-08-14 07:42] LABS: BUN/CREATININE RATIO 23.4 (10-20); CALCIUM 9.1 mg/dl (8.5-10.1); CREATININE 2.3 mg/dl (0.60-1.40); POTASSIUM 4.4 mmol/L (3.5-5.1)
[2016-08-14] MEDS: PANTOprazole SOD 40 MG TAB PO SCH (07:46)
[2016-08-14] MEDS: AMOXICILLIN/CLAVULANATE TAB 875 MG TAB PO SCH ×2 (07:46→16:49)
[2016-08-14] MEDS: AMIODARONE 200 MG TAB PO SCH (07:47)
[2016-08-14] MEDS: GUAIFENESIN 600 MG TABCR PO SCH ×2 (07:47→21:44)
[2016-08-14] MEDS: DOCUSATE SODIUM 100 MG CAP PO SCH ×2 (07:47→21:44)
[2016-08-14] MEDS: NYSTATIN SUSP 500,000 U/5 ML UDC PO SCH ×4 (07:48→21:43)
[2016-08-14] MEDS: METOPROLOL SUCC 50MG EXT REL TAB PO SCH (07:48)
[2016-08-14] MEDS: LIDODERM (LIDOCAINE) PATCH 5% TD SCH (07:49)
[2016-08-14] MEDS: POLYETHYLENE (MIRALAX) 17 GM PACK NG SCH ×2 (07:49→21:43)
[2016-08-14] MEDS: ASPIRIN 81 MG CHEW NG SCH (07:55)
[2016-08-14] MEDS ORDERED: METHYLPREDNISOLONE IV 20 MG in SYRINGE 0 ML IV SCH (08:00)
[2016-08-14] MEDS ORDERED: LACTATED RINGER'S 1000ML 1,000 ML IV ONE (09:10)
--- NOTE | 2016-08-14 09:12 | Cardiology Follow-Up ---
Subjective Date of Service: Aug 14, 2016. Pt evaluation today including: conversation w/ patient, physical exam, chart review, lab review, review of studies, review of inpatient medication list History of Present Illness This is a very pleasant 56-year-old gentleman who has a long history of nonischemic cardiomyopathy. He works at [employer], while he is working on 2016 he suddenly lost consciousness. EMS workers were nearby and provided CPR within 3 minutes and he was successfully cardioverted although it sounds as though he required 3 defibrillator shocks although each time he regained sinus rhythm but had return of atrial fibrillation. He received lidocaine and was able to maintain sinus rhythm. He did have what appears to be complete neurologic recovery. He was started on amiodarone intravenously which has been transition to oral. His left ventricular ejection fraction has never been severely abnormal although it has been decreased. Here in the hospital on 08/10/2016 he had a moderately to severely dilated left ventricle with left ventricular ejection fraction of 40%. He has had no further arrhythmias since admission. With his cardiac arrest he is brought to laboratory for ICD implantation for secondary prevention. Social History Smoking Status: Never Smoker History of Alcohol Use: No Review of Systems Respiratory: + cough, No dyspnea at rest Cardiac: No orthopnea Medications Cardiovascular: Item Value Date Time Amiodarone HCl 400 mg 08/14/16 0900 (Cordarone Tab) DAILY/PO 08/14/16 0747 Metoprolol 50 mg 08/10/16 0900 Succinate QAM/PO 08/14/16 0748 (Toprol Xl Tab) Heparin Sodium 5,000 unit 08/09/16 2200 (Porcine) Q8/SQ (Heparin Sq 5000 Unit/0.5ml) Aspirin 81 mg 08/05/16 0900 (Aspirin Chew) DAILY/NG 08/14/16 0755 Objective Vital Signs Past 12 Hours Date Time Temp Pulse Resp B/P Pulse Ox O2 Delivery O2 Flow Rate FiO2 08/14/16 08:35 36.9 58 18 127/69 98 08/14/16 07:39 58 16 91 Room Air 08/14/16 04:32 37.0 65 18 132/74 93 Room Air 08/14/16 04:02 Room Air 08/14/16 02:01 77 18 94 BiPAP/CPAP 2.0 08/14/16 00:00 BiPAP 2.0 08/13/16 23:47 36.9 60 18 133/73 93 BiPAP 08/13/16 21:45 72 94 2.0 Last Recorded Weight-Kilograms: 106.700 Intake & Output 8-Hour Column 08/13/16 08/14/16 08/14/16 16:00 00:00 08:00 Intake Total 370 ml 300 ml 150 ml Output Total 400 ml 450 ml Balance -30 ml -150 ml 150 ml 24-Hour Column 08/14/16 08:00 Intake Total 820 ml Output Total 850 ml Balance -30 ml Physical Exam Constitutional: Level of Distress: NAD Lungs: Auscultation: breath sounds normal Cardiovascular: Heart Auscultation: RRR, no murmurs Extremities: no edema Data Laboratory Results: Last 24 Hours Test 08/13/16 11:06 08/13/16 20:53 08/14/16 06:34 08/14/16 06:40 Bedside Glucose 158 mg/dl 129 mg/dl 118 mg/dl Sodium Level 144 mmol/L Potassium Level 4.4 mmol/L Chloride Level 106 mmol/L Carbon Dioxide Level 29 mmol/L Anion Gap 9.0 mmol/L Blood Urea Nitrogen 54 mg/dl Creatinine 2.30 mg/dl Est Creatinine Clear Calc Drug Dose 42.8 ml/min Estimated GFR () 36.0 Estimated GFR (Non- 31.0 BUN/Creatinine Ratio 23.4 Random Glucose 128 mg/dl Calcium Level 9.1 mg/dl EKG: An electrocardiogram today demonstrates sinus rhythm at 59 bpm with frequent premature ventricular beats. Telemetry reviewed: Sinus rhythm, rate appears well preserved given his level of activity. Assessment and Plan #1. VF arrest: Despite not having severe left ventricular dysfunction he suffered a cardiac arrest for no clear reversible cause. He therefore requires ICD implantation for secondary prevention of recurrence. #2. Nonischemic cardiomyopathy: He has a moderate nonischemic cardiomyopathy and has for many years. He is on metoprolol succinate and now is on amiodarone. For the long run we may need to increase his beta blockade and hopefully discontinue his amiodarone although the amiodarone may be beneficial to treat his ectopy. Beta-blockade may be adequate however. For ICD implantation today. I discussed the indications, procedure, risks and alternatives with him and he understands and agrees to proceed. Consent obtained. Thank you for allowing me to participate in his care.
[2016-08-14] MEDS ORDERED: CEFAZOLIN 2000 MG/60 ML D5W 60 ML IV SCH (10:00)
[2016-08-14] MEDS ORDERED: KEFZOL SPECIAL PROCEDURE STOCK 1 GM ADDVIAL IV ONE (14:13)
[2016-08-14] MEDS ORDERED: FENTANYL CITRATE INJ 50 MCG/1 ML 2 ML VIAL ONE (14:18)
[2016-08-14] MEDS ORDERED: LIDOCAINE HCL 1% 20 ML VIAL ONE (14:18)
[2016-08-14] MEDS ORDERED: BACITRACIN 50000 UNIT VIAL ONE (14:18)
[2016-08-14] MEDS ORDERED: MIDAZOLAM HCL 5 MG/ML 1 ML VIAL ONE (14:18)
[2016-08-14] MEDS ORDERED: BACITRACIN OINT 0.9 GM PKT ONE (14:18)
--- NOTE | 2016-08-14 14:30 | Procedure Note ---
Pre-Mod Sedation Assessment General Date of Moderate Sedation: Aug 14, 2016. Vital Signs: Vital Signs Past 12 Hours Date Time Temp Pulse Resp B/P Pulse Ox O2 Delivery O2 Flow Rate FiO2 08/14/16 12:47 36.9 90 18 127/69 98 Room Air 08/14/16 12:20 37.1 68 16 146/73 97 Room Air 08/14/16 12:00 Room Air 08/14/16 08:35 36.9 58 18 127/69 98 08/14/16 08:00 Room Air 08/14/16 07:39 58 16 91 Room Air 08/14/16 04:32 37.0 65 18 132/74 93 Room Air 08/14/16 04:02 Room Air Review Cardiovascular: regular rate, rhythm Abdomen: normal bowel sounds Lungs: lungs clear Pre-Sedation Airway Assessment Oral Cavity: WNL Short Thick Neck: No Hx of Sleep Apnea: Yes Smoking Status: Former Smoker Procedure Planning Contraindications-for Mod Sed: None Yes Notes The planned sedation has been discussed with the patient and consent obtained. I have identified the patient, determined the appropriateness of sedation and have assessed the patient immediately prior to the procedure. All medicine(s) and interventions are by my order.
--- NOTE | 2016-08-14 15:35 | Procedure Note ---
Post-Mod Sedation Assessment General Date of Moderate Sedation Aug 14, 2016. Vital Signs: Vital Signs Past 12 Hours Date Time Temp Pulse Resp B/P Pulse Ox O2 Delivery O2 Flow Rate FiO2 08/14/16 12:47 36.9 90 18 127/69 98 Room Air 08/14/16 12:20 37.1 68 16 146/73 97 Room Air 08/14/16 12:00 Room Air 08/14/16 08:35 36.9 58 18 127/69 98 08/14/16 08:00 Room Air 08/14/16 07:39 58 16 91 Room Air 08/14/16 04:32 37.0 65 18 132/74 93 Room Air 08/14/16 04:02 Room Air Review - Discharge Criteria Vital Signs Stable: Yes Alert/Oriented/Conversant: Yes Returned to Baseline Mental St: Yes Nausea Absent/Minimal: Yes Pain/Discomfort/Absent/Minimal: Yes Normal/Baseline Respirations: Yes Active Bleeding?: No
--- NOTE | 2016-08-14 15:38 | Cardiology Procedure Brief Nt ---
Preliminary Cardiology Note Procedure Date Aug 14, 2016. Pre-Procedure Diagnosis resuscitated sudden cardiac Post-Procedure Diagnosis same Procedure(s) Performed One single chamber ICD implantation Defibrillator threshold testing Statistical Modeler Dr. Centeno Pattern Changer And Repairer(s) none Estimated Blood Loss 50 cc Preliminary Findings Good lead position, good measurements Defibrillation threshold testing successful at 20 J 1 Recommendations Monitor overnight Specimens None Anesthesia local with sedation Complication(s) None Disposition PCU
[2016-08-14] MEDS ORDERED: KETOROLAC TROMETHAMINE 10 MG TAB PO PRN (15:45)
[2016-08-14] MEDS ORDERED: ACETAMINOPHEN 325 MG TAB PO PRN (15:45)
--- NOTE | 2016-08-14 16:20 | OPERATIVE REPORT ---
DATE OF OPERATION: 08/14/2016 PREOPERATIVE DIAGNOSIS: Resuscitated sudden cardiac . POSTOPERATIVE DIAGNOSIS: Same. PROCEDURES: 1. Single chamber ICD implantation. 2. Defibrillator threshold testing. SURGEON: Derek Centeno MD ANESTHESIA: Local with sedation. HISTORY: This is a 56-year-old male with a history of nonischemic cardiomyopathy. He collapsed at work on 08/04/2016 and he was found to be in ventricular fibrillation and was successfully resuscitated. He has recovered and is brought to the laboratory for ICD implantation. DESCRIPTION OF PROCEDURE: After obtaining informed consent for the procedure, he was brought to the laboratory on the afternoon of 08/14/2016, being n.p.o. after a clear liquid breakfast. He was identified in the laboratory, prepped and draped in standard sterile manner for a left-sided ICD implantation. The left prepectoral region was anesthetized with 1% lidocaine local anesthetic and left subclavian venipuncture was performed by percutaneous technique and a guidewire placed through the left subclavian vein into the superior vena cava. The area was further infiltrated with 1% lidocaine local anesthetic and a 5-cm incision was made parallel to the left clavicle and 2 cm below it and carried down to the anterior pectoralis fascia. An ICD pocket was formed by blunt dissection anterior to the pectoralis fascia and a bacitracin-soaked sponge (50,000 units in 50 mL normal saline solution) was placed in the pocket. A 10-1/2-Citizen Of [place] Medtronic lead introducer was placed over the guidewire into the left subclavian vein, the dilator and guidewire were removed and a bipolar active fixation steroid-tipped dual coil defibrillator lead was advanced through the introducer into the superior vena cava. The guidewire was placed through the introducer and introducer stripped away from lead and guidewire. Using a curved stylette, the ventricular lead was advanced through the right ventricular outflow tract into the pulmonary artery and then using a straight stylette, was positioned in the right ventricular apex. Once in position, the ventricular pacing threshold was evaluated in bipolar configuration at a pulse width of 0.5 milliseconds. The final ventricular pacing threshold was 0.3 volts with a current of 0.3 milliamp, 5-volt lead impedance was 647 ohms and R waves were sensed at 8.4 millivolts. Diaphragmatic pacing was not present with a 10-volt bipolar output. Once the lead was in position, it was attached to the anterior pectoralis fascia using 2 sutures of 2-0 silk around the lead collar. The bacitracin-soaked sponge was removed from the pocket, the guidewire was removed from left subclavian vein and hemostasis was obtained. The ICD (Medtronic Visia) was attached to the lead and found to be functioning normally. It was placed in the pocket with the lead coiled beneath it and the incision was closed with a running double subcutaneous closure of 3-0 Vicryl followed by running subcuticular skin closure of 4-0 Vicryl. Bacitracin ointment was placed on the incision and a pressure dressing applied. Defibrillator threshold testing was performed using 50-Hz burst pacing to induce ventricular fibrillation. This was successfully converted with a single 20-joule shock. This is an acceptable defibrillation threshold. The patient tolerated the procedure well, there were no complications and estimated blood loss was 50 mL. The patient was transferred to the telemetry unit for monitoring. The ventricular lead is a Medtronic, model #6947M, serial #[id number] and is a bipolar active fixation steroid-tipped MRI compatible lead. The ICD is a Medtronic Visia AF MRI VR SureScan, model #VTNA2N2, serial #[id number]. The ICD was reprogrammed in the laboratory to final settings. This is an MRI compatible system. PARMINDER
--- NOTE | 2016-08-14 21:18 | Progress Note ---
Subjective Date of Service: Aug 14, 2016. Subjective Pt evaluation today including: conversation w/ patient, conversation w/ family (mother, brother - at bedside), physical exam, chart review, lab review, review of inpatient medication list Pain: chest wall, due to rib fx's PO Intake: normal Voiding: no voiding problems telemetry with couplets and triplets but no sustained dysrhythmia he overall "feels good" today denies cp, sob, bear, orthopnea no focal motor weakness Problem List Medical Problems: (1) Cardiac arrest Status: Acute (2) Rib fractures Status: Acute (3) Ventricular fibrillation Status: Acute Review of Systems Constitutional: No chills, No fever Respiratory: + cough, + wheezing, No sputum Cardiac: + chest pain, + see HPI, No orthopnea Abdomen: No nausea, No pain Objective Vital Signs Date Time Temp Pulse Resp B/P Pulse Ox O2 Delivery O2 Flow Rate FiO2 08/14/16 20:13 68 16 90 Room Air 08/14/16 19:22 36.9 60 18 118/70 94 Room Air 08/14/16 16:03 37.5 56 16 124/76 94 Room Air 08/14/16 16:00 Room Air 08/14/16 15:47 36.8 57 18 122/72 92 Room Air 08/14/16 15:31 64 16 121/81 97 08/14/16 15:26 60 16 127/82 97 Non-Rebreather 15 08/14/16 12:47 36.9 90 18 127/69 98 Room Air 08/14/16 12:20 37.1 68 16 146/73 97 Room Air 08/14/16 12:00 Room Air 08/14/16 08:35 36.9 58 18 127/69 98 08/14/16 08:00 Room Air 08/14/16 07:39 58 16 91 Room Air 08/14/16 04:32 37.0 65 18 132/74 93 Room Air 08/14/16 04:02 Room Air 08/14/16 02:01 77 18 94 BiPAP/CPAP 2.0 08/14/16 00:00 BiPAP 2.0 08/13/16 23:47 36.9 60 18 133/73 93 BiPAP 08/13/16 21:45 72 94 2.0 Physical Exam General Appearance: no apparent distress ENT: pharynx normal Neck: no JVD Respiratory/Chest: no respiratory distress, no accessory muscle use, + crackles (minimal, bases) Cardiovascular: regular rate, rhythm, no gallop, no murmur Abdomen: normal bowel sounds, non tender, soft, no organomegaly Extremities: + pedal edema (trace-1+ b/l ) Neurologic/Psychiatric: alert, oriented x 3 Skin: + rash (left hand, dorsum - smaller in size today), + pertinent finding ( scars on chest wall ) Laboratory Results Last 24 Hours Test 08/14/16 06:34 08/14/16 06:40 08/14/16 11:12 08/14/16 16:13 Bedside Glucose 118 mg/dl 134 mg/dl 117 mg/dl Sodium Level 144 mmol/L Potassium Level 4.4 mmol/L Chloride Level 106 mmol/L Carbon Dioxide Level 29 mmol/L Anion Gap 9.0 mmol/L Blood Urea Nitrogen 54 mg/dl Creatinine 2.30 mg/dl Est Creatinine Clear Calc Drug Dose 42.8 ml/min Estimated GFR () 36.0 Estimated GFR (Non- 31.0 BUN/Creatinine Ratio 23.4 Random Glucose 128 mg/dl Calcium Level 9.1 mg/dl Test 08/14/16 20:34 Bedside Glucose 121 mg/dl Assessment and Plan 56yo male with: 1. s/p v-fib cardiac arrest with successful jehovah's witness of circulation in the field s/p hypothermia protocol in the ICU - remarkable recovery from such. Appreciate previous critical care assistance and ongoing cardiology consultation. ICD placement today with Dr. Centeno. Cont Amiodarone 400mg daily. 2. acute/chronic systolic CHF - agree he is euvolemic or slightly dry. Lasix held for now. Cont BB. If renal function improves consider SONAL or ARB low-dose. 3. COPD with exacerbation - stop IV steroids; place on prednisone taper starting tomorrow; begin with 40mg and taper over 5-7 days to off. 4. pulmonary contusions vs aspiration pneumonia - day #10 of abx today; stop abx after tonight's dose. 5. acute hypoxic resp failure 2nd to #1, #2, #3, #4 - resolved; O2 has been stopped. 6. recent right-sided pneumothorax in the setting of CPR - s/p chest tube, resolved. 7. rib fractures 2nd to CPR - pain controlled. 8. rash, left hand - likely due to infiltrated IV. IMPROVED. Cont current care plan. 9. encephalopathy in setting of #1 - resolved. 10. acute kidney injury - likely ATN in setting of #1 - likely will need prolonged time for recovery. IMPROVING. Fortunately he remains nonoliguric. Daily BMP. 11. hypothyroidism - synthroid. Most recent tsh mildly high. Needs repeat in 4-6 weeks. 12. DVT proph - heparin. 13. hypernatremia - 2nd to over-diuresis - resolved. PT, OT evals appreciated will most definitely need rehab family updated at bedside today Continued [facility] stay due to: ambulation difficulties, multiple IV medications needed, other (ICD placement) Discharge planning: rehab hospital
[2016-08-14] MEDS: CEFAZOLIN IV 2,000 MG in DEXTROSE 5% 50ML 50 ML IV SCH (21:49)
[2016-08-15] VITALS (11 sets, daily range): BP systolic 116–142; BP diastolic 61–77; PULSE 51–72; TEMP 36.4–37.2; O2SAT 90–96
[2016-08-15] MEDS: ALBUTEROL 0.5% NEB SOLN 2.5 MG/0.5 ML VIAL INH SCH ×4 (02:22→20:28)
[2016-08-15] MEDS: LEVOTHYROXINE 25 MCG TAB PO SCH (05:58)
[2016-08-15] MEDS: CEFAZOLIN IV 2,000 MG in DEXTROSE 5% 50ML 50 ML IV SCH ×2 (05:58→16:25)
[2016-08-15] MEDS: HEPARIN SOD 5000 UNIT/0.5 ML CARP SQ SCH ×3 (06:00→20:17)
[2016-08-15] MEDS ORDERED: CEFAZOLIN SOD 1000MG/55 ML D5W IV SCH (06:00)
--- NOTE | 2016-08-15 06:50 | DIAGNOSTIC IMAGING REPORT ---
CHEST 2 VIEWS ROUTINE CLINICAL HISTORY: EXACT TIME ORDERED Evaluate for pneumothorax and lead placement COMPARISON STUDY: 08/11/2016 FINDINGS: Permanent unipolar cardiac pacemaker/defibrillator. Leads in good position. No evidence pneumothorax. Moderate persistent cardiomegaly. IMPRESSION: Patient exercised fibrillator placed with no evidence of pneumothorax. Electronically signed by: Grupo Mulligan M.D. 08/15/2016 6:49 AM Dictated Date/Time: 08/15/2016 6:47 AM
[2016-08-15] MEDS: INSULIN ASPART 100 UNITS/ML 3 ML PEN SC SCH ×4 (07:00→20:13)
[2016-08-15 08:59] LABS: HEMATOCRIT 39.7 % (42-52); MEAN CORPUSCULAR HEMOGLOBIN 29.8 pg (25-34); MEAN CORPUSCULAR HGB CONC 33.5 g/dl (32-36); MEAN PLATELET VOLUME 9.4 fL (7.4-10.4); PLATELET COUNT 247 K/uL (130-400); RED BLOOD COUNT 4.46 M/uL (4.7-6.1); WHITE BLOOD COUNT 12.84 K/uL (4.8-10.8)
[2016-08-15] MEDS: DOCUSATE SODIUM 100 MG CAP PO SCH ×2 (09:00→20:16)
[2016-08-15] MEDS: METOPROLOL SUCC 50MG EXT REL TAB PO SCH (09:00)
[2016-08-15] MEDS: NYSTATIN SUSP 500,000 U/5 ML UDC PO SCH ×4 (09:00→20:15)
[2016-08-15] MEDS: GUAIFENESIN 600 MG TABCR PO SCH ×2 (09:00→20:16)
[2016-08-15] MEDS: POLYETHYLENE (MIRALAX) 17 GM PACK NG SCH ×2 (09:00→20:15)
[2016-08-15] MEDS: AMIODARONE 200 MG TAB PO SCH (09:00)
[2016-08-15] MEDS: PANTOprazole SOD 40 MG TAB PO SCH (09:01)
--- NOTE | 2016-08-15 09:09 | Cardiology Follow-Up ---
Subjective Date of Service: Aug 15, 2016. Pt evaluation today including: conversation w/ patient, physical exam, lab review, review of studies, review of inpatient medication list History of Present Illness This is a very pleasant 56-year-old gentleman who has a long history of nonischemic cardiomyopathy. He works at [employer], while he is working on 2016 he suddenly lost consciousness. EMS workers were nearby and provided CPR within 3 minutes and he was successfully cardioverted although it sounds as though he required 3 defibrillator shocks although each time he regained sinus rhythm but had return of atrial fibrillation. He received lidocaine and was able to maintain sinus rhythm. He did have what appears to be complete neurologic recovery. He was started on amiodarone intravenously which has been transition to oral. His left ventricular ejection fraction has never been severely abnormal although it has been decreased. Here in the hospital on 08/10/2016 he had a moderately to severely dilated left ventricle with left ventricular ejection fraction of 40%. He has had no further arrhythmias since admission. A single-chamber ICD was implanted on 08/14/2016 without difficulty. Today he feels well and has no complaints. Social History Smoking Status: Former Smoker History of Alcohol Use: No Review of Systems Respiratory: + cough, + wheezing, No sputum Cardiac: + chest pain, + see HPI, No orthopnea Medications Cardiovascular: Item Value Date Time Amiodarone HCl 400 mg 08/14/16 0900 (Cordarone Tab) DAILY/PO 08/14/16 0747 Metoprolol 50 mg 08/10/16 0900 Succinate QAM/PO 08/14/16 0748 (Toprol Xl Tab) Aspirin 81 mg 08/05/16 0900 (Aspirin Chew) DAILY/NG 08/14/16 0755 Objective Vital Signs Past 12 Hours Date Time Temp Pulse Resp B/P Pulse Ox O2 Delivery O2 Flow Rate FiO2 08/15/16 08:15 62 16 92 Room Air 08/15/16 08:00 Room Air 08/15/16 07:39 37.1 62 18 142/73 90 Room Air 08/15/16 04:02 Room Air 08/15/16 03:49 36.9 62 22 130/73 93 BiPAP 08/15/16 02:23 67 16 95 BiPAP/CPAP 2.0 08/15/16 00:02 Room Air 08/14/16 23:24 37.0 64 22 132/65 92 BiPAP 08/14/16 21:48 2.0 Last Recorded Weight-Kilograms: 106.700 Intake & Output 8-Hour Column 08/14/16 08/15/16 08/15/16 16:00 00:00 08:00 Intake Total 1040 ml 625 ml Output Total 400 ml 1025 ml Balance 640 ml 625 ml -1025 ml 24-Hour Column 08/15/16 08:00 Intake Total 1665 ml Output Total 1425 ml Balance 240 ml Physical Exam Constitutional: Level of Distress: NAD Lungs: Auscultation: breath sounds normal Cardiovascular: Heart Auscultation: RRR, no murmurs Extremities: no edema The ICD site is clean and dry, no hematoma. Dressing changed. Data Laboratory Results: Last 24 Hours Test 08/14/16 11:12 08/14/16 16:13 08/14/16 20:34 08/15/16 04:44 Bedside Glucose 134 mg/dl 117 mg/dl 121 mg/dl Test 08/15/16 06:50 Bedside Glucose 98 mg/dl Imaging: Chest x-ray shows good lead position, no pneumothorax EKG: Sinus rhythm with intact AV conduction, appropriate ICD inhibition Telemetry reviewed: Sinus rhythm, nonsustained ventricular tachycardia ICD evaluation: Excellent pacing and sensing characteristics, reprogrammed to adjust for rate of nonsustained ventricular tachycardia Assessment and Plan #1. VF arrest: Despite not having severe left ventricular dysfunction he suffered a cardiac arrest for no clear reversible cause. Now postop day #1 ICD implantation for secondary prevention of recurrence. Doing well postop, no significant bleeding, site looks good and device is working well. #2. Nonischemic cardiomyopathy: He has a moderate nonischemic cardiomyopathy and has for many years. He is on metoprolol succinate and now is on amiodarone. For the long run we may need to increase his beta blockade and hopefully discontinue his amiodarone although the amiodarone may be beneficial to treat his ectopy. Beta-blockade may be adequate however. Thank you for allowing me to participate in his care.
[2016-08-15 09:35] LABS: BUN/CREATININE RATIO 20.9 (10-20); CALCIUM 9.1 mg/dl (8.5-10.1); CREATININE 2.3 mg/dl (0.60-1.40); MAGNESIUM 2.5 mg/dl (1.8-2.4); POTASSIUM 3.9 mmol/L (3.5-5.1)
[2016-08-15] MEDS: ASPIRIN 81 MG CHEW NG SCH (10:35)
[2016-08-15] MEDS: LIDODERM (LIDOCAINE) PATCH 5% TD SCH (10:36)
--- NOTE | 2016-08-15 20:13 | Progress Note ---
Subjective Date of Service: Aug 15, 2016. Subjective Pt evaluation today including: conversation w/ patient, conversation w/ family (multiple members - at bedside), physical exam, chart review, lab review, review of studies (cxr), conversation w/ talent consultant (cardiology), review of inpatient medication list Pain: none PO Intake: normal Voiding: no voiding problems tele with 10-beat run of non-sustained VT no symptoms denies sob/bear some cough no chest pain or abd pain feels good Problem List Medical Problems: (1) Cardiac arrest Status: Acute (2) Rib fractures Status: Acute (3) Ventricular fibrillation Status: Acute Review of Systems Constitutional: No fever Respiratory: + cough, No sputum Abdomen: No diarrhea Objective Vital Signs Date Time Temp Pulse Resp B/P Pulse Ox O2 Delivery O2 Flow Rate FiO2 08/15/16 18:57 37.2 64 18 119/68 93 Room Air 08/15/16 16:15 Room Air 08/15/16 15:20 36.8 51 18 124/65 91 Room Air 08/15/16 14:11 72 16 91 Room Air 08/15/16 12:00 Room Air 08/15/16 11:24 37.0 54 18 131/77 93 Room Air 08/15/16 08:15 62 16 92 Room Air 08/15/16 08:00 Room Air 08/15/16 07:39 37.1 62 18 142/73 90 Room Air 08/15/16 04:02 Room Air 08/15/16 03:49 36.9 62 22 130/73 93 BiPAP 08/15/16 02:23 67 16 95 BiPAP/CPAP 2.0 08/15/16 00:02 Room Air 08/14/16 23:24 37.0 64 22 132/65 92 BiPAP 08/14/16 21:48 2.0 08/14/16 20:13 68 16 90 Room Air Physical Exam General Appearance: no apparent distress ENT: pharynx normal Neck: no JVD Respiratory/Chest: no respiratory distress, no accessory muscle use, + rales ( mild, bases), + wheezing (with course BS b/l ) Cardiovascular: regular rate, rhythm, no gallop, no murmur Abdomen: normal bowel sounds, non tender, soft, no organomegaly Extremities: + pedal edema (trace b/l ) Neurologic/Psychiatric: alert, oriented x 3 Skin: + rash (left hand, dorsum - again erythema is improved today), + pertinent finding (dressing intact left upper chest ) Laboratory Results Last 24 Hours Test 08/14/16 20:34 08/15/16 06:50 08/15/16 08:41 08/15/16 11:13 Bedside Glucose 121 mg/dl 98 mg/dl 122 mg/dl White Blood Count 12.84 K/uL Red Blood Count 4.46 M/uL Hemoglobin 13.3 g/dL Hematocrit 39.7 % Mean Corpuscular Volume 89.0 fL Mean Corpuscular Hemoglobin 29.8 pg Mean Corpuscular Hemoglobin Concent 33.5 g/dl RDW Standard Deviation 47.3 fL RDW Coefficient of Variation 14.5 % Platelet Count 247 K/uL Mean Platelet Volume 9.4 fL Sodium Level 144 mmol/L Potassium Level 3.9 mmol/L Chloride Level 107 mmol/L Carbon Dioxide Level 25 mmol/L Anion Gap 12.0 mmol/L Blood Urea Nitrogen 48 mg/dl Creatinine 2.30 mg/dl Est Creatinine Clear Calc Drug Dose 42.8 ml/min Estimated GFR () 36.0 Estimated GFR (Non- 31.0 BUN/Creatinine Ratio 20.9 Random Glucose 153 mg/dl Calcium Level 9.1 mg/dl Magnesium Level 2.5 mg/dl Test 08/15/16 15:55 Bedside Glucose 167 mg/dl Assessment and Plan 56yo male with: 1. s/p v-fib cardiac arrest with successful buddhist of circulation in the field s/p hypothermia protocol in the ICU - remarkable recovery from such with no [employer] disturbance/intact mentation/normal neuro exam. Appreciate previous critical care assistance and ongoing cardiology consultation. s/p ICD placement, POD #1 - cxr w/o complicating pneumothorax. Cont Amiodarone 400mg daily. 2. acute/chronic systolic CHF - compensated. Resume lasix at discharge - 40mg once daily? Cont BB. If renal function improves consider SONAL or ARB low-dose. 3. COPD with exacerbation - prednisone taper. Improving. 4. pulmonary contusions vs aspiration pneumonia - completed 10 day course of abx. Now in room air. 5. acute hypoxic resp failure 2nd to #1, #2, #3, #4 - resolved. 6. recent right-sided pneumothorax in the setting of CPR - s/p chest tube, resolved. 7. rib fractures 2nd to CPR - pain controlled. 8. rash, left hand - likely due to infiltrated IV. IMPROVED. Cont current care plan. 9. encephalopathy in setting of #1 - resolved. 10. acute kidney injury - likely ATN in setting of #1 - likely will need prolonged time for recovery. IMPROVING/stable Cr today at 2.3. Fortunately he remains nonoliguric. Daily BMP. 11. hypothyroidism - synthroid. Most recent tsh mildly high. Needs repeat in 4-6 weeks. 12. DVT proph - heparin. dispo - [facility] cardiology feels he can d/c tomorrow family updated Continued [facility] stay due to: ambulation difficulties Discharge planning: rehab hospital
[2016-08-16 01:58] VITALS: PULSE 64; O2SAT 94
[2016-08-16] MEDS: ALBUTEROL 0.5% NEB SOLN 2.5 MG/0.5 ML VIAL INH SCH ×2 (01:58→07:02)
[2016-08-16 04:28] VITALS: BP 118/70; PULSE 64; TEMP 36.6; O2SAT 92
[2016-08-16] MEDS: LEVOTHYROXINE 25 MCG TAB PO SCH (06:23)
[2016-08-16] MEDS: HEPARIN SOD 5000 UNIT/0.5 ML CARP SQ SCH (06:25)
[2016-08-16] MEDS: INSULIN ASPART 100 UNITS/ML 3 ML PEN SC SCH (07:00)
[2016-08-16 07:02] VITALS: PULSE 64; O2SAT 91
[2016-08-16 07:13] LABS: BUN/CREATININE RATIO 18.9 (10-20); CALCIUM 8.7 mg/dl (8.5-10.1); CREATININE 2.2 mg/dl (0.60-1.40); POTASSIUM 4.2 mmol/L (3.5-5.1)
[2016-08-16 07:25] VITALS: BP 119/67; PULSE 60; TEMP 37.1; O2SAT 90
[2016-08-16] MEDS: POLYETHYLENE (MIRALAX) 17 GM PACK NG SCH (08:30)
[2016-08-16] MEDS: DOCUSATE SODIUM 100 MG CAP PO SCH (08:31)
[2016-08-16] MEDS: AMIODARONE 200 MG TAB PO SCH (08:31)
[2016-08-16] MEDS: NYSTATIN SUSP 500,000 U/5 ML UDC PO SCH (08:31)
[2016-08-16] MEDS: METOPROLOL SUCC 50MG EXT REL TAB PO SCH (08:31)
[2016-08-16] MEDS: GUAIFENESIN 600 MG TABCR PO SCH (08:31)
[2016-08-16] MEDS: PANTOprazole SOD 40 MG TAB PO SCH (08:32)
[2016-08-16] MEDS: LIDODERM (LIDOCAINE) PATCH 5% TD SCH (08:33)
[2016-08-16] MEDS: ASPIRIN 81 MG CHEW NG SCH (08:35)
[2016-08-16] MEDS ORDERED: PRVIN525 INH (11:23)
[2016-08-16] MEDS ORDERED: GFNSR600 PO (11:23)
[2016-08-16] MEDS ORDERED: CRD200 PO (11:23)
[2016-08-16] MEDS ORDERED: NYSS5 PO (11:23)
[2016-08-16] MEDS ORDERED: PRED10TA PO (11:23)
[2016-08-16] MEDS ORDERED: PRT40 PO (11:23)
[2016-08-16] MEDS ORDERED: LDDP5 TD (11:23)
[2016-08-16] MEDS ORDERED: MRLP17 NG (11:23)
[2016-08-16] MEDS ORDERED: CLC100 PO (11:23)
[2016-08-16 11:24] VITALS: BP 119/67; PULSE 60; TEMP 37.1; O2SAT 90
[2016-08-16] MEDS ORDERED: TRAM-10 PO (11:24)
--- NOTE | 2016-08-16 11:35 | Discharge Instructions ---
Discharge Instructions Admission Reason for Admission: Cardiac Arrest Discharge Discharge Diagnosis / Problem: Cardiac Arrest, s/p ICD placement Discharge Goals Goal(s): Increase independence, Improve disease control, Learn about illness, Diagnostic testing, Therapeutic intervention, Prevent Disease Progression Activity Recommendations Activity Level: Up Ad Little, Assistance Required Therapies: Physical Therapy, Occupational Therapy ACTIVITY RECOMMENDATIONS following ICD implantation: * Do not raise the LEFT arm over the head for 2 weeks. SPECIAL CARE INSTRUCTIONS: * If bleeding occurs, apply direct pressure to area for 5 minutes. * Call your doctor if you have severe pain, fever, drainage or bleeding at site. * Keep dressing on and dry for 48 hours then remove. * Keep any scheduled doctor's appointment. * Implant Card - hand held device with website information given. SKIN IRRITATION: * You may experience some redness and/or swelling in the area where radiation was administered. If any skin irritation occurs, please contact your family physician. . Additional Information Patient informed of condition: Yes Advance Directives: No DNR: No Level of Care: Acute Rehab Communicable Disease: No Prognosis: Stable Oxygen at (LPM): none Arguelles Catheter: No Instructions / Follow-Up Instructions / Follow-Up From Dr. Castellon - 1. see Dr. Rod or one of his associates within 5-7 days ([facility] ). 2. [address] Dr. Centeno, [facility] Electrophysiology, within 1 week for ICD check. 3. may need nephrology referral within 1-2 weeks if creatinine does not completely normalize; will defer that decision to medical science liaison of [facility]. Congestive heart failure instructions: Call 911 and go to the Emergency Room if: * You have tightness or pain in your chest that does not go away with rest or Nitroglycerin * You are very short of breath even with rest Call your doctor if any of the following symptoms or problems start or get worse: * Shortness of breath or difficulty breathing * Wake up at night short of breath * Chest pain * Cough * Swelling of your hands, fee, or legs * More fatigued or tired with your normal activity * Palpitations - sudden fast heart beats WEIGHT * Weigh yourself every morning after using the bathroom. * Use the same scale. * Wear the same amount of clothing. * Write your weight down on your chart. * Call your doctor if you gain more than 2-3 pounds in 1-2 days* MEDICATIONS * Use this discharge instruction sheet for instructions. * Take your medications at the time your doctor ordered. * Do not skip a dose of your medicines. * If you miss a dose of medicine, take as soon as possible, but DO NOT DOUBLE A DOSE. * Read your medicine information when you get home. * Know all of the side effects of your medicine. * Call your doctor's office if you have any side effects. * Be sure all of your doctors know what medicine and herbs you take (including cold, flu, and herbal medicine). * Pain Medicine: If you do not get relief from your pain, please call your doctor for help. Take the following with you to your follow-up doctor appointments: * Weight Chart * Medication List * List of questions Do not drink excessive alcohol, beer or wine. *If your defibrillator ever fires/shocks you seek medical attention right away* Current Hospital Diet Patient's current hospital diet: AHA Diet (Heart Healthy) Discharge Diet Recommended Diet: Low Sodium Diet (2gm Na), Diabetes Type 2 Diet Fluid Restriction: 1500 ml (6 cups) Procedures Procedures Performed: 1. mechanical ventilation 2. central line placement 3. right sided chest tube 4. ICD implantation Pending Studies Studies pending at discharge: no Physician Orders On Transfer Special Precautions: left arm restrictions - see above. Dressing Changes: ICD site, left chest - can remove dressing on 08/17/16. IV Therapy: none Vital Signs: per [facility] routine O2 sat checks twice a day fingerstick blood sugars before meals and at bedtime Weigh: every AM on standing scale. notify medical science liaison of weight gain of more than 2-3 pounds in 1-2 days immediately. Additional Orders: 1. Check BMP and magnesium level on 08/18/16 and at least weekly thereafter. Notify MD of results. 2. Repeat CBC with diff on 08/18/16. 3. Needs repeat TSH in 2-3 weeks to ensure normal thyroid function on synthroid. POLST Discussion: Not Applicable Laboratory Results Hemoglobin A1c Test 08/05/16 06:33 Range/Units Estimated Average Glucose 140 mg/dl Hemoglobin A1c 6.5 H 4.5-5.6 % Lipid Panel Test 08/11/16 07:02 Range/Units Triglycerides Level 133 0-150 mg/dl Cholesterol Level 104 0-200 mg/dl HDL Cholesterol 23 mg/dl Cholesterol/HDL Ratio 4.5 LDL Cholesterol, Calculated 54 mg/dl Medical Emergencies . Who to Call and When: Medical Emergencies: If at any time you feel your situation is an emergency, please call 911 immediately. . Non-Emergent Contact Non-Emergency issues call your: Client Administrator Call Non-Emergent contact if: temperature is above 100.5, your pain is not controlled, your pain is worsening, your pain is unusual for you, your pain is concerning you, wound has increased drainage, wound has increased redness, wound has increased pain, you have any medication questions . . "Provider Documentation" section prepared by Bradford Castellon. Core Measure Problem Core Measures: None
[2016-08-16] MEDS ORDERED: FURO40TA3 PO (11:36)
--- NOTE | 2016-08-16 14:37 | SURGICAL CONSULTATION ---
DATE: 08/16/2016 DATE: 08/16/2016. Mr. Frias is a 56-year-old male who underwent CPR for more than 20 minutes when he was found to have a cardiac arrest from ventricular fibrillation. He apparently suffered a fractured manubrium. Dr. Bertram Mathews asked if we would evaluate this patient. I went to the patient's room in 240 bed 1 on the afternoon of 08/16/2016 and the patient had been discharged. We will follow him up in the office to evaluate his sternum next week.
--- NOTE | 2016-08-16 17:59 | Cardiology Follow-Up ---
Subjective Date of Service: Aug 16, 2016. Pt evaluation today including: conversation w/ patient, conversation w/ family , physical exam, lab review, review of studies, review of inpatient medication list, conversation w/ attending History of Present Illness This is a very pleasant 56-year-old gentleman who has a long history of nonischemic cardiomyopathy. He works at [employer], while he is working on 2016 he suddenly lost consciousness. EMS workers were nearby and provided CPR within 3 minutes and he was successfully cardioverted although it sounds as though he required 3 defibrillator shocks although each time he regained sinus rhythm but had return of atrial fibrillation. He received lidocaine and was able to maintain sinus rhythm. He did have what appears to be complete neurologic recovery. He was started on amiodarone intravenously which has been transition to oral. His left ventricular ejection fraction has never been severely abnormal although it has been decreased. Here in the hospital on 08/10/2016 he had a moderately to severely dilated left ventricle with left ventricular ejection fraction of 40%. He has had no further arrhythmias since admission. A single-chamber ICD was implanted on 08/14/2016 without difficulty. Today he feels well and has no complaints. Social History Smoking Status: Former Smoker History of Alcohol Use: No Review of Systems Respiratory: + cough, No sputum Cardiac: + chest pain, + see HPI, No orthopnea Objective Vital Signs Past 12 Hours Date Time Temp Pulse Resp B/P Pulse Ox O2 Delivery O2 Flow Rate FiO2 08/16/16 11:24 37.1 60 18 90 Room Air 08/16/16 08:03 Room Air 08/16/16 07:25 37.1 60 18 119/67 90 Room Air 08/16/16 07:02 64 16 91 Room Air Last Recorded Weight-Kilograms: 106.400 Intake & Output 8-Hour Column 08/15/16 08/16/16 08/16/16 16:00 00:00 08:00 Intake Total 300 ml 120 ml 200 ml Output Total 875 ml Balance 300 ml 120 ml -675 ml 24-Hour Column 08/16/16 08:00 Intake Total 620 ml Output Total 875 ml Balance -255 ml Physical Exam Constitutional: Level of Distress: NAD Lungs: Auscultation: breath sounds normal Cardiovascular: Heart Auscultation: RRR, no murmurs Extremities: no edema The ICD site is clean and dry, no hematoma. Dressing changed. Data Laboratory Results: Last 24 Hours Test 08/15/16 20:01 08/16/16 06:15 08/16/16 06:46 Bedside Glucose 142 mg/dl 94 mg/dl Sodium Level 147 mmol/L Potassium Level 4.2 mmol/L Chloride Level 110 mmol/L Carbon Dioxide Level 28 mmol/L Anion Gap 9.0 mmol/L Blood Urea Nitrogen 42 mg/dl Creatinine 2.20 mg/dl Est Creatinine Clear Calc Drug Dose 44.6 ml/min Estimated GFR () 38.0 Estimated GFR (Non- 32.7 BUN/Creatinine Ratio 18.9 Random Glucose 101 mg/dl Calcium Level 8.7 mg/dl Assessment and Plan #1. VF arrest: Despite not having severe left ventricular dysfunction he suffered a cardiac arrest for no clear reversible cause. Now postop day #3 ICD implantation for secondary prevention of recurrence. Doing well postop, no significant bleeding, site looks good and device is working well. #2. Nonischemic cardiomyopathy: He has a moderate nonischemic cardiomyopathy and has for many years. He is on metoprolol succinate and now is on amiodarone. For the long run we may need to increase his beta blockade and hopefully discontinue his amiodarone although the amiodarone may be beneficial to treat his ectopy. Beta-blockade may be adequate however. I will arrange outpatient follow-up of his ICD. Thank you for allowing me to participate in his care.
--- NOTE | 2016-08-16 18:23 | Discharge Summary ---
Discharge Summary Date of Service Aug 16, 2016. Discharge Summary Admission Date: Aug 04, 2016 at 22:40 Discharge Date: Aug 16, 2016 Discharge Disposition: Rehab ([facility]) Principal Diagnosis: ventricular fibrillation cardiac arrest Problems/Secondary Diagnoses: 1. acute hypoxic respiratory failure 2nd to cardiac arrest 2. acute/chronic systolic CHF, EF 40% 3. nonischemic cardiomyopathy; normal coronaries on cath at [facility] in the past 4. pre-T2DM / borderline full-blown T2DM 5. HTN 6. pulmonary contusions 2nd to CPR 7. multiple rib fractures 2nd to CPR 8. manubrium fracture 2nd to CPR 9. right-sided pneumothorax due to CPR s/p chest tube - resolved 10. acute kidney failure 2nd to ATN in setting of cardiac arrest; discharge Cr 2.2 11. aspiration pneumonia - resolved 12. ANISA on CPAP 13. severe deconditioning 14. hypothyroidism 15. h/o paroxysmal ventricular tachycardia 16. mild-moderate mitral regurgitation. 17. learning disability 18. hyperkalemia, hypokalemia, hypernatremia, and hypophosphatemia - all resolved 19. mild transaminitis 2nd to shock liver - resolved 20. encephalopathy 2nd to cardiac arrest - resolved 21. IV infiltration / local reaction, left hand (dorsum) - resolving Immunizations: Have You Had Influenza Vaccine: No History of Tetanus Vaccine?: No History of Pneumococcal: No History of Hepatitis B Vaccine: No Procedures: 1. chest CT - IMPRESSION: 1. Bilateral anterior rib fractures as described above, right greater than left. There is an associated small to moderate right-sided pneumothorax and right anterior chest wall subcutaneous emphysema. 2. There is also a mildly displaced manubrial fracture. 3. Patchy areas of consolidation within the bilateral lungs posteriorly favor pulmonary contusions. Superimposed atelectasis and/or aspiration could also have a similar appearance. 2. head CT x 2 3. renal u/s - normal 4. hypothermia protocol due to cardiac arrest 5. intubation with mechanical ventilation 6. chest tube placement, right 7. central line placement 8. ICD implantation - Dr. Derek Centeno 9. echo x 2; 2nd echo findings -- -- Conclusions -- 1. Moderately to severely dilated left ventricle with moderately reduced systolic function. Estimated EF 40%. Mild global hypokinesis with severe hypokinesis of mid inferolateral wall. Mild concentric left ventricular hypertrophy. 2. The right ventricle is mildly dilated. The right ventricular systolic function is normal. 3. Mild biatrial dilation. 4. Moderate mitral regurgitation. 5. Limited 2D echo with color Doppler and limited spectral Doppler, per request. 6. Compared to prior study on 08/04/2016, LV systolic function appears mildly improved. 10. EEG x 3 - each without evidence of seizure activity 11. radial arterial line Consultations: 1. critical care - Flaco Pruitt DO 2. cardiology - Aubrey Pettit MD / Sushil Rod MD 3. PT, OT 4. electrophysiology - Derek Centeno MD Medication Reconciliation New Medications: Furosemide (Lasix) 40 Mg Tab 1 TAB PO QAM for 30 Days, #30 TAB 5 Refills Prednisone Tab (Prednisone) 10 Mg Tab 10 MG PO DIRECTED, #12 TAB 0 Refills starting 08/17/16 - take 3 tabs daily x 2 days, then 2 tabs daily x 2 days, then 1 tab daily x 2 days, then stop. Take with food. Tramadol (Ultram) 50 Mg Tab 50 MG PO Q6H PRN for Pain, #30 TAB 0 Refills Albuterol Sulf (Albuterol Sulfate) 2.5 Mg/0.5 Ml Nebu 2.5 MG INH Q6H for 10 Days, 0 Refills Amiodarone HCl (Amiodarone HCl) 200 Mg Tab 400 MG PO DAILY for 30 Days, #60 TAB 5 Refills Docusate Sodium (Docusate Sodium) 100 Mg Cap 100 MG PO BID, #60 CAP 1 Refill Guaifenesin Ext Rel (Mucinex Ext Rel) 600 Mg Tabcr 600 MG PO Q12 for 10 Days, 0 Refills Lidocaine (Lidocaine) 1 Patch Tdsy 3 PATCH TD QAM, #60 1 Refill apply up to 3 patches at sites of pain on chest wall; leave for 12 hours, remove for 12 hours. Nystatin (Nystatin) 5 Ml Susp 5 ML PO QID for 7 Days, 0 Refills Pantoprazole (Pantoprazole Sodium) 40 Mg Tab 40 MG PO QAM, #30 TAB 2 Refills Polyethylene (Miralax) 17 Gm Pow 17 GM NG DAILY, #30 1 Refill Continued Medications: Aspirin (Aspirin) 81 Mg Tab 81 MG PO DAILY Fluticasone Propionate (Nasal) (Flonase) 50 Mcg/Act Spr 2 SPRAYS SUNNY DAILY Levothyroxine Sodium (Synthroid) 25 Mcg Tab 25 MCG PO DAILY, TAB Metoprolol Succinate (Metoprolol Succinate ER) 50 Mg Tabcr 50 MG PO DAILY Discontinued Medications: Lisinopril (Lisinopril) 10 Mg Tab 10 MG PO DAILY Referrals At Discharge Follow up Referrals: Machine Filler Shredder Referral - Within 1 Week with Derek Centeno M.D. Physician Referral - Within 1 Week with Sushil Rod M.D. Discharge Exam Physical Exam: General Appearance: no apparent distress, + obese ENT: pharynx normal Neck: no JVD Respiratory/Chest: no respiratory distress, no accessory muscle use, + rales (minimal bases b/l ) Cardiovascular: regular rate, rhythm, no gallop, normal peripheral pulses, + systolic murmur (1/6 LSB) Abdomen / GI: normal bowel sounds, non tender, soft, no organomegaly Extremities: + pedal edema (trace b/l ) Neurologic/Psychiatric: no motor/sensory deficits, alert, normal mood/affect , normal reflexes, oriented x 3 Skin: + pertinent finding (dorsum of left hand - irregularly shaped area of erythema, less in diameter from previous exams, but no cellulitis; ICD site left upper chest with clean incision, no drainage, no erythema, no hematoma ) Hospital Course HISTORY OF PRESENT ILLNESS: This is a 56-year-old male with a history of nonischemic cardiomyopathy. The patient was working at [employer] when he collapsed on the floor. He did not have a pulse and CPR was started and the EMS service was called. The patient received 22 minutes of chest compressions, 3 doses of epinephrine and a dose of lidocaine and was shocked 3 times throughout the resuscitation process due to ventricular fibrillation. Spontaneous circulation was ultimately restored. He was evaluated in the Emergency Department by the bicycle service technician and placed on amiodarone. He was also placed on hypothermia protocol and subsequently evaluated by the cook house supervisor. The patient's vital signs did stabilize initially with pressor support. He was exhibiting movement of all 4 extremities and breathing over the vent following resuscitation. An echocardiogram was performed in the Emergency Department revealing an EF of approximately 25% with global hypokinesis. The patient is currently being transferred to the intensive care unit for further management. He is unable to provide any information as he is sedated and intubated at the time of admission. While receiving CPR, the patient sustained multiple anterior rib fractures and manubrial fracture in addition to a right-sided pneumothorax and pneumomediastinum. He had a chest tube placed on arrival to the Emergency Department. HOSPITAL COURSE: After presentation to [facility] he was admitted to the ICU and placed on the hypothermia protocol. His right-sided pneumothorax was treated with a chest tube, central line & arterial line were placed, and he underwent supportive care measures including a brief period of requiring pressors. He was maintained on amiodarone infusion for several days while on the ventilator. Multiple EEGs showed no evidence of seizure activity. CT head on 2 occasions showed no evidence of hypoxic-ischemic event. He was treated for probable aspiration pneumonia with IV antibiotics and steroids. On 08/08/16 he was successfully extubated from the ventilator. After extubation he made a remarkable recovery from his cardiac arrest with no apparent OUTREACH ASSOCIATE disturbance. Mentation was intact and his neurological exam remained normal for the remainder of his stay. He was ultimately transitioned to the telemetry floor where he continued to improve on all fronts. Dr. Derek Centeno was consulted from who performed ICD implantation without incident. He received PT&OT services during his stay both of whom recommended inpatient rehab following discharge. In addition, the following issues were addressed while here - 1. acute/chronic systolic CHF - he was treated with IV diuretics intermittently throughout his stay and at discharge appears euvolemic. He will continue on toprol xl and lasix 40mg daily. If creatinine improves SONAL or ARB should be considered. He will need fluid/salt restriction along with daily weights following discharge. Of note - initial echo early in his stay showed EF of 25%, improving to 40% on a subsequent echo. 2. pulmonary contusions vs aspiration pneumonia - he completed in total 10 days of IV/PO antibiotics for the latter. O2 was weaned off prior to discharge. He will need to be monitored for an O2 requirement with activity at [facility]. He is completing a prednisone taper at discharge for his recent respiratory failure. 3. rib fractures - treated with lidoderm patches and pain medications as needed. 4. manubrium fracture - treated conservatively while here. He will need follow -up with Dr. Heladio Sauceda, thoracic surgery, after discharge for this. 5. acute renal failure / acute kidney injury - likely ATN in the setting of his cardiac arrest. Peak creatinine was 3.1 improving to 2.2 at discharge. SONAL was held his entire stay. While recovering from the ATN recommend avoiding nephrotoxic agents including NSAIDs, etc. If creatinine fails to improve beyond the current level please consider nephrology consultation. Repeat BMP in about 48 hours and weekly thereafter is recommended to trend his creatinine and electrolytes. 6. rash, left hand - likely due to infiltrated IV. This IMPROVED while here. 7. hypothyroidism - remains on low-dose synthroid. Most recent TSH was mildly high. Recommend repeat TSH in 2-3 weeks after discharge and if still high adjustment of synthroid as necessary. 8. pre-DM / early T2DM - hemoglobin a1c was 6.5%. He was managed with insulin much of his stay but did not require such in the days leading up to discharge. I suspect his early T2DM can be diet-controlled after discharge. Total Time Spent: Greater than 30 minutes This includes examination of the patient, discharge planning, medication reconciliation, and communication with other providers. Discharge Instructions Please refer to the electronic Patient Visit Report (Discharge Instructions) for additional information. Follow-Up 1. Sushil Rod MD - [facility] - within 1 week 2. Derek Centeno MD - [facility]/EP - within 2 weeks 3. Heladio Sauceda MD - [facility] Thoracic Surgery - within 2 weeks 4. Sree Raza MD - PCP - after release from [facility] Additional Copies To Sree Raza M.D.; [facility]; Sree Peres M.D.; Derek Centeno M.D.; Heladio Sauceda MD; Sushil Rod M.D.
[2016-10-04] MEDS ORDERED: ATOR-24 PO (14:03)
[2016-10-04] MEDS ORDERED: AMIO200T4 PO (14:03)
[2017-02-20] MEDS ORDERED: LISI-789 PO (09:53)
[2017-02-20] MEDS ORDERED: LEVO75TA PO (09:53)
== END 2016-08-16 14:00 | DRG 226 ==
LOC: ENRESERVTM → ENRESERVDT → EDBD 20:03 → C.EDB 20:04 → C.MSICU 22:40 → C.2T 08-10 10:22
PROVIDERS: ADMIT Internal Medicine; ATTEND Internal Medicine
PROC: 0W9930Z Drainage of Right Pleural Cavity with Drainage Device, Percutaneous Approach (ICD-10-PCS; 2016-08-04)
PROC: 05H533Z Insertion of Infusion Device into Right Subclavian Vein, Percutaneous Approach (ICD-10-PCS; 2016-08-04)
PROC: 03HC33Z Insertion of Infusion Device into Left Radial Artery, Percutaneous Approach (ICD-10-PCS; 2016-08-04)
PROC: 5A1945Z Respiratory Ventilation, 24-96 Consecutive Hours (ICD-10-PCS; 2016-08-05)
PROC: 02H Heart and Great Vessels, Insertion (ICD-10-PCS; principal; 2016-08-14 14:14)
PROC: 4B02XTZ Measurement of Cardiac Defibrillator, External Approach (ICD-10-PCS; principal; 2016-08-14 14:14)
PROC: 0JH608Z Insertion of Defibrillator Generator into Chest Subcutaneous Tissue and Fascia, Open Approach (ICD-10-PCS; principal; 2016-08-14 14:14)
DX: I46.9 Cardiac arrest, cause unspecified (principal); G93.41 Metabolic encephalopathy; N17.0 Acute kidney failure with tubular necrosis; J69.0 Pneumonitis due to inhalation of food and vomit; I50.23 Acute on chronic systolic (congestive) heart failure; J96.01 Acute respiratory failure with hypoxia; I42.9 Cardiomyopathy, unspecified; S22.43XA Multiple fractures of ribs, bilateral, initial encounter for closed fracture; S27.322A Contusion of lung, bilateral, initial encounter; S27.0XXA Traumatic pneumothorax, initial encounter; T79.7XXA Traumatic subcutaneous emphysema, initial encounter; S22.21XA Fracture of manubrium, initial encounter for closed fracture; Y84.8 Other medical procedures as the cause of abnormal reaction of the patient, or of later complication, without mention of misadventure at the time of the procedure; E87.0 Hyperosmolality and hypernatremia; I10 Essential (primary) hypertension; E87.6 Hypokalemia; E87.5 Hyperkalemia; R21 Rash and other nonspecific skin eruption; E66.9 Obesity, unspecified; E83.39 Other disorders of phosphorus metabolism; I47.2 Ventricular tachycardia; F81.9 Developmental disorder of scholastic skills, unspecified; E83.51 Hypocalcemia; I48.91 Unspecified atrial fibrillation; I34.0 Nonrheumatic mitral (valve) insufficiency; G47.33 Obstructive sleep apnea (adult) (pediatric); I49.01 Ventricular fibrillation; E03.9 Hypothyroidism, unspecified; E11.65 Type 2 diabetes mellitus with hyperglycemia; Z79.82 Long term (current) use of aspirin; Z79.4 Long term (current) use of insulin; Z90.49 Acquired absence of other specified parts of digestive tract; Z87.891 Personal history of nicotine dependence; Z83.3 Family history of diabetes mellitus; Z82.49 Family history of ischemic heart disease and other diseases of the circulatory system

== ENCOUNTER → 2016-08-23 | Outpatient (CLI) | payer OTHER, MEDICARE ==
[~2016-08-23] MED LIST changes: +AMIO200T4 PO; +ATOR-24 PO; +CLC100 PO; +CRD200 PO; -FENTANYL CITRATE 50 MCG/1 ML 20 ML AMP IV ONE; +FURO40TA3 PO; +GFNSR600 PO; +LDDP5 TD; +LEVO75TA PO; -LISI-461 PO; +LISI-789 PO; -MIDAZOLAM HCL 5 MG/ML 2ML VIAL IV ONE; +MRLP17 NG; +NYSS5 PO; +PRED10TA PO; +PRT40 PO; +PRVIN525 INH; -SODIUM CHLORIDE 0.9% 10ML FLUSH IV ONE; +TRAM-10 PO
--- NOTE | 2016-08-23 11:15 | DIAGNOSTIC IMAGING REPORT ---
TWO VIEW CHEST CLINICAL HISTORY: Pacemaker check. FINDINGS: PA and lateral chest radiographs are compared to study dated 08/15/2016. The PA view is degraded by apical lordotic positioning. A single lead cardiac AICD is unchanged in position and partially obscures the left upper chest. The lead appears intact. The heart is mildly enlarged. The pulmonary vasculature is noncongested. The lungs and pleural spaces are clear. There is no pneumothorax. The bony thorax appears intact. Degenerative change is noted in the thoracic spine. IMPRESSION: 1. A single lead cardiac AICD is unchanged in position. The lead appears intact. 2. Cardiac enlargement. There is no radiographic evidence of congestive failure. 3. The lungs are clear. Electronically signed by: Juan Manuel Garcia M.D. 08/23/2016 11:14 AM Dictated Date/Time: 08/23/2016 11:13 AM
--- NOTE | 2016-08-28 08:27 | CODING QUERY NO DIAGNOSIS ---
TREATMENT RENDERED WITHOUT A DIAGNOSIS To promote full compliance with coding requirements relating to patient care, physician participation is requested in all cases of certified coder uncertainty. Please assist us with providing a diagnosis/symptom for the test(s) below: A diagnosis/symptom was not documented on your Order. A valid diagnosis/symptom is required to bill all insurances. Please remember that we are unable to code a diagnosis of rule out, probable, possible, questionable, or suspected. Tests that require a diagnosis: DOS: 08/23/16 * CHEST X-RAY DIAGNOSIS: Provider Signature: Date: Thank you Ana [facility] Information Management Once completed, please kindly fax back to [phone] For questions please call [phone]
== END | disposition home or self-care (01) ==
LOC: C.RAD 10:37
PROVIDERS: ATTEND Nurse Practitioner
DX: S22.39XA Fracture of one rib, unspecified side, initial encounter for closed fracture (principal); X58.XXXA Exposure to other specified factors, initial encounter; Z87.09 Personal history of other diseases of the respiratory system; Z95.810 Presence of automatic (implantable) cardiac defibrillator; I51.7 Cardiomegaly

== ENCOUNTER → 2016-08-31 | Outpatient (CLI) | payer OTHER, MEDICARE ==
[2016-08-31 15:44] LABS: URINE APPEARANCE CLEAR (CLEAR); URINE BILIRUBIN NEG (NEG); URINE COLOR YELLOW; URINE NITRITE NEG (NEG); URINE SPECIFIC GRAVITY 1.007 (1.000-1.030); UROBILINOGEN NEG (NEG)
[2016-08-31 15:45] LABS: MEAN CELL VOLUME 90.2 fL (80-100); MEAN CORPUSCULAR HEMOGLOBIN 30.7 pg (25-34); MEAN PLATELET VOLUME 10.5 fL (7.4-10.4); PLATELET COUNT 179 K/uL (130-400); RED BLOOD COUNT 4.99 M/uL (4.7-6.1)
[2016-08-31 15:49] LABS: MANUAL MICROSCOPIC REQUIRED? NO; REVIEW REQ? NO
[2016-08-31 16:02] LABS: BLOOD UREA NITROGEN 31 mg/dl (7-18); CALCIUM 9.5 mg/dl (8.5-10.1); CARBON DIOXIDE 31 mmol/L (21-32); CHLORIDE 101 mmol/L (98-107); GLUCOSE 127 mg/dl (70-99); PHOSPHORUS 3.1 mg/dl (2.5-4.9); POTASSIUM 3.3 mmol/L (3.5-5.1); SODIUM 142 mmol/L (136-145)
== END | disposition home or self-care (01) ==
LOC: C.LAB1850 13:58
PROVIDERS: ATTEND Internal Medicine Nephrology
DX: N17.9 Acute kidney failure, unspecified (principal)

== ENCOUNTER → 2016-09-07 | Outpatient (CLI) | payer OTHER, MEDICARE ==
[2016-09-07 10:52] LABS: HEMATOCRIT 41.5 % (42-52); MEAN CELL VOLUME 89.4 fL (80-100); MEAN CORPUSCULAR HEMOGLOBIN 30.2 pg (25-34); MEAN CORPUSCULAR HGB CONC 33.7 g/dl (32-36); MEAN PLATELET VOLUME 10.2 fL (7.4-10.4); PLATELET COUNT 185 K/uL (130-400); RED BLOOD COUNT 4.64 M/uL (4.7-6.1); WHITE BLOOD COUNT 5.45 K/uL (4.8-10.8)
[2016-09-07 11:49] LABS: ESTIMATED AVERAGE GLUCOSE 146 mg/dl; HA1C FLAG Normal (Normal)
[2016-09-07 13:42] LABS: ALT/SGPT 72 U/L (12-78); AST/SGOT 38 U/L (15-37); BLOOD UREA NITROGEN 19 mg/dl (7-18); BUN/CREATININE RATIO 10.4 (10-20); CALCIUM 9.5 mg/dl (8.5-10.1); CARBON DIOXIDE 34 mmol/L (21-32); CHLORIDE 103 mmol/L (98-107); GLUCOSE 101 mg/dl (70-99); POTASSIUM 3.9 mmol/L (3.5-5.1); SODIUM 142 mmol/L (136-145)
[2016-09-07 13:47] LABS: CHOLESTEROL/HDL RATIO 4.2; PROSTATE SPECIFIC ANTIGEN 1.62 ng/ml (0.000-4.000)
[2016-09-07 13:52] LABS: ALKALINE PHOSPHATASE 81 U/L (45-117)
[2016-09-11 18:28] LABS: AMIODARONE 0.8 mcg/mL (1.5-2.5); DESMETHYLAMIODARONE 0.7 mcg/mL (1.5-2.5)
--- NOTE | 2016-09-24 06:46 | CODING QUERY MEDICAL NECESSITY ---
SUPPORTING DIAGNOSIS NEEDED Dr. Rod, A supporting diagnosis is required for the test/procedure performed on this patient in order for us to be reimbursed by the patient's insurance. Please provide a supporting diagnosis for the following test/procedure listed below next to the test name along with your signature. *If there is no additional diagnosis for this patient that would support the following test/procedure please document that below next to the test/procedure. Test(s)/Procedure(s) that require a supporting diagnosis: * 49907 PSA DIAGNOSIS: DATE OF SERVICE: 09/07/16 Provider Signature: Date: Thank you Daniel Galicia [facility] Information Management Once completed, please kindly fax back to [phone] For questions please call [phone]
== END | disposition home or self-care (01) ==
LOC: C.LABBC 09:18
PROVIDERS: ATTEND Physician Assistant Medical
DX: Z00.00 Encounter for general adult medical examination without abnormal findings (principal); E03.9 Hypothyroidism, unspecified; I49.01 Ventricular fibrillation; Z51.81 Encounter for therapeutic drug level monitoring; Z79.899 Other long term (current) drug therapy; Z12.5 Encounter for screening for malignant neoplasm of prostate

== ENCOUNTER → 2016-09-28 | Outpatient (CLI) | payer OTHER, MEDICARE ==
[2016-09-28 15:03] LABS: BLOOD UREA NITROGEN 20 mg/dl (7-18); BUN/CREATININE RATIO 12.5 (10-20); CALCIUM 9.4 mg/dl (8.5-10.1); CARBON DIOXIDE 31 mmol/L (21-32); CHLORIDE 108 mmol/L (98-107); GLUCOSE 85 mg/dl (70-99); SODIUM 145 mmol/L (136-145)
[2016-09-28 15:04] LABS: PHOSPHORUS 3.3 mg/dl (2.5-4.9)
== END | disposition home or self-care (01) ==
LOC: C.LABBC 10:10
PROVIDERS: ATTEND Internal Medicine Nephrology
DX: N17.9 Acute kidney failure, unspecified (principal)

== ENCOUNTER → 2016-11-01 | Outpatient (CLI) | payer OTHER, MEDICARE ==
[~2016-11-01] MED LIST changes: -CLC100 PO; -CRD200 PO; -GFNSR600 PO; -LDDP5 TD; -MRLP17 NG; -NYSS5 PO; -PRED10TA PO; -PRT40 PO; -PRVIN525 INH; -TRAM-10 PO
[2016-11-01 11:10] LABS: BLOOD UREA NITROGEN 29 mg/dl (7-18); BUN/CREATININE RATIO 19.1 (10-20); CALCIUM 9.1 mg/dl (8.5-10.1); CARBON DIOXIDE 31 mmol/L (21-32); CHLORIDE 108 mmol/L (98-107); GLUCOSE 102 mg/dl (70-99); POTASSIUM 3.9 mmol/L (3.5-5.1); SODIUM 143 mmol/L (136-145)
[2016-11-01 11:22] LABS: PHOSPHORUS 2.8 mg/dl (2.5-4.9)
== END | disposition home or self-care (01) ==
LOC: C.LAB1850 09:11
PROVIDERS: ATTEND Internal Medicine Nephrology
DX: N17.9 Acute kidney failure, unspecified (principal); E03.9 Hypothyroidism, unspecified

== ENCOUNTER → 2017-01-17 | Outpatient (CLI) | payer OTHER, MEDICARE ==
[2017-01-17 13:28] LABS: BASO % 0.1 %; BASO ABS # 0.01 K/uL (0-0.2); COMPLETE YES; EOS % 2.6 %; HEMATOCRIT 42.4 % (42-52); IG% 0.1 %; LYMPH % 31.7 %; LYMPH ABS # 2.31 K/uL (1.2-3.4); MEAN CORPUSCULAR HEMOGLOBIN 29.9 pg (25-34); MEAN CORPUSCULAR HGB CONC 32.5 g/dl (32-36); MEAN PLATELET VOLUME 10.1 fL (7.4-10.4); MONO % 12.6 %; NEUT % 52.9 %; PLATELET COUNT 175 K/uL (130-400); RED BLOOD COUNT 4.61 M/uL (4.7-6.1); WHITE BLOOD COUNT 7.29 K/uL (4.8-10.8)
[2017-01-17 13:37] LABS: ALT/SGPT 51 U/L (12-78); BLOOD UREA NITROGEN 30 mg/dl (7-18); BUN/CREATININE RATIO 18.5 (10-20); CARBON DIOXIDE 31 mmol/L (21-32); CHLORIDE 107 mmol/L (98-107); GLUCOSE 96 mg/dl (70-99); POTASSIUM 4.1 mmol/L (3.5-5.1); SODIUM 140 mmol/L (136-145)
[2017-01-17 13:46] LABS: ESTIMATED AVERAGE GLUCOSE 126 mg/dl; HA1C FLAG Normal (Normal)
[2017-01-17 13:47] LABS: ALB/GLOB RATIO 1.1 (0.9-2); ALKALINE PHOSPHATASE 39 U/L (45-117); AST/SGOT 28 U/L (15-37)
--- NOTE | 2017-01-22 12:30 | CODING QUERY MEDICAL NECESSITY ---
SUPPORTING DIAGNOSIS NEEDED A supporting diagnosis is required for the test/procedure performed on this patient in order for us to be reimbursed by the patient's insurance. Please provide a supporting diagnosis for the following test/procedure listed below next to the test name along with your signature. *If there is no additional diagnosis for this patient that would support the following test/procedure please document that below next to the test/procedure. Test(s)/Procedure(s) that require a supporting diagnosis: * HEMOGLOBIN A1C DIAGNOSIS: Provider Signature: Date: Thank you Antonia Beth [facility] Information Management Once completed, please kindly fax back to [phone] For questions please call [phone]
== END | disposition home or self-care (01) ==
LOC: C.LABBC 10:47
PROVIDERS: ATTEND Internal Medicine
DX: G47.30 Sleep apnea, unspecified (principal); Z11.59 Encounter for screening for other viral diseases; E11.9 Type 2 diabetes mellitus without complications

== ENCOUNTER → 2017-02-25 | Day surgery (SDC) | payer OTHER, MEDICARE ==
[2017-02-20 09:54] VITALS: BMI 35.0
[~2017-02-25] VITALS: Ht 167.6 cm; Wt 101.8 kg
[~2017-02-25] MED LIST changes: -FURO40TA3 PO; +KETAMINE HCL INJ 50 MG/ML 10 ML VIAL ONE; -LEVO25TA PO; +LIDOCAINE HCL 2% 2 ML VIAL (20MG/ML) ONE; +PROPOFOL IV EMULSION 10 MG/ML 20 ML VIAL IV ONE; +SODIUM CHLORIDE 0.9% 500ML 500 ML IV ONE
[2017-02-25 08:25] VITALS: Ht 167.6 cm; Wt 101.8 kg
--- NOTE | 2017-02-25 08:34 | Endo History and Physical ---
History & Physical Date of Service: Feb 25, 2017. Chief Complaint: screeniing Referring Physician: Dr. Elizabeth Raza History of Present Illness 56 yo CM who presents for screening colonoscopy. Past Surgical History Hx Cardiac Surgery: Yes Hx Internal Defibrillator: Yes (08-14-16) Hx Pacemaker: No Hx Abdominal Surgery: Yes (SANDI, HERNIA REPAIR) Hx of Implantable Prosthesis: No Hx Post-Op Nausea and Vomiting: No Hx Cancer Surgery: No Hx Thoracic Surgery: No Hx Orthopedic: No Hx Urinary Tract Surgery: No Family History None Social History Smoking Status: Never Smoker Hx Substance Use: No Hx Alcohol Use: No Allergies Coded Allergies: Oxycodone (Verified Allergy, Intermediate, RASH, 02/20/17) Current Medications Reported Home Medications Medications Dose Route/Sig Max Daily Dose Days Date Category Zestril (Lisinopril) 2.5 Mg Tab 1 Tab PO QAM 02/20/17 Reported Synthroid (Levothyroxine Sodium) 75 Mcg Tab 75 Mcg PO QAM 02/20/17 Reported Lipitor (Atorvastatin Calcium) 40 Mg Tab 1 Tab PO QAM 10/04/16 Reported Cordarone (Amiodarone Hcl) 200 Mg Tab 200 Mg PO BID 10/04/16 Reported Metoprolol Succinate ER (Metoprolol Succinate) 50 Mg Tabcr 50 Mg PO QAM 09/25/13 Reported Flonase (Fluticasone Propionate (Nasal)) 50 Mcg/Act Spr 2 Sprays SUNNY HS 09/25/13 Reported Aspirin 81 Mg Tab 81 Mg PO QAM 09/25/13 Reported Vital Signs Weight (Kilograms): 101.82 Height (Feet): 5 Height (Inches): 6 Date Time Temp Pulse Resp B/P (MAP) Pulse Ox O2 Delivery O2 Flow Rate FiO2 02/25/17 08:29 36.6 72 20 154/70 (98) 97 Room Air Physical Exam General Appearance: WD/WN, no apparent distress Respiratory/Chest: Auscultation: breath sounds normal Cardiovascular: Heart Auscultation: RRR Abdomen: Bowel Sounds: normal Inspection & Palpation: soft, non-distended, no tenderness, guarding & rebound Assessment and Plan Assessment: 56 yo CM who presents for screening colonoscopy. Plan: Proceed with colonoscopy.
--- NOTE | 2017-02-25 09:13 | Discharge Instructions ---
Endoscopy Patient Instructions Date / Procedure(s) Performed Feb 25, 2017. Colonoscopy Allergy Information Coded Allergies: Oxycodone (Verified Allergy, Intermediate, RASH, 02/20/17) Discharge Date / Findings Feb 25, 2017. Colon polyp Diverticulosis Internal hemorrhoids Medication Instructions OK to resume all medications today as prescribed Reported Home Medications Medications Dose Route/Sig Max Daily Dose Days Date Category Zestril (Lisinopril) 2.5 Mg Tab 1 Tab PO QAM 02/20/17 Reported Synthroid (Levothyroxine Sodium) 75 Mcg Tab 75 Mcg PO QAM 02/20/17 Reported Lipitor (Atorvastatin Calcium) 40 Mg Tab 1 Tab PO QAM 10/04/16 Reported Cordarone (Amiodarone Hcl) 200 Mg Tab 200 Mg PO BID 10/04/16 Reported Metoprolol Succinate ER (Metoprolol Succinate) 50 Mg Tabcr 50 Mg PO QAM 09/25/13 Reported Flonase (Fluticasone Propionate (Nasal)) 50 Mcg/Act Spr 2 Sprays SUNNY HS 09/25/13 Reported Aspirin 81 Mg Tab 81 Mg PO QAM 09/25/13 Reported Provider Instructions Activity Restrictions - No exercising or heavy lifting for 24 hours. - Do not drink alcohol the day of the procedure. - Do not drive a car or operate machinery until the day after the procedure. - Do not make any important decisions or sign important papers in 24 hours after the procedure. Following Day: - Return to full activity which may include returning to work/school. Diet Start your diet with liquids and light foods (jello, soup, juice, toast). Then eat your usual diet if not nauseated. Treatment For Common After Affects For mild abdominal pain, bloating, or excessive gas: - Rest - Eat lightly - Lie on right side Follow-Up Information Follow-up with Dr. Elizabeth Raza as scheduled Anesthesia Information What You Should Know You have had a procedure that required some medicine to reduce anxiety and discomfort. This treatment is called moderate sedation. After receiving the treatment, you may be sleepy, but you will be able to breathe on your own. The effects of the treatment may last for several hours. Follow these instructions along with Activity/Diet recommendations noted above: * Do NOT do anything where dizziness or clumsiness would be dangerous. * Rest quietly at home today, then you can be up and about tomorrow. * Have a responsible person stay with you the rest of today. * You may have had an I.V. today. If so, you may take the dressing off later today. Recommendations Call your doctor if: * Trouble breathing * Continuous vomiting for more than 24 hours * Temperature above 101 degrees * Severe abdominal pain or bloating * Pain not relieved by pain medicine ordered * There is increased drainage or redness from any incision * A large amount of rectal bleeding greater than 2-3 tablespoons. (If you had a polyp/s removed or have hemorrhoids, a small amount of blood - from the rectum is to be expected.) * You have any unanswered questions or concerns. IN THE EVENT OF A SERIOUS EMERGENCY, GO TO THE NEAREST EMERGENCY ROOM Your discharge instructions were prepared by provider Len Arteaga. Patient Instructions Signature Page Robbin Frias Patient (or Guardian) Signature/Date: I have read and understand the instructions given to me by my caregivers. Caregiver/RN/Doctor Signature/Date: The above-named patient and/or guardian has received patient instructions on this date. + Original Patient Signature Page (only) stays with chart. Please make copy for patient.
--- NOTE | 2017-02-25 09:19 | GI REPORT ---
Procedure Date: 02/25/2017 8:32 AM Procedure: Colonoscopy Indications: High risk colon cancer surveillance: Personal history of colonic polyps Medicines: Monitored Anesthesia Care Complications: No immediate complications. Estimated Blood Loss: Estimated blood loss: none. Procedure: Pre-Anesthesia Assessment: - Prior to the procedure, a History and Physical was performed, and patient medications and allergies were reviewed. The patient's tolerance of previous anesthesia was also reviewed. The risks and benefits of the procedure and the sedation options and risks were discussed with the patient. All questions were answered, and informed consent was obtained. Prior Anticoagulants: The patient has taken aspirin, last dose was 1 day prior to procedure. ASA Grade Assessment: III - A patient with severe systemic disease. After reviewing the risks and benefits, the patient was deemed in satisfactory condition to undergo the procedure. After I obtained informed consent, the scope was passed under direct vision. Throughout the procedure, the patient's blood pressure, pulse, and oxygen saturations were monitored continuously. The scope was introduced through the anus and advanced to the cecum, identified by appendiceal orifice and ileocecal valve. The colonoscopy was performed without difficulty. The patient tolerated the procedure well. The quality of the bowel preparation was good. The terminal ileum, ileocecal valve, appendiceal orifice, and rectum were photographed. Findings: A 4 mm polyp was found in the sigmoid colon. The polyp was sessile. The polyp was removed with a cold snare. Resection and retrieval were complete. Multiple small-mouthed diverticula were found in the sigmoid colon. Non-bleeding internal hemorrhoids were found during retroflexion. The hemorrhoids were small. Impression: - One 4 mm polyp in the sigmoid colon, removed with a cold snare. Resected and retrieved. - Diverticulosis in the sigmoid colon. - Non-bleeding internal hemorrhoids. Recommendation: - Resume previous diet. - Continue present medications. - Repeat colonoscopy for surveillance based on pathology results. - Return to primary care physician as previously scheduled. Len Arteaga, DO 02/25/2017 9:18:44 AM This report has been signed electronically. Note Initiated On: 02/25/2017 8:32 AM I attest to the content of the Intraoperative Record and orders documented therein, exceptions below
--- NOTE | 2017-02-25 09:39 | Anesthesiology Progress Note ---
Anesthesia Post Op Note Date & Time Feb 25, 2017 at 09:38 Vital Signs Pain Intensity: 0 Vital Signs Past 12 Hours Date Time Temp Pulse Resp B/P (MAP) Pulse Ox O2 Delivery O2 Flow Rate FiO2 02/25/17 09:29 64 20 137/72 (93) 98 Room Air 02/25/17 09:14 68 20 118/64 (82) 99 Room Air 02/25/17 08:29 36.6 72 20 154/70 (98) 97 Room Air Notes Mental Status: alert / awake / arousable, participated in evaluation Pt Amnestic to Procedure: Yes Nausea / Vomiting: adequately controlled Pain: adequately controlled Airway Patency, RR, SpO2: stable & adequate BP & HR: stable & adequate Hydration State: stable & adequate Anesthetic Complications: no major complications apparent
[2017-02-25 09:44] VITALS: BP 121/63; PULSE 71; O2SAT 99
== END | disposition home or self-care (01) ==
LOC: C.GI 07:49
PROVIDERS: ATTEND Internal Medicine
DX: Z12.11 Encounter for screening for malignant neoplasm of colon (principal); D12.5 Benign neoplasm of sigmoid colon; K57.30 Diverticulosis of large intestine without perforation or abscess without bleeding; K64.8 Other hemorrhoids; Z79.82 Long term (current) use of aspirin; Z90.49 Acquired absence of other specified parts of digestive tract; Z86.010 Personal history of colon polyps

== ENCOUNTER → 2017-08-02 | Outpatient (CLI) | payer OTHER, MEDICARE ==
[~2017-08-02] MED LIST changes: -KETAMINE HCL INJ 50 MG/ML 10 ML VIAL ONE; -LIDOCAINE HCL 2% 2 ML VIAL (20MG/ML) ONE; -PROPOFOL IV EMULSION 10 MG/ML 20 ML VIAL IV ONE; -SODIUM CHLORIDE 0.9% 500ML 500 ML IV ONE
== END | disposition home or self-care (01) ==
LOC: C.LABBC 09:24
PROVIDERS: ATTEND Internal Medicine
DX: G47.30 Sleep apnea, unspecified (principal); I42.9 Cardiomyopathy, unspecified; I47.2 Ventricular tachycardia; Z95.810 Presence of automatic (implantable) cardiac defibrillator; I10 Essential (primary) hypertension; E11.9 Type 2 diabetes mellitus without complications; N18.3 Chronic kidney disease, stage 3 (moderate)

== ENCOUNTER → 2018-02-07 | Outpatient (CLI) | payer OTHER, MEDICARE ==
[2018-02-07 13:41] LABS: BASO % 0.1 %; BASO ABS # 0.01 K/uL (0-0.2); EOS % 2.4 %; EOS ABS # 0.17 K/uL (0-0.5); HEMATOCRIT 44.9 % (42-52); HEMOGLOBIN 14.9 g/dL (14.0-18.0); IG# 0.03 K/uL (0.00-0.02); LYMPH ABS # 1.77 K/uL (1.2-3.4); MEAN CELL VOLUME 90.7 fL (80-100); MEAN CORPUSCULAR HEMOGLOBIN 30.1 pg (25-34); MEAN CORPUSCULAR HGB CONC 33.2 g/dl (32-36); MEAN PLATELET VOLUME 9.9 fL (7.4-10.4); MONO % 10.9 %; MONO ABS # 0.77 K/uL (0.11-0.59); NEUT % 61.2 %; NEUT ABS # 4.34 K/uL (1.4-6.5); PLATELET COUNT 213 K/uL (130-400); RED CELL DISTRIBUTION WIDTH CV 13.3 % (11.5-14.5); RED CELL DISTRIBUTION WIDTH SD 44.1 fL (36.4-46.3); WHITE BLOOD COUNT 7.09 K/uL (4.8-10.8)
[2018-02-07 14:13] LABS: HEMOGLOBIN A1C 6.1 % (4.5-5.6)
[2018-02-07 14:22] LABS: ALKALINE PHOSPHATASE 50 U/L (45-117); ALT/SGPT 42 U/L (12-78); AST/SGOT 24 U/L (15-37); BLOOD UREA NITROGEN 20 mg/dl (7-18); CALCIUM 8.9 mg/dl (8.5-10.1); CARBON DIOXIDE 25 mmol/L (21-32); CREATININE 1.43 mg/dl (0.60-1.40); GLUCOSE 107 mg/dl (70-99); POTASSIUM 3.9 mmol/L (3.5-5.1); SODIUM 138 mmol/L (136-145); TOTAL PROTEIN 7.8 gm/dl (6.4-8.2)
== END | disposition home or self-care (01) ==
LOC: C.LABBC 10:08
PROVIDERS: ATTEND Internal Medicine
DX: Z00.00 Encounter for general adult medical examination without abnormal findings (principal); G47.30 Sleep apnea, unspecified; I42.9 Cardiomyopathy, unspecified; E11.9 Type 2 diabetes mellitus without complications; I12.9 Hypertensive chronic kidney disease with stage 1 through stage 4 chronic kidney disease, or unspecified chronic kidney disease; Z95.810 Presence of automatic (implantable) cardiac defibrillator; I47.2 Ventricular tachycardia; N18.3 Chronic kidney disease, stage 3 (moderate); E03.9 Hypothyroidism, unspecified